=== PATIENT | male | born 1950 | race Caucasian/White ===

== ENCOUNTER 2016-12-08 12:07 | Observation (INO) | payer OTHER ==
[~2016-12-08] VITALS: Ht 180.3 cm; Wt 120.0 kg
[~2016-12-08 12:07] MED LIST: ACET-703 PO; ASPI-110 PO; BUSP5TAB PO; CARV3.12 PO; CARV6.252 PO; CITA20TA4 PO; CITA40TA4 PO; DIPH25CA PO; DOXY100C PO; FURO20TA PO; GABA600T PO; MECL-62 PO; OXYC1CAP PO; PANT40TA3 PO; SPIR50TA PO; XIFA550T4 PO
[2016-12-08 12:09] VITALS: BP 161/80; PULSE 61; RESP 16; TEMP 98.5; O2SAT 94
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
[2016-12-08] MEDS ORDERED: SODIUM CHLORIDE 0.9% FLUSH 5 ML FLUSH IV FLUSH PRN (13:15)
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
[2016-12-08] MEDS ORDERED: CITA40TA4 PO (13:32)
[2016-12-08] MEDS ORDERED: LACT10SO5 PO (13:32)
[2016-12-08] MEDS ORDERED: BUSP10TA PO (13:32)
[2016-12-08] MEDS ORDERED: BACL10TA PO (13:32)
[2016-12-08] MEDS ORDERED: GABA800T PO (13:32)
[2016-12-08] MEDS ORDERED: DIAZ5 PO (13:35)
[2016-12-08] MEDS ORDERED: HYDR-3288 PO (13:36)
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
[2016-12-08 13:57] LABS: AUTOMATED NEUTROPHIL # 8.3 TH/MM3 (1.8-7.7); BASOPHIL # 0.1 TH/MM3 (0-0.2); BASOPHIL % 0.5 % (0.0-2.0); EOSINOPHIL # 0.2 TH/MM3 (0-0.4); EOSINOPHIL % 1.6 % (0.0-4.0); HEMATOCRIT 41.2 % (39.0-51.0); HEMO FLAGS DIFF FINAL; LYMPH % 13.3 % (9.0-44.0); LYMPHOCYTE # 1.5 TH/MM3 (1.0-4.8); MEAN CELL VOLUME 94.1 FL (80.0-100.0); MEAN CORPUSCULAR HEMOGLOBIN 31.5 PG (27.0-34.0); MEAN CORPUSCULAR HGB CONC 33.5 % (32.0-36.0); MONO % 9.9 % (0.0-8.0); NEUT % 74.7 % (16.0-70.0); PLATELET COUNT 112 TH/MM3 (150-450); RED BLOOD COUNT 4.38 MIL/MM3 (4.50-5.90); RED CELL DISTRIBUTION WIDTH 14.3 % (11.6-17.2); WHITE BLOOD COUNT 11.2 TH/MM3 (4.0-11.0)
[2016-12-08 14:19] LABS: BLOOD, URINE NEG (NEG); COMMENT (UR) CATH-CULT NOT IND; CULTURE IF INDICATED CATH CULTURE NOT IND; GLUCOSE,URINE NEG (NEG); KETONE, URINE NEG (NEG); MUCUS URINE MOD /lpf (OCC); NITRITE,URINE NEG (NEG); PH, URINE 6.5 (5.0-8.5); URINE COLOR YELLOW (YELLW/STRAW)
[2016-12-08 14:21] LABS: ANION GAP 8 MEQ/L (5-15); AST (GOT) 30 U/L (15-37); BICARBONATE 26.3 MEQ/L (21.0-32.0); BLOOD UREA NITROGEN 20 MG/DL (7-18); CHLORIDE 107 MEQ/L (98-107); GLOMERULAR FILTRATION RATE 99 ML/MIN (>89); POTASSIUM 4.4 MEQ/L (3.5-5.1); SODIUM (NA) 141 MEQ/L (136-145)
[2016-12-08 14:25] LABS: ALKALINE PHOSPHATASE 89 U/L (45-117); ALT (GPT) 33 U/L (12-78); TOTAL BILIRUBIN ADULT 1.6 MG/DL (0.2-1.0)
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
[2016-12-08] MEDS ORDERED: ONDANSETRON HCL 4 MG/2 ML VIAL IVP PRN (18:15)
[2016-12-08] MEDS ORDERED: ACETAMINOPHEN 325 MG TAB PO PRN (18:15)
[2016-12-08] MEDS ORDERED: SODIUM CHLORIDE 0.9% FLUSH 10 ML FLUSH IV FLUSH PRN (18:15)
[2016-12-08] MEDS ORDERED: MAGNESIUM HYDROXIDE SUSP 30 ML CUP PO PRN (18:15)
[2016-12-08] MEDS ORDERED: NALOXONE HCL 0.4 MG/ML AMP IV PRN (18:15)
[2016-12-08 18:19] VITALS: BP 145/78; PULSE 70; RESP 16; TEMP 98.5; O2SAT 95
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
[2016-12-08] MEDS ORDERED: MECLIZINE HCL 25 MG TAB PO PRN (19:15)
[2016-12-08 19:34] VITALS: BP 163/70; PULSE 61; RESP 16; O2SAT 97
[2016-12-08] MEDS: LACTULOSE SYRUP 20 GM/30 ML CUP PO SCH (21:00)
[2016-12-08 21:14] VITALS: BP 174/77; PULSE 78; RESP 18; TEMP 97.2; O2SAT 98
[2016-12-08] MEDS ORDERED: busPIRone HCL 10 MG TAB PO ONE (23:15)
[2016-12-08] MEDS ORDERED: BACLOFEN 10 MG TAB PO ONE (23:15)
[2016-12-08] MEDS ORDERED: GABAPENTIN 400 MG CAP PO ONE (23:15)
[2016-12-08] MEDS ORDERED: ACETAMINOPHEN/HYDROcodone 325 MG/7.5 MG TAB PO ONE (23:15)
[2016-12-09 00:25] VITALS: BP 143/67; PULSE 66; RESP 17; TEMP 97.3; O2SAT 97
[2016-12-09] MEDS: LACTULOSE SYRUP 20 GM/30 ML CUP PO SCH ×2 (00:32→21:00)
[2016-12-09] MEDS: MUPIROCIN 2% OINT 22 GM TUBE TOPICAL SCH ×3 (00:39→23:25)
[2016-12-09] MEDS: SODIUM CHLORIDE 0.9% FLUSH 10 ML FLUSH IV FLUSH SCH ×3 (00:39→21:00)
[2016-12-09] MEDS ORDERED: LACTULOSE SYRUP 20 GM/30 ML CUP PO ONE (01:30)
[2016-12-09 03:47] VITALS: BP 147/67; PULSE 71; RESP 17; TEMP 97.3; O2SAT 97
[2016-12-09 06:53] LABS: AUTOMATED NEUTROPHIL # 4.6 TH/MM3 (1.8-7.7); BASOPHIL % 0.6 % (0.0-2.0); EOSINOPHIL # 0.1 TH/MM3 (0-0.4); EOSINOPHIL % 1.7 % (0.0-4.0); HEMATOCRIT 37.6 % (39.0-51.0); LYMPH % 18.1 % (9.0-44.0); LYMPHOCYTE # 1.2 TH/MM3 (1.0-4.8); MEAN CELL VOLUME 94.3 FL (80.0-100.0); MEAN CORPUSCULAR HEMOGLOBIN 31.3 PG (27.0-34.0); MEAN CORPUSCULAR HGB CONC 33.2 % (32.0-36.0); MONO % 10.8 % (0.0-8.0); NEUT % 68.8 % (16.0-70.0); PLATELET COUNT 72 TH/MM3 (150-450); RED BLOOD COUNT 3.99 MIL/MM3 (4.50-5.90); RED CELL DISTRIBUTION WIDTH 14.5 % (11.6-17.2); WHITE BLOOD COUNT 6.7 TH/MM3 (4.0-11.0)
[2016-12-09 07:00] LABS: HEMO FLAGS AUTO DIFF
[2016-12-09 07:13] LABS: ANION GAP 6 MEQ/L (5-15); AST (GOT) 37 U/L (15-37); BICARBONATE 24.6 MEQ/L (21.0-32.0); BLOOD UREA NITROGEN 20 MG/DL (7-18); CHLORIDE 109 MEQ/L (98-107); GLOMERULAR FILTRATION RATE 129 ML/MIN (>89); POTASSIUM 4.4 MEQ/L (3.5-5.1); SODIUM (NA) 140 MEQ/L (136-145)
[2016-12-09 07:14] LABS: ALT (GPT) 41 U/L (12-78)
[2016-12-09 07:16] LABS: ALKALINE PHOSPHATASE 105 U/L (45-117); TOTAL BILIRUBIN ADULT 0.9 MG/DL (0.2-1.0)
[2016-12-09 08:00] LABS: OVALOCYTES 1+ (NORMAL); PLATELET ESTIMATE SMEAR LOW (NORMAL); PLATELET MORPHOLOGY NORMAL (NORMAL); SCAN/DIFF AUTO DIFF CONFIRMED
[2016-12-09 08:03] VITALS: BP 172/77; PULSE 60; RESP 16; TEMP 97.4; O2SAT 96
[2016-12-09] MEDS: FUROSEMIDE 20 MG TAB PO SCH (08:29)
[2016-12-09] MEDS: BACLOFEN 10 MG TAB PO SCH ×3 (08:29→18:24)
[2016-12-09] MEDS: SPIRONOLACTONE 50 MG TAB PO SCH (08:29)
[2016-12-09] MEDS: PANTOPRAZOLE SOD 40 MG DELAYED RELEASE TAB PO SCH (08:29)
[2016-12-09] MEDS: GABAPENTIN 400 MG CAP PO SCH ×3 (08:29→18:24)
[2016-12-09] MEDS: CITALOPRAM HYDROBROMIDE 40 MG TAB PO SCH (08:29)
[2016-12-09] MEDS: CARVEDILOL 6.25 MG TAB PO SCH (08:30)
--- NOTE | 2016-12-09 09:06 | HHI.PR ---
Subjective Remarks Follow-up weakness/inability to care for self 12/09/16-patient seen and examined, no acute event overnight no report fall; stable Objective Vitals Vital Signs Date Time Temp Pulse Resp B/P Pulse Ox O2 Delivery O2 Flow Rate FiO2 12/09/16 08:03 97.4 60 16 172/77 96 12/09/16 03:47 97.3 71 17 147/67 97 12/09/16 00:25 97.3 66 17 143/67 97 12/08/16 21:14 97.2 78 18 174/77 98 12/08/16 19:34 61 16 163/70 97 Room Air 12/08/16 18:19 98.5 70 16 145/78 95 Room Air 12/08/16 12:44 56 18 12/08/16 12:09 98.5 61 16 161/80 94 Room Air I/O 12/08/16 12/08/16 12/08/16 12/09/16 12/09/16 12/09/16 07:00 15:00 23:00 07:00 15:00 23:00 Output Total 100 ml Balance -100 ml Output Urine Total 100 ml Result Diagram: 12/09/16 0607 12/09/16 0607 Imaging Last Impressions Head CT 12/08/16 0000 Signed Impressions: Service Date/Time: Thursday, December 08, 2016 14:20 - CONCLUSION: Unremarkable study. Jeffery Melvin MD Elbow X-Ray 12/08/16 0000 Signed Impressions: Service Date/Time: Thursday, December 08, 2016 13:10 - CONCLUSION: Unremarkable study. Jeffery Melvin MD Chest X-Ray 12/08/16 0000 Signed Impressions: Service Date/Time: Thursday, December 08, 2016 13:23 - CONCLUSION: No acute cardiopulmonary disease. Jeffery Melvin MD Objective Remarks GENERAL: NAD SKIN: Warm and dry. Dressing over left elbow injury HEAD: Normocephalic. EYES: No scleral icterus. No injection or drainage. NECK: Supple, trachea midline. No JVD or lymphadenopathy. CARDIOVASCULAR: Regular rate and rhythm without murmurs, gallops, or rubs. RESPIRATORY: Breath sounds equal bilaterally. No accessory muscle use. GASTROINTESTINAL: Abdomen soft, non-tender, nondistended. MUSCULOSKELETAL: No cyanosis, or edema. BACK: Nontender without obvious deformity. No CVA tenderness. A/P Problem List: (1) Frequent falls ICD Code: R29.6 Status: Acute (2) Weakness ICD Code: R53.1 Status: Acute Assessment and Plan 66-year-old man with Inability to care for self Frequent falls Weakness Head CT without any acute finding Place fall precaution PT to treat and eval hris manager consultation for disposition to snf Left elbow injury X-ray without any acute finding Bactroban ointment Daily dressing change Other chronic medical conditions including hypertension, hyperlipidemia, neuropathy, anxiety Continue outpatient medications DVT prophylaxis Bilateral SCDs Patient will be discharged to SNF pending evaluation from PT Justin Jacobson MD Dec 09, 2016 09:06
[2016-12-09 11:34] VITALS: BP 131/60; PULSE 60; RESP 14; TEMP 97.8; O2SAT 95
[2016-12-09] MEDS: busPIRone HCL 10 MG TAB PO SCH ×3 (11:53→18:24)
[2016-12-09 15:21] VITALS: BP 152/72; PULSE 60; RESP 14; TEMP 97.7; O2SAT 95
--- NOTE | 2016-12-09 17:09 | EKG ---
Date Performed: 12/08/2016 Time Performed: 12:28:25 PTAGE: 66 years EKG: SINUS BRADYCARDIA BORDERLINE ECG PREVIOUS TRACING : 04/07/2016 00.23 Compared to prior tracing no significant change DOCTOR: Rose Marie Joshua Interpretating Date/Time 12/09/2016 17:08:51
[2016-12-10 07:24] VITALS: BP 167/76; PULSE 65; RESP 16; TEMP 97.6; O2SAT 96
[2016-12-10] MEDS: BACLOFEN 10 MG TAB PO SCH ×3 (08:01→18:47)
[2016-12-10] MEDS: CITALOPRAM HYDROBROMIDE 40 MG TAB PO SCH (08:01)
[2016-12-10] MEDS: SPIRONOLACTONE 50 MG TAB PO SCH (08:01)
[2016-12-10] MEDS: PANTOPRAZOLE SOD 40 MG DELAYED RELEASE TAB PO SCH (08:01)
[2016-12-10] MEDS: CARVEDILOL 6.25 MG TAB PO SCH (08:01)
[2016-12-10] MEDS: LACTULOSE SYRUP 20 GM/30 ML CUP PO SCH ×2 (08:01→21:07)
[2016-12-10] MEDS: busPIRone HCL 10 MG TAB PO SCH ×3 (08:01→18:47)
[2016-12-10] MEDS: FUROSEMIDE 20 MG TAB PO SCH (08:01)
[2016-12-10] MEDS: SODIUM CHLORIDE 0.9% FLUSH 10 ML FLUSH IV FLUSH SCH ×2 (08:02→21:07)
[2016-12-10] MEDS: GABAPENTIN 400 MG CAP PO SCH ×3 (08:02→18:47)
[2016-12-10] MEDS: MUPIROCIN 2% OINT 22 GM TUBE TOPICAL SCH ×2 (08:02→21:07)
[2016-12-10 11:08] VITALS: BP 139/67; PULSE 67; RESP 16; TEMP 98.1; O2SAT 94
--- NOTE | 2016-12-10 13:10 | HHI.PR ---
Subjective Remarks Follow-up weakness/inability to care for self 12/09/16-patient seen and examined, no acute event overnight no report fall; stable 12/10/16-patient seen and examined; stable and no report of fall. Case discussed with immigration case worker regarding discharge disposition and Approval from [facility] is still pending Objective Vitals Vital Signs Date Time Temp Pulse Resp B/P Pulse Ox O2 Delivery O2 Flow Rate FiO2 12/10/16 11:08 98.1 67 16 139/67 94 12/10/16 07:24 97.6 65 16 167/76 96 12/09/16 15:21 97.7 60 14 152/72 95 Result Diagram: 12/09/1660612/09/16606 Objective Remarks GENERAL: NAD SKIN: Warm and dry. Dressing over left elbow injury HEAD: Normocephalic. EYES: No scleral icterus. No injection or drainage. NECK: Supple, trachea midline. No JVD or lymphadenopathy. CARDIOVASCULAR: Regular rate and rhythm without murmurs, gallops, or rubs. RESPIRATORY: Breath sounds equal bilaterally. No accessory muscle use. GASTROINTESTINAL: Abdomen soft, non-tender, nondistended. MUSCULOSKELETAL: No cyanosis, or edema. BACK: Nontender without obvious deformity. No CVA tenderness. A/P Problem List: (1) Frequent falls ICD Code: R29.6 Status: Acute (2) Weakness ICD Code: R53.1 Status: Acute Assessment and Plan 66-year-old man with Inability to care for self Frequent falls Weakness Head CT without any acute finding Place fall precaution PT to treat and eval management manager consultation for disposition to SNF; and awaiting decision from [facility] or possible approval to SNF Left elbow injury X-ray without any acute finding Bactroban ointment Daily dressing change Other chronic medical conditions including hypertension, hyperlipidemia, neuropathy, anxiety Continue outpatient medications DVT prophylaxis Bilateral SCDs Patient will be discharged to SNF pending approval from insurance company Justin Jacobson MD Dec 10, 2016 13:10
[2016-12-10] MEDS: ACETAMINOPHEN 325 MG TAB PO PRN (13:41)
[2016-12-10 15:48] VITALS: BP 137/71; PULSE 69; RESP 16; TEMP 97.7; O2SAT 96
[2016-12-10 19:58] VITALS: BP 142/72; PULSE 70; RESP 21; TEMP 98.8; O2SAT 95
[2016-12-11] VITALS: BP 138/74; PULSE 77; RESP 18; TEMP 97.8; O2SAT 96
[2016-12-11 08:09] VITALS: BP 172/72; PULSE 60; RESP 18; TEMP 97.8; O2SAT 98
--- NOTE | 2016-12-11 08:25 | HHI.PR ---
Subjective Remarks Follow-up for lower extremity weakness and failure to thrive. The patient complains of chronic bilateral feet numbness and tingling. Awaiting insurance authorization for SNF. Objective Vitals Vital Signs Date Time Temp Pulse Resp B/P Pulse Ox O2 Delivery O2 Flow Rate FiO2 12/11/16 08:09 97.8 60 18 172/72 98 12/11/16 00:00 97.8 77 18 138/74 96 12/10/16 19:58 98.8 70 21 142/72 95 12/10/16 15:48 97.7 69 16 137/71 96 12/10/16 11:08 98.1 67 16 139/67 94 I/O 12/10/16 12/10/16 12/10/16 12/11/16 12/11/16 12/11/16 07:00 15:00 23:00 07:00 15:00 23:00 Intake Total 450 ml Output Total 3 ml 300 ml Balance -3 ml 150 ml Intake Oral 450 ml Output Urine Total 3 ml 300 ml Result Diagram: 12/09/16 0607 12/09/16 0607 Imaging Last Impressions Head CT 12/08/16 0000 Signed Impressions: Service Date/Time: Thursday, December 08, 2016 14:20 - CONCLUSION: Unremarkable study. Jeffery Melvin MD Elbow X-Ray 12/08/16 0000 Signed Impressions: Service Date/Time: Thursday, December 08, 2016 13:10 - CONCLUSION: Unremarkable study. Jeffery Melvin MD Chest X-Ray 12/08/16 0000 Signed Impressions: Service Date/Time: Thursday, December 08, 2016 13:23 - CONCLUSION: No acute cardiopulmonary disease. Jeffery Melvin MD Objective Remarks GENERAL: Well-developed well-nourished. In no acute distress. SKIN: Warm and dry. Dressing over left elbow abrasion. HEENT: Normocephalic. Pupils equal and round. Mucous membranes pink and moist. CARDIOVASCULAR: Regular rate and rhythm. No murmur appreciated. RESPIRATORY: No accessory muscle use. Clear to auscultation. Breath sounds equal bilaterally. GASTROINTESTINAL: Abdomen soft, non-tender, nondistended. Bowel sounds x4. MUSCULOSKELETAL: No obvious deformities. No clubbing or cyanosis. No edema. NEUROLOGICAL: Awake and alert. No focal neurological deficits. Moves upper and lower extremities spontaneously. Normal speech. A/P Problem List: (1) Frequent falls ICD Code: R29.6 Status: Acute (2) Weakness ICD Code: R53.1 Status: Acute Assessment and Plan 66-year-old man with Inability to care for self Frequent falls Weakness Head CT without any acute finding Fall precautions PT consulted, recommends SNF income tax manager consultation for disposition to SNF; and awaiting decision from [facility] or possible approval to SNF Left elbow injury: S/P fall X-ray without any acute finding Bactroban ointment Daily dressing change Hypertension: Not well controlled. Continue carvedilol, furosemide, spironolactone. Add lisinopril, increase dose as needed. Other chronic medical conditions including hyperlipidemia, neuropathy, anxiety, cirrhosis: Stable at this time. Continue outpatient medications DVT prophylaxis Bilateral SCDs Discharge Planning The patient is discharged pending approval from insurance company for SNF. Ivan Waddell Dec 11, 2016 08:25
[2016-12-11] MEDS: SODIUM CHLORIDE 0.9% FLUSH 10 ML FLUSH IV FLUSH SCH ×2 (09:03→20:49)
[2016-12-11] MEDS: FUROSEMIDE 20 MG TAB PO SCH (09:04)
[2016-12-11] MEDS: CITALOPRAM HYDROBROMIDE 40 MG TAB PO SCH (09:04)
[2016-12-11] MEDS: BACLOFEN 10 MG TAB PO SCH ×3 (09:04→17:30)
[2016-12-11] MEDS: CARVEDILOL 6.25 MG TAB PO SCH (09:04)
[2016-12-11] MEDS: busPIRone HCL 10 MG TAB PO SCH ×3 (09:04→17:30)
[2016-12-11] MEDS: GABAPENTIN 400 MG CAP PO SCH ×3 (09:04→17:31)
[2016-12-11] MEDS: MUPIROCIN 2% OINT 22 GM TUBE TOPICAL SCH ×2 (09:05→20:49)
[2016-12-11] MEDS: PANTOPRAZOLE SOD 40 MG DELAYED RELEASE TAB PO SCH (09:05)
[2016-12-11] MEDS: LACTULOSE SYRUP 20 GM/30 ML CUP PO SCH ×3 (09:05→17:29)
[2016-12-11] MEDS: SPIRONOLACTONE 50 MG TAB PO SCH (09:05)
[2016-12-11 11:54] VITALS: BP 184/80; PULSE 62; RESP 14; TEMP 97.5; O2SAT 98
[2016-12-11] MEDS: LISINOPRIL 5 MG TAB PO SCH (17:30)
[2016-12-11] MEDS: ACETAMINOPHEN 325 MG TAB PO PRN (20:10)
[2016-12-11 20:13] VITALS: BP 180/81; PULSE 62; RESP 18; TEMP 98.3; O2SAT 96
[2016-12-11 23:32] VITALS: BP 164/78; PULSE 62; RESP 20; TEMP 97.9; O2SAT 96
[2016-12-12 04:22] VITALS: BP 160/75; PULSE 59; RESP 18; TEMP 98.1; O2SAT 96
[2016-12-12 07:34] VITALS: BP 160/69; PULSE 58; RESP 18; TEMP 97.9; O2SAT 97
[2016-12-12] MEDS: SPIRONOLACTONE 50 MG TAB PO SCH (08:28)
[2016-12-12] MEDS: LISINOPRIL 5 MG TAB PO SCH (08:28)
[2016-12-12] MEDS: GABAPENTIN 400 MG CAP PO SCH ×3 (08:28→18:31)
[2016-12-12] MEDS: PANTOPRAZOLE SOD 40 MG DELAYED RELEASE TAB PO SCH (08:28)
[2016-12-12] MEDS: CITALOPRAM HYDROBROMIDE 40 MG TAB PO SCH (08:28)
[2016-12-12] MEDS: CARVEDILOL 6.25 MG TAB PO SCH (08:28)
[2016-12-12] MEDS: busPIRone HCL 10 MG TAB PO SCH ×3 (08:28→18:31)
[2016-12-12] MEDS: BACLOFEN 10 MG TAB PO SCH ×3 (08:29→18:32)
[2016-12-12] MEDS: FUROSEMIDE 20 MG TAB PO SCH (08:29)
[2016-12-12] MEDS: SODIUM CHLORIDE 0.9% FLUSH 10 ML FLUSH IV FLUSH SCH ×2 (08:29→21:40)
[2016-12-12] MEDS: LACTULOSE SYRUP 20 GM/30 ML CUP PO SCH ×3 (08:29→18:00)
[2016-12-12] MEDS: MUPIROCIN 2% OINT 22 GM TUBE TOPICAL SCH ×2 (08:30→21:40)
--- NOTE | 2016-12-12 10:51 | HHI.PR ---
Subjective Remarks Follow-up for lower extremity weakness and failure to thrive. Discussed with case management, [place] denied authorization for SNF. Per report, denial was due to initial PT note stating the patient was moderate assist. It appears that PT reevaluation 12/11 stated the patient was maximum assist for transfers. The patient states that he lives alone and does not feel safe going home with frequent falls and inability to ambulate and would like to go to SNF. As patient lives alone and is requiring maximum assistance, he is unsafe for discharge home. The patient states that he did have an episode of loose stools after lactulose yesterday. He does understand that he needs to be on lactulose for elevated ammonia. He also states that he has been taking rifaximin for elevated ammonia at home. Objective Vitals Vital Signs Date Time Temp Pulse Resp B/P Pulse Ox O2 Delivery O2 Flow Rate FiO2 12/12/16 07:34 97.9 58 18 160/69 97 12/12/16 04:22 98.1 59 18 160/75 96 12/11/16 23:32 97.9 62 20 164/78 96 12/11/16 21:12 20 12/11/16 20:13 98.3 62 18 180/81 96 12/11/16 11:54 97.5 62 14 184/80 98 I/O 12/11/16 12/11/16 12/11/16 12/12/16 12/12/16 12/12/16 07:00 15:00 23:00 07:00 15:00 23:00 Intake Total 450 ml 802 ml Output Total 300 ml Balance 150 ml 802 ml Intake Oral 450 ml 800 ml IV Total 2 ml Output Urine Total 300 ml # Voids 6 6 # Bowel Movements 1 2 Result Diagram: 12/09/16 0607 12/09/16 0607 Imaging Last Impressions Head CT 12/08/16 0000 Signed Impressions: Service Date/Time: Thursday, December 08, 2016 14:20 - CONCLUSION: Unremarkable study. Jeffery Melvin MD Elbow X-Ray 12/08/16 0000 Signed Impressions: Service Date/Time: Thursday, December 08, 2016 13:10 - CONCLUSION: Unremarkable study. Jeffery Melvin MD Chest X-Ray 12/08/16 0000 Signed Impressions: Service Date/Time: Thursday, December 08, 2016 13:23 - CONCLUSION: No acute cardiopulmonary disease. Jeffery Melvin MD Objective Remarks GENERAL: Well-developed well-nourished. In no acute distress. SKIN: Warm and dry. Dressing over left elbow abrasion. HEENT: Normocephalic. Pupils equal and round. Mucous membranes pink and moist. CARDIOVASCULAR: Regular rate and rhythm. No murmur appreciated. RESPIRATORY: No accessory muscle use. Clear to auscultation. Breath sounds equal bilaterally. GASTROINTESTINAL: Abdomen soft, non-tender, nondistended. Bowel sounds x4. MUSCULOSKELETAL: No obvious deformities. No clubbing or cyanosis. Trace edema. NEUROLOGICAL: Awake and alert. No focal neurological deficits. Moves upper and lower extremities spontaneously. Normal speech. A/P Problem List: (1) Frequent falls ICD Code: R29.6 Status: Acute (2) Weakness ICD Code: R53.1 Status: Acute Assessment and Plan 66-year-old man with Inability to care for self Frequent falls Weakness Head CT without any acute finding Fall precautions PT consulted, patient required maximum assistance, recommends SNF, unsafe discharge home shopper insights manager consultation for disposition to SNF; initially denied by [employer] , will ask for reassessment Continue daily PT while admitted Left elbow injury: S/P fall X-ray without any acute finding Bactroban ointment Daily dressing change Hypertension: Not well controlled. Continue carvedilol, furosemide, spironolactone. Added lisinopril, increase dose Elevated ammonia with history of hepatic encephalopathy: Continue lactulose and titrate for 35 loose stools daily Resume rifaximin Other chronic medical conditions including hyperlipidemia, neuropathy, anxiety, cirrhosis: Stable at this time. Continue outpatient medications DVT prophylaxis Bilateral SCDs Discharge Planning The patient is medically stable for discharge to SNF. Based on current PT assessment, patient is unsafe for discharge home. Awaiting SNF approval. Ivan Waddell Dec 12, 2016 10:51
[2016-12-12 11:21] VITALS: BP 133/63; PULSE 59; RESP 18; TEMP 97.6; O2SAT 97
[2016-12-12] MEDS: RIFAXIMIN 550 MG TAB PO SCH ×2 (12:10→21:40)
[2016-12-12 15:46] VITALS: BP 138/65; PULSE 64; RESP 20; TEMP 97.9; O2SAT 96
[2016-12-12 20:18] VITALS: BP 141/64; PULSE 78; RESP 18; TEMP 97.9; O2SAT 94
[2016-12-12 23:25] VITALS: BP 160/75; PULSE 70; RESP 16; TEMP 96.1; O2SAT 97
[2016-12-13] VITALS (7 sets, daily range): BP systolic 140–172; BP diastolic 61–88; PULSE 54–83; RESP 16–18; TEMP 95.3–98.2; O2SAT 95–98
[2016-12-13] MEDS: LACTULOSE SYRUP 20 GM/30 ML CUP PO SCH ×3 (08:23→17:06)
[2016-12-13] MEDS: LISINOPRIL 10 MG TAB PO SCH (08:24)
[2016-12-13] MEDS: CARVEDILOL 6.25 MG TAB PO SCH (08:24)
[2016-12-13] MEDS: CITALOPRAM HYDROBROMIDE 40 MG TAB PO SCH (08:24)
[2016-12-13] MEDS: GABAPENTIN 400 MG CAP PO SCH ×3 (08:24→17:06)
[2016-12-13] MEDS: BACLOFEN 10 MG TAB PO SCH ×3 (08:24→17:06)
[2016-12-13] MEDS: FUROSEMIDE 20 MG TAB PO SCH (08:24)
[2016-12-13] MEDS: PANTOPRAZOLE SOD 40 MG DELAYED RELEASE TAB PO SCH (08:24)
[2016-12-13] MEDS: SODIUM CHLORIDE 0.9% FLUSH 10 ML FLUSH IV FLUSH SCH ×2 (08:25→20:08)
[2016-12-13] MEDS: MUPIROCIN 2% OINT 22 GM TUBE TOPICAL SCH ×2 (11:50→20:09)
[2016-12-13] MEDS: RIFAXIMIN 550 MG TAB PO SCH ×2 (11:50→20:08)
[2016-12-13] MEDS: busPIRone HCL 10 MG TAB PO SCH ×3 (11:50→17:06)
[2016-12-13] MEDS: SPIRONOLACTONE 50 MG TAB PO SCH (11:51)
--- NOTE | 2016-12-13 11:58 | HHI.PR ---
Subjective Remarks The patient was sitting in a chair. He had no acute complaints at this time. His family was at the bedside. Their questions were answered. The patient says that he has chronic neuropathy and the gabapentin works well. He worked with physical therapy earlier today. Discussed with nursing and case management. Objective Vitals Vital Signs Date Time Temp Pulse Resp B/P Pulse Ox O2 Delivery O2 Flow Rate FiO2 12/13/16 08:00 95.3 54 18 172/88 95 12/13/16 04:00 96.0 67 16 143/72 96 12/12/16 23:25 96.1 70 16 160/75 97 12/12/16 20:18 97.9 78 18 141/64 94 12/12/16 15:46 97.9 64 20 138/65 96 I/O 12/12/16 12/12/16 12/12/16 12/13/16 12/13/16 12/13/16 07:00 15:00 23:00 07:00 15:00 23:00 Intake Total 802 ml 240 ml Balance 802 ml 240 ml Intake Oral 800 ml 240 ml IV Total 2 ml # Voids 6 2 # Bowel Movements 2 Result Diagram: 12/09/16 0607 12/09/16 0607 Imaging Last Impressions Head CT 12/08/16 0000 Signed Impressions: Service Date/Time: Thursday, December 08, 2016 14:20 - CONCLUSION: Unremarkable study. Jeffery Melvin MD Elbow X-Ray 12/08/16 0000 Signed Impressions: Service Date/Time: Thursday, December 08, 2016 13:10 - CONCLUSION: Unremarkable study. Jeffery Melvin MD Chest X-Ray 12/08/16 0000 Signed Impressions: Service Date/Time: Thursday, December 08, 2016 13:23 - CONCLUSION: No acute cardiopulmonary disease. Jeffery Melvin MD Objective Remarks GENERAL: Well-developed well-nourished. In no acute distress. SKIN: Warm and dry. Dressing over left elbow abrasion. HEENT: Normocephalic. Pupils equal and round. Mucous membranes pink and moist. CARDIOVASCULAR: Regular rate and rhythm. No murmur appreciated. RESPIRATORY: No accessory muscle use. Clear to auscultation. Breath sounds equal bilaterally. GASTROINTESTINAL: Abdomen soft, non-tender, nondistended. Bowel sounds x4. MUSCULOSKELETAL: No obvious deformities. No clubbing or cyanosis. Trace edema. NEUROLOGICAL: Awake and alert. No focal neurological deficits. Moves upper and lower extremities spontaneously. Normal speech. PSYCH: Mood and affect appropriate. Medications and IVs Current Medications Medications (Trade) Dose Ordered Sig/Kane Route Start Time Stop Time Status Last Admin (NS Flush) 2 ml UNSCH PRN IV FLUSH 12/08/16 18:15 (NS Flush) 2 ml BID IV FLUSH 12/08/16 21:00 12/13/16 08:25 (Tylenol) 650 mg Q4H PRN PO 12/08/16 18:15 12/11/16 20:10 (Zofran Inj) 4 mg Q6H PRN IVP 12/08/16 18:15 (Tylenol) 650 mg Q6H PRN PO 12/08/16 18:15 (Narcan Inj) 0.4 mg UNSCH PRN IV 12/08/16 18:15 (Milk Of Magnesia Liq) 30 ml Q12H PRN PO 12/08/16 18:15 (Lioresal) 10 mg TID PO 12/09/16 09:00 12/13/16 11:50 (Buspar) 10 mg TID PO 12/09/16 09:00 12/13/16 11:50 (Coreg) 6.25 mg DAILY PO 12/09/16 09:00 12/13/16 08:24 (CeleXA) 40 mg DAILY PO 12/09/16 09:00 12/13/16 08:24 (Lasix) 20 mg DAILY PO 12/09/16 09:00 12/13/16 08:24 (Neurontin) 800 mg TID PO 12/09/16 09:00 12/13/16 11:50 (Antivert) 25 mg DAILY PRN PO 12/08/16 19:15 (Protonix) 40 mg DAILY PO 12/09/16 09:00 12/13/16 08:24 (Aldactone) 50 mg DAILY PO 12/09/16 09:00 12/13/16 11:51 (Bactroban 2% Oint) 1 applic Q12HR TOPICAL 12/08/16 21:00 12/13/16 11:50 (Lactulose Liq) 30 ml TID PO 12/11/16 09:00 12/13/16 11:50 (Prinivil) 10 mg DAILY PO 12/13/16 09:00 12/13/16 08:24 (Xifaxan) 550 mg BID PO 12/12/16 10:45 12/13/16 11:50 A/P Problem List: (1) Frequent falls ICD Code: R29.6 Status: Acute (2) Weakness ICD Code: R53.1 Status: Acute Assessment and Plan Inability to care for self/ Frequent falls/ Weakness Head CT without any acute finding. UA and CXR without evidence for infection. - Fall precautions - PT consulted, patient required maximum assistance, recommends SNF, unsafe discharge home - venue manager consultation for disposition to SNF; initially denied by [employer]. - check TSH and B12 levels. Left elbow injury S/P fall. X-ray without any acute finding. Healing well. - Bactroban ointment. - Daily dressing change. Hypertension Not well controlled. - Continue carvedilol, furosemide, spironolactone. - Added lisinopril, increase dose as needed. Elevated ammonia With history of hepatic encephalopathy. - Continue lactulose and titrate for 34 loose stools daily. - Resume rifaximin. Thrombocytopenia Likely s/t underlying liver disease. - follow CBC as needed. DVT prophylaxis Bilateral SCDs Discharge Planning Awaiting placement Devang Barnes DO Dec 13, 2016 11:58
[2016-12-13 22:08] LABS: HEMATOCRIT 43.5 % (39.0-51.0); MEAN CELL VOLUME 95.6 FL (80.0-100.0); MEAN CORPUSCULAR HEMOGLOBIN 31.8 PG (27.0-34.0); MEAN CORPUSCULAR HGB CONC 33.2 % (32.0-36.0); PLATELET COUNT 124 TH/MM3 (150-450); RED BLOOD COUNT 4.55 MIL/MM3 (4.50-5.90); REVIEW FLAG FINAL; WHITE BLOOD COUNT 14.7 TH/MM3 (4.0-11.0)
[2016-12-13 22:28] LABS: BICARBONATE 26.1 MEQ/L (21.0-32.0); POTASSIUM 4.4 MEQ/L (3.5-5.1)
[2016-12-14] VITALS (10 sets, daily range): BP systolic 135–168; BP diastolic 60–80; PULSE 61–109; RESP 16–18; TEMP 95.7–97.8; O2SAT 95–98
[2016-12-14 07:46] LABS: MEAN CELL VOLUME 94.6 FL (80.0-100.0); MEAN CORPUSCULAR HEMOGLOBIN 32.4 PG (27.0-34.0); MEAN CORPUSCULAR HGB CONC 34.3 % (32.0-36.0); PLATELET COUNT 89 TH/MM3 (150-450); RED BLOOD COUNT 4.44 MIL/MM3 (4.50-5.90); RED CELL DISTRIBUTION WIDTH 14.9 % (11.6-17.2)
[2016-12-14 07:51] LABS: REVIEW FLAG FINAL
[2016-12-14 08:08] LABS: BICARBONATE 25.2 MEQ/L (21.0-32.0); POTASSIUM 4.5 MEQ/L (3.5-5.1)
[2016-12-14] MEDS: CITALOPRAM HYDROBROMIDE 40 MG TAB PO SCH (09:59)
[2016-12-14] MEDS: busPIRone HCL 10 MG TAB PO SCH ×3 (09:59→17:30)
[2016-12-14] MEDS: PANTOPRAZOLE SOD 40 MG DELAYED RELEASE TAB PO SCH (09:59)
[2016-12-14] MEDS: BACLOFEN 10 MG TAB PO SCH ×3 (09:59→17:30)
[2016-12-14] MEDS: LISINOPRIL 10 MG TAB PO SCH (09:59)
[2016-12-14] MEDS: SPIRONOLACTONE 50 MG TAB PO SCH (09:59)
[2016-12-14] MEDS: CARVEDILOL 6.25 MG TAB PO SCH (09:59)
[2016-12-14] MEDS: SODIUM CHLORIDE 0.9% FLUSH 10 ML FLUSH IV FLUSH SCH ×2 (09:59→21:07)
[2016-12-14] MEDS: RIFAXIMIN 550 MG TAB PO SCH ×2 (09:59→21:08)
[2016-12-14] MEDS: FUROSEMIDE 20 MG TAB PO SCH (09:59)
[2016-12-14] MEDS: GABAPENTIN 400 MG CAP PO SCH ×3 (09:59→21:07)
[2016-12-14] MEDS: LACTULOSE SYRUP 20 GM/30 ML CUP PO SCH ×3 (10:00→17:30)
[2016-12-14] MEDS: MUPIROCIN 2% OINT 22 GM TUBE TOPICAL SCH ×2 (10:00→21:08)
--- NOTE | 2016-12-14 16:19 | HHI.PR ---
Subjective Remarks The pt feels like he didn't get his gabapentin last night. He said he tried getting to the bathroom last night on his own and fell. He said he hit his elbow and did not hit his head. He has had two bowel movements so far today. Tolerating a diet. Objective Vitals Vital Signs Date Time Temp Pulse Resp B/P Pulse Ox O2 Delivery O2 Flow Rate FiO2 12/14/16 12:00 95.7 74 18 144/68 95 12/14/16 09:30 96.5 67 18 168/71 98 12/14/16 08:00 97.0 109 18 148/63 96 12/14/16 05:30 96.7 61 16 149/72 97 12/14/16 04:00 96.7 61 16 149/72 97 12/14/16 01:30 96.6 66 16 157/80 98 12/13/16 23:30 96.1 61 18 151/81 97 12/13/16 22:30 98.2 70 18 148/72 98 12/13/16 21:30 98.0 68 18 152/72 98 I/O 12/13/16 12/13/16 12/13/16 12/14/16 12/14/16 12/14/16 07:00 15:00 23:00 07:00 15:00 23:00 Intake Total 240 ml 600 ml 480 ml Balance 240 ml 600 ml 480 ml Intake Oral 240 ml 600 ml 480 ml # Voids 2 6 6 # Bowel Movements 4 0 Result Diagram: 12/14/16 0712/14/16 0705 Imaging Last Impressions Head CT 12/08/16 0000 Signed Impressions: Service Date/Time: Thursday, December 08, 2016 14:20 - CONCLUSION: Unremarkable study. Jeffery Melvin MD Elbow X-Ray 12/08/16 0000 Signed Impressions: Service Date/Time: Thursday, December 08, 2016 13:10 - CONCLUSION: Unremarkable study. Jeffery Melvin MD Chest X-Ray 12/08/16 0000 Signed Impressions: Service Date/Time: Thursday, December 08, 2016 13:23 - CONCLUSION: No acute cardiopulmonary disease. Jeffery Melvin MD Objective Remarks GENERAL: Well-developed well-nourished. In no acute distress. SKIN: Warm and dry. Dressing over left elbow abrasion. HEENT: Normocephalic. Pupils equal and round. Mucous membranes pink and moist. CARDIOVASCULAR: Regular rate and rhythm. No murmur appreciated. RESPIRATORY: No accessory muscle use. Clear to auscultation. Breath sounds equal bilaterally. GASTROINTESTINAL: Abdomen soft, non-tender, nondistended. Bowel sounds x4. MUSCULOSKELETAL: No obvious deformities. No clubbing or cyanosis. Trace edema. NEUROLOGICAL: Awake and alert. No focal neurological deficits. Moves upper and lower extremities spontaneously. Normal speech. PSYCH: Mood and affect appropriate. Medications and IVs Current Medications Medications (Trade) Dose Ordered Sig/Kane Route Start Time Stop Time Status Last Admin (NS Flush) 2 ml UNSCH PRN IV FLUSH 12/08/16 18:15 (NS Flush) 2 ml BID IV FLUSH 12/08/16 21:00 12/14/16 09:59 (Tylenol) 650 mg Q4H PRN PO 12/08/16 18:15 12/11/16 20:10 (Zofran Inj) 4 mg Q6H PRN IVP 12/08/16 18:15 (Tylenol) 650 mg Q6H PRN PO 12/08/16 18:15 (Narcan Inj) 0.4 mg UNSCH PRN IV 12/08/16 18:15 (Milk Of Magnesia Liq) 30 ml Q12H PRN PO 12/08/16 18:15 (Lioresal) 10 mg TID PO 12/09/16 09:00 12/14/16 13:10 (Buspar) 10 mg TID PO 12/09/16 09:00 12/14/16 13:10 (Coreg) 6.25 mg DAILY PO 12/09/16 09:00 12/14/16 09:59 (CeleXA) 40 mg DAILY PO 12/09/16 09:00 12/14/16 09:59 (Lasix) 20 mg DAILY PO 12/09/16 09:00 12/14/16 09:59 (Neurontin) 800 mg TID PO 12/09/16 09:00 12/14/16 13:10 (Antivert) 25 mg DAILY PRN PO 12/08/16 19:15 (Protonix) 40 mg DAILY PO 12/09/16 09:00 12/14/16 09:59 (Aldactone) 50 mg DAILY PO 12/09/16 09:00 12/14/16 09:59 (Bactroban 2% Oint) 1 applic Q12HR TOPICAL 12/08/16 21:00 12/14/16 10:00 (Lactulose Liq) 30 ml TID PO 12/11/16 09:00 12/13/16 11:50 (Prinivil) 10 mg DAILY PO 12/13/16 09:00 12/14/16 09:59 (Xifaxan) 550 mg BID PO 12/12/16 10:45 12/14/16 09:59 A/P Problem List: (1) Frequent falls ICD Code: R29.6 Status: Acute (2) Weakness ICD Code: R53.1 Status: Acute Assessment and Plan Inability to care for self/ Frequent falls/ Weakness Head CT without any acute finding. UA and CXR without evidence for infection. TSH and B12 levels WNL. - Fall precautions - PT consulted, patient required maximum assistance, recommends SNF, unsafe discharge home - flight manager consultation for disposition to SNF; initially denied by [employer]. - bed alarm. Left elbow injury S/P fall. X-ray without any acute finding. Healing well. - Bactroban ointment. - Daily dressing change. Hypertension Not well controlled. - Continue carvedilol, furosemide, spironolactone. - Added lisinopril, increase dose as needed. Elevated ammonia With history of hepatic encephalopathy. - Continue lactulose and titrate for 34 loose stools daily. - Resume rifaximin. Thrombocytopenia Likely s/t underlying liver disease. - follow CBC as needed. Neuropathy The pt is on gabapentin. - continue current dose and increase if needed. DVT prophylaxis Bilateral SCDs Discharge Planning Awaiting placement Devang Barnes DO Dec 14, 2016 16:19
[2016-12-15] VITALS: BP 138/66; PULSE 72; RESP 17; TEMP 97.4; O2SAT 95
[2016-12-15 04:00] VITALS: BP 151/69; PULSE 67; RESP 16; TEMP 96.2; O2SAT 94
[2016-12-15] MEDS: GABAPENTIN 400 MG CAP PO SCH ×2 (05:58→13:44)
[2016-12-15 08:00] VITALS: BP 158/80; PULSE 63; RESP 18; TEMP 96.1; O2SAT 98
[2016-12-15] MEDS: LISINOPRIL 10 MG TAB PO SCH (09:48)
[2016-12-15] MEDS: CARVEDILOL 6.25 MG TAB PO SCH (09:48)
[2016-12-15] MEDS: SPIRONOLACTONE 50 MG TAB PO SCH (09:48)
[2016-12-15] MEDS: CITALOPRAM HYDROBROMIDE 40 MG TAB PO SCH (09:48)
[2016-12-15] MEDS: RIFAXIMIN 550 MG TAB PO SCH (09:48)
[2016-12-15] MEDS: PANTOPRAZOLE SOD 40 MG DELAYED RELEASE TAB PO SCH (09:48)
[2016-12-15] MEDS: BACLOFEN 10 MG TAB PO SCH ×2 (09:48→13:50)
[2016-12-15] MEDS: busPIRone HCL 10 MG TAB PO SCH ×2 (09:49→13:44)
[2016-12-15] MEDS: SODIUM CHLORIDE 0.9% FLUSH 10 ML FLUSH IV FLUSH SCH (09:49)
[2016-12-15] MEDS: FUROSEMIDE 20 MG TAB PO SCH (09:49)
[2016-12-15] MEDS: LACTULOSE SYRUP 20 GM/30 ML CUP PO SCH ×2 (09:49→13:45)
[2016-12-15] MEDS: MUPIROCIN 2% OINT 22 GM TUBE TOPICAL SCH (09:50)
[2016-12-15 12:00] VITALS: BP 151/67; PULSE 82; RESP 18; TEMP 96.2; O2SAT 98
--- NOTE | 2016-12-15 13:40 | HHI.PR ---
Subjective Remarks The patient states that he has calluses on his feet that he has been following with a hydro electric station operator. He says they are hurting at this time. He says he has Band- Aids in place. He has had 2 bowel movements so far today. He has been tolerating a diet. He has been ambulating. Discussed with nursing. He wanted to know what the status of his rehabilitation authorization was. Objective Vitals Vital Signs Date Time Temp Pulse Resp B/P Pulse Ox O2 Delivery O2 Flow Rate FiO2 12/15/16 12:00 96.2 82 18 151/67 98 12/15/16 08:00 96.1 63 18 158/80 98 12/15/16 04:00 96.2 67 16 151/69 94 12/15/16 00:00 97.4 72 17 138/66 95 12/14/16 21:30 97.8 72 17 142/79 95 12/14/16 17:30 97.1 77 18 135/60 96 12/14/16 16:00 95.9 68 18 143/61 95 I/O 12/14/16 12/14/16 12/14/16 12/15/16 12/15/16 12/15/16 07:00 15:00 23:00 07:00 15:00 23:00 Intake Total 480 ml 960 ml 480 ml 240 ml Balance 480 ml 960 ml 480 ml 240 ml Intake Oral 480 ml 960 ml 480 ml 240 ml # Voids 6 6 4 6 # Bowel Movements 0 1 0 0 Result Diagram: 12/14/16 0705 12/14/16 0705 Imaging Last Impressions Head CT 12/08/16 0000 Signed Impressions: Service Date/Time: Thursday, December 08, 2016 14:20 - CONCLUSION: Unremarkable study. Jeffery Melvin MD Elbow X-Ray 12/08/16 0000 Signed Impressions: Service Date/Time: Thursday, December 08, 2016 13:10 - CONCLUSION: Unremarkable study. Jeffery Melvin MD Chest X-Ray 12/08/16 0000 Signed Impressions: Service Date/Time: Thursday, December 08, 2016 13:23 - CONCLUSION: No acute cardiopulmonary disease. Jeffery Melvin MD Objective Remarks GENERAL: Well-developed well-nourished. In no acute distress. SKIN: Warm and dry. Dressing over left elbow abrasion. HEENT: Normocephalic. Pupils equal and round. Mucous membranes pink and moist. CARDIOVASCULAR: Regular rate and rhythm. No murmur appreciated. RESPIRATORY: No accessory muscle use. Clear to auscultation. Breath sounds equal bilaterally. GASTROINTESTINAL: Abdomen soft, non-tender, nondistended. Bowel sounds x4. MUSCULOSKELETAL: No clubbing or cyanosis. Trace edema. Plantar calluses noted, somewhat tender to palpation. NEUROLOGICAL: Awake and alert. No focal neurological deficits. Moves upper and lower extremities spontaneously. Normal speech. PSYCH: Mood and affect appropriate. Medications and IVs Current Medications Medications (Trade) Dose Ordered Sig/Kane Route Start Time Stop Time Status Last Admin (NS Flush) 2 ml UNSCH PRN IV FLUSH 12/08/16 18:15 (NS Flush) 2 ml BID IV FLUSH 12/08/16 21:00 12/15/16 09:49 (Tylenol) 650 mg Q4H PRN PO 12/08/16 18:15 12/11/16 20:10 (Zofran Inj) 4 mg Q6H PRN IVP 12/08/16 18:15 (Tylenol) 650 mg Q6H PRN PO 12/08/16 18:15 (Narcan Inj) 0.4 mg UNSCH PRN IV 12/08/16 18:15 (Milk Of Magnesia Liq) 30 ml Q12H PRN PO 12/08/16 18:15 (Lioresal) 10 mg TID PO 12/09/16 09:00 12/15/16 09:48 (Buspar) 10 mg TID PO 12/09/16 09:00 12/15/16 09:49 (Coreg) 6.25 mg DAILY PO 12/09/16 09:00 12/15/16 09:48 (CeleXA) 40 mg DAILY PO 12/09/16 09:00 12/15/16 09:48 (Lasix) 20 mg DAILY PO 12/09/16 09:00 12/15/16 09:49 (Antivert) 25 mg DAILY PRN PO 12/08/16 19:15 (Protonix) 40 mg DAILY PO 12/09/16 09:00 12/15/16 09:48 (Aldactone) 50 mg DAILY PO 12/09/16 09:00 12/15/16 09:48 (Bactroban 2% Oint) 1 applic Q12HR TOPICAL 12/08/16 21:00 12/15/16 09:50 (Lactulose Liq) 30 ml TID PO 12/11/16 09:00 12/15/16 09:49 (Prinivil) 10 mg DAILY PO 12/13/16 09:00 12/15/16 09:48 (Xifaxan) 550 mg BID PO 12/12/16 10:45 12/15/16 09:48 (Neurontin) 800 mg Q8H PO 12/14/16 21:00 12/15/16 05:58 A/P Problem List: (1) Frequent falls ICD Code: R29.6 Status: Acute (2) Weakness ICD Code: R53.1 Status: Acute Assessment and Plan Inability to care for self/ Frequent falls/ Weakness Head CT without any acute finding. UA and CXR without evidence for infection. TSH and B12 levels WNL. - Fall precautions - PT consulted, patient required maximum assistance, recommends SNF, unsafe discharge home - information technology security manager consultation for disposition to SNF; initially denied by [facility]. Currently reviewing. - bed alarm. Left elbow injury S/P fall. X-ray without any acute finding. Healing well. - Bactroban ointment. - Daily dressing change. Hypertension Not well controlled. - Continue carvedilol, furosemide, spironolactone. - Added lisinopril, increase to 20 mg daily and adjust dose as needed. Elevated ammonia With history of hepatic encephalopathy. Mentation is now stable. - Continue lactulose and titrate for 34 loose stools daily. - Resume rifaximin. Thrombocytopenia Likely s/t underlying liver disease. - follow CBC as needed. Neuropathy The pt is on gabapentin. He also has chronic calluses on his feet. - continue current dose of gabapentin and increase if needed. - outpt follow-up with podiatry. DVT prophylaxis Bilateral SCDs Discharge Planning Awaiting placement Devang Barnes DO Dec 15, 2016 13:40
[2016-12-15] MEDS ORDERED: LISINOPRIL 10 MG TAB PO ONE (13:45)
[2016-12-15] MEDS ORDERED: XIFA550T4 PO (15:15)
[2016-12-15] MEDS ORDERED: LISI-515 PO (15:15)
--- NOTE | 2016-12-15 15:17 | HHI.DCPOC ---
Discharge Care Plan Diagnosis: (1) Frequent falls (2) Weakness (3) Skin tear of left upper extremity (4) Ambulatory dysfunction (5) Cirrhosis (6) [place] or callus (7) Hepatic encephalopathy Goals to Promote Your Health * To prevent worsening of your condition and complications * To maintain your health at the optimal level Directions to Meet Your Goals Take your medications as prescribed Follow your dietary instruction Follow activity as directed Keep your appointments as scheduled Take your immunizations and boosters as scheduled If your symptoms worsen call your PCP, if no PCP go to Urgent Care Center or Emergency Room Smoking is Dangerous to Your Health. Avoid second hand smoke Call the 24-hour hour crisis hotline for domestic abuse at Devang Barnes DO Dec 15, 2016 15:17
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
[2016-12-15 16:00] VITALS: BP 142/73; PULSE 66; RESP 18; TEMP 95.5; O2SAT 98
[2016-12-16] MEDS ORDERED: LISINOPRIL 20 MG TAB PO SCH (09:00)
== END 2016-12-15 18:11 ==
LOC: NEPD 12:07 → NEDA 18:06 → NEPFCDU 20:58 → N06A 12-12 23:18
PROVIDERS: ADMIT Internal Medicine; ATTEND Internal Medicine
DX: R53.1 Weakness (principal); R29.6 Repeated falls; S41.112A Laceration without foreign body of left upper arm, initial encounter; K74.60 Unspecified cirrhosis of liver; K72.90 Hepatic failure, unspecified without coma; D69.6 Thrombocytopenia, unspecified; L84 Corns and callosities; I10 Essential (primary) hypertension; G62.9 Polyneuropathy, unspecified; Z79.899 Other long term (current) drug therapy; V00.831A Fall from motorized mobility scooter, initial encounter; Y92.014 Private driveway to single-family (private) house as the place of occurrence of the external cause
CPT/HCPCS: 70450; 71010; 73070; 80048; 80053; 81001; 82140; 82607; 83735; 84443; 85025; 85027; 93005; 97110; 97116; 97163; 97530; 99285; G0378; G8987; G8988

== ENCOUNTER 2016-12-29 04:25 | Emergency (ER) | payer OTHER, MEDICAID ==
[~2016-12-29] VITALS: Ht 180.3 cm; Wt 90.0 kg
[~2016-12-29 04:25] MED LIST changes: -ACET-703 PO; -ASPI-110 PO; +BACL10TA PO; +BUSP10TA PO; -BUSP5TAB PO; -CARV3.12 PO; -CITA20TA4 PO; -DIPH25CA PO; -DOXY100C PO; -GABA600T PO; +GABA800T PO; +LACT10SO5 PO; +LISI-515 PO; -OXYC1CAP PO
[2016-12-29 04:27] VITALS: BP 162/68; PULSE 94; RESP 18; O2SAT 98
[2016-12-29 04:47] VITALS: O2SAT 96
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
[2016-12-29 05:01] LABS: AUTOMATED NEUTROPHIL # 17.3 TH/MM3 (1.8-7.7); BASOPHIL % 0.2 % (0.0-2.0); EOSINOPHIL # 0.2 TH/MM3 (0-0.4); EOSINOPHIL % 1.2 % (0.0-4.0); HEMATOCRIT 40.5 % (39.0-51.0); HEMO FLAGS DIFF FINAL; LYMPH % 7.9 % (9.0-44.0); LYMPHOCYTE # 1.6 TH/MM3 (1.0-4.8); MEAN CELL VOLUME 96.5 FL (80.0-100.0); MEAN CORPUSCULAR HEMOGLOBIN 32.9 PG (27.0-34.0); MEAN CORPUSCULAR HGB CONC 34.1 % (32.0-36.0); MONO % 7.1 % (0.0-8.0); NEUT % 83.6 % (16.0-70.0); PLATELET COUNT 123 TH/MM3 (150-450); WHITE BLOOD COUNT 20.7 TH/MM3 (4.0-11.0)
[2016-12-29 05:13] LABS: APTT (PATIENT) 27.6 SEC (24.3-30.1); INTERNATIONAL NORMALIZED RATIO 1.1 RATIO; PROTHROMBIN TIME - PATIENT 11.9 SEC (9.8-11.6)
[2016-12-29 05:20] LABS: ALT (GPT) 62 U/L (12-78); ANION GAP 8 MEQ/L (5-15); AST (GOT) 40 U/L (15-37); BICARBONATE 23.4 MEQ/L (21.0-32.0); BLOOD UREA NITROGEN 54 MG/DL (7-18); CHLORIDE 111 MEQ/L (98-107); GLOMERULAR FILTRATION RATE 44 ML/MIN (>89); POTASSIUM 4.6 MEQ/L (3.5-5.1); SODIUM (NA) 142 MEQ/L (136-145)
[2016-12-29 05:22] LABS: ALKALINE PHOSPHATASE 133 U/L (45-117); TOTAL BILIRUBIN ADULT 1.1 MG/DL (0.2-1.0)
--- NOTE | 2016-12-29 05:30 | RADRPT ---
EXAM DATE/TIME: 12/29/2016 05:03 [facility] COMPARISON: CT BRAIN W/O CONTRAST, December 08, 2016, 14:20. INDICATIONS : Trauma, fall. Altered mental status. RADIATION DOSE: 56.35 CTDIvol (mGy) MEDICAL HISTORY : Myocardial infarction. Gastroesophageal reflux disease. Cirrhosis.Hypertension. Diabetes. Skin cancer . SURGICAL HISTORY : Coronary stent. ENCOUNTER: Initial ACUITY: 1 day PAIN SCALE: 0/10 LOCATION: cranial TECHNIQUE: Multiple contiguous axial images were obtained of the head. Using automated exposure control and adj ustment of the mA and/or kV according to patient size, radiation dose was kept as low as reasonably a chievable to obtain optimal diagnostic quality images. DICOM format image data is available electro nically for review and comparison. FINDINGS: CEREBRUM: The ventricles are normal for age. No evidence of midline shift, mass lesion, hemorrhage or acute in farction. No extra-axial fluid collections are seen. POSTERIOR FOSSA: The cerebellum and brainstem are intact. The 4th ventricle is midline. The cerebellopontine angle i s unremarkable. EXTRACRANIAL: The visualized portion of the orbits is intact. SKULL: The calvaria is intact. No evidence of skull fracture. CONCLUSION: Negative non-contrast with all CT. Devang Hinkle MD on December 29, 2016 at 5:28 Board Certified Radiologist. This report was verified electronically.
--- NOTE | 2016-12-29 05:36 | RADRPT ---
EXAM DATE/TIME: 12/29/2016 04:45 [facility] COMPARISON: CHEST SINGLE AP, December 08, 2016, 13:23. INDICATIONS : Fall. chest pain. MEDICAL HISTORY : Myocardial infarction. SURGICAL HISTORY : Coronary artery stent. ENCOUNTER: Initial ACUITY: 1 day PAIN SCORE: 0/10 LOCATION: Bilateral chest FINDINGS: A single view of the chest demonstrates the lungs to be symmetrically aerated without evidence of mas s, infiltrate or effusion. The cardiomediastinal contours are unremarkable. Osseous structures are intact. CONCLUSION: No acute disease. Devang Hinkle MD on December 29, 2016 at 5:34 Board Certified Radiologist. This report was verified electronically.
--- NOTE | 2016-12-29 05:36 | RADRPT ---
EXAM DATE/TIME: 12/29/2016 04:51 [facility] COMPARISON: No previous studies available for comparison. INDICATIONS : Fall, pelvic pain. MEDICAL HISTORY : None. SURGICAL HISTORY : None. ENCOUNTER: Initial ACUITY: 1 day PAIN SCORE: 0/10 LOCATION: Bilateral pelvis FINDINGS: 2 AP views of the pelvis demonstrates no evidence of fracture. The bony pelvic ring is intact. Bony mineralization is normal. The soft tissues are intact. CONCLUSION: Negative trauma study. Devang Hinkle MD on December 29, 2016 at 5:34 Board Certified Radiologist. This report was verified electronically.
[2016-12-29 08:12] VITALS: BP 136/98; PULSE 108; RESP 18; O2SAT 96
== END 2016-12-29 11:49 | disposition home or self-care (01) ==
LOC: NEPE 04:25
DX: S40.812A Abrasion of left upper arm, initial encounter (principal); S09.90XA Unspecified injury of head, initial encounter; I12.9 Hypertensive chronic kidney disease with stage 1 through stage 4 chronic kidney disease, or unspecified chronic kidney disease; E11.22 Type 2 diabetes mellitus with diabetic chronic kidney disease; N18.3 Chronic kidney disease, stage 3 (moderate); W06.XXXA Fall from bed, initial encounter
CPT/HCPCS: 70450; 71010; 72170; 80053; 82140; 85025; 85610; 85730; 99285

== ENCOUNTER 2017-01-01 18:20 | Inpatient (IN) | payer OTHER, MEDICAID, MEDICARE ==
[~2017-01-01] VITALS: Ht 180.3 cm; Wt 110.8 kg
[2017-01-01 18:34] VITALS: BP 94/47; PULSE 72; RESP 18; TEMP 97.8; O2SAT 96
[2017-01-01] MEDS ORDERED: SODIUM CHLOR 0.9% 1000 ML INJ 1,000 ML IV SCH ×2 (18:35→20:02)
[2017-01-01 18:41] VITALS: BP 94/47; PULSE 68; RESP 18; TEMP 97.8; O2SAT 99
--- NOTE | 2017-01-01 18:57 | PD ---
HPI Chief Complaint: GI complaint Time Seen by Provider: 18:46 Travel History International Travel<30 days: No Contact w/Intl Traveler<30days: No Traveled to known affect area: No History of Present Illness HPI 66- year old male brought to the ED by EVAC from [facility] ([facility]) complaining of weakness. Per EVAC the patient has been weak for a few days but it is getting worse. He was able to walk, but now is too weak to do so. He is complaining of diarrhea for the past four weeks, and reports he had occasional blood in his stools. He states he has cramping RLQ abdominal pain. He denies any nausea, vomiting, fevers, chills, lightheadedness, dizziness, chest pain, or shortness of breath. He states he also has pain in his right calf. He has a history of HTN, Cirrhosis, Neuropathy, and tremors. She does state having pain on his lower abdomen. Cramping in nature. 4 out of 10. 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) Hiatal Hernia: No Hypertension: Yes Immune Disorder: No Insomnia: Yes Kidney Stones: No Musculoskeletal: Yes (back/ rigth leg pain) Neurologic: Yes (NEUROPATHY FEET) Psychiatric: No Reproductive: No Respiratory: No Immunizations Current: Yes Myocardial Infarction: Yes Radiation Therapy: No Renal Failure: No Seizures: No Sickle Cell Disease: No Sleep Apnea: No Thyroid Disease: No Ulcer: No Past Surgical History Abdominal Surgery: Yes (COLONOSCOPY PROCEDURE WITH POLYPECTOMY) AICD: No Cardiac Surgery: Yes (HEART STENT, HEART CATH) Coronary Artery Bypass Graft: No Coronary Stent: Yes Ear Surgery: No Endocrine Surgery: No Eye Surgery: No Genitourinary Surgery: No Gynecologic Surgery: No Joint Replacement: No Oral Surgery: No Pacemaker: No Thoracic Surgery: No Tonsillectomy: Yes Other Surgery: Yes (MASS ON R SHOULDER AND NECK REMOVED.fistula in [id number]) Social History Alcohol Use: No (QUIT 4 YEARS AGO) Tobacco Use: No Substance Use: No Allergies-Medications (Allergen,Severity, Reaction): Coded Allergies: No Known Allergies (Verified , 02/22/16) Reported Meds & Prescriptions Reported Meds & Active Scripts Active Lisinopril 20 Mg Tab 20 Mg PO DAILY Reported Xifaxan (Rifaximin) 550 Mg Tab 550 Mg PO Q8HR 14 Days Thiamine HCl 500 Mg Tablet 500 Mg PO DAILY Hydrocortisone Topical 2.5% Lotn 1 Appl TOPICAL BID Vivian (Hydrocodone-Acetaminophen) 7.5-325 mg Tab 1 Tab PO BID PRN B-50 Complex (Vitamin B Complex) 1 Each Tablet.er 100 Mg PO BID Fish Oil 1,000 mg Softgel (Brazil-3/Dha/Epa/Fish Oil) 1,000 Mg Capsule 1,000 Mg PO TID Tylenol (Acetaminophen) 325 Mg Tab 650 Mg PO Q4H PRN Lactulose 10 Gm/15 Ml Solution 30 Ml PO QID Baclofen 10 Mg Tab 10 Mg PO TID Take with food or milk Citalopram (Citalopram Hydrobromide) 40 Mg Tab 40 Mg PO DAILY Buspirone (Buspirone HCl) 10 Mg Tab 10 Mg PO TID Gabapentin 800 Mg Tab 800 Mg PO QID Carvedilol 6.25 Mg Tab 6.25 Mg PO DAILY Pantoprazole (Pantoprazole Sodium) 40 Mg Tab 40 Mg PO DAILY Meclizine (Meclizine HCl) 25 Mg Tab 25 Mg PO DAILY Spironolactone 50 Mg Tab 50 Mg PO DAILY Furosemide 20 Mg Tab 20 Mg PO DAILY Review of Systems General / Constitutional: No: Fever, Chills, Weight Gain, Weight Loss, Other Eyes: No: Diploplia, Blurred Vision, Photophobia, Drainage, Redness, Foreign Body Sensation, Pain, Tearing, Blind Spots, Visual changes, Blindness, Other HENT: No: Headaches, Vertigo, Lightheadedness, Sore Throat, Rhinitis, Rhinorrhea, Congestion, Nosebleed, Neck Stiffness, Neck Pain, Masses, Gingival Bleeding, Dental Difficulties, Ear Discharge, Earache, Other Cardiovascular: No: Chest Pain or Discomfort, Palpitations, Irregular Rhythm, Tachycardia, Diaphoresis, Syncope, Dyspnea on exertion, Varicosities, Edema, Cyanosis, Varicosities, Phlebitis, Claudication, Other Respiratory: No: Cough, Shortness of Breath, Wheezing, Sneezing, Orthopnea, Hemoptysis, Stridor, Night Sweats, Pleuritic Pain, Other Gastrointestinal: Positive: Diarrhea, Abdominal Pain, Hematochezia, No: Nausea , Vomiting, Hematemesis, Constipation, Changes in Bowel Habits, Indigestion, Dysphagia, Loss of Appetite, Other Genitourinary: No: Urgency, Frequency, Dysuria, Nocturia, Hematuria, Decreased Urinary Output, Oliguria, Hesitancy, Dribbling, Incontinence, Pelvic Pain, Flank Pain, Dyspareunia, Discharge, Dysmenorrhea, Menorrhagia, Metorrhagia, Vaginal Bleeding, Other Musculoskeletal: Positive: Weakness, Edema, Pain, No: Myalgias, Arthralgias, Limited ROM, Cramping, Atrophy, Other Skin: No Rash, No Itching, No Dryness, No Lumps, No Hives, No Change in Pigmentation, No Change in nails, No Alopecia, No Lesions, No Breast Lumps, No Breast Tenderness, No Breast Swelling, No Other Neurologic: Positive: Weakness, No: Dizziness, Syncope, Focal Abnormalities, Coordination Problem, Tremor, Ataxia, Headache, Change in Mentation, Slurred Speech, Paresthesia, Incontinence, Seizures, Sensory Disturbance, Other Psychiatric: No: Anxiety, Depression, Suicidal Ideations, Disorder of Thought, Mood Disorder, Substance Abuse, Homicidal Ideation, Other Endocrine: No: Heat Intolerance, Cold Intolerance, Polyuria, Polydipsia, Other Hematologic/Lymphatic: No: Easy Bruising, Lymph Node Enlargement, Other Physical Exam Narrative GENERAL: SKIN: Warm and dry. HEAD: Atraumatic. Normocephalic. EYES: Pupils equal and round. No scleral icterus. No injection or drainage. ENT: No nasal bleeding or discharge. Mucous membranes pink and moist. NECK: Trachea midline. No JVD. CARDIOVASCULAR: Regular rate and rhythm. RESPIRATORY: No accessory muscle use. Clear to auscultation. Breath sounds equal bilaterally. GASTROINTESTINAL: Tender to palpation in RLQ. Abdomen soft, nondistended. Hepatic and splenic margins not palpable. Rectal exam done with female nurse present, blood in stool. MUSCULOSKELETAL: Pitting edema noted in right lower extremity. Extremities without clubbing, cyanosis No obvious deformities. NEUROLOGICAL: Awake and alert. No obvious cranial nerve deficits. Motor grossly within normal limits. Five out of 5 muscle strength in the arms and legs. Normal speech. PSYCHIATRIC: Appropriate mood and affect; insight and judgment normal. Data Data Last Documented VS Vital Signs Date Time Temp Pulse Resp B/P Pulse Ox O2 Delivery O2 Flow Rate FiO2 01/01/17 18:41 97.8 68 18 94/47 99 Room Air Orders Complete Blood Count With Diff (01/01/17 18:35) Comprehensive Metabolic Panel (01/01/17 18:35) Lipase (01/01/17 18:35) Lactic Acid (01/01/17 18:35) Prothrombin Time / Inr (Pt) (01/01/17 18:35) Act Partial Throm Time (Ptt) (01/01/17 18:35) Urinalysis - C+S If Indicated (01/01/17 18:35) Iv Access Insert/Monitor (01/01/17 18:35) Ecg Monitoring (01/01/17 18:35) Oximetry (01/01/17 18:35) Sodium Chlor 0.9% 1000 Ml Inj (Ns 1000 M (01/01/17 18:35) Ammonia (01/01/17 18:35) C Diff Toxin Pcr (01/01/17 18:35) Us Leg Venous Doppler (01/01/17 ) Type And Screen (01/01/17 18:43) Pantoprazole Inj (Protonix Inj) (01/01/17 19:00) Blood Culture (01/01/17 18:54) Piperacil-Tazo 3.375 Gm Premix (Zosyn 3. (01/01/17 19:00) Pantoprazole Inj (Protonix Inj) (01/01/17 20:15) Ct Abd/Pel W/O Iv Contrast (01/01/17 ) Sodium Chlor 0.9% 1000 Ml Inj (Ns 1000 M (01/01/17 20:02) Sodium Chlorid 0.9% 500 Ml Inj (Ns 500 M (01/01/17 20:15) Isolation 08,20 (01/01/17 20:54) Equip, Isolation Cart (01/01/17 20:54) Metronidazole 500 Mg Inj (Flagyl 500 Mg (8/4/17 21:00) Labs Laboratory Tests Test 01/01/17 01/01/17 01/01/17 18:45 18:50 18:55 White Blood Count 15.3 TH/MM3 Red Blood Count 3.16 MIL/MM3 Hemoglobin 10.1 GM/DL Hematocrit 30.6 % Mean Corpuscular Volume 96.7 FL Mean Corpuscular Hemoglobin 31.9 PG Mean Corpuscular Hemoglobin 33.0 % Concent Red Cell Distribution Width 15.8 % Platelet Count 80 TH/MM3 Mean Platelet Volume 10.0 FL Neutrophils (%) (Auto) 80.7 % Lymphocytes (%) (Auto) 8.1 % Monocytes (%) (Auto) 9.4 % Eosinophils (%) (Auto) 1.6 % Basophils (%) (Auto) 0.2 % Neutrophils # (Auto) 12.3 TH/MM3 Lymphocytes # (Auto) 1.2 TH/MM3 Monocytes # (Auto) 1.4 TH/MM3 Eosinophils # (Auto) 0.2 TH/MM3 Basophils # (Auto) 0.0 TH/MM3 CBC Comment AUTO DIFF Differential Comment AUTO DIFF CONFIRMED Prothrombin Time 13.1 SEC Prothromb Time International 1.2 RATIO Ratio Activated Partial 32.0 SEC Thromboplast Time Sodium Level 139 MEQ/L Potassium Level 4.2 MEQ/L Chloride Level 110 MEQ/L Carbon Dioxide Level 19.9 MEQ/L Anion Gap 9 MEQ/L Blood Urea Nitrogen 56 MG/DL Creatinine 2.04 MG/DL Estimat Glomerular Filtration 33 ML/MIN Rate Random Glucose 100 MG/DL Calcium Level 7.6 MG/DL Total Bilirubin 0.7 MG/DL Aspartate Amino Transf 80 U/L (AST/SGOT) Alanine Aminotransferase 67 U/L (ALT/SGPT) Alkaline Phosphatase 109 U/L Total Protein 4.6 GM/DL Albumin 2.0 GM/DL Lipase 69 U/L Blood Type O POSITIVE Antibody Screen NEGATIVE Blood Bank Comment Urine Color YELLOW Urine Turbidity HAZY Urine pH 5.5 Urine Specific [place] 1.019 Urine Protein TRACE mg/dL Urine Glucose (UA) NEG mg/dL Urine Ketones NEG mg/dL Urine Occult Blood TRACE Urine Nitrite NEG Urine Bilirubin NEG Urine Urobilinogen LESS THAN 2.0 MG/DL Urine Leukocyte Esterase NEG Urine RBC 1 /hpf Urine Amorphous Sediment RARE Urine Hyaline Casts 22 /lpf Microscopic Urinalysis Comment CULT NOT INDICATED Stool C. difficile Toxin (PCR) POSITIVE Stl C. difficile Toxin PRESUMPTIVE Epiderm 027 POSITIVE Lactic Acid Level 1.0 mmol/L Ammonia 72 MCMOL/L MDM Medical Decision Making Medical Screen Exam Complete: Yes Emergency Medical Condition: Yes Medical Record Reviewed: Yes Interpretation(s) CBC & BMP Diagram 01/01/17 18:45 lactic acid WNL LFTS WNL Lipase WNL Differential Diagnosis C. Diff Diverticulitis Appendicitis GI Bleed Narrative Course 66-year-old male that presents to the ED for evaluation of hypotension, given was weakness and diarrhea. Patient was properly examined and was found to have signs and symptoms consistent with appears to be hypotension likely secondary to diarrhea. Patient has had multiple bowel movements including here in the ER. Patient had Hemoccult positive. Patient does appear to be slightly hypotensive and dry. This time recommend labs and imaging. Patient was given IV fluids. Patient was started on Zosyn after my attending evaluated the patient with me. Protonix was started as well. Labs and imaging here show what appears to be acute on chronic kidney disease as well as diarrhea with hypotension. Recommendations for admission for further workup and management. Patient agrees with this plan. Dr. Olvera agrees to admission. Procedures EKG Prior to Arrival: No HemaPrompt Point of Care Internal Pos. & Neg. Controls: Passed Fecal Specimen Occult Blood: Positive Sepsis Criteria SIRS Criteria (2 or more): WBC > 57139, < 4000 or > 10% bands Diagnosis Primary Impression: Hypotension Qualified Code: I95.9 - Hypotension, unspecified hypotension type Additional Impressions: [id number] kidney injury Qualified Code: N17.9 - Acute renal failure superimposed on chronic kidney disease, unspecified CKD stage, unspecified acute renal failure type Diarrhea Qualified Code: A09 - Diarrhea of infectious origin C. difficile diarrhea Admitting Information Admitting Physician Requests: Admit Darryn Sorensen Jan 01, 2017 18:57
[2017-01-01] MEDS ORDERED: PIPERACIL-TAZO 3.375 GM PREMIX 50 ML IV ONE (19:00)
[2017-01-01] MEDS ORDERED: PANTOPRAZOLE SODIUM 40 MG VIAL IV PUSH ONE (19:00)
[2017-01-01 19:09] LABS: AUTOMATED NEUTROPHIL # 12.3 TH/MM3 (1.8-7.7); BASOPHIL % 0.2 % (0.0-2.0); EOSINOPHIL # 0.2 TH/MM3 (0-0.4); EOSINOPHIL % 1.6 % (0.0-4.0); HEMATOCRIT 30.6 % (39.0-51.0); LYMPH % 8.1 % (9.0-44.0); LYMPHOCYTE # 1.2 TH/MM3 (1.0-4.8); MEAN CELL VOLUME 96.7 FL (80.0-100.0); MEAN CORPUSCULAR HEMOGLOBIN 31.9 PG (27.0-34.0); MONO % 9.4 % (0.0-8.0); NEUT % 80.7 % (16.0-70.0); PLATELET COUNT 80 TH/MM3 (150-450); RED BLOOD COUNT 3.16 MIL/MM3 (4.50-5.90); RED CELL DISTRIBUTION WIDTH 15.8 % (11.6-17.2); WHITE BLOOD COUNT 15.3 TH/MM3 (4.0-11.0)
[2017-01-01 19:13] LABS: HEMO FLAGS AUTO DIFF
[2017-01-01] MEDS ORDERED: TYLE325T PO (19:18)
[2017-01-01] MEDS ORDERED: HYDR-3288 PO (19:18)
[2017-01-01] MEDS ORDERED: XIFA550T4 PO (19:18)
[2017-01-01] MEDS ORDERED: B-50TAB4 PO (19:18)
[2017-01-01] MEDS ORDERED: HYDR2.5L TOPICAL (19:18)
[2017-01-01] MEDS ORDERED: THIA500T PO (19:18)
[2017-01-01] MEDS ORDERED: OMEG100046 PO (19:18)
[2017-01-01 19:20] LABS: INTERNATIONAL NORMALIZED RATIO 1.2 RATIO; PROTHROMBIN TIME - PATIENT 13.1 SEC (9.8-11.6)
[2017-01-01 19:33] LABS: BLOOD, URINE TRACE (NEG); COMMENT (UR) CULT NOT INDICATED; CULTURE IF INDICATED CULT NOT INDICATED; GLUCOSE,URINE NEG (NEG); HYALINE CAST, URINE 22 /lpf (RARE); KETONE, URINE NEG (NEG); NITRITE,URINE NEG (NEG); PH, URINE 5.5 (5.0-8.5); URINE COLOR YELLOW (YELLW/STRAW)
[2017-01-01 19:44] LABS: ALKALINE PHOSPHATASE 109 U/L (45-117); ALT (GPT) 67 U/L (12-78); ANION GAP 9 MEQ/L (5-15); AST (GOT) 80 U/L (15-37); BICARBONATE 19.9 MEQ/L (21.0-32.0); BLOOD UREA NITROGEN 56 MG/DL (7-18); CHLORIDE 110 MEQ/L (98-107); GLOMERULAR FILTRATION RATE 33 ML/MIN (>89); POTASSIUM 4.2 MEQ/L (3.5-5.1); SODIUM (NA) 139 MEQ/L (136-145); TOTAL BILIRUBIN ADULT 0.7 MG/DL (0.2-1.0)
[2017-01-01 19:49] LABS: SCAN/DIFF AUTO DIFF CONFIRMED
--- NOTE | 2017-01-01 19:58 | RADRPT ---
EXAM DATE/TIME: 01/01/2017 19:03 [facility] COMPARISON: No previous studies available for comparison. INDICATIONS : Right leg swelling. MEDICAL HISTORY : Hypertension. Gastroesophageal reflux disease. Cirrhosis. Neuropathy. Myocardial infarction. Cor onary artery disease. Arthritis. Diabetes. Carcinoma, face. Anxiety. Hepatitis. SURGICAL HISTORY : Tonsillectomy. Cardiac catheterization. Coronary stent. Mass on right shoulder and neck removed. Fistula in anus. ENCOUNTER: Initial ACUITY: 1 day PAIN SCORE: Non-responsive LOCATION: Right leg. TECHNIQUE: Venous ultrasound of the leg was performed from the inguinal ligament to the proximal calf. Real-joon e, color Doppler and spectral tracing, compression and augmentation techniques were used. FINDINGS: There is normal compressibility of the deep venous system from the inguinal region to the proximal ca lf. No echogenic clot is seen in the lumen of the common femoral, femoral, popliteal, and posterior tibial veins. There is a normal response of the venous system to proximal and distal augmentation an d respiration. CONCLUSION: The study is negative for deep venous thrombosis right lower extremity. Zeke Slaughter MD on January 01, 2017 at 19:56 Board Certified Radiologist. This report was verified electronically.
[2017-01-01 20:05] VITALS: BP 98/52; PULSE 70; RESP 14; O2SAT 98
[2017-01-01] MEDS ORDERED: SODIUM CHLORID 0.9% 500 ML INJ 500 ML IV ONE (20:15)
[2017-01-01] MEDS ORDERED: PANTOPRAZOLE INJ 80 MG in SODIUM CHLORIDE 0.9% INJ 100 ML IV SCH ×2 (20:15→21:45)
--- NOTE | 2017-01-01 20:36 | RADRPT ---
EXAM DATE/TIME: 01/01/2017 20:07 [facility] COMPARISON: No previous studies available for comparison. INDICATIONS : Diffuse abdomen pain for one day. ORAL CONTRAST: No oral contrast ingested. RADIATION DOSE: 16.27 CTDIvol (mGy) MEDICAL HISTORY : Hypertension. Myocardial infarction. Cirrhosis.GERD SURGICAL HISTORY : Coronary artery stent. ENCOUNTER: Initial ACUITY: 1 day PAIN SCALE: 3/10 LOCATION: Bilateral lower quadrant TECHNIQUE: Volumetric scanning of the abdomen and pelvis was performed. Using automated exposure control and ad justment of the mA and/or kV according to patient size, radiation dose was kept as low as reasonably achievable to obtain optimal diagnostic quality images. DICOM format image data is available electro nically for review and comparison. FINDINGS: LOWER LUNGS: Mild bibasilar atelectasis. No evidence of pleural effusion. LIVER: Cirrhotic appearing liver with nodular contour to the small right lobe. Multiple calcified gallstone s. No fluid in Morison's pouch. No dilation of the intra-or extrahepatic biliary system. SPLEEN: Splenomegaly with superior inferior dimension 14.1 cm. No focal lesion seen for noncontrast techniqu e. PANCREAS: Within normal limits. KIDNEYS: Normal in size and shape. There is no mass, stone, or hydronephrosis. ADRENAL GLANDS: Within normal limits. VASCULAR: There is no aortic aneurysm. BOWEL/MESENTERY: No dilated loops of small or large bowel. No evidence of free fluid. ABDOMINAL WALL: Within normal limits. RETROPERITONEUM: There is no lymphadenopathy. BLADDER: No wall thickening or mass. REPRODUCTIVE: Within normal limits. INGUINAL: There is no lymphadenopathy or hernia. MUSCULOSKELETAL: Within normal limits for patient age. CONCLUSION: 1. Cirrhotic appearing liver. 2. Multiple gallstones. 3. Splenomegaly. 4. No evidence of ascites. Zeke Slaughter MD on January 01, 2017 at 20:32 Board Certified Radiologist. This report was verified electronically.
[2017-01-01 20:51] LABS: C. DIFF EPI 027 PRESUMPTIVE POSITIVE (NEGATIVE)
[2017-01-01 20:53] LABS: C. DIFF TOXIN PCR POSITIVE (NEGATIVE)
[2017-01-01 21:00] VITALS: BP 110/54; PULSE 72; RESP 16; O2SAT 99
[2017-01-01] MEDS ORDERED: metroNIDAZOLE 500 MG INJ 100 ML IV ONE (21:00)
[2017-01-01] MEDS ORDERED: SODIUM CHLORIDE 0.9% FLUSH 10 ML FLUSH IV FLUSH PRN (21:15)
[2017-01-01] MEDS ORDERED: LACTULOSE SYRUP 20 GM/30 ML CUP PO PRN (21:15)
[2017-01-01] MEDS ORDERED: BISACODYL 10 MG SUPP RECTAL PRN (21:15)
[2017-01-01] MEDS ORDERED: SENNOSIDES 8.6 MG TAB PO PRN (21:15)
[2017-01-01] MEDS ORDERED: MORPHINE SULFATE 4 MG/ML INJ IV PRN (21:15)
[2017-01-01] MEDS ORDERED: ONDANSETRON HCL 4 MG/2 ML VIAL IVP PRN (21:15)
[2017-01-01] MEDS ORDERED: MAGNESIUM HYDROXIDE SUSP 30 ML CUP PO PRN (21:15)
[2017-01-01] MEDS ORDERED: ACETAMINOPHEN 325 MG TAB PO PRN (21:15)
--- NOTE | 2017-01-01 21:19 | HHI.HP ---
HPI Service [facility] Primary Care Physician No Primary Care Physician Admission Diagnosis C. diff, hypotension, acute on chronic kidney disease Diagnoses: (1) C. difficile diarrhea Diagnosis: Principal (2) Hypotension Diagnosis: Principal (3) Cirrhosis Diagnosis: Principal (4) NO (acute kidney injury) Diagnosis: Principal Travel History International Travel<30 Days: No Contact w/Intl Traveler <30 Da: No Traveled to Known Affected Are: No History of Present Illness This is a 66-year-old male with a PMH of HTN, h/o Alcohol Abuse, Cirrhosis, Esophageal Varices, Anxiety, Depression, CAD and Peripheral Neuropathy who was sent to the ER from [facility] secondary to diarrhea and generalized weakness. Recent admit 12/08-12/15/16 secondary to recurrent falls, weakness and hepatic encephalopathy, started on Rifaximin and Lactulose and d/c'd to Rehab. Now w/ progressive weakness and multiple episodes of watery diarrhea. Reports mild abdominal pain and nausea, but no vomiting or fever. Upon EMS arrival, patient noted to have BP 60s systolic, s/p IVF w/ BP 94/47, HR 72. S/p 2L IVF in ER w/ repeat BP 110/54, HR 72. WBC 15.3. Creatinine 2.04, previously 1.57 on 12/29/16. Lactic Acid 1.0. Ammonia 72. Lipase 69. INR 1.2. UA negative. C. difficile +. CT Abd/Pelvis w/ cirrhotic appearing liver, multiple gallstones , no ascites. S/p Flagyl IV in ER. Review of Systems Except as stated in HPI: all other systems reviewed are Neg ROS: 14 point review of systems otherwise negative. Past Family Social History Past Medical History PMH: HTN, h/o Alcohol Abuse, Cirrhosis, Esophageal Varices, Anxiety, Depression , CAD and Peripheral Neuropathy Past Surgical History PAST SURGICAL HISTORY: Cardiac Stent, Anal Fistula Allergies: Coded Allergies: No Known Allergies (Verified , 02/22/16) Family History PAST FAMILY HISTORY: Reviewed. No h/o DM or CAD Social History PAST SOCIAL HISTORY: History of alcohol abuse, quit 4 years ago. Negative for tobacco or drugs. Physical Exam Vital Signs Vital Signs Date Time Temp Pulse Resp B/P Pulse Ox O2 Delivery O2 Flow Rate FiO2 01/01/17 18:41 97.8 68 18 94/47 99 Room Air 01/01/17 18:41 99 Room Air 01/01/17 18:41 70 18 98 Room Air 01/01/17 18:34 97.8 72 18 94/47 96 Physical Exam PE: GENERAL: Middle-aged white male in no acute distress. HEENT: PERRLA, EOMI. No scleral icterus or conjunctival pallor. No lid lag or facial droop. CARDIOVASCULAR: Regular rate and rhythm. No obvious murmurs to auscultation. No chest tenderness to palpation. RESPIRATORY: No obvious rhonchi or wheezing. Clear to auscultation. Breath sounds equal bilaterally. GASTROINTESTINAL: Abdomen soft, generalized tenderness to palpation, mostly in RLQ, nondistended. BS normal. MUSCULOSKELETAL: Extremities without clubbing, cyanosis. Mild edema RLE. No obvious deformities. NEUROLOGICAL: Awake, alert and oriented x4. No focal neurologic deficits. Moving both upper and lower extremities spontaneously. Laboratory Laboratory Tests Test 01/01/17 01/01/17 01/01/17 18:45 18:50 18:55 White Blood Count 15.3 Red Blood Count 3.16 Hemoglobin 10.1 Hematocrit 30.6 Mean Corpuscular Volume 96.7 Mean Corpuscular Hemoglobin 31.9 Mean Corpuscular Hemoglobin 33.0 Concent Red Cell Distribution Width 15.8 Platelet Count 80 Mean Platelet Volume 10.0 Neutrophils (%) (Auto) 80.7 Lymphocytes (%) (Auto) 8.1 Monocytes (%) (Auto) 9.4 Eosinophils (%) (Auto) 1.6 Basophils (%) (Auto) 0.2 Neutrophils # (Auto) 12.3 Lymphocytes # (Auto) 1.2 Monocytes # (Auto) 1.4 Eosinophils # (Auto) 0.2 Basophils # (Auto) 0.0 CBC Comment AUTO DIFF Differential Comment AUTO DIFF CONFIRMED Prothrombin Time 13.1 Prothromb Time International 1.2 Ratio Activated Partial 32.0 Thromboplast Time Sodium Level 139 Potassium Level 4.2 Chloride Level 110 Carbon Dioxide Level 19.9 Anion Gap 9 Blood Urea Nitrogen 56 Creatinine 2.04 Estimat Glomerular Filtration 33 Rate Random Glucose 100 Calcium Level 7.6 Total Bilirubin 0.7 Aspartate Amino Transf 80 (AST/SGOT) Alanine Aminotransferase 67 (ALT/SGPT) Alkaline Phosphatase 109 Total Protein 4.6 Albumin 2.0 Lipase 69 Blood Type O POSITIVE Antibody Screen NEGATIVE Blood Bank Comment Urine Color YELLOW Urine Turbidity HAZY Urine pH 5.5 Urine Specific [place] 1.019 Urine Protein TRACE Urine Glucose (UA) NEG Urine Ketones NEG Urine Occult Blood TRACE Urine Nitrite NEG Urine Bilirubin NEG Urine Urobilinogen LESS THAN 2.0 Urine Leukocyte Esterase NEG Urine RBC 1 Urine Amorphous Sediment RARE Urine Hyaline Casts 22 Microscopic Urinalysis Comment CULT NOT INDICATED Stool C. difficile Toxin (PCR) POSITIVE Stl C. difficile Toxin PRESUMPTIVE Epiderm 027 POSITIVE Lactic Acid Level 1.0 Ammonia 72 Date/Time Procedure Status Source Growth 01/01/17 19:20 Aerobic Blood Culture Received Blood Peripheral Pending 01/01/17 19:20 Anaerobic Blood Culture Received Blood Peripheral Pending Result Diagram: 01/01/17184401/01/171844 Assessment and Plan Problem List: (1) C. difficile diarrhea ICD Code: A04.7 Status: Acute (2) Hypotension ICD Code: I95.9 Status: Acute (3) Cirrhosis ICD Code: K74.60 Status: Acute (4) NO (acute kidney injury) ICD Code: N17.9 Status: Acute Assessment and Plan A/P: 1. C. Diff Colitis: sent to ER from [facility] secondary to ongoing watery diarrhea, C. Diff +. S/p Flagyl IV in ER. Will continue w/ Flagyl PO. IVF for hydration. Analgesics/antiemetics as needed. CT Abd/Pelvis w/ no acute findings, images reviewed by me. 2. Hypotension: BP 60's per EMS, s/p IVF w/ good response, BP currently 110/54 , HR 72 after 2L IVF in ER. Monitor BP. Hold antihypertensives. 3. Cirrhosis: Chronic. Secondary to previous h/o Alcohol Abuse, quit 4yrs ago. Continue home medications, caution w/ diuretics in light of hypotension/ dehydration. 4. NO: Acute on Chronic. Creatinine 2.04, previously 1.57 on 12/29/16. UA negative. IVF for hydration, caution with cirrhosis and fluid overload. Repeat labs in a.m. 5. DVT Prophylaxis: SCD/teds. 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 7. Case discussed at length with ER physician. Physician Certification 2 Midnight Certification Type: Admission for Inpatient Services Order for Inpatient Services The services are ordered in accordance with Medicare regulations or non- Medicare payer requirements, as applicable. In the case of services not specified as inpatient-only, they are appropriately provided as inpatient services in accordance with the 2-midnight benchmark. Estimated LOS (days): 2 days is the estimated time the patient will need to remain in the hospital, assuming treatment plan goals are met and no additional complications. Post-Hospital Plan: Not yet determined Problem Qualifiers (1) Hypotension: Qualified Code: I95.9 - Hypotension, unspecified hypotension type Aatri Olvera MD Jan 01, 2017 21:19
[2017-01-01] MEDS: RIFAXIMIN 550 MG TAB PO SCH (22:12)
[2017-01-01 22:19] VITALS: BP 115/52; PULSE 70; RESP 16; O2SAT 99
[2017-01-02] VITALS: BP 114/56; PULSE 70; RESP 17; TEMP 96.7; O2SAT 98
[2017-01-02] MEDS: RIFAXIMIN 550 MG TAB PO SCH ×3 (05:42→21:37)
[2017-01-02] MEDS ORDERED: metroNIDAZOLE 500 MG TAB PO SCH (06:00)
[2017-01-02 08:00] VITALS: BP 111/58; PULSE 65; RESP 19; TEMP 97.2; O2SAT 98
[2017-01-02] MEDS: THIAMINE HCL 100 MG TAB PO SCH (09:00)
[2017-01-02] MEDS ORDERED: VITAMIN B COMPLEX 100 MG PO SCH (09:00)
--- NOTE | 2017-01-02 09:50 | HHI.PR ---
Subjective Remarks This is a 66-year-old male with a PMH of HTN, h/o Alcohol Abuse, Cirrhosis, Esophageal Varices, Anxiety, Depression, CAD and Peripheral Neuropathy who was sent to the ER from [facility] secondary to diarrhea and generalized weakness. Recent admit 12/08-12/15/16 secondary to recurrent falls, weakness and hepatic encephalopathy, started on Rifaximin and Lactulose and d/c'd to Rehab. Now w/ progressive weakness and multiple episodes of watery diarrhea. Reports mild abdominal pain and nausea, but no vomiting or fever. Upon EMS arrival, patient noted to have BP 60s systolic, s/p IVF w/ BP 94/47, HR 72. S/p 2L IVF in ER w/ repeat BP 110/54, HR 72. WBC 15.3. Creatinine 2.04, previously 1.57 on 12/29/16. Lactic Acid 1.0. Ammonia 72. Lipase 69. INR 1.2. UA negative. C. difficile +. CT Abd/Pelvis w/ cirrhotic appearing liver, multiple gallstones , no ascites. S/p Flagyl IV in ER. - we'll switch to vancomycin for the C. difficile toxin positive A.m. labs Physical therapy and occupational therapy to eval and treat Case management Check ammonia level Community lactulose and rifaximin Objective Vitals Vital Signs Date Time Temp Pulse Resp B/P Pulse Ox O2 Delivery O2 Flow Rate FiO2 01/02/17 08:00 97.2 65 19 111/58 98 01/02/17 00:00 96.7 70 17 114/56 98 01/01/17 22:19 70 16 115/52 99 Room Air 01/01/17 21:00 72 16 110/54 99 Room Air 01/01/17 20:05 70 14 98/52 98 Room Air 01/01/17 18:41 97.8 68 18 94/47 99 Room Air 01/01/17 18:41 99 Room Air 01/01/17 18:41 70 18 98 Room Air 01/01/17 18:34 97.8 72 18 94/47 96 I/O 01/01/17 01/01/17 01/01/17 01/02/17 01/02/17 01/02/17 07:00 15:00 23:00 07:00 15:00 23:00 Intake Total 240 ml Balance 240 ml Intake Oral 240 ml # Voids 4 # Bowel Movements 4 Result Diagram: 01/01/17 1845 01/01/17 184 Other Results Laboratory Tests Test 01/01/17 01/01/17 01/01/17 18:45 18:50 18:55 White Blood Count 15.3 TH/MM3 Red Blood Count 3.16 MIL/MM3 Hemoglobin 10.1 GM/DL Hematocrit 30.6 % Mean Corpuscular Volume 96.7 FL Mean Corpuscular Hemoglobin 31.9 PG Mean Corpuscular Hemoglobin 33.0 % Concent Red Cell Distribution Width 15.8 % Platelet Count 80 TH/MM3 Mean Platelet Volume 10.0 FL Neutrophils (%) (Auto) 80.7 % Lymphocytes (%) (Auto) 8.1 % Monocytes (%) (Auto) 9.4 % Eosinophils (%) (Auto) 1.6 % Basophils (%) (Auto) 0.2 % Neutrophils # (Auto) 12.3 TH/MM3 Lymphocytes # (Auto) 1.2 TH/MM3 Monocytes # (Auto) 1.4 TH/MM3 Eosinophils # (Auto) 0.2 TH/MM3 Basophils # (Auto) 0.0 TH/MM3 CBC Comment AUTO DIFF Differential Comment AUTO DIFF CONFIRMED Prothrombin Time 13.1 SEC Prothromb Time International 1.2 RATIO Ratio Activated Partial 32.0 SEC Thromboplast Time Sodium Level 139 MEQ/L Potassium Level 4.2 MEQ/L Chloride Level 110 MEQ/L Carbon Dioxide Level 19.9 MEQ/L Anion Gap 9 MEQ/L Blood Urea Nitrogen 56 MG/DL Creatinine 2.04 MG/DL Estimat Glomerular Filtration 33 ML/MIN Rate Random Glucose 100 MG/DL Calcium Level 7.6 MG/DL Total Bilirubin 0.7 MG/DL Aspartate Amino Transf 80 U/L (AST/SGOT) Alanine Aminotransferase 67 U/L (ALT/SGPT) Alkaline Phosphatase 109 U/L Total Protein 4.6 GM/DL Albumin 2.0 GM/DL Lipase 69 U/L Blood Type O POSITIVE Antibody Screen NEGATIVE Blood Bank Comment Urine Color YELLOW Urine Turbidity HAZY Urine pH 5.5 Urine Specific [place] 1.019 Urine Protein TRACE mg/dL Urine Glucose (UA) NEG mg/dL Urine Ketones NEG mg/dL Urine Occult Blood TRACE Urine Nitrite NEG Urine Bilirubin NEG Urine Urobilinogen LESS THAN 2.0 MG/DL Urine Leukocyte Esterase NEG Urine RBC 1 /hpf Urine Amorphous Sediment RARE Urine Hyaline Casts 22 /lpf Microscopic Urinalysis Comment CULT NOT INDICATED Stool C. difficile Toxin (PCR) POSITIVE Stl C. difficile Toxin PRESUMPTIVE Epiderm 027 POSITIVE Lactic Acid Level 1.0 mmol/L Ammonia 72 MCMOL/L Last Impressions Lower Extremity Ultrasound 01/01/17 0000 Signed Impressions: Service Date/Time: Sunday, January 01, 2017 19:03 - CONCLUSION: The study is negative for deep venous thrombosis right lower extremity. Zeke Slaughter MD Abdomen/Pelvis CT 01/01/17 0000 Signed Impressions: Service Date/Time: Sunday, January 01, 2017 20:07 - CONCLUSION: 1. Cirrhotic appearing liver. 2. Multiple gallstones. 3. Splenomegaly. 4. No evidence of ascites. Zeke Slaughter MD Imaging Last 72 hours Impressions Lower Extremity Ultrasound 01/01/17 0000 Signed Impressions: Service Date/Time: Sunday, January 01, 2017 19:03 - CONCLUSION: The study is negative for deep venous thrombosis right lower extremity. Zeke Slaughter MD Abdomen/Pelvis CT 01/01/17 0000 Signed Impressions: Service Date/Time: Sunday, January 01, 2017 20:07 - CONCLUSION: 1. Cirrhotic appearing liver. 2. Multiple gallstones. 3. Splenomegaly. 4. No evidence of ascites. Zeke Slaughter MD Objective Remarks GENERAL: Awake alert oriented talkative and cooperative SKIN: Warm and dry. HEAD: Atraumatic. Normocephalic. EYES: Pupils equal and round. No scleral icterus. No injection or drainage. Extraocular muscles grossly intact ENT: No nasal bleeding or discharge. Mucous membranes pink and moist. Tongue is midline NECK: Trachea midline. No JVD. CARDIOVASCULAR: Regular rate and rhythm. S1-S2 no S3 or S4 no heave or thrill or rub or gallop. RESPIRATORY: No accessory muscle use. Clear to auscultation. Breath sounds equal bilaterally. GASTROINTESTINAL: Abdomen soft, non-tender, nondistended. Hepatic and splenic margins not palpable. MUSCULOSKELETAL: Extremities without clubbing, cyanosis, or edema. No obvious deformities. NEUROLOGICAL: Awake and alert. No obvious cranial nerve deficits. Motor grossly within normal limits. 3.5 out of 5 muscle strength in the arms and legs. Normal speech. Generalized weakness PSYCHIATRIC: Appropriate mood and affect; insight and judgment normal. Medications and IVs Active Medications Acetaminophen (Tylenol) 650 mg Q6H PRN PO; Start 01/01/17 at 21:15 Baclofen (Lioresal) 10 mg TID PO; Start 01/02/17 at 09:00 Bisacodyl (Dulcolax Supp) 10 mg DAILY PRN RECTAL; Start 01/01/17 at 21:15 Buspirone HCl (Buspar) 10 mg TID PO; Start 01/02/17 at 09:00 Carvedilol (Coreg) 6.25 mg DAILY PO; Start 01/02/17 at 09:00 Citalopram Hydrobromide (CeleXA) 40 mg DAILY PO; Start 01/02/17 at 09:00 Gabapentin (Neurontin) 800 mg QID PO; Start 01/02/17 at 09:00 Lactulose (Lactulose Liq) 30 ml DAILY PRN PO; Start 01/01/17 at 21:15 Lactulose (Lactulose Liq) 30 ml QID PO; Start 01/02/17 at 09:00 Magnesium Hydroxide (Milk Of Magnesia Liq) 30 ml Q12H PRN PO; Start 01/01/17 at 21:15 Meclizine HCl (Antivert) 25 mg DAILY PO; Start 01/02/17 at 09:00 Metronidazole (Flagyl 500 Mg Inj) 100 ml @ 100 mls/hr ONCE ONCE IV Last administered on 01/01/17 21:25; Admin Dose 100 MLS/HR; Start 01/01/17 at 21:00; Stop 01/01/17 at 21:59; Status DC Metronidazole (Flagyl) 500 mg Q8HR PO Last administered on 01/02/17 05:42; Admin Dose 500 MG; Start 01/02/17 at 06:00 Morphine Sulfate (Morphine Inj) 2 mg Q3H PRN IV; Start 01/01/17 at 21:15 Non-Formulary Medication 100 mg 100 mg BID PO; Start 01/02/17 at 09:00; Status UNV Ondansetron HCl (Zofran Inj) 4 mg Q6H PRN IVP; Start 01/01/17 at 21:15 Oxycodone HCl (Roxicodone) 5 mg Q4H PRN PO; Start 01/01/17 at 21:15 Pantoprazole Sodium (Protonix) 40 mg DAILY PO; Start 01/02/17 at 09:00 Pantoprazole Sodium 40 mg 40 mg ONCE ONCE IV PUSH Last administered on 20:18; Admin Dose 40 MG; Start 01/01/17 at 19:00; Stop 01/01/17 at 19:01; Status DC Pantoprazole Sodium 80 mg/ Sodium Chloride 100 ml @ 10 mls/hr Q10H IV Last administered on 01/01/17 20:42; Admin Dose 10 MLS/HR; Start 01/01/17 at 20:15; Stop 01/01/17 at 21:31; Status DC Pantoprazole Sodium/Sodium Chloride (Protonix Inj/NS Inj) 100 ml @ 10 mls/hr Q10H IV; Start 01/01/17 at 21:45; Stop 01/02/17 at 06:30; Status DC Piperacillin Sod/ Tazobactam Sod 50 ml @ 100 mls/hr ONCE ONCE IV Last administered on 01/01/17 20:18; Admin Dose 100 MLS/HR; Start 01/01/17 at 19:00; Stop 01/01/17 at 19:29; Status DC Rifaximin (Xifaxan) 550 mg Q8HR PO Last administered on 01/02/17 05:42; Admin Dose 550 MG; Start 01/01/17 at 22:00 Senna/Docusate Sodium (Ghazal-Colace) 1 tab BID PO; Start 01/02/17 at 09:00 Sennosides (Senokot) 17.2 mg Q12H PRN PO; Start 01/01/17 at 21:15 Sodium Chloride 500 ml @ 500 mls/hr BOLUS ONCE IV Last administered on 21:55; Admin Dose 500 MLS/HR; Start 01/01/17 at 20:15; Stop 01/01/17 at 21:14 ; Status DC Sodium Chloride 1,000 ml @ 1,000 mls/hr Q1H IV Last administered on 01/01/17 20 :28; Admin Dose 1,000 MLS/HR; Start 01/01/17 at 20:02; Stop 01/01/17 at 21:01; Status DC Sodium Chloride (NS 1000 ml Inj) 1,000 ml @ 1,000 mls/hr Q1H IV Last administered on 01/01/17t 20:17; Admin Dose 1,000 MLS/HR; Start 01/01/17 at 18:35 ; Stop 01/01/17 at 19:34; Status DC Sodium Chloride (NS Flush) 2 ml BID IV FLUSH; Start 01/02/17 at 09:00 Sodium Chloride (NS Flush) 2 ml UNSCH PRN IV FLUSH; Start 01/01/17 at 21:15 Thiamine HCl (Vitamin B1) 500 mg DAILY PO; Start 01/02/17 at 09:00 Vitamin B Complex/ Vitamin C (Allbee C) 1 tab BID PO; Start 01/02/17 at 09:00 Urinary Catheter: No Vascular Central Line Catheter: No A/P Problem List: (1) C. difficile diarrhea ICD Code: A04.7 Status: Acute Plan: Change from Flagyl to vancomycin (2) Hypotension ICD Code: I95.9 Status: Acute Plan: Continue fluids active rehydration (3) Cirrhosis ICD Code: K74.60 Status: Acute Plan: Continue on his home medications lactulose and rifaximin (4) NO (acute kidney injury) ICD Code: N17.9 Status: Acute Plan: A.m. labs continue with fluid replacement (5) Diarrhea ICD Code: R19.7 Status: Acute Plan: Continue on oral vancomycin (6) Hepatic encephalopathy ICD Code: K72.90 Status: Acute Plan: Continue on lactulose and rifaximin Assessment and Plan 1. C. Diff Colitis: sent to ER from [facility] secondary to ongoing watery diarrhea, C. Diff +. S/p Flagyl IV in ER. Will switch to vancomycin orally. IVF for hydration. Analgesics/antiemetics as needed. CT Abd/Pelvis w / no acute findings, 2. Hypotension: BP 60's per EMS, s/p IVF w/ good response, BP currently 110/54 , HR 72 after 2L IVF in ER. Monitor BP. Hold antihypertensives. 3. Cirrhosis: Chronic. Secondary to previous h/o Alcohol Abuse, quit 4yrs ago. Continue home medications, caution w/ diuretics in light of hypotension/ dehydration. Continue on lactulose and rifaximin 4. NO: Acute on Chronic. Creatinine 2.04, previously 1.57 on 12/29/16. UA negative. IVF for hydration, caution with cirrhosis and fluid overload. Repeat labs in a.m. 5. DVT Prophylaxis: SCD/teds. Check an ammonia level Discharge Planning Case management PT and OT Problem Qualifiers (1) Hypotension: Qualified Code: I95.9 - Hypotension, unspecified hypotension type (2) Diarrhea: Qualified Code: A09 - Diarrhea of infectious origin Paxton Najera DO Jan 02, 2017 09:50
[2017-01-02] MEDS: CARVEDILOL 6.25 MG TAB PO SCH (10:31)
[2017-01-02] MEDS: LACTULOSE SYRUP 20 GM/30 ML CUP PO SCH ×4 (10:32→21:37)
[2017-01-02] MEDS: VITAMIN B COMPLEX/VIT C TAB PO SCH ×2 (10:32→21:00)
[2017-01-02] MEDS: GABAPENTIN 400 MG CAP PO SCH ×4 (10:32→21:38)
[2017-01-02] MEDS: DOCUSATE SODIUM 50 MG/SENNA 8.6 MG TAB PO SCH ×2 (10:32→21:37)
[2017-01-02] MEDS: CITALOPRAM HYDROBROMIDE 40 MG TAB PO SCH (10:33)
[2017-01-02] MEDS: PANTOPRAZOLE SOD 40 MG DELAYED RELEASE TAB PO SCH (10:33)
[2017-01-02] MEDS: BACLOFEN 10 MG TAB PO SCH ×3 (10:33→18:47)
[2017-01-02] MEDS: MECLIZINE HCL 25 MG TAB PO SCH (10:33)
[2017-01-02] MEDS: busPIRone HCL 10 MG TAB PO SCH ×3 (10:33→18:47)
[2017-01-02 12:00] VITALS: BP 97/55; PULSE 64; RESP 17; TEMP 96.5; O2SAT 97
[2017-01-02] MEDS ORDERED: FISH OIL PO SCH (13:00)
[2017-01-02] MEDS ORDERED: EPA PO SCH (13:00)
[2017-01-02] MEDS ORDERED: OMEGA PO SCH (13:00)
[2017-01-02] MEDS ORDERED: DHA PO SCH (13:00)
[2017-01-02] MEDS: VANCOMYCIN 500 MG VIAL (FOR ORAL USE ONLY) PO SCH ×3 (14:20→21:38)
[2017-01-02] MEDS: SODIUM CHLORIDE 0.9% FLUSH 10 ML FLUSH IV FLUSH SCH ×2 (14:23→21:00)
[2017-01-02 14:34] LABS: AUTOMATED NEUTROPHIL # 7.2 TH/MM3 (1.8-7.7); BASOPHIL % 0.3 % (0.0-2.0); EOSINOPHIL # 0.3 TH/MM3 (0-0.4); EOSINOPHIL % 2.7 % (0.0-4.0); HEMATOCRIT 31.4 % (39.0-51.0); LYMPH % 11.1 % (9.0-44.0); MEAN CELL VOLUME 96.1 FL (80.0-100.0); MEAN CORPUSCULAR HEMOGLOBIN 32.9 PG (27.0-34.0); MEAN CORPUSCULAR HGB CONC 34.3 % (32.0-36.0); MONO % 7.6 % (0.0-8.0); NEUT % 78.3 % (16.0-70.0); PLATELET COUNT 71 TH/MM3 (150-450); RED BLOOD COUNT 3.27 MIL/MM3 (4.50-5.90); RED CELL DISTRIBUTION WIDTH 15.8 % (11.6-17.2); WHITE BLOOD COUNT 9.2 TH/MM3 (4.0-11.0)
[2017-01-02 14:35] LABS: HEMO FLAGS AUTO DIFF
[2017-01-02 14:55] LABS: ALKALINE PHOSPHATASE 112 U/L (45-117); ALT (GPT) 66 U/L (12-78); ANION GAP 7 MEQ/L (5-15); AST (GOT) 62 U/L (15-37); BICARBONATE 19.8 MEQ/L (21.0-32.0); BLOOD UREA NITROGEN 41 MG/DL (7-18); CHLORIDE 113 MEQ/L (98-107); GLOMERULAR FILTRATION RATE 72 ML/MIN (>89); POTASSIUM 3.9 MEQ/L (3.5-5.1); SODIUM (NA) 140 MEQ/L (136-145); TOTAL BILIRUBIN ADULT 0.8 MG/DL (0.2-1.0)
[2017-01-02 15:36] LABS: PLATELET ESTIMATE SMEAR LOW (NORMAL); PLATELET MORPHOLOGY NORMAL (NORMAL); SCAN/DIFF AUTO DIFF CONFIRMED; TOXIC GRANULATION 1+ (NORMAL)
[2017-01-02 16:00] VITALS: BP 97/48; PULSE 67; RESP 17; TEMP 96.4; O2SAT 97
[2017-01-02 20:00] VITALS: BP 122/58; PULSE 65; RESP 22; TEMP 96.3; O2SAT 99
[2017-01-02] MEDS: HYDROCORTISONE 2.5% CREAM 30 GM TOPICAL SCH (21:00)
[2017-01-03] VITALS: BP 127/60; PULSE 64; RESP 22; TEMP 96.5; O2SAT 98
[2017-01-03] MEDS: RIFAXIMIN 550 MG TAB PO SCH ×3 (05:18→20:44)
[2017-01-03 08:00] VITALS: BP 135/63; PULSE 63; RESP 17; TEMP 97.3; O2SAT 99
[2017-01-03] MEDS: LACTULOSE SYRUP 20 GM/30 ML CUP PO SCH ×4 (08:06→20:44)
[2017-01-03] MEDS: CITALOPRAM HYDROBROMIDE 40 MG TAB PO SCH (08:07)
[2017-01-03] MEDS: GABAPENTIN 400 MG CAP PO SCH ×4 (08:07→20:44)
[2017-01-03] MEDS: busPIRone HCL 10 MG TAB PO SCH ×3 (08:07→18:11)
[2017-01-03] MEDS: VANCOMYCIN 500 MG VIAL (FOR ORAL USE ONLY) PO SCH ×4 (08:07→20:44)
[2017-01-03] MEDS: CARVEDILOL 6.25 MG TAB PO SCH (08:07)
[2017-01-03] MEDS: PANTOPRAZOLE SOD 40 MG DELAYED RELEASE TAB PO SCH (08:08)
[2017-01-03] MEDS: BACLOFEN 10 MG TAB PO SCH ×3 (08:08→18:12)
[2017-01-03] MEDS: THIAMINE HCL 100 MG TAB PO SCH (08:08)
[2017-01-03] MEDS: MECLIZINE HCL 25 MG TAB PO SCH (08:08)
[2017-01-03] MEDS: VITAMIN B COMPLEX/VIT C TAB PO SCH ×2 (08:08→20:44)
[2017-01-03] MEDS: DOCUSATE SODIUM 50 MG/SENNA 8.6 MG TAB PO SCH ×2 (08:09→20:44)
[2017-01-03] MEDS: SODIUM CHLORIDE 0.9% FLUSH 10 ML FLUSH IV FLUSH SCH ×2 (08:09→21:00)
--- NOTE | 2017-01-03 08:25 | HHI.PR ---
Subjective Remarks This is a 66-year-old male with a PMH of HTN, h/o Alcohol Abuse, Cirrhosis, Esophageal Varices, Anxiety, Depression, CAD and Peripheral Neuropathy who was sent to the ER from [facility] secondary to diarrhea and generalized weakness. Recent admit 12/08-12/15/16 secondary to recurrent falls, weakness and hepatic encephalopathy, started on Rifaximin and Lactulose and d/c'd to Rehab. Now w/ progressive weakness and multiple episodes of watery diarrhea. Reports mild abdominal pain and nausea, but no vomiting or fever. Upon EMS arrival, patient noted to have BP 60s systolic, s/p IVF w/ BP 94/47, HR 72. S/p 2L IVF in ER w/ repeat BP 110/54, HR 72. WBC 15.3. Creatinine 2.04, previously 1.57 on 12/29/16. Lactic Acid 1.0. Ammonia 72. Lipase 69. INR 1.2. UA negative. C. difficile +. CT Abd/Pelvis w/ cirrhotic appearing liver, multiple gallstones , no ascites. S/p Flagyl IV in ER. 01-02 we'll switch to vancomycin for the C. difficile toxin positive A.m. labs Physical therapy and occupational therapy to eval and treat Case management Check ammonia level Continue lactulose and rifaximin 01-03 labs are still pending still having lots of diarrhea Ammonia level is not available yet Continue lactulose and rifaximin as well as vancomycin orally Discussed with patient and RN Objective Vitals Vital Signs Date Time Temp Pulse Resp B/P Pulse Ox O2 Delivery O2 Flow Rate FiO2 01/03/17 00:00 96.5 64 22 127/60 98 01/02/17 20:00 96.3 65 22 122/58 99 01/02/17 16:00 96.4 67 17 97/48 97 01/02/17 12:00 96.5 64 17 97/55 97 I/O 01/02/17 01/02/17 01/02/17 01/03/17 01/03/17 01/03/17 07:00 15:00 23:00 07:00 15:00 23:00 Intake Total 240 ml 325 ml 320 ml 240 ml Output Total 400 ml Balance 240 ml 325 ml 320 ml -160 ml Intake Oral 240 ml 325 ml 320 ml 240 ml IV Total 0 ml Output Urine Total 400 ml # Voids 4 2 3 2 # Bowel Movements 4 1 6 5 Result Diagram: 01/02/17 1316 01/02/17 1316 Other Results Laboratory Tests Test 01/02/17 13:16 White Blood Count 9.2 TH/MM3 Red Blood Count 3.27 MIL/MM3 Hemoglobin 10.8 GM/DL Hematocrit 31.4 % Mean Corpuscular Volume 96.1 FL Mean Corpuscular Hemoglobin 32.9 PG Mean Corpuscular Hemoglobin 34.3 % Concent Red Cell Distribution Width 15.8 % Platelet Count 71 TH/MM3 Mean Platelet Volume 10.8 FL Neutrophils (%) (Auto) 78.3 % Lymphocytes (%) (Auto) 11.1 % Monocytes (%) (Auto) 7.6 % Eosinophils (%) (Auto) 2.7 % Basophils (%) (Auto) 0.3 % Neutrophils # (Auto) 7.2 TH/MM3 Lymphocytes # (Auto) 1.0 TH/MM3 Monocytes # (Auto) 0.7 TH/MM3 Eosinophils # (Auto) 0.3 TH/MM3 Basophils # (Auto) 0.0 TH/MM3 CBC Comment AUTO DIFF Differential Comment AUTO DIFF CONFIRMED Toxic Granulation 1+ Platelet Estimate LOW Platelet Morphology Comment NORMAL Sodium Level 140 MEQ/L Potassium Level 3.9 MEQ/L Chloride Level 113 MEQ/L Carbon Dioxide Level 19.8 MEQ/L Anion Gap 7 MEQ/L Blood Urea Nitrogen 41 MG/DL Creatinine 1.03 MG/DL Estimat Glomerular Filtration 72 ML/MIN Rate Random Glucose 121 MG/DL Calcium Level 7.8 MG/DL Total Bilirubin 0.8 MG/DL Aspartate Amino Transf 62 U/L (AST/SGOT) Alanine Aminotransferase 66 U/L (ALT/SGPT) Alkaline Phosphatase 112 U/L Total Protein 4.9 GM/DL Albumin 2.1 GM/DL Imaging Last Impressions Lower Extremity Ultrasound 01/01/17 0000 Signed Impressions: Service Date/Time: Sunday, January 01, 2017 19:03 - CONCLUSION: The study is negative for deep venous thrombosis right lower extremity. Zeke Slaughter MD Abdomen/Pelvis CT 01/01/17 0000 Signed Impressions: Service Date/Time: Sunday, January 01, 2017 20:07 - CONCLUSION: 1. Cirrhotic appearing liver. 2. Multiple gallstones. 3. Splenomegaly. 4. No evidence of ascites. Zeke Slaughter MD Objective Remarks GENERAL: Awake alert oriented talkative and cooperative SKIN: Warm and dry. HEAD: Atraumatic. Normocephalic. EYES: Pupils equal and round. No scleral icterus. No injection or drainage. Extraocular muscles grossly intact ENT: No nasal bleeding or discharge. Mucous membranes pink and moist. Tongue is midline NECK: Trachea midline. No JVD. CARDIOVASCULAR: Regular rate and rhythm. S1-S2 no S3 or S4 no heave or thrill or rub or gallop. RESPIRATORY: No accessory muscle use. Clear to auscultation. Breath sounds equal bilaterally. GASTROINTESTINAL: Abdomen soft, non-tender, nondistended. Hepatic and splenic margins not palpable. MUSCULOSKELETAL: Extremities without clubbing, cyanosis, or edema. No obvious deformities. NEUROLOGICAL: Awake and alert. No obvious cranial nerve deficits. Motor grossly within normal limits. 3.5 out of 5 muscle strength in the arms and legs. Normal speech. Generalized weakness PSYCHIATRIC: Appropriate mood and affect; insight and judgment normal. Medications and IVs Inpatient Medications Acetaminophen (Tylenol) 650 mg Q6H PRN PO FEVER/PAIN SCALE 1 TO 2; Start at 21:15 Baclofen (Lioresal) 10 mg TID PO Last administered on 01/02/17 18:47; Start 01/02/17 at 09:00 Bisacodyl (Dulcolax Supp) 10 mg DAILY PRN RECTAL SEVERE CONSITIPATION; Start at 21:15 Buspirone HCl (Buspar) 10 mg TID PO Last administered on 01/02/17 18:47; Start 01/02/17 at 09:00 Carvedilol (Coreg) 6.25 mg DAILY PO Last administered on 01/02/17 10:31; Start 01/02/17 at 09:00 Citalopram Hydrobromide (CeleXA) 40 mg DAILY PO Last administered on 01/02/17 10:33; Start 01/02/17 at 09:00 Gabapentin (Neurontin) 800 mg QID PO Last administered on 01/02/17 21:38; Start 01/02/17 at 09:00 Hydrocortisone (Eldecort 2.5% Cream) 1 applic BID TOPICAL Last administered on 01/02/17 21:00; Start 01/02/17 at 21:00 Lactulose (Lactulose Liq) 30 ml QID PO Last administered on 01/02/17 21:37; Start 01/02/17 at 09:00 Magnesium Hydroxide (Milk Of Magnesia Liq) 30 ml Q12H PRN PO MILD - MODERATE CONSTIPATION; Start 01/01/17 at 21:15 Meclizine HCl (Antivert) 25 mg DAILY PO Last administered on 01/02/17 10:33; Start 01/02/17 at 09:00 Metronidazole (Flagyl 500 Mg Inj) 100 ml @ 100 mls/hr ONCE ONCE IV Last administered on 01/01/17 21:25; Start 01/01/17 at 21:00; Stop 01/01/17 at 21:59; Status DC Metronidazole (Flagyl) 500 mg Q8HR PO Last administered on 01/02/17 05:42; Start 01/02/17 at 06:00; Stop 01/02/17 at 09:50; Status DC Morphine Sulfate (Morphine Inj) 2 mg Q3H PRN IV Pain 6-10; Start 01/01/17 at 21: 15 Non-Formulary Medication 1,000 mg TID PO ; Start 01/02/17 at 13:00; Stop 01/02/17 at 13:00; Status DC Ondansetron HCl (Zofran Inj) 4 mg Q6H PRN IVP NAUSEA OR VOMITING; Start at 21:15 Oxycodone HCl (Roxicodone) 5 mg Q4H PRN PO PAIN SCALE 3 TO 5; Start 01/01/17 at 21:15 Pantoprazole Sodium (Protonix) 40 mg DAILY PO Last administered on 01/02/17 10: 33; Start 01/02/17 at 09:00 Pantoprazole Sodium 40 mg 40 mg ONCE ONCE IV PUSH Last administered on 20:18; Start 01/01/17 at 19:00; Stop 01/01/17 at 19:01; Status DC Pantoprazole Sodium 80 mg/ Sodium Chloride 100 ml @ 10 mls/hr Q10H IV Last administered on 01/01/17 20:42; Start 01/01/17 at 20:15; Stop 01/01/17 at 21:31; Status DC Pantoprazole Sodium/Sodium Chloride (Protonix Inj/NS Inj) 100 ml @ 10 mls/hr Q10H IV ; Start 01/01/17 at 21:45; Stop 01/02/17 at 06:30; Status DC Piperacillin Sod/ Tazobactam Sod 50 ml @ 100 mls/hr ONCE ONCE IV Last administered on 01/01/17 20:18; Start 01/01/17 at 19:00; Stop 01/01/17 at 19:29; Status DC Rifaximin (Xifaxan) 550 mg Q8HR PO Last administered on 01/03/17 05:18; Start 01/01/17 at 22:00 Senna/Docusate Sodium (Ghazal-Colace) 1 tab BID PO Last administered on 01/02/17 21:37; Start 01/02/17 at 09:00 Sennosides (Senokot) 17.2 mg Q12H PRN PO MODERATE - SEVERE CONSTIPATION; Start 01/01/17 at 21:15 Sodium Chloride (NS 1000 ml Inj) 1,000 ml @ 1,000 mls/hr Q1H IV Last administered on 01/01/17 20:17; Start 01/01/17 at 18:35; Stop 01/01/17 at 19:34; Status DC Sodium Chloride (NS Flush) 2 ml BID IV FLUSH Last administered on 01/02/17 21: 00; Start 01/02/17 at 09:00 Thiamine HCl 500 mg 500 mg DAILY PO ; Start 01/02/17 at 09:00 Vancomycin HCl (VANCOMYCIN for oral use only) 500 mg QID PO Last administered on 01/02/17 21:38; Start 01/02/17 at 13:00 Vitamin B Complex/ Vitamin C (Allbee C) 1 tab BID PO Last administered on 21:00; Start 01/02/17 at 09:00 A/P Problem List: (1) C. difficile diarrhea ICD Code: A04.7 Status: Acute Plan: Change from Flagyl to vancomycin (2) Hypotension ICD Code: I95.9 Status: Acute Plan: Continue fluids active rehydration (3) Cirrhosis ICD Code: K74.60 Status: Acute Plan: Continue on his home medications lactulose and rifaximin (4) NO (acute kidney injury) ICD Code: N17.9 Status: Acute Plan: A.m. labs continue with fluid replacement (5) Diarrhea ICD Code: R19.7 Status: Acute Plan: Continue on oral vancomycin (6) Hepatic encephalopathy ICD Code: K72.90 Status: Acute Plan: Continue on lactulose and rifaximin Assessment and Plan 1. C. Diff Colitis: sent to ER from [facility] secondary to ongoing watery diarrhea, C. Diff +. S/p Flagyl IV in ER. Will switch to vancomycin orally. IVF for hydration. Analgesics/antiemetics as needed. CT Abd/Pelvis w / no acute findings,--we await his repeat ammonia level continue on oral vancomycin 2. Hypotension: BP 60's per EMS, s/p IVF w/ good response, BP currently 110/54 , HR 72 after 2L IVF in ER. Monitor BP. Hold antihypertensives. Improved 3. Cirrhosis: Chronic. Secondary to previous h/o Alcohol Abuse, quit 4yrs ago. Continue home medications, caution w/ diuretics in light of hypotension/ dehydration. Continue on lactulose and rifaximin 4. NO: Acute on Chronic. Creatinine 2.04, previously 1.57 on 12/29/16. UA negative. IVF for hydration, caution with cirrhosis and fluid overload. Repeat labs in a.m. 5. DVT Prophylaxis: SCD/teds. Check an ammonia level A.m. labs Discharge Planning Case management PT and OT Problem Qualifiers (1) Hypotension: Qualified Code: I95.9 - Hypotension, unspecified hypotension type (2) Diarrhea: Qualified Code: A09 - Diarrhea of infectious origin Paxton Najera DO Jan 03, 2017 08:25
[2017-01-03 12:00] VITALS: BP 123/56; PULSE 73; RESP 18; TEMP 96.6; O2SAT 95
[2017-01-03] MEDS: HYDROCORTISONE 2.5% CREAM 30 GM TOPICAL SCH ×2 (12:25→20:47)
[2017-01-03 12:26] LABS: AUTOMATED NEUTROPHIL # 6.7 TH/MM3 (1.8-7.7); BASOPHIL % 0.4 % (0.0-2.0); EOSINOPHIL # 0.3 TH/MM3 (0-0.4); EOSINOPHIL % 3.4 % (0.0-4.0); HEMATOCRIT 36.7 % (39.0-51.0); LYMPH % 12.1 % (9.0-44.0); LYMPHOCYTE # 1.1 TH/MM3 (1.0-4.8); MEAN CELL VOLUME 98.5 FL (80.0-100.0); MEAN CORPUSCULAR HEMOGLOBIN 32.1 PG (27.0-34.0); MEAN CORPUSCULAR HGB CONC 32.6 % (32.0-36.0); MONO % 8.5 % (0.0-8.0); NEUT % 75.6 % (16.0-70.0); PLATELET COUNT 82 TH/MM3 (150-450); RED BLOOD COUNT 3.73 MIL/MM3 (4.50-5.90); RED CELL DISTRIBUTION WIDTH 16.1 % (11.6-17.2); WHITE BLOOD COUNT 8.9 TH/MM3 (4.0-11.0)
[2017-01-03 12:30] LABS: ALKALINE PHOSPHATASE 140 U/L (45-117); ALT (GPT) 78 U/L (12-78); ANION GAP 7 MEQ/L (5-15); AST (GOT) 57 U/L (15-37); BICARBONATE 19.8 MEQ/L (21.0-32.0); BLOOD UREA NITROGEN 22 MG/DL (7-18); CHLORIDE 115 MEQ/L (98-107); FREE T4 1.12 NG/DL (0.76-1.46); GLOMERULAR FILTRATION RATE 100 ML/MIN (>89); MAGNESIUM 1.6 MG/DL (1.5-2.5); POTASSIUM 4.1 MEQ/L (3.5-5.1); SODIUM (NA) 142 MEQ/L (136-145); TOTAL BILIRUBIN ADULT 0.8 MG/DL (0.2-1.0)
[2017-01-03 12:34] LABS: HEMO FLAGS AUTO DIFF
[2017-01-03 13:38] LABS: HEMOGLOBIN A1a 1.1 %; HEMOGLOBIN A1b 1.5 %; HEMOGLOBIN P3 3.8 %
[2017-01-03 13:39] LABS: HEMOGLOBIN Ao 85.9 %
[2017-01-03 13:48] LABS: OVALOCYTES 1+ (NORMAL); PLATELET ESTIMATE SMEAR LOW (NORMAL); PLATELET MORPHOLOGY NORMAL (NORMAL); SCAN/DIFF AUTO DIFF CONFIRMED
[2017-01-03 16:00] VITALS: BP 122/64; PULSE 74; RESP 19; TEMP 96; O2SAT 95
[2017-01-03] MEDS: LACTOBACILLUS ACIDOPHILUS TAB PO SCH (18:11)
[2017-01-03 19:20] LABS: INTERNATIONAL NORMALIZED RATIO 1.1 RATIO; PROTHROMBIN TIME - PATIENT 12.7 SEC (9.8-11.6)
[2017-01-03 20:00] VITALS: BP 128/60; PULSE 73; RESP 20; TEMP 97.4; O2SAT 95
[2017-01-04] VITALS: BP 128/60; PULSE 79; RESP 20; TEMP 97.9; O2SAT 95
[2017-01-04] MEDS: RIFAXIMIN 550 MG TAB PO SCH ×3 (05:50→20:30)
[2017-01-04 07:24] LABS: INTERNATIONAL NORMALIZED RATIO 1.1 RATIO; PROTHROMBIN TIME - PATIENT 12.5 SEC (9.8-11.6)
[2017-01-04 07:26] LABS: AUTOMATED NEUTROPHIL # 4.4 TH/MM3 (1.8-7.7); BASOPHIL % 0.4 % (0.0-2.0); EOSINOPHIL # 0.2 TH/MM3 (0-0.4); EOSINOPHIL % 2.8 % (0.0-4.0); HEMATOCRIT 33.5 % (39.0-51.0); LYMPH % 16.3 % (9.0-44.0); MEAN CELL VOLUME 96.9 FL (80.0-100.0); MEAN CORPUSCULAR HEMOGLOBIN 32.3 PG (27.0-34.0); MEAN CORPUSCULAR HGB CONC 33.3 % (32.0-36.0); NEUT % 73.5 % (16.0-70.0); PLATELET COUNT 68 TH/MM3 (150-450); RED BLOOD COUNT 3.46 MIL/MM3 (4.50-5.90); RED CELL DISTRIBUTION WIDTH 15.8 % (11.6-17.2); WHITE BLOOD COUNT 5.9 TH/MM3 (4.0-11.0)
[2017-01-04 07:29] LABS: HEMO FLAGS AUTO DIFF
[2017-01-04 07:44] LABS: ANION GAP 7 MEQ/L (5-15); AST (GOT) 46 U/L (15-37); BICARBONATE 21.9 MEQ/L (21.0-32.0); BLOOD UREA NITROGEN 17 MG/DL (7-18); CHLORIDE 112 MEQ/L (98-107); GLOMERULAR FILTRATION RATE 131 ML/MIN (>89); MAGNESIUM 1.3 MG/DL (1.5-2.5); POTASSIUM 4.5 MEQ/L (3.5-5.1); SODIUM (NA) 141 MEQ/L (136-145)
[2017-01-04 07:48] LABS: ALKALINE PHOSPHATASE 136 U/L (45-117); ALT (GPT) 66 U/L (12-78); TOTAL BILIRUBIN ADULT 0.7 MG/DL (0.2-1.0)
[2017-01-04 07:54] VITALS: BP 127/60; PULSE 67; RESP 19; TEMP 96.9; O2SAT 98
[2017-01-04] MEDS: PANTOPRAZOLE SOD 40 MG DELAYED RELEASE TAB PO SCH (08:30)
[2017-01-04] MEDS: GABAPENTIN 400 MG CAP PO SCH ×4 (08:30→20:30)
[2017-01-04] MEDS: BACLOFEN 10 MG TAB PO SCH ×3 (08:30→17:53)
[2017-01-04] MEDS: DOCUSATE SODIUM 50 MG/SENNA 8.6 MG TAB PO SCH ×2 (08:30→20:33)
[2017-01-04] MEDS: THIAMINE HCL 100 MG TAB PO SCH (08:30)
[2017-01-04] MEDS: CITALOPRAM HYDROBROMIDE 40 MG TAB PO SCH (08:31)
[2017-01-04] MEDS: CARVEDILOL 6.25 MG TAB PO SCH (08:31)
[2017-01-04] MEDS: LACTOBACILLUS ACIDOPHILUS TAB PO SCH ×3 (08:31→17:52)
[2017-01-04] MEDS: MECLIZINE HCL 25 MG TAB PO SCH (08:31)
[2017-01-04] MEDS: busPIRone HCL 10 MG TAB PO SCH ×3 (08:33→17:52)
[2017-01-04] MEDS: LACTULOSE SYRUP 20 GM/30 ML CUP PO SCH ×4 (08:33→20:29)
[2017-01-04] MEDS: VANCOMYCIN 500 MG VIAL (FOR ORAL USE ONLY) PO SCH ×4 (08:36→20:29)
[2017-01-04 08:40] LABS: ACANTHOCYTES 1+ (NORMAL); OVALOCYTES 1+ (NORMAL); PLATELET ESTIMATE SMEAR LOW (NORMAL); PLATELET MORPHOLOGY NORMAL (NORMAL); SCAN/DIFF AUTO DIFF CONFIRMED
[2017-01-04] MEDS: SODIUM CHLORIDE 0.9% FLUSH 10 ML FLUSH IV FLUSH SCH ×2 (09:02→20:33)
[2017-01-04] MEDS: HYDROCORTISONE 2.5% CREAM 30 GM TOPICAL SCH ×2 (09:02→22:58)
[2017-01-04] MEDS: VITAMIN B COMPLEX/VIT C TAB PO SCH ×2 (09:02→20:30)
--- NOTE | 2017-01-04 09:44 | HHI.PR ---
Subjective Remarks This is a 66-year-old male with a PMH of HTN, h/o Alcohol Abuse, Cirrhosis, Esophageal Varices, Anxiety, Depression, CAD and Peripheral Neuropathy who was sent to the ER from [facility] secondary to diarrhea and generalized weakness. Recent admit 12/08-12/15/16 secondary to recurrent falls, weakness and hepatic encephalopathy, started on Rifaximin and Lactulose and d/c'd to Rehab. Now w/ progressive weakness and multiple episodes of watery diarrhea. Reports mild abdominal pain and nausea, but no vomiting or fever. Upon EMS arrival, patient noted to have BP 60s systolic, s/p IVF w/ BP 94/47, HR 72. S/p 2L IVF in ER w/ repeat BP 110/54, HR 72. WBC 15.3. Creatinine 2.04, previously 1.57 on 12/29/16. Lactic Acid 1.0. Ammonia 72. Lipase 69. INR 1.2. UA negative. C. difficile +. CT Abd/Pelvis w/ cirrhotic appearing liver, multiple gallstones , no ascites. S/p Flagyl IV in ER. 8-5 we'll switch to vancomycin for the C. difficile toxin positive A.m. labs Physical therapy and occupational therapy to eval and treat Case management Check ammonia level Continue lactulose and rifaximin 8-6 labs are still pending still having lots of diarrhea Ammonia level is not available yet Continue lactulose and rifaximin as well as vancomycin orally Discussed with patient and RN 8-7 His ammonia level is not perfect Still having diarrhea Continue lactulose and rifaximin as well as oral vancomycin Objective Vitals Vital Signs Date Time Temp Pulse Resp B/P Pulse Ox O2 Delivery O2 Flow Rate FiO2 01/04/17 07:54 96.9 67 19 127/60 98 01/04/17 05:51 20 01/04/17 00:00 97.9 79 20 128/60 95 01/03/17 20:00 97.4 73 20 128/60 95 01/03/17 16:00 96.0 74 19 122/64 95 01/03/17 12:00 96.6 73 18 123/56 95 I/O 01/03/17 01/03/17 01/03/17 01/04/17 01/04/17 01/04/17 07:00 15:00 23:00 07:00 15:00 23:00 Intake Total 240 ml 325 ml 480 ml 480 ml 120 ml Output Total 400 ml 225 ml 375 ml 475 ml Balance -160 ml 100 ml 105 ml 5 ml 120 ml Intake Oral 240 ml 325 ml 480 ml 480 ml 120 ml IV Total 0 ml Output Urine Total 400 ml 225 ml 375 ml 475 ml # Voids 2 # Bowel Movements 5 9 3 4 Result Diagram: 01/04/17 0645 01/04/17 0645 Other Results Laboratory Tests Test 01/03/17 01/03/17 01/04/17 11:35 17:48 06:45 White Blood Count 8.9 TH/MM3 5.9 TH/MM3 Red Blood Count 3.73 MIL/MM3 3.46 MIL/MM3 Hemoglobin 12.0 GM/DL 11.2 GM/DL Hematocrit 36.7 % 33.5 % Mean Corpuscular Volume 98.5 FL 96.9 FL Mean Corpuscular Hemoglobin 32.1 PG 32.3 PG Mean Corpuscular Hemoglobin 32.6 % 33.3 % Concent Red Cell Distribution Width 16.1 % 15.8 % Platelet Count 82 TH/MM3 68 TH/MM3 Mean Platelet Volume 10.0 FL 9.5 FL Neutrophils (%) (Auto) 75.6 % 73.5 % Lymphocytes (%) (Auto) 12.1 % 16.3 % Monocytes (%) (Auto) 8.5 % 7.0 % Eosinophils (%) (Auto) 3.4 % 2.8 % Basophils (%) (Auto) 0.4 % 0.4 % Neutrophils # (Auto) 6.7 TH/MM3 4.4 TH/MM3 Lymphocytes # (Auto) 1.1 TH/MM3 1.0 TH/MM3 Monocytes # (Auto) 0.8 TH/MM3 0.4 TH/MM3 Eosinophils # (Auto) 0.3 TH/MM3 0.2 TH/MM3 Basophils # (Auto) 0.0 TH/MM3 0.0 TH/MM3 CBC Comment AUTO DIFF AUTO DIFF Differential Comment AUTO DIFF AUTO DIFF CONFIRMED CONFIRMED Platelet Estimate LOW LOW Platelet Morphology Comment NORMAL NORMAL Ovalocytes 1+ 1+ Sodium Level 142 MEQ/L 141 MEQ/L Potassium Level 4.1 MEQ/L 4.5 MEQ/L Chloride Level 115 MEQ/L 112 MEQ/L Carbon Dioxide Level 19.8 MEQ/L 21.9 MEQ/L Anion Gap 7 MEQ/L 7 MEQ/L Blood Urea Nitrogen 22 MG/DL 17 MG/DL Creatinine 0.77 MG/DL 0.61 MG/DL Estimat Glomerular Filtration 100 ML/MIN 131 ML/MIN Rate Random Glucose 103 MG/DL 84 MG/DL Hemoglobin A1c 5.2 % Calcium Level 8.5 MG/DL 8.2 MG/DL Phosphorus Level 2.1 MG/DL 3.2 MG/DL Magnesium Level 1.6 MG/DL 1.3 MG/DL Total Bilirubin 0.8 MG/DL 0.7 MG/DL Aspartate Amino Transf 57 U/L 46 U/L (AST/SGOT) Alanine Aminotransferase 78 U/L 66 U/L (ALT/SGPT) Alkaline Phosphatase 140 U/L 136 U/L Ammonia 68 MCMOL/L 62 MCMOL/L Total Protein 6.0 GM/DL 5.3 GM/DL Albumin 2.3 GM/DL 2.2 GM/DL Free Thyroxine 1.12 NG/DL Thyroid Stimulating Hormone 0.751 uIU/ML 3rd Gen Prothrombin Time 12.7 SEC 12.5 SEC Prothromb Time International 1.1 RATIO 1.1 RATIO Ratio Acanthocytes 1+ Imaging Last Impressions Lower Extremity Ultrasound 01/01/17 0000 Signed Impressions: Service Date/Time: Sunday, January 01, 2017 19:03 - CONCLUSION: The study is negative for deep venous thrombosis right lower extremity. Zeke Slaughter MD Abdomen/Pelvis CT 01/01/17 0000 Signed Impressions: Service Date/Time: Sunday, January 01, 2017 20:07 - CONCLUSION: 1. Cirrhotic appearing liver. 2. Multiple gallstones. 3. Splenomegaly. 4. No evidence of ascites. Zeke Slaughter MD Objective Remarks GENERAL: Awake alert oriented talkative and cooperative SKIN: Warm and dry. HEAD: Atraumatic. Normocephalic. EYES: Pupils equal and round. No scleral icterus. No injection or drainage. Extraocular muscles grossly intact ENT: No nasal bleeding or discharge. Mucous membranes pink and moist. Tongue is midline NECK: Trachea midline. No JVD. CARDIOVASCULAR: Regular rate and rhythm. S1-S2 no S3 or S4 no heave or thrill or rub or gallop. RESPIRATORY: No accessory muscle use. Clear to auscultation. Breath sounds equal bilaterally. GASTROINTESTINAL: Abdomen soft, non-tender, nondistended. Hepatic and splenic margins not palpable. MUSCULOSKELETAL: Extremities without clubbing, cyanosis, or edema. No obvious deformities. NEUROLOGICAL: Awake and alert. No obvious cranial nerve deficits. Motor grossly within normal limits. 3.5 out of 5 muscle strength in the arms and legs. Normal speech. Generalized weakness PSYCHIATRIC: Appropriate mood and affect; insight and judgment normal. Medications and IVs Current Medications Sodium Chloride (NS 1000 ml Inj) 1,000 ml @ 1,000 mls/hr Q1H IV Last administered on 01/01/17 20:17; Start 01/01/17 at 18:35; Stop 01/01/17 at 19:34; Status DC Pantoprazole Sodium 40 mg 40 mg ONCE ONCE IV PUSH Last administered on 20:18; Start 01/01/17 at 19:00; Stop 01/01/17 at 19:01; Status DC Piperacillin Sod/ Tazobactam Sod 50 ml @ 100 mls/hr ONCE ONCE IV Last administered on 01/01/17 20:18; Start 01/01/17 at 19:00; Stop 01/01/17 at 19:29; Status DC Pantoprazole Sodium 80 mg/ Sodium Chloride 100 ml @ 10 mls/hr Q10H IV Last administered on 01/01/17 20:42; Start 01/01/17 at 20:15; Stop 01/01/17 at 21:31; Status DC Sodium Chloride 1,000 ml @ 1,000 mls/hr Q1H IV Last administered on 01/01/17 20:28; Start 01/01/17 at 20:02; Stop 01/01/17 at 21:01; Status DC Sodium Chloride 500 ml @ 500 mls/hr BOLUS ONCE IV Last administered on 21:55; Start 01/01/17 at 20:15; Stop 01/01/17 at 21:14; Status DC Metronidazole (Flagyl 500 Mg Inj) 100 ml @ 100 mls/hr ONCE ONCE IV Last administered on 01/01/17 21:25; Start 01/01/17 at 21:00; Stop 01/01/17 at 21:59; Status DC Metronidazole (Flagyl) 500 mg Q8HR PO Last administered on 01/02/17 05:42; Start 01/02/17 at 06:00; Stop 01/02/17 at 09:50; Status DC Sodium Chloride (NS Flush) 2 ml UNSCH PRN IV FLUSH FLUSH AFTER USING IV ACCESS ; Start 01/01/17 at 21:15 Sodium Chloride (NS Flush) 2 ml BID IV FLUSH Last administered on 01/04/17 09: 02; Start 01/02/17 at 09:00 Ondansetron HCl (Zofran Inj) 4 mg Q6H PRN IVP NAUSEA OR VOMITING; Start at 21:15 Acetaminophen (Tylenol) 650 mg Q6H PRN PO FEVER/PAIN SCALE 1 TO 2; Start at 21:15 Morphine Sulfate (Morphine Inj) 2 mg Q3H PRN IV Pain 6-10; Start 01/01/17 at 21: 15 Oxycodone HCl (Roxicodone) 5 mg Q4H PRN PO PAIN SCALE 3 TO 5 Last administered on 01/04/17 08:33; Start 01/01/17 at 21:15 Senna/Docusate Sodium (Ghazal-Colace) 1 tab BID PO Last administered on 01/04/17 08:30; Start 01/02/17 at 09:00 Magnesium Hydroxide (Milk Of Magnesia Liq) 30 ml Q12H PRN PO MILD - MODERATE CONSTIPATION; Start 01/01/17 at 21:15 Sennosides (Senokot) 17.2 mg Q12H PRN PO MODERATE - SEVERE CONSTIPATION; Start 01/01/17 at 21:15 Bisacodyl (Dulcolax Supp) 10 mg DAILY PRN RECTAL SEVERE CONSITIPATION; Start at 21:15 Lactulose (Lactulose Liq) 30 ml DAILY PRN PO SEVERE CONSITIPATION; Start at 21:15 Baclofen (Lioresal) 10 mg TID PO Last administered on 01/04/17 08:30; Start 01/02/17 at 09:00 Buspirone HCl (Buspar) 10 mg TID PO Last administered on 01/04/17 08:33; Start 01/02/17 at 09:00 Carvedilol (Coreg) 6.25 mg DAILY PO Last administered on 01/04/17 08:31; Start 01/02/17 at 09:00 Citalopram Hydrobromide (CeleXA) 40 mg DAILY PO Last administered on 01/04/17 08:31; Start 01/02/17 at 09:00 Gabapentin (Neurontin) 800 mg QID PO Last administered on 01/04/17 08:30; Start 01/02/17 at 09:00 Meclizine HCl (Antivert) 25 mg DAILY PO Last administered on 01/04/17 08:31; Start 01/02/17 at 09:00 Pantoprazole Sodium (Protonix) 40 mg DAILY PO Last administered on 01/04/17 08: 30; Start 01/02/17 at 09:00 Rifaximin (Xifaxan) 550 mg Q8HR PO Last administered on 01/04/17 05:50; Start 01/01/17 at 22:00 Lactulose (Lactulose Liq) 30 ml QID PO Last administered on 01/04/17 08:33; Start 01/02/17 at 09:00 Thiamine HCl (Vitamin B1) 500 mg DAILY PO Last administered on 01/04/17 08:30; Start 01/02/17 at 09:00 Non-Formulary Medication 100 mg 100 mg BID PO ; Start 01/02/17 at 09:00; Status UNV Pantoprazole Sodium/Sodium Chloride (Protonix Inj/NS Inj) 100 ml @ 10 mls/hr Q10H IV ; Start 01/01/17 at 21:45; Stop 01/02/17 at 06:30; Status DC Vitamin B Complex/ Vitamin C (Allbee C) 1 tab BID PO Last administered on 09:02; Start 01/02/17 at 09:00 Hydrocortisone (Eldecort 2.5% Cream) 1 applic BID TOPICAL Last administered on 01/04/17 09:02; Start 01/02/17 at 21:00 Non-Formulary Medication 1,000 mg TID PO ; Start 01/02/17 at 13:00; Stop 01/02/17 at 13:00; Status DC Vancomycin HCl (VANCOMYCIN for oral use only) 500 mg QID PO Last administered on 01/04/17 08:36; Start 01/02/17 at 13:00 Lactobacillus Acidophilus (Lactinex) 1 tab TID PO Last administered on 8/7/ 17at 08:31; Start 01/03/17 at 18:00 Urinary Catheter: No Vascular Central Line Catheter: No A/P Problem List: (1) C. difficile diarrhea ICD Code: A04.7 Status: Acute Plan: Change from Flagyl to vancomycin (2) Hypotension ICD Code: I95.9 Status: Acute Plan: Continue fluids active rehydration (3) Cirrhosis ICD Code: K74.60 Status: Acute Plan: Continue on his home medications lactulose and rifaximin (4) NO (acute kidney injury) ICD Code: N17.9 Status: Acute Plan: A.m. labs continue with fluid replacement (5) Diarrhea ICD Code: R19.7 Status: Acute Plan: Continue on oral vancomycin (6) Hepatic encephalopathy ICD Code: K72.90 Status: Acute Plan: Continue on lactulose and rifaximin Assessment and Plan 1. C. Diff Colitis: sent to ER from [facility] secondary to ongoing watery diarrhea, C. Diff +. S/p Flagyl IV in ER. Will switch to vancomycin orally. IVF for hydration. Analgesics/antiemetics as needed. CT Abd/Pelvis w / no acute findings,--we await his repeat ammonia level continue on oral vancomycin 2. Hypotension: BP 60's per EMS, s/p IVF w/ good response, BP currently 110/54 , HR 72 after 2L IVF in ER. Monitor BP. Hold antihypertensives. Improved 3. Cirrhosis: Chronic. Secondary to previous h/o Alcohol Abuse, quit 4yrs ago. Continue home medications, caution w/ diuretics in light of hypotension/ dehydration. Continue on lactulose and rifaximin ammonia level still in the 60s 4. NO: Acute on Chronic. Creatinine 2.04, previously 1.57 on 12/29/16. UA negative. IVF for hydration, caution with cirrhosis and fluid overload. Repeat labs in a.m. 5. DVT Prophylaxis: SCD/teds. Check an ammonia level continue on lactulose and rifaximin since still elevated A.m. labs Discharge Planning Case management PT and OT Problem Qualifiers (1) Hypotension: Qualified Code: I95.9 - Hypotension, unspecified hypotension type (2) Diarrhea: Qualified Code: A09 - Diarrhea of infectious origin Paxton Najera DO Jan 04, 2017 09:44
[2017-01-04 12:00] VITALS: BP 109/55; PULSE 70; RESP 18; TEMP 96.7; O2SAT 94
[2017-01-04 16:00] VITALS: BP 140/64; PULSE 78; RESP 16; TEMP 96.5; O2SAT 97
[2017-01-04 20:00] VITALS: BP 140/64; PULSE 107; RESP 18; TEMP 96.7; O2SAT 97
[2017-01-05] VITALS: BP 142/66; PULSE 81; RESP 18; TEMP 97.6; O2SAT 98
[2017-01-05] MEDS: RIFAXIMIN 550 MG TAB PO SCH ×3 (04:19→20:56)
[2017-01-05 06:47] LABS: AUTOMATED NEUTROPHIL # 6.1 TH/MM3 (1.8-7.7); BASOPHIL % 0.5 % (0.0-2.0); EOSINOPHIL # 0.3 TH/MM3 (0-0.4); EOSINOPHIL % 3.2 % (0.0-4.0); HEMATOCRIT 33.9 % (39.0-51.0); LYMPH % 13.8 % (9.0-44.0); LYMPHOCYTE # 1.1 TH/MM3 (1.0-4.8); MEAN CORPUSCULAR HGB CONC 34.1 % (32.0-36.0); MONO % 7.1 % (0.0-8.0); NEUT % 75.4 % (16.0-70.0); PLATELET COUNT 83 TH/MM3 (150-450); RED CELL DISTRIBUTION WIDTH 15.9 % (11.6-17.2); WHITE BLOOD COUNT 8.1 TH/MM3 (4.0-11.0)
[2017-01-05 06:48] LABS: HEMO FLAGS AUTO DIFF
[2017-01-05 06:51] LABS: INTERNATIONAL NORMALIZED RATIO 1.1 RATIO; PROTHROMBIN TIME - PATIENT 12.7 SEC (9.8-11.6)
[2017-01-05 07:22] LABS: ANION GAP 7 MEQ/L (5-15); AST (GOT) 37 U/L (15-37); BICARBONATE 24.1 MEQ/L (21.0-32.0); BLOOD UREA NITROGEN 15 MG/DL (7-18); CHLORIDE 112 MEQ/L (98-107); GLOMERULAR FILTRATION RATE 110 ML/MIN (>89); MAGNESIUM 1.4 MG/DL (1.5-2.5); POTASSIUM 4.3 MEQ/L (3.5-5.1); SODIUM (NA) 143 MEQ/L (136-145)
[2017-01-05 07:25] LABS: ALKALINE PHOSPHATASE 130 U/L (45-117); ALT (GPT) 64 U/L (12-78); TOTAL BILIRUBIN ADULT 0.6 MG/DL (0.2-1.0)
[2017-01-05 08:00] VITALS: BP 135/65; PULSE 74; RESP 18; TEMP 96.9; O2SAT 97
[2017-01-05 08:05] LABS: OVALOCYTES 1+ (NORMAL); SCAN/DIFF AUTO DIFF CONFIRMED
[2017-01-05 08:06] LABS: ACANTHOCYTES OCC (NORMAL); PLATELET ESTIMATE SMEAR LOW (NORMAL); PLATELET MORPHOLOGY NORMAL (NORMAL)
[2017-01-05] MEDS: DOCUSATE SODIUM 50 MG/SENNA 8.6 MG TAB PO SCH ×2 (09:00→20:56)
[2017-01-05] MEDS: LACTULOSE SYRUP 20 GM/30 ML CUP PO SCH ×4 (10:12→20:55)
[2017-01-05] MEDS: GABAPENTIN 400 MG CAP PO SCH ×4 (10:12→20:56)
[2017-01-05] MEDS: MECLIZINE HCL 25 MG TAB PO SCH (10:12)
[2017-01-05] MEDS: BACLOFEN 10 MG TAB PO SCH ×3 (10:13→17:19)
[2017-01-05] MEDS: CITALOPRAM HYDROBROMIDE 40 MG TAB PO SCH (10:13)
[2017-01-05] MEDS: LACTOBACILLUS ACIDOPHILUS TAB PO SCH ×3 (10:13→17:19)
[2017-01-05] MEDS: CARVEDILOL 6.25 MG TAB PO SCH (10:14)
[2017-01-05] MEDS: VANCOMYCIN 500 MG VIAL (FOR ORAL USE ONLY) PO SCH ×4 (10:15→20:56)
[2017-01-05] MEDS: VITAMIN B COMPLEX/VIT C TAB PO SCH ×2 (10:17→21:14)
[2017-01-05] MEDS: SODIUM CHLORIDE 0.9% FLUSH 10 ML FLUSH IV FLUSH SCH ×2 (10:18→14:04)
[2017-01-05] MEDS: PANTOPRAZOLE SOD 40 MG DELAYED RELEASE TAB PO SCH (10:18)
[2017-01-05] MEDS: busPIRone HCL 10 MG TAB PO SCH ×3 (10:18→17:19)
[2017-01-05] MEDS: THIAMINE HCL 100 MG TAB PO SCH (10:22)
[2017-01-05] MEDS: HYDROCORTISONE 2.5% CREAM 30 GM TOPICAL SCH ×2 (10:29→21:00)
[2017-01-05 12:00] VITALS: BP 145/67; PULSE 82; RESP 17; TEMP 96.9; O2SAT 97
[2017-01-05 16:00] VITALS: BP 120/57; PULSE 71; RESP 19; TEMP 96.9; O2SAT 96
[2017-01-05 20:00] VITALS: BP 119/5; PULSE 76; RESP 18; TEMP 97.5; O2SAT 96
--- NOTE | 2017-01-05 23:58 | HHI.PR ---
Subjective Remarks Patient seen this morning around 11:30 AM. Says he is feeling all right. Denies any chest pain or shortness breath. Denies any abdominal pain. Objective Vital Signs Date Time Temp Pulse Resp B/P Pulse Ox O2 Delivery O2 Flow Rate FiO2 01/05/17 20:00 97.5 76 18 119/5 96 01/05/17 16:00 96.9 71 19 120/57 96 01/05/17 12:00 96.9 82 17 145/67 97 01/05/17 08:00 96.9 74 18 135/65 97 01/05/17 00:00 97.6 81 18 142/66 98 I/O 01/04/17 01/04/17 01/04/17 01/05/17 01/05/17 01/05/17 06:59 14:59 22:59 06:59 14:59 22:59 Intake Total 480 ml 1360 ml 240 ml 240 ml 1120 ml Output Total 475 ml 600 ml 300 ml 600 ml 156 ml Balance 5 ml 760 ml -60 ml 240 ml 520 ml -156 ml Intake Oral 480 ml 1360 ml 240 ml 240 ml 1120 ml IV Total 0 ml 0 ml Output Urine Total 475 ml 600 ml 300 ml 600 ml 150 ml Stool Total 6 ml # Voids 3 # Bowel Movements 4 5 6 3 1 Result Diagram: 01/05/17 0555 01/05/17554 Objective Remarks GENERAL: Patient lying in bed. Appears comfortable. SKIN: Warm and dry. HEAD: Normocephalic. EYES: No scleral icterus. No injection or drainage. NECK: Supple, trachea midline. No JVD. CARDIOVASCULAR: Regular rate and rhythm without murmurs, gallops, or rubs. RESPIRATORY: Breath sounds equal bilaterally. No accessory muscle use. GASTROINTESTINAL: Abdomen soft, non-tender, nondistended. MUSCULOSKELETAL: No cyanosis, or edema. BACK: Nontender without obvious deformity. No CVA tenderness. A/P Assessment and Plan 01/05/17 Continue on by mouth vancomycin for C. difficile colitis. Discussed with manager of case management. Working on discharge to SNF within next 1-2 days. //C. Diff Colitis: sent to ER from [facility] secondary to ongoing watery diarrhea, C. Diff +. S/p Flagyl IV in ER. -Cont PO vancomycin.. IVF for hydration. Analgesics/antiemetics as needed. CT Abd/Pelvis w/ no acute findings - continue on oral vancomycin //Hypotension: BP 60's per EMS, s/p IVF w/ good response, BP currently 110/54, HR 72 after 2L IVF in ER. Monitor BP. Hold antihypertensives. Improved //Cirrhosis: Chronic. Secondary to previous h/o Alcohol Abuse, quit 4yrs ago. Continue home medications, caution w/ diuretics in light of hypotension/ dehydration. -Continue on lactulose and rifaximin -Ammonia 57 // NO: Acute on Chronic. Creatinine 2.04, previously 1.57 on 12/29/16. UA negative. IVF for hydration, caution with cirrhosis and fluid overload. - Resolved. // DVT Prophylaxis: SCD/teds. Rene Barker MD Jan 05, 2017 23:58
[2017-01-06] VITALS: BP 111/55; PULSE 62; RESP 18; TEMP 97.9; O2SAT 97
[2017-01-06] MEDS: RIFAXIMIN 550 MG TAB PO SCH ×3 (06:53→22:34)
[2017-01-06 08:00] VITALS: BP 110/66; PULSE 61; RESP 18; TEMP 97; O2SAT 97
[2017-01-06] MEDS: DOCUSATE SODIUM 50 MG/SENNA 8.6 MG TAB PO SCH ×2 (09:00→21:00)
[2017-01-06] MEDS: LACTULOSE SYRUP 20 GM/30 ML CUP PO SCH ×4 (09:09→22:34)
[2017-01-06] MEDS: MECLIZINE HCL 25 MG TAB PO SCH (09:09)
[2017-01-06] MEDS: GABAPENTIN 400 MG CAP PO SCH ×4 (09:09→22:34)
[2017-01-06] MEDS: busPIRone HCL 10 MG TAB PO SCH ×3 (09:10→18:39)
[2017-01-06] MEDS: CITALOPRAM HYDROBROMIDE 40 MG TAB PO SCH (09:10)
[2017-01-06] MEDS: THIAMINE HCL 100 MG TAB PO SCH (09:10)
[2017-01-06] MEDS: VITAMIN B COMPLEX/VIT C TAB PO SCH ×2 (09:10→22:35)
[2017-01-06] MEDS: CARVEDILOL 6.25 MG TAB PO SCH (09:11)
[2017-01-06] MEDS: VANCOMYCIN 500 MG VIAL (FOR ORAL USE ONLY) PO SCH ×4 (09:11→22:34)
[2017-01-06] MEDS: BACLOFEN 10 MG TAB PO SCH ×3 (09:11→18:39)
[2017-01-06] MEDS: LACTOBACILLUS ACIDOPHILUS TAB PO SCH ×3 (09:11→18:39)
[2017-01-06] MEDS: PANTOPRAZOLE SOD 40 MG DELAYED RELEASE TAB PO SCH (09:11)
[2017-01-06] MEDS ORDERED: GABA800T PO (10:03)
[2017-01-06] MEDS ORDERED: VANC250C2 PO (10:03)
[2017-01-06] MEDS ORDERED: SPIR50TA PO (10:03)
[2017-01-06 12:00] VITALS: BP 106/55; PULSE 70; RESP 18; TEMP 96.4; O2SAT 97
[2017-01-06] MEDS: HYDROCORTISONE 2.5% CREAM 30 GM TOPICAL SCH ×2 (15:25→22:35)
[2017-01-06] MEDS: SODIUM CHLORIDE 0.9% FLUSH 10 ML FLUSH IV FLUSH SCH ×2 (15:25→22:35)
[2017-01-06 16:00] VITALS: BP 105/60; PULSE 71; RESP 17; TEMP 97.2; O2SAT 96
[2017-01-06] MEDS ORDERED: OXYC-392 PO (17:00)
--- NOTE | 2017-01-06 19:48 | HHI.PR ---
Subjective Remarks Patient seen this morning around 10 AM. Says he feels well. Denies any chest pain or shortness of breath. Denies any abdominal pain. Denies nausea or vomiting. Objective Vital Signs Date Time Temp Pulse Resp B/P Pulse Ox O2 Delivery O2 Flow Rate FiO2 01/06/17 16:00 97.2 71 17 105/60 96 01/06/17 12:00 96.4 70 18 106/55 97 01/06/17 08:00 97.0 61 18 110/66 97 01/06/17 00:00 97.9 62 18 111/55 97 01/05/17 20:00 97.5 76 18 119/5 96 I/O 01/05/17 01/05/17 01/05/17 01/06/17 01/06/17 01/06/17 06:59 14:59 22:59 06:59 14:59 22:59 Intake Total 240 ml 1120 ml 0 ml 0 ml 445 ml Output Total 600 ml 156 ml 200 ml 275 ml Balance 240 ml 520 ml -156 ml -200 ml 170 ml Intake Oral 240 ml 1120 ml 445 ml IV Total 0 ml 0 ml 0 ml Output Urine Total 600 ml 150 ml 200 ml 275 ml Stool Total 6 ml # Voids 3 1 # Bowel Movements 3 1 6 2 Result Diagram: 01/05/1755 01/05/17554 Objective Remarks GENERAL: Patient lying in bed. Appears comfortable. SKIN: Warm and dry. HEAD: Normocephalic. EYES: No scleral icterus. No injection or drainage. NECK: Supple, trachea midline. No JVD. CARDIOVASCULAR: Regular rate and rhythm without murmurs, gallops, or rubs. RESPIRATORY: Breath sounds equal bilaterally. No accessory muscle use. GASTROINTESTINAL: Abdomen soft, non-tender, nondistended. positive bowel sounds. MUSCULOSKELETAL: No cyanosis, or edema. BACK: Nontender without obvious deformity. No CVA tenderness. A/P Assessment and Plan 01/06/17 discharged to SNF. -We'll decrease dose of gabapentin, which can buildup and cause encephalopathy in patients with CKD. //C. Diff Colitis: sent to ER from [facility] secondary to ongoing watery diarrhea, C. Diff +. S/p Flagyl IV in ER. -Cont PO vancomycin.. IVF for hydration. Analgesics/antiemetics as needed. CT Abd/Pelvis w/ no acute findings - continue on oral vancomycin //Hypotension: BP 60's per EMS, s/p IVF w/ good response, BP currently 110/54, HR 72 after 2L IVF in ER. Monitor BP. Hold antihypertensives. Improved //Cirrhosis: Chronic. Secondary to previous h/o Alcohol Abuse, quit 4yrs ago. Continue home medications, caution w/ diuretics in light of hypotension/ dehydration. -Continue on lactulose and rifaximin -Ammonia 57 // NO: Acute on Chronic. Creatinine 2.04, previously 1.57 on 12/29/16. UA negative. IVF for hydration, caution with cirrhosis and fluid overload. - Resolved. // DVT Prophylaxis: SCD/teds. Discharge Planning discharged to SNF. Rene Barker MD Jan 06, 2017 19:48
--- NOTE | 2017-01-06 19:49 | HHI.DS ---
Discharge Summary Admission Date Jan 01, 2017 at 21:13 Discharge Date: Jan 06, 2017 Admitting Diagnosis C. diff, hypotension, acute on chronic kidney disease (1) C. difficile diarrhea ICD Code: A04.7 (2) Hypotension ICD Code: I95.9 (3) Cirrhosis ICD Code: K74.60 (4) NO (acute kidney injury) ICD Code: N17.9 (5) Diarrhea ICD Code: R19.7 (6) Hepatic encephalopathy ICD Code: K72.90 Procedures no invasive procedures performed. Brief History - From Admission This is a 66-year-old male with a PMH of HTN, h/o Alcohol Abuse, Cirrhosis, Esophageal Varices, Anxiety, Depression, CAD and Peripheral Neuropathy who was sent to the ER from [facility] secondary to diarrhea and generalized weakness. Recent admit 12/08-12/15/16 secondary to recurrent falls, weakness and hepatic encephalopathy, started on Rifaximin and Lactulose and d/c'd to Rehab. Now w/ progressive weakness and multiple episodes of watery diarrhea. Reports mild abdominal pain and nausea, but no vomiting or fever. Upon EMS arrival, patient noted to have BP 60s systolic, s/p IVF w/ BP 94/47, HR 72. S/p 2L IVF in ER w/ repeat BP 110/54, HR 72. WBC 15.3. Creatinine 2.04, previously 1.57 on 12/29/16. Lactic Acid 1.0. Ammonia 72. Lipase 69. INR 1.2. UA negative. C. difficile +. CT Abd/Pelvis w/ cirrhotic appearing liver, multiple gallstones , no ascites. S/p Flagyl IV in ER. CBC/BMP: 01/05/17 0555 01/05/17 0555 Significant Findings Laboratory Tests Test 01/04/17 01/05/17 06:45 05:55 Red Blood Count 3.46 MIL/MM3 3.50 MIL/MM3 (4.50-5.90) (4.50-5.90) Hemoglobin 11.2 GM/DL 11.5 GM/DL (13.0-17.0) (13.0-17.0) Hematocrit 33.5 % 33.9 % (39.0-51.0) (39.0-51.0) Platelet Count 68 TH/MM3 83 TH/MM3 (150-450) (150-450) Neutrophils (%) (Auto) 73.5 % 75.4 % (16.0-70.0) (16.0-70.0) Platelet Estimate LOW (NORMAL) LOW (NORMAL) Ovalocytes 1+ (NORMAL) 1+ (NORMAL) Acanthocytes 1+ (NORMAL) Prothrombin Time 12.5 SEC 12.7 SEC (9.8-11.6) (9.8-11.6) Chloride Level 112 MEQ/L 112 MEQ/L (98-107) (98-107) Calcium Level 8.2 MG/DL (8.5-10.1) Magnesium Level 1.3 MG/DL 1.4 MG/DL (1.5-2.5) (1.5-2.5) Aspartate Amino Transf 46 U/L (15-37) (AST/SGOT) Alkaline Phosphatase 136 U/L 130 U/L (45-117) (45-117) Ammonia 62 MCMOL/L 57 MCMOL/L (11-32) (11-32) Total Protein 5.3 GM/DL 5.5 GM/DL (6.4-8.2) (6.4-8.2) Albumin 2.2 GM/DL 2.3 GM/DL (3.4-5.0) (3.4-5.0) Random Glucose 112 MG/DL (74-106) Imaging Last Impressions Lower Extremity Ultrasound 01/01/17 Signed Impressions: Service Date/Time: Sunday, January 01, 2017 19:03 - CONCLUSION: The study is negative for deep venous thrombosis right lower extremity. Zeke Slaughter MD Abdomen/Pelvis CT 01/01/17 Signed Impressions: Service Date/Time: Sunday, January 01, 2017 20:07 - CONCLUSION: 1. Cirrhotic appearing liver. 2. Multiple gallstones. 3. Splenomegaly. 4. No evidence of ascites. Zeke Slaughter MD PE at Discharge GENERAL: Awake alert oriented talkative and cooperative SKIN: Warm and dry. HEAD: Atraumatic. Normocephalic. EYES: Pupils equal and round. No scleral icterus. No injection or drainage. Extraocular muscles grossly intact ENT: No nasal bleeding or discharge. Mucous membranes pink and moist. Tongue is midline NECK: Trachea midline. No JVD. CARDIOVASCULAR: Regular rate and rhythm. S1-S2 no S3 or S4 no heave or thrill or rub or gallop. RESPIRATORY: No accessory muscle use. Clear to auscultation. Breath sounds equal bilaterally. GASTROINTESTINAL: Abdomen soft, non-tender, nondistended. Hepatic and splenic margins not palpable. MUSCULOSKELETAL: Extremities without clubbing, cyanosis, or edema. No obvious deformities. NEUROLOGICAL: Awake and alert. No obvious cranial nerve deficits. Motor grossly within normal limits. 3.5 out of 5 muscle strength in the arms and legs. Normal speech. Generalized weakness PSYCHIATRIC: Appropriate mood and affect; insight and judgment normal. Hospital Course 01/06/17 discharged to SNF. -We'll decrease dose of gabapentin, which can buildup and cause encephalopathy in patients with CKD. //C. Diff Colitis: sent to ER from [facility] secondary to ongoing watery diarrhea, C. Diff +. S/p Flagyl IV in ER. -Cont PO vancomycin.. IVF for hydration. Analgesics/antiemetics as needed. CT Abd/Pelvis w/ no acute findings - continue on oral vancomycin //Hypotension: BP 60's per EMS, s/p IVF w/ good response, BP currently 110/54, HR 72 after 2L IVF in ER. Monitor BP. Hold antihypertensives. Improved //Cirrhosis: Chronic. Secondary to previous h/o Alcohol Abuse, quit 4yrs ago. Continue home medications, caution w/ diuretics in light of hypotension/ dehydration. -Continue on lactulose and rifaximin -Ammonia 57 // NO: Acute on Chronic. Creatinine 2.04, previously 1.57 on 12/29/16. UA negative. IVF for hydration, caution with cirrhosis and fluid overload. - Resolved. // DVT Prophylaxis: SCD/teds. Discharge Planning discharged to SNF. Pt Condition on Discharge: Good Discharge Disposition: Discharge to SNF Discharge Time: > 30 minutes Discharge Instructions DIET: Follow Instructions for: Heart Healthy Diet Activities you can perform: Regular-No Restrictions Follow up Referrals: PCP Follow-up - Next Day SNF/LONG-TERM/HH with [facility] New Medications: Vancomycin (Vancomycin) 250 Mg Cap 250 MG PO QID Infection Days 14 Ref 0 CAP Oxycodone (Oxycodone) 5 Mg Tab 5 MG PO Q4H PRN PAIN GREATER THAN/EQUAL TO 5 #18 TAB Changed Medications: Gabapentin (Gabapentin) 800 Mg Tab 300 MG PO TID Pain Management #90 Ref 0 TAB (Changed from: 800 MG; QID) Spironolactone (Spironolactone) 50 Mg Tab 25 MG PO DAILY anasarca #30 Ref 0 TAB (Changed from: 50 MG) Continued Medications: Acetaminophen (Tylenol) 325 Mg Tab 650 MG PO Q4H PRN PAIN 1-10 AND/OR FEVER >101F Ref 0 TAB Baclofen (Baclofen) 10 Mg Tab 10 MG PO TID Take with food or milk Muscle Spasm Ref 0 TAB Buspirone (Buspirone) 10 Mg Tab 10 MG PO TID Anxiety Ref 0 TAB Carvedilol (Carvedilol) 6.25 Mg Tab 6.25 MG PO DAILY #60 Ref 0 TAB Citalopram (Citalopram) 40 Mg Tab 40 MG PO DAILY Control Depression #30 Ref 0 TAB Furosemide (Furosemide) 20 Mg Tab 20 MG PO DAILY #30 Ref 0 TAB Hydrocortisone Topical (Hydrocortisone Topical) 2.5% Lotn 1 APPL TOPICAL BID Psoriasis Lactulose (Lactulose) 10 Gm/15 Ml Solution 30 ML PO QID Meclizine (Meclizine) 25 Mg Tab 25 MG PO DAILY Ref 0 TAB [place]-3/Dha/Epa/Fish Oil (Fish Oil 1,000 mg Softgel) 1,000 Mg Capsule 1000 MG PO TID Pantoprazole (Pantoprazole) 40 Mg Tab 40 MG PO DAILY Reflux #30 Ref 0 TAB Rifaximin (Xifaxan) 550 Mg Tab 550 MG PO Q8HR IBS w/Diarrhea Days 14 Ref 0 TAB Thiamine HCl (Thiamine HCl) 500 Mg Tablet 500 MG PO DAILY Vitamin B Complex (B-50 Complex) 1 Each Tablet.er 100 MG PO BID Discontinued Medications: Lisinopril (Lisinopril) 20 Mg Tab 20 MG PO DAILY Blood Pressure Management #30 TAB Rene Barker MD Jan 06, 2017 19:49
[2017-01-06 20:00] VITALS: BP 100/53; PULSE 63; RESP 20; TEMP 97.3; O2SAT 94
[2017-01-07] VITALS: BP 122/58; PULSE 77; RESP 20; TEMP 96.6; O2SAT 98
[2017-01-07] MEDS: RIFAXIMIN 550 MG TAB PO SCH ×3 (06:14→21:13)
[2017-01-07 08:00] VITALS: BP 118/56; PULSE 73; RESP 19; TEMP 97.2; O2SAT 97
[2017-01-07] MEDS: HYDROCORTISONE 2.5% CREAM 30 GM TOPICAL SCH ×2 (09:00→20:16)
[2017-01-07] MEDS: DOCUSATE SODIUM 50 MG/SENNA 8.6 MG TAB PO SCH ×2 (09:00→20:14)
[2017-01-07] MEDS: GABAPENTIN 400 MG CAP PO SCH ×2 (10:49→18:36)
[2017-01-07] MEDS: THIAMINE HCL 100 MG TAB PO SCH (10:49)
[2017-01-07] MEDS: VITAMIN B COMPLEX/VIT C TAB PO SCH ×2 (10:49→21:13)
[2017-01-07] MEDS: VANCOMYCIN 500 MG VIAL (FOR ORAL USE ONLY) PO SCH ×4 (10:50→20:15)
[2017-01-07] MEDS: MECLIZINE HCL 25 MG TAB PO SCH (10:50)
[2017-01-07] MEDS: LACTULOSE SYRUP 20 GM/30 ML CUP PO SCH ×4 (10:50→20:15)
[2017-01-07] MEDS: BACLOFEN 10 MG TAB PO SCH ×3 (10:51→18:36)
[2017-01-07] MEDS: CARVEDILOL 6.25 MG TAB PO SCH (10:51)
[2017-01-07] MEDS: PANTOPRAZOLE SOD 40 MG DELAYED RELEASE TAB PO SCH (10:51)
[2017-01-07] MEDS: busPIRone HCL 10 MG TAB PO SCH ×3 (10:51→18:35)
[2017-01-07] MEDS: CITALOPRAM HYDROBROMIDE 40 MG TAB PO SCH (10:51)
[2017-01-07] MEDS: LACTOBACILLUS ACIDOPHILUS TAB PO SCH ×3 (10:52→18:35)
--- NOTE | 2017-01-07 11:59 | PD.ID.CON ---
History of Present Illness Service ID Consult Requested By Dr eHndrix Reason for Consult C.diff vir strep bacteremia Primary Care Physician No Primary Care Physician Diagnoses: History of Present Illness 66 yo male admitted with diarrhea x 2 weeks He has no fever during entire hospitalisation, but has significanrt leuocytosis on admission Pt recalls taking abx within last month He denies prior C.diff episodes He was stqarted on vanco po, rifaximine His stool consistencey somewhat improved, and number of BMs went down, but he still has up to 5 liquid BMs He denies fever, chills,nighsweats He has no idwelling vascular devices e.i. pacers His blood clx growing vridans strep 06/03 bottles Review of Systems ROS Limitations: Poor Historian Except as stated in HPI: all other systems reviewed are Neg Past Family Social History Allergies: Coded Allergies: No Known Allergies (Verified , 02/22/16) Past Medical History h/o Alcohol Abuse, Cirrhosis, Esophageal Varices, Anxiety, Depression, CAD and Peripheral Neuropathy Past Surgical History Cardiac Stent, Anal Fistula Active Ordered Medications Medications where reviewed in EMR Antibiotics Include: po vancomycin Family History Reviewed. Non-Contributory. Social History History of alcohol abuse, quit 4 years ago. Negative for tobacco or drugs. Physical Exam Vital Signs Vital Signs Date Time Temp Pulse Resp B/P Pulse Ox O2 Delivery O2 Flow Rate FiO2 01/07/17 08:00 97.2 73 19 118/56 97 01/07/17 00:00 96.6 77 20 122/58 98 01/06/17 20:00 97.3 63 20 100/53 94 01/06/17 16:00 97.2 71 17 105/60 96 01/06/17 12:00 96.4 70 18 106/55 97 Physical Exam CONSTITUTIONAL/GENERAL: This is an obese elderly patient, in no apparent distress. TUBES/LINES/DRAINS: SKIN: No jaundice, rashes, or lesions. Skin temperature appropriate. Not diaphoretic. Chronic hyperpigmentation b/l shins HEAD: Atraumatic. Normocephalic. EYES: Pupils equal and round and reactive. Extraocular motions intact. No scleral icterus. No injection or drainage. Fundi not examined. ENT: Hearing grossly normal. Nose without bleeding or purulent drainage. Oral mucosae without visible erythema, exudates, masses, or lesions. NECK: Trachea midline. Supple, nontender. No palpable thyroid enlargement or nodularity. CARDIOVASCULAR: Regular rate and rhythm without murmurs, gallops, or rubs. No JVD. Peripheral pulses symmetric. RESPIRATORY/CHEST: Symmetric, unlabored respirations. Clear to auscultation. Breath sounds equal bilaterally. No wheezes, rales, or rhonchi. GASTROINTESTINAL: Abdomen soft, tender to palpation diffusely mo so LLQ, + moderately ndistended. No hepato-splenomegaly, or palpable masses. No guarding. Bowel sounds present, hyperactive GENITOURINARY: Without palpable bladder distension. MUSCULOSKELETAL: Extremities without clubbing, cyanosis, + mild BLE edema. No joint tenderness or effusion noted. No calf tenderness. No mottling or clubbing. LYMPHATICS: No palpable cervical or supraclavicular adenopathy. NEUROLOGICAL: Awake and alert. Motor and sensory grossly within normal limits. Follows commands. Clear speech. Moves all extremities. PSYCHIATRIC: No obvious anxiety/depression. no apparent hallucinations or other psychotic thought process. Result Diagram: 01/05/17 0555 01/05/17 0555 Imaging Last Impressions Lower Extremity Ultrasound 01/01/17 0000 Signed Impressions: Service Date/Time: Sunday, January 01, 2017 19:03 - CONCLUSION: The study is negative for deep venous thrombosis right lower extremity. Zeke Slaughter MD Abdomen/Pelvis CT 01/01/17 0000 Signed Impressions: Service Date/Time: Sunday, January 01, 2017 20:07 - CONCLUSION: 1. Cirrhotic appearing liver. 2. Multiple gallstones. 3. Splenomegaly. 4. No evidence of ascites. Zeke Slaughter MD Assessment and Plan Assessment and Plan C.diff 027, hypervirulent strain , 1st episode (self reported) Low grade viridans strep bacteremia, doub clinica significance - cont oral vancomycin - avoid systemic abx - monitor clinical progress - monitor repeat blood clx Brenda Gonzalez MD Jan 07, 2017 11:59
[2017-01-07 12:00] VITALS: BP 110/59; PULSE 74; RESP 16; TEMP 97.2; O2SAT 95
--- NOTE | 2017-01-07 14:17 | HHI.PR ---
Subjective Remarks pt seen this morning around 11 AM. Says he is feeling all right. Denies any chest pain or shortness of breath. Denies any nausea or vomiting. Objective Vital Signs Date Time Temp Pulse Resp B/P Pulse Ox O2 Delivery O2 Flow Rate FiO2 01/07/17 12:00 97.2 74 16 110/59 95 01/07/17 08:00 97.2 73 19 118/56 97 01/07/17 00:00 96.6 77 20 122/58 98 01/06/17 20:00 97.3 63 20 100/53 94 01/06/17 16:00 97.2 71 17 105/60 96 I/O 01/06/17 01/06/17 01/06/17 01/07/17 01/07/17 01/07/17 07:00 15:00 23:00 07:00 15:00 23:00 Intake Total 0 ml 445 ml 240 ml 240 ml Output Total 200 ml 275 ml Balance -200 ml 170 ml 240 ml 240 ml Intake Oral 445 ml 240 ml 240 ml IV Total 0 ml 0 ml 0 ml Output Urine Total 200 ml 275 ml # Voids 1 3 2 # Bowel Movements 6 2 2 Result Diagram: 01/05/17 0555 01/05/17 0555 Objective Remarks GENERAL: He shouldn't sitting up in bed. Appears comfortable. SKIN: Warm and dry. HEAD: Normocephalic. EYES: No scleral icterus. No injection or drainage. NECK: Supple, trachea midline. No JVD. CARDIOVASCULAR: Regular rate and rhythm without murmurs, gallops, or rubs. RESPIRATORY: Breath sounds equal bilaterally. No accessory muscle use. GASTROINTESTINAL: Abdomen soft, non-tender, nondistended. positive bowel sounds. MUSCULOSKELETAL: No cyanosis, or edema. BACK: Nontender without obvious deformity. No CVA tenderness. A/P Assessment and Plan 01/07/17 //Streptococcus viridans bacteremia. Blood cultures 1 out of 4 returned with viridans bacteremia. Patient did have leukocytosis on admission, and did receive 1 dose of Zosyn. No fevers. Repeat cultures, ESR. If ESR within normal limits, and echocardiogram negative, should be okay to discharge. Infectious disease consulted. Appreciate assistance. //C. Diff Colitis: sent to ER from [facility] secondary to ongoing watery diarrhea, C. Diff +. S/p Flagyl IV in ER. -Cont PO vancomycin.. IVF for hydration. Analgesics/antiemetics as needed. CT Abd/Pelvis w/ no acute findings - continue on oral vancomycin //Hypotension: BP 60's per EMS, s/p IVF w/ good response, BP currently 110/54, HR 72 after 2L IVF in ER. Monitor BP. Hold antihypertensives. Improved //Cirrhosis: Chronic. Secondary to previous h/o Alcohol Abuse, quit 4yrs ago. Continue home medications, caution w/ diuretics in light of hypotension/ dehydration. -Continue on lactulose and rifaximin -Ammonia 57 // NO: Acute on Chronic. Creatinine 2.04, previously 1.57 on 12/29/16. UA negative. IVF for hydration, caution with cirrhosis and fluid overload. - Resolved. // DVT Prophylaxis: SCD/teds. Discharge Planning Awaiting workup of strep viridans bacteremia. -After this, will be discharged to SNF. Rene Barker MD Jan 07, 2017 14:17
[2017-01-07] MEDS: SODIUM CHLORIDE 0.9% FLUSH 10 ML FLUSH IV FLUSH SCH ×2 (14:20→20:15)
[2017-01-07 15:11] VITALS: BP 137/63; PULSE 81; RESP 23; TEMP 97.2; O2SAT 96
[2017-01-07 16:00] VITALS: BP 153/78; PULSE 81; RESP 18; TEMP 97.3; O2SAT 97
[2017-01-07 16:07] LABS: AUTOMATED NEUTROPHIL # 5.9 TH/MM3 (1.8-7.7); BASOPHIL % 0.6 % (0.0-2.0); EOSINOPHIL # 0.2 TH/MM3 (0-0.4); EOSINOPHIL % 2.6 % (0.0-4.0); HEMATOCRIT 30.3 % (39.0-51.0); LYMPH % 12.5 % (9.0-44.0); MEAN CELL VOLUME 96.1 FL (80.0-100.0); MEAN CORPUSCULAR HEMOGLOBIN 32.8 PG (27.0-34.0); MEAN CORPUSCULAR HGB CONC 34.1 % (32.0-36.0); MONO % 6.9 % (0.0-8.0); NEUT % 77.4 % (16.0-70.0); PLATELET COUNT 73 TH/MM3 (150-450); RED BLOOD COUNT 3.16 MIL/MM3 (4.50-5.90); RED CELL DISTRIBUTION WIDTH 15.7 % (11.6-17.2); WHITE BLOOD COUNT 7.7 TH/MM3 (4.0-11.0)
[2017-01-07 16:15] LABS: HEMO FLAGS AUTO DIFF
[2017-01-07 18:00] LABS: OVALOCYTES 1+ (NORMAL); PLATELET ESTIMATE SMEAR LOW (NORMAL); PLATELET MORPHOLOGY NORMAL (NORMAL); SCAN/DIFF AUTO DIFF CONFIRMED
[2017-01-07 20:00] VITALS: BP 121/61; PULSE 70; RESP 20; TEMP 97.8; O2SAT 94
--- NOTE | 2017-01-07 20:01 | HHI.PR ---
Addendum to Inpatient Note Additional Information Pt seen and examined chart reviewd Full note to follow Brenda Gonzalez MD Jan 07, 2017 20:01
[2017-01-07 22:57] LABS: ALKALINE PHOSPHATASE 135 U/L (45-117); ALT (GPT) 54 U/L (12-78); ANION GAP 5 MEQ/L (5-15); AST (GOT) 32 U/L (15-37); BICARBONATE 26.1 MEQ/L (21.0-32.0); BLOOD UREA NITROGEN 11 MG/DL (7-18); CHLORIDE 109 MEQ/L (98-107); GLOMERULAR FILTRATION RATE 88 ML/MIN (>89); POTASSIUM 4.1 MEQ/L (3.5-5.1); SODIUM (NA) 140 MEQ/L (136-145); TOTAL BILIRUBIN ADULT 0.5 MG/DL (0.2-1.0)
[2017-01-08] VITALS: BP 120/59; PULSE 65; RESP 16; TEMP 96.6; O2SAT 97
[2017-01-08] MEDS: RIFAXIMIN 550 MG TAB PO SCH ×2 (05:29→17:13)
[2017-01-08 08:00] VITALS: BP 120/62; PULSE 72; RESP 16; TEMP 96.5; O2SAT 98
[2017-01-08] MEDS: DOCUSATE SODIUM 50 MG/SENNA 8.6 MG TAB PO SCH (09:00)
[2017-01-08] MEDS: VITAMIN B COMPLEX/VIT C TAB PO SCH (09:00)
[2017-01-08] MEDS: busPIRone HCL 10 MG TAB PO SCH ×2 (09:19→15:12)
[2017-01-08] MEDS: LACTULOSE SYRUP 20 GM/30 ML CUP PO SCH ×2 (09:19→12:30)
[2017-01-08] MEDS: THIAMINE HCL 100 MG TAB PO SCH (09:19)
[2017-01-08] MEDS: MECLIZINE HCL 25 MG TAB PO SCH (09:20)
[2017-01-08] MEDS: BACLOFEN 10 MG TAB PO SCH ×2 (09:20→12:29)
[2017-01-08] MEDS: GABAPENTIN 400 MG CAP PO SCH ×2 (09:20→12:30)
[2017-01-08] MEDS: PANTOPRAZOLE SOD 40 MG DELAYED RELEASE TAB PO SCH (09:20)
[2017-01-08] MEDS: CITALOPRAM HYDROBROMIDE 40 MG TAB PO SCH (09:20)
[2017-01-08] MEDS: LACTOBACILLUS ACIDOPHILUS TAB PO SCH ×2 (09:20→12:29)
[2017-01-08] MEDS: CARVEDILOL 6.25 MG TAB PO SCH (09:20)
[2017-01-08] MEDS: VANCOMYCIN 500 MG VIAL (FOR ORAL USE ONLY) PO SCH ×2 (09:20→12:30)
[2017-01-08] MEDS: HYDROCORTISONE 2.5% CREAM 30 GM TOPICAL SCH (09:22)
[2017-01-08 12:00] VITALS: BP 111/59; PULSE 85; RESP 16; TEMP 97.2; O2SAT 95
--- NOTE | 2017-01-08 15:26 | HHI.IDPN ---
Subjective Subjective Remarks doing good less diarrhea no fever denies abd pain repeat blood clx are negative Antibiotics po vanco Allergies: Coded Allergies: No Known Allergies (Verified , 02/22/16) Objective . Vital Signs Date Time Temp Pulse Resp B/P Pulse Ox O2 Delivery O2 Flow Rate FiO2 01/08/17 12:00 97.2 85 16 111/59 95 01/08/17 08:00 96.5 72 16 120/62 98 01/08/17 04:00 20 01/08/17 00:00 96.6 65 16 120/59 97 01/07/17 20:00 97.8 70 20 121/61 94 01/07/17 16:00 97.3 81 18 153/78 97 01/07/17 01/07/17 01/08/17 14:59 22:59 06:59 Intake Total 545 ml 600 ml Output Total 75 ml 600 ml Balance 470 ml 0 ml Intake Oral 545 ml 600 ml Output Urine Total 75 ml 600 ml # Voids 6 # Bowel Movements 2 7 . Laboratory Tests Test 01/07/17 13:30 White Blood Count 7.7 TH/MM3 Red Blood Count 3.16 MIL/MM3 Hemoglobin 10.3 GM/DL Hematocrit 30.3 % Mean Corpuscular Volume 96.1 FL Mean Corpuscular Hemoglobin 32.8 PG Mean Corpuscular Hemoglobin 34.1 % Concent Red Cell Distribution Width 15.7 % Platelet Count 73 TH/MM3 Mean Platelet Volume 10.9 FL Neutrophils (%) (Auto) 77.4 % Lymphocytes (%) (Auto) 12.5 % Monocytes (%) (Auto) 6.9 % Eosinophils (%) (Auto) 2.6 % Basophils (%) (Auto) 0.6 % Neutrophils # (Auto) 5.9 TH/MM3 Lymphocytes # (Auto) 1.0 TH/MM3 Monocytes # (Auto) 0.5 TH/MM3 Eosinophils # (Auto) 0.2 TH/MM3 Basophils # (Auto) 0.0 TH/MM3 CBC Comment AUTO DIFF Differential Comment AUTO DIFF CONFIRMED Platelet Estimate LOW Platelet Morphology Comment NORMAL Ovalocytes 1+ Erythrocyte Sedimentation Rate 21 mm/hr Laboratory Tests Test 01/07/17 20:57 Sodium Level 140 MEQ/L Potassium Level 4.1 MEQ/L Chloride Level 109 MEQ/L Carbon Dioxide Level 26.1 MEQ/L Anion Gap 5 MEQ/L Blood Urea Nitrogen 11 MG/DL Creatinine 0.86 MG/DL Estimat Glomerular Filtration 88 ML/MIN Rate Random Glucose 118 MG/DL Calcium Level 7.6 MG/DL Total Bilirubin 0.5 MG/DL Aspartate Amino Transf 32 U/L (AST/SGOT) Alanine Aminotransferase 54 U/L (ALT/SGPT) Alkaline Phosphatase 135 U/L Total Protein 5.0 GM/DL Albumin 2.1 GM/DL Microbiology Date/Time Procedure Status Source Growth 01/07/17 13:30 Aerobic Blood Culture - Preliminary Resulted Blood Peripheral NO GROWTH IN 1 DAY 01/07/17 13:30 Anaerobic Blood Culture - Preliminary Resulted Blood Peripheral NO GROWTH IN 1 DAY 01/07/17 13:40 Aerobic Blood Culture - Preliminary Resulted Blood Peripheral NO GROWTH IN 1 DAY 01/07/17 13:40 Anaerobic Blood Culture - Preliminary Resulted Blood Peripheral NO GROWTH IN 1 DAY Imaging Last Impressions Lower Extremity Ultrasound 01/01/17 0000 Signed Impressions: Service Date/Time: Sunday, January 01, 2017 19:03 - CONCLUSION: The study is negative for deep venous thrombosis right lower extremity. Zeke Slaughter MD Abdomen/Pelvis CT 01/01/17 0000 Signed Impressions: Service Date/Time: Sunday, January 01, 2017 20:07 - CONCLUSION: 1. Cirrhotic appearing liver. 2. Multiple gallstones. 3. Splenomegaly. 4. No evidence of ascites. Zeke Slaughter MD Physical Exam CONSTITUTIONAL/GENERAL: This is an obese elderly patient, in no apparent distress. TUBES/LINES/DRAINS: SKIN: No jaundice, rashes, or lesions. Skin temperature appropriate. Not diaphoretic. Chronic hyperpigmentation b/l shins, no erythema, not tender , EYES: Pupils equal and round and reactive. Extraocular motions intact. No scleral icterus. No injection or drainage. Fundi not examined. ENT: Hearing grossly normal. Nose without bleeding or purulent drainage. Oral mucosae without visible erythema, exudates, masses, or lesions. CARDIOVASCULAR: Regular rate and rhythm without murmurs, gallops, or rubs. No JVD. Peripheral pulses symmetric. RESPIRATORY/CHEST: Symmetric, unlabored respirations. Clear to auscultation. Breath sounds equal bilaterally. No wheezes, rales, or rhonchi. GASTROINTESTINAL: Abdomen soft, not tender to palpation, not much distended. No hepato-splenomegaly, or palpable masses. No guarding. Bowel sounds present, hyperactive GENITOURINARY: Without palpable bladder distension. MUSCULOSKELETAL: Extremities without clubbing, cyanosis, + mild BLE edema. No joint tenderness or effusion noted. No calf tenderness. No mottling or clubbing. NEUROLOGICAL: Awake and alert. Non focal PSYCHIATRIC:calm and cooperative Assessment & Plan Remarks C.diff 027, hypervirulent strain , 1st episode (self reported) - improving Low grade viridans strep bacteremia, doubt clinica significance - repeat blood clx are negative - cont oral vancomycin x 14 days total - retreat with oral vanco x 14 days if diarrhea recurs - avoid systemic abx - OK to d/c pt to SNF - fu repeat blood clx untill final; if mmore + blood clx, pt will need to be brought back for further w/u dw Dr Mj Gonzalez,Brenda Cunha MD Jan 08, 2017 15:26
[2017-01-08 16:00] VITALS: BP 112/60; PULSE 68; RESP 16; TEMP 97.3; O2SAT 96
[2017-01-08] MEDS: SODIUM CHLORIDE 0.9% FLUSH 10 ML FLUSH IV FLUSH SCH (17:13)
--- NOTE | 2017-01-11 01:08 | HHI.DS ---
Discharge Summary Admission Date Jan 01, 2017 at 21:13 Discharge Date: Jan 08, 2017 Admitting Diagnosis C. diff, hypotension, acute on chronic kidney disease (1) C. difficile diarrhea ICD Code: A04.7 (2) Hypotension ICD Code: I95.9 (3) Cirrhosis ICD Code: K74.60 (4) NO (acute kidney injury) ICD Code: N17.9 (5) Diarrhea ICD Code: R19.7 (6) Hepatic encephalopathy ICD Code: K72.90 Procedures no invasive procedures performed. Brief History - From Admission This is a 66-year-old male with a PMH of HTN, h/o Alcohol Abuse, Cirrhosis, Esophageal Varices, Anxiety, Depression, CAD and Peripheral Neuropathy who was sent to the ER from [facility] secondary to diarrhea and generalized weakness. Recent admit 12/08-12/15/16 secondary to recurrent falls, weakness and hepatic encephalopathy, started on Rifaximin and Lactulose and d/c'd to Rehab. Now w/ progressive weakness and multiple episodes of watery diarrhea. Reports mild abdominal pain and nausea, but no vomiting or fever. Upon EMS arrival, patient noted to have BP 60s systolic, s/p IVF w/ BP 94/47, HR 72. S/p 2L IVF in ER w/ repeat BP 110/54, HR 72. WBC 15.3. Creatinine 2.04, previously 1.57 on 12/29/16. Lactic Acid 1.0. Ammonia 72. Lipase 69. INR 1.2. UA negative. C. difficile +. CT Abd/Pelvis w/ cirrhotic appearing liver, multiple gallstones , no ascites. S/p Flagyl IV in ER. CBC/BMP: 01/07/17 1330 01/07/172056 Imaging Last Impressions Lower Extremity Ultrasound 01/01/17 0000 Signed Impressions: Service Date/Time: Sunday, January 01, 2017 19:03 - CONCLUSION: The study is negative for deep venous thrombosis right lower extremity. Zeke Slaughter MD Abdomen/Pelvis CT 01/01/17 0000 Signed Impressions: Service Date/Time: Sunday, January 01, 2017 20:07 - CONCLUSION: 1. Cirrhotic appearing liver. 2. Multiple gallstones. 3. Splenomegaly. 4. No evidence of ascites. Zeke Slaughter MD PE at Discharge GENERAL: Awake alert oriented talkative and cooperative SKIN: Warm and dry. HEAD: Atraumatic. Normocephalic. EYES: Pupils equal and round. No scleral icterus. No injection or drainage. Extraocular muscles grossly intact ENT: No nasal bleeding or discharge. Mucous membranes pink and moist. Tongue is midline NECK: Trachea midline. No JVD. CARDIOVASCULAR: Regular rate and rhythm. S1-S2 no S3 or S4 no heave or thrill or rub or gallop. RESPIRATORY: No accessory muscle use. Clear to auscultation. Breath sounds equal bilaterally. GASTROINTESTINAL: Abdomen soft, non-tender, nondistended. Hepatic and splenic margins not palpable. MUSCULOSKELETAL: Extremities without clubbing, cyanosis, or edema. No obvious deformities. NEUROLOGICAL: Awake and alert. No obvious cranial nerve deficits. Motor grossly within normal limits. 3.5 out of 5 muscle strength in the arms and legs. Normal speech. Generalized weakness PSYCHIATRIC: Appropriate mood and affect; insight and judgment normal. Hospital Course 01/07/17 //Streptococcus viridans bacteremia. Blood cultures 1 out of 4 returned with viridans bacteremia. Patient did have leukocytosis on admission, and did receive 1 dose of Zosyn. No fevers. Repeat cultures, ESR. If ESR within normal limits, and echocardiogram negative, should be okay to discharge. Infectious disease consulted. Appreciate assistance. //C. Diff Colitis: sent to ER from [facility] secondary to ongoing watery diarrhea, C. Diff +. S/p Flagyl IV in ER. -Cont PO vancomycin.. IVF for hydration. Analgesics/antiemetics as needed. CT Abd/Pelvis w/ no acute findings - continue on oral vancomycin //Hypotension: BP 60's per EMS, s/p IVF w/ good response, BP currently 110/54, HR 72 after 2L IVF in ER. Monitor BP. Hold antihypertensives. Improved //Cirrhosis: Chronic. Secondary to previous h/o Alcohol Abuse, quit 4yrs ago. Continue home medications, caution w/ diuretics in light of hypotension/ dehydration. -Continue on lactulose and rifaximin -Ammonia 57 // NO: Acute on Chronic. Creatinine 2.04, previously 1.57 on 12/29/16. UA negative. IVF for hydration, caution with cirrhosis and fluid overload. - Resolved. // DVT Prophylaxis: SCD/teds. Discharge Planning Awaiting workup of strep viridans bacteremia. -After this, will be discharged to SNF. Pt Condition on Discharge: Good Discharge Disposition: Discharge to SNF Discharge Time: > 30 minutes Discharge Instructions DIET: Follow Instructions for: Heart Healthy Diet Activities you can perform: Regular-No Restrictions Follow up Referrals: PCP Follow-up - Next Day SNF/[facility]/ with [facility] New Medications: Vancomycin (Vancomycin) 250 Mg Cap 250 MG PO QID Infection Days 14 Ref 0 CAP Oxycodone (Oxycodone) 5 Mg Tab 5 MG PO Q4H PRN PAIN GREATER THAN/EQUAL TO 5 #18 TAB Changed Medications: Gabapentin (Gabapentin) 800 Mg Tab 300 MG PO TID Pain Management #90 Ref 0 TAB (Changed from: 800 MG; QID) Spironolactone (Spironolactone) 50 Mg Tab 25 MG PO DAILY anasarca #30 Ref 0 TAB (Changed from: 50 MG) Continued Medications: Acetaminophen (Tylenol) 325 Mg Tab 650 MG PO Q4H PRN PAIN 1-10 AND/OR FEVER >101F Ref 0 TAB Baclofen (Baclofen) 10 Mg Tab 10 MG PO TID Take with food or milk Muscle Spasm Ref 0 TAB Buspirone (Buspirone) 10 Mg Tab 10 MG PO TID Anxiety Ref 0 TAB Carvedilol (Carvedilol) 6.25 Mg Tab 6.25 MG PO DAILY #60 Ref 0 TAB Citalopram (Citalopram) 40 Mg Tab 40 MG PO DAILY Control Depression #30 Ref 0 TAB Furosemide (Furosemide) 20 Mg Tab 20 MG PO DAILY #30 Ref 0 TAB Hydrocortisone Topical (Hydrocortisone Topical) 2.5% Lotn 1 APPL TOPICAL BID Psoriasis Lactulose (Lactulose) 10 Gm/15 Ml Solution 30 ML PO QID Meclizine (Meclizine) 25 Mg Tab 25 MG PO DAILY Ref 0 TAB Adell-3/Dha/Epa/Fish Oil (Fish Oil 1,000 mg Softgel) 1,000 Mg Capsule 1000 MG PO TID Pantoprazole (Pantoprazole) 40 Mg Tab 40 MG PO DAILY Reflux #30 Ref 0 TAB Rifaximin (Xifaxan) 550 Mg Tab 550 MG PO Q8HR IBS w/Diarrhea Days 14 Ref 0 TAB Thiamine HCl (Thiamine HCl) 500 Mg Tablet 500 MG PO DAILY Vitamin B Complex (B-50 Complex) 1 Each Tablet.er 100 MG PO BID Discontinued Medications: Lisinopril (Lisinopril) 20 Mg Tab 20 MG PO DAILY Blood Pressure Management #30 TAB Rene Barker MD Jan 11, 2017 01:08
== END 2017-01-08 17:42 | DRG 372 ==
LOC: NEPC 18:20 → NEDA 21:13 → N07B 23:20
PROVIDERS: ADMIT Internal Medicine; ATTEND Internal Medicine
DX: A04.7 Enterocolitis due to Clostridium difficile (principal); N17.9 Acute kidney failure, unspecified; I95.9 Hypotension, unspecified; K70.30 Alcoholic cirrhosis of liver without ascites; R78.81 Bacteremia; E11.42 Type 2 diabetes mellitus with diabetic polyneuropathy; E11.22 Type 2 diabetes mellitus with diabetic chronic kidney disease; K70.40 Alcoholic hepatic failure without coma; M19.90 Unspecified osteoarthritis, unspecified site; F41.9 Anxiety disorder, unspecified; F32.9 Major depressive disorder, single episode, unspecified; R25.1 Tremor, unspecified; K21.9 Gastro-esophageal reflux disease without esophagitis; G47.00 Insomnia, unspecified; N18.9 Chronic kidney disease, unspecified; I25.10 Atherosclerotic heart disease of native coronary artery without angina pectoris; F10.21 Alcohol dependence, in remission; B95.4 Other streptococcus as the cause of diseases classified elsewhere; E86.0 Dehydration; I12.9 Hypertensive chronic kidney disease with stage 1 through stage 4 chronic kidney disease, or unspecified chronic kidney disease; I25.2 Old myocardial infarction; Z95.5 Presence of coronary angioplasty implant and graft
CPT/HCPCS: 74176; 76937; 80053; 81001; 82140; 83036; 83605; 83690; 83735; 84100; 84439; 84443; 85025; 85610; 85652; 85730; 86850; 86900; 86901; 87040; 87186; 87205; 87493; 93971; 96361; 96365; 96375; C9113; J2543; J7030; J7040

== ENCOUNTER 2017-02-03 07:31 | Inpatient (IN) | payer OTHER, MEDICAID, MEDICARE ==
[2017-02-03] VITALS (8 sets, daily range): BP systolic 127–158; BP diastolic 61–74; PULSE 74–80; RESP 16–20; TEMP 98.2–98.5; O2SAT 93–98
[~2017-02-03] VITALS: Ht 180.3 cm; Wt 106.6 kg
[~2017-02-03 07:31] MED LIST changes: +B-50TAB4 PO; +HYDR2.5L TOPICAL; -LISI-515 PO; +OMEG100046 PO; +OXYC-392 PO; +THIA500T PO; +TYLE325T PO; +VANC250C2 PO
[2017-02-03] MEDS ORDERED: SODIUM CHLORID 0.9% 500 ML INJ 500 ML IV ONE (08:00)
--- NOTE | 2017-02-03 08:09 | PD ---
HPI Chief Complaint: General Weakness Time Seen by Provider: 07:33 Travel History International Travel<30 days: No Contact w/Intl Traveler<30days: No Traveled to known affect area: No History of Present Illness HPI This 66-year-old man who presents to the emergency department complaining of generalized weakness and falls. He has a history of alcoholic cirrhosis. He was recently admitted to the hospital January 01 through January 16 with weakness and C. difficile colitis. He was discharged to a nursing facility. They apparently wanted to keep him in a long-term nursing that he had declined. He' s been home for just a couple days now and is fallen 3 or 4 times. His a large amount of bruising on his back. EMS states they found him on his knees was unable to get up. Patient states he feels very thirsty. Denies any chest pain trouble breathing recent fevers recent cough. No recent diarrhea. States he's been compliant with all his medications. Denies any recent alcohol use. History Past Medical History Narrative Medical Hypertension History of alcoholic cirrhosis, varices Anxiety and depression CAD Peripheral neuropathy History of C. difficile Social History Alcohol Use: No (QUIT 4 YEARS AGO) Tobacco Use: No Allergies-Medications (Allergen,Severity, Reaction): Coded Allergies: No Known Allergies (Verified , 02/03/17) Reported Meds & Prescriptions Reported Meds & Active Scripts Active Oxycodone (Oxycodone HCl) 5 Mg Tab 5 Mg PO Q4H PRN Vancomycin (Vancomycin HCl) 250 Mg Cap 250 Mg PO QID 14 Days Gabapentin 800 Mg Tab 300 Mg PO TID Spironolactone 50 Mg Tab 25 Mg PO DAILY Reported Xifaxan (Rifaximin) 550 Mg Tab 550 Mg PO Q8HR 14 Days Thiamine HCl 500 Mg Tablet 500 Mg PO DAILY Hydrocortisone Topical 2.5% Lotn 1 Appl TOPICAL BID B-50 Complex (Vitamin B Complex) 1 Each Tablet.er 100 Mg PO BID Fish Oil 1,000 mg Softgel ([place]-3/Dha/Epa/Fish Oil) 1,000 Mg Capsule 1,000 Mg PO TID Tylenol (Acetaminophen) 325 Mg Tab 650 Mg PO Q4H PRN Lactulose 10 Gm/15 Ml Solution 30 Ml PO QID Baclofen 10 Mg Tab 10 Mg PO TID Take with food or milk Citalopram (Citalopram Hydrobromide) 40 Mg Tab 40 Mg PO DAILY Buspirone (Buspirone HCl) 10 Mg Tab 10 Mg PO TID Carvedilol 6.25 Mg Tab 6.25 Mg PO DAILY Pantoprazole (Pantoprazole Sodium) 40 Mg Tab 40 Mg PO DAILY Meclizine (Meclizine HCl) 25 Mg Tab 25 Mg PO DAILY Furosemide 20 Mg Tab 20 Mg PO DAILY Review of Systems Except as stated in HPI: all other systems reviewed are Neg Physical Exam Narrative GENERAL: Chronically ill appearing 66-year-old man, no acute distress. SKIN: Focused skin assessment warm/dry. Decreased skin turgor. HEAD: Atraumatic. Normocephalic. EYES: Pupils equal and round. No scleral icterus. No injection or drainage. ENT: No nasal bleeding or discharge. Dry mucous membranes. NECK: Trachea midline. No JVD. CARDIOVASCULAR: Regular rate and rhythm. No murmur appreciated. RESPIRATORY: No accessory muscle use. Clear to auscultation. Breath sounds equal bilaterally. GASTROINTESTINAL: Abdomen soft, non-tender, nondistended. Hepatic and splenic margins not palpable. MUSCULOSKELETAL: No obvious deformities. No clubbing. No cyanosis. No edema. NEUROLOGICAL: Awake and alert. No obvious cranial nerve deficits. Motor grossly within normal limits. Normal speech. Data Data Last Documented VS Vital Signs Date Time Temp Pulse Resp B/P (MAP) Pulse Ox O2 Delivery O2 Flow Rate FiO2 02/03/17 10:28 80 18 127/61 (83) 98 Room Air 02/03/17 07:41 98.5 Orders Orders Complete Blood Count With Diff (02/03/17 07:46) Comprehensive Metabolic Panel (02/03/17 07:46) Ua Includes Microscopic (02/03/17 07:46) Ammonia (02/03/17 07:46) Iv Access Insert/Monitor (02/03/17 07:46) Cath For Specimen (02/03/17 07:46) Sodium Chlorid 0.9% 500 Ml Inj (Ns 500 M (02/03/17 08:00) Act Partial Throm Time (Ptt) (02/03/17 08:25) Prothrombin Time / Inr (Pt) (02/03/17 08:25) Admit Order (Ed Use Only) (02/03/17 ) Labs Laboratory Tests Test 02/03/17 07:40 02/03/17 07:45 02/03/17 09:05 Prothrombin Time 11.9 SEC Prothromb Time International Ratio 1.1 RATIO Activated Partial Thromboplast Time 26.3 SEC White Blood Count 13.7 TH/MM3 Red Blood Count 3.85 MIL/MM3 Hemoglobin 12.4 GM/DL Hematocrit 37.5 % Mean Corpuscular Volume 97.4 FL Mean Corpuscular Hemoglobin 32.1 PG Mean Corpuscular Hemoglobin Concent 33.0 % Red Cell Distribution Width 16.1 % Platelet Count 99 TH/MM3 Mean Platelet Volume 9.9 FL Neutrophils (%) (Auto) 85.0 % Lymphocytes (%) (Auto) 5.9 % Monocytes (%) (Auto) 7.1 % Eosinophils (%) (Auto) 1.6 % Basophils (%) (Auto) 0.4 % Neutrophils # (Auto) 11.6 TH/MM3 Lymphocytes # (Auto) 0.8 TH/MM3 Monocytes # (Auto) 1.0 TH/MM3 Eosinophils # (Auto) 0.2 TH/MM3 Basophils # (Auto) 0.1 TH/MM3 CBC Comment AUTO DIFF Differential Comment AUTO DIFF CONFIRMED Platelet Estimate LOW Platelet Morphology Comment NORMAL Blood Urea Nitrogen 16 MG/DL Creatinine 0.97 MG/DL Random Glucose 95 MG/DL Total Protein 6.7 GM/DL Albumin 2.9 GM/DL Calcium Level 8.3 MG/DL Alkaline Phosphatase 96 U/L Aspartate Amino Transf (AST/SGOT) 25 U/L Alanine Aminotransferase (ALT/SGPT) 21 U/L Total Bilirubin 1.7 MG/DL Sodium Level 143 MEQ/L Potassium Level 3.5 MEQ/L Chloride Level 109 MEQ/L Carbon Dioxide Level 27.4 MEQ/L Anion Gap 7 MEQ/L Estimat Glomerular Filtration Rate 77 ML/MIN Ammonia 72 MCMOL/L Urine Color LIGHT-ORANGE Urine Turbidity HAZY Urine pH 6.0 Urine Specific [place] 1.028 Urine Protein 30 mg/dL Urine Glucose (UA) NEG mg/dL Urine Ketones NEG mg/dL Urine Occult Blood SMALL Urine Nitrite NEG Urine Bilirubin SMALL Urine Urobilinogen 2.0 MG/DL Urine Leukocyte Esterase NEG Urine RBC 10 /hpf Urine WBC 4 /hpf Urine Hyaline Casts 6 /lpf Urine Mucus MANY /lpf MDM Medical Decision Making Medical Screen Exam Complete: Yes Emergency Medical Condition: Yes Differential Diagnosis Dehydration, acute kidney injury, infection, sepsis, electrolyte abnormality, other Narrative Course Medical decision making INITIAL: 58-year-old male with a history of occult cirrhosis, recent C. difficile, on diuretics, presents emergency room with generalized weakness. He' s had trouble weakness and falls recently. He also appears a little bit dehydrated. We'll check labs, urine, reassess. Diagnosis Primary Impression: Generalized weakness Admitting Information Admitting Physician Requests: Admit Bao Holbrook MD Feb 03, 2017 08:09
[2017-02-03 08:23] LABS: AUTOMATED NEUTROPHIL # 11.6 TH/MM3 (1.8-7.7); BASOPHIL # 0.1 TH/MM3 (0-0.2); BASOPHIL % 0.4 % (0.0-2.0); EOSINOPHIL # 0.2 TH/MM3 (0-0.4); EOSINOPHIL % 1.6 % (0.0-4.0); HEMATOCRIT 37.5 % (39.0-51.0); LYMPH % 5.9 % (9.0-44.0); LYMPHOCYTE # 0.8 TH/MM3 (1.0-4.8); MEAN CELL VOLUME 97.4 FL (80.0-100.0); MEAN CORPUSCULAR HEMOGLOBIN 32.1 PG (27.0-34.0); MONO % 7.1 % (0.0-8.0); PLATELET COUNT 99 TH/MM3 (150-450); RED BLOOD COUNT 3.85 MIL/MM3 (4.50-5.90); RED CELL DISTRIBUTION WIDTH 16.1 % (11.6-17.2); WHITE BLOOD COUNT 13.7 TH/MM3 (4.0-11.0)
[2017-02-03 08:40] LABS: ALT (GPT) 21 U/L (12-78); ANION GAP 7 MEQ/L (5-15); AST (GOT) 25 U/L (15-37); BICARBONATE 27.4 MEQ/L (21.0-32.0); BLOOD UREA NITROGEN 16 MG/DL (7-18); CHLORIDE 109 MEQ/L (98-107); GLOMERULAR FILTRATION RATE 77 ML/MIN (>89); POTASSIUM 3.5 MEQ/L (3.5-5.1); SODIUM (NA) 143 MEQ/L (136-145)
[2017-02-03 08:42] LABS: ALKALINE PHOSPHATASE 96 U/L (45-117); TOTAL BILIRUBIN ADULT 1.7 MG/DL (0.2-1.0)
[2017-02-03 08:43] LABS: HEMO FLAGS AUTO DIFF
[2017-02-03 09:25] LABS: APTT (PATIENT) 26.3 SEC (24.3-30.1); INTERNATIONAL NORMALIZED RATIO 1.1 RATIO; PROTHROMBIN TIME - PATIENT 11.9 SEC (9.8-11.6)
[2017-02-03 09:34] LABS: PLATELET ESTIMATE SMEAR LOW (NORMAL); PLATELET MORPHOLOGY NORMAL (NORMAL); SCAN/DIFF AUTO DIFF CONFIRMED
[2017-02-03 09:49] LABS: BLOOD, URINE SMALL (NEG); GLUCOSE,URINE NEG (NEG); HYALINE CAST, URINE 6 /lpf (RARE); KETONE, URINE NEG (NEG); MUCUS URINE MANY /lpf (OCC); NITRITE,URINE NEG (NEG)
[2017-02-03 09:53] LABS: URINE COLOR LIGHT-ORANGE (YELLW/STRAW)
--- NOTE | 2017-02-03 10:51 | HHI.HP ---
HPI Service [facility] Primary Care Physician Non-Staff Admission Diagnosis Diagnoses: Chief Complaint: Generalized Weakness. Travel History International Travel<30 Days: No Contact w/Intl Traveler <30 Da: No Traveled to Known Affected Are: No History of Present Illness This is a pleasant 66 y/o Male who was just recently discharged from this facility two days ago, came to ER again with Generalized weakness and status post fall, he has alcoholic Cirrhosis, his last admission was January 01 through January 16, had C Diff colitis, He was discharged to a nursing facility. They apparently wanted to keep him in a long-term nursing that he had declined. He's been home for just a couple days now and is fallen 3 or 4 times. His a large amount of bruising on his back. EMS states they found him on his knees was unable to get up. Patient states he feels very thirsty. Denies any chest pain trouble breathing recent fevers recent cough. No recent diarrhea. States he's been compliant with all his medications. Denies any recent alcohol use. as we know he has Hypertension, Esophageal varices, Anxiety disorder, depression CAD, Peripheral Neuropathy. he was also recently admitted from 12/08-12/15/16 secondary to recurrent falls, weakness and hepatic encephalopathy, started on Rifaximin and Lactulose and d/c'd to Rehab. Now w/ progressive weakness and multiple episodes of watery diarrhea. Reports mild abdominal pain and nausea, but no vomiting or fever. Seen in emergency room stable complaint of some lumbar pain and positive on palpation will get Lumbar spine x ray, no other complaint. Review of Systems Constitutional: DENIES: Fever, Chills, Change in appetite Endocrine: DENIES: Heat/cold intolerance Eyes: DENIES: Blurred vision, Eye pain Musculoskeletal: COMPLAINS OF: Back pain Except as stated in HPI: all other systems reviewed are Neg Past Family Social History Past Medical History Hypertension Alcoholic cirrhosis Esophageal varices Anxiety disorder and depression CAD Peripheral Neuropathy C Diff colitis last admission Past Surgical History Cardiac Stent Anal Fistula Reported Medications Reported Meds & Active Scripts Active Oxycodone (Oxycodone HCl) 5 Mg Tab 5 Mg PO Q4H PRN Vancomycin (Vancomycin HCl) 250 Mg Cap 250 Mg PO QID 14 Days Gabapentin 800 Mg Tab 300 Mg PO TID Spironolactone 50 Mg Tab 25 Mg PO DAILY Reported Xifaxan (Rifaximin) 550 Mg Tab 550 Mg PO Q8HR 14 Days Thiamine HCl 500 Mg Tablet 500 Mg PO DAILY Hydrocortisone Topical 2.5% Lotn 1 Appl TOPICAL BID B-50 Complex (Vitamin B Complex) 1 Each Tablet.er 100 Mg PO BID Fish Oil 1,000 mg Softgel ([place]-3/Dha/Epa/Fish Oil) 1,000 Mg Capsule 1,000 Mg PO TID Tylenol (Acetaminophen) 325 Mg Tab 650 Mg PO Q4H PRN Lactulose 10 Gm/15 Ml Solution 30 Ml PO QID Baclofen 10 Mg Tab 10 Mg PO TID Take with food or milk Citalopram (Citalopram Hydrobromide) 40 Mg Tab 40 Mg PO DAILY Buspirone (Buspirone HCl) 10 Mg Tab 10 Mg PO TID Carvedilol 6.25 Mg Tab 6.25 Mg PO DAILY Pantoprazole (Pantoprazole Sodium) 40 Mg Tab 40 Mg PO DAILY Meclizine (Meclizine HCl) 25 Mg Tab 25 Mg PO DAILY Furosemide 20 Mg Tab 20 Mg PO DAILY Allergies: Coded Allergies: No Known Allergies (Verified , 02/03/17) Active Ordered Medications Current Medications Medications (Trade) Dose Ordered Sig/Kane Route Start Time Stop Time Status Last Admin (Tylenol) 650 mg Q4H PRN PO 02/03/17 11:15 (Lioresal) 10 mg TID PO 02/03/17 13:45 (Buspar) 10 mg TID PO 02/03/17 13:45 (Coreg) 6.25 mg DAILY PO 02/04/17 09:00 (CeleXA) 40 mg DAILY PO 02/04/17 09:00 (Lasix) 20 mg DAILY PO 02/04/17 09:00 (Neurontin) 300 mg TID PO 02/03/17 13:45 (Antivert) 25 mg DAILY PO 02/04/17 09:00 (Roxicodone) 5 mg Q4H PRN PO 02/03/17 11:15 (Protonix) 40 mg DAILY PO 02/04/17 09:00 (Xifaxan) 550 mg Q8HR PO 02/03/17 14:00 (Aldactone) 25 mg DAILY PO 02/04/17 09:00 (VANCOMYCIN for oral use only) 250 mg QID PO 02/03/17 13:45 (Lactulose Liq) 30 ml QID PO 02/03/17 14:00 (Vitamin B1) 500 mg DAILY PO 02/04/17 09:00 (NS Flush) 2 ml UNSCH PRN IV FLUSH 02/03/17 11:15 (NS Flush) 2 ml BID IV FLUSH 02/03/17 21:00 (Zofran Inj) 4 mg Q6H PRN IVP 02/03/17 11:15 (Narcan Inj) 0.4 mg UNSCH PRN IV 02/03/17 11:15 (Ghazal-Colace) 1 tab BID PO 02/03/17 21:00 (Milk Of Magnesia Liq) 30 ml Q12H PRN PO 02/03/17 11:15 (Senokot) 17.2 mg Q12H PRN PO 02/03/17 11:15 (Dulcolax Supp) 10 mg DAILY PRN RECTAL 02/03/17 11:15 (Lactulose Liq) 30 ml DAILY PRN PO 02/03/17 11:15 Family History Asked and denied. Social History Quit alcohol abuse 4 years ago Physical Exam Vital Signs Vital Signs Date Time Temp Pulse Resp B/P (MAP) Pulse Ox O2 Delivery O2 Flow Rate FiO2 02/03/17 10:28 80 18 127/61 (83) 98 Room Air 02/03/17 07:45 84 20 97 Room Air 02/03/17 07:41 98.5 78 20 131/65 (87) 97 Physical Exam GENERAL: Obesity, no acute distress. SKIN: Focused skin assessment warm/dry. Decreased skin turgor. HEAD: Atraumatic. Normocephalic. EYES: Pupils equal and round. No scleral icterus. No injection or drainage. ENT: No nasal bleeding or discharge. Dry mucous membranes. NECK: Trachea midline. No JVD. CARDIOVASCULAR: Regular rate and rhythm. No murmur appreciated. RESPIRATORY: No accessory muscle use. Clear to auscultation. Breath sounds equal bilaterally. GASTROINTESTINAL: Abdomen soft, non-tender, nondistended. Hepatic and splenic margins not palpable. MUSCULOSKELETAL: No obvious deformities. No clubbing. No cyanosis. No edema. NEUROLOGICAL: Awake and alert. No obvious cranial nerve deficits. Motor grossly within normal limits. Normal speech. Laboratory Laboratory Tests Test 02/03/17 07:40 02/03/17 07:45 02/03/17 09:05 Prothrombin Time 11.9 Prothromb Time International Ratio 1.1 Activated Partial Thromboplast Time 26.3 White Blood Count 13.7 Red Blood Count 3.85 Hemoglobin 12.4 Hematocrit 37.5 Mean Corpuscular Volume 97.4 Mean Corpuscular Hemoglobin 32.1 Mean Corpuscular Hemoglobin Concent 33.0 Red Cell Distribution Width 16.1 Platelet Count 99 Mean Platelet Volume 9.9 Neutrophils (%) (Auto) 85.0 Lymphocytes (%) (Auto) 5.9 Monocytes (%) (Auto) 7.1 Eosinophils (%) (Auto) 1.6 Basophils (%) (Auto) 0.4 Neutrophils # (Auto) 11.6 Lymphocytes # (Auto) 0.8 Monocytes # (Auto) 1.0 Eosinophils # (Auto) 0.2 Basophils # (Auto) 0.1 CBC Comment AUTO DIFF Differential Comment AUTO DIFF CONFIRMED Platelet Estimate LOW Platelet Morphology Comment NORMAL Blood Urea Nitrogen 16 Creatinine 0.97 Random Glucose 95 Total Protein 6.7 Albumin 2.9 Calcium Level 8.3 Alkaline Phosphatase 96 Aspartate Amino Transf (AST/SGOT) 25 Alanine Aminotransferase (ALT/SGPT) 21 Total Bilirubin 1.7 Sodium Level 143 Potassium Level 3.5 Chloride Level 109 Carbon Dioxide Level 27.4 Anion Gap 7 Estimat Glomerular Filtration Rate 77 Ammonia 72 Urine Color LIGHT-ORANGE Urine Turbidity HAZY Urine pH 6.0 Urine Specific [place] 1.028 Urine Protein 30 Urine Glucose (UA) NEG Urine Ketones NEG Urine Occult Blood SMALL Urine Nitrite NEG Urine Bilirubin SMALL Urine Urobilinogen 2.0 Urine Leukocyte Esterase NEG Urine RBC 10 Urine WBC 4 Urine Hyaline Casts 6 Urine Mucus MANY Result Diagram: 02/03/17 0745 02/03/17 0745 Imaging No new imaging studies. Caprini VTE Risk Assessment Caprini VTE Risk Assessment: Mod/High Risk (score >= 2) Caprini Risk Assessment Model Point Value = 1 Point Value = 2 Point Value = 3 Point Value = 5 Age 41-60 Minor surgery BMI > 25 kg/m2 Swollen legs Varicose veins or History of unexplained or recurrent spontaneous Oral contraceptives or hormone replacement Sepsis (< 1 month) Serious lung disease, including pneumonia (< 1 month) Abnormal pulmonary function Acute myocardial infarction Congestive heart failure (< 1 month) History of inflammatory bowel disease Medical patient at bed rest Age 61-74 Arthroscopic surgery Major open surgery (> 45 min) Laparoscopic surgery (> 45 min) Malignancy Confined to bed (> 72 hours) Immobilizing plaster cast Central venous access Age >= 75 History of VTE Family history of VTE Factor V Leiden Prothrombin [id number] Lupus anticoagulant Anticardiolipin antibodies Elevated serum homocysteine Heparin-induced thrombocytopenia Other congenital or acquired thrombophilia Stroke (< 1 month) Elective arthroplasty Hip, pelvis, or leg fracture Acute spinal cord injury (< 1 month) Prophylaxis Regimen Total Risk Factor Score Risk Level Prophylaxis Regimen 0-1 Low Early ambulation 2 Moderate Order ONE of the following: *Sequential Compression Device (SCD) *Heparin 5000 units SQ BID 3-4 Higher Order ONE of the following medications: *Heparin 5000 units SQ TID *Enoxaparin/Lovenox 40 mg SQ daily (WT < 150 kg, CrCl > 30 mL/min) *Enoxaparin/Lovenox 30 mg SQ daily (WT < 150 kg, CrCl > 10-29 mL/min) *Enoxaparin/Lovenox 30 mg SQ BID (WT < 150 kg, CrCl > 30 mL/min) AND/OR *Sequential Compression Device (SCD) 5 or more Highest Order ONE of the following medications: *Heparin 5000 units SQ TID (Preferred with Epidurals) *Enoxaparin/Lovenox 40 mg SQ daily (WT < 150 kg, CrCl > 30 mL/min) *Enoxaparin/Lovenox 30 mg SQ daily (WT < 150 kg, CrCl > 10-29 mL/min) *Enoxaparin/Lovenox 30 mg SQ BID (WT < 150 kg, CrCl > 30 mL/min) AND *Sequential Compression Device (SCD) Assessment and Plan Assessment and Plan 1. 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 Hypertension to continue home medicines 3. Obesity strongly recommended diet and exercise 4. Cirrhosis continue Lactulose need to have at least three bowel movements per day 5. Esophageal Varices 6. Anxiety disorder and Depression by history 7. CAD stable at this time 8. Peripheral Neuropathy by history 9. C Diff on active treatment continue home medicine and follow C Diff Toxin DVT Prophylaxis: SCD/teds. 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 Case discussed at length with ER physician. Doctor Bao Holbrook Code Status Full code. Physician Certification 2 Midnight Certification Type: Admission for Inpatient Services Order for Inpatient Services The services are ordered in accordance with Medicare regulations or non- Medicare payer requirements, as applicable. In the case of services not specified as inpatient-only, they are appropriately provided as inpatient services in accordance with the 2-midnight benchmark. Estimated LOS (days): 3 days is the estimated time the patient will need to remain in the hospital, assuming treatment plan goals are met and no additional complications. Post-Hospital Plan: SNF Brayan Rodriguez MD Feb 03, 2017 10:51
[2017-02-03] MEDS ORDERED: LACTULOSE SYRUP 20 GM/30 ML CUP PO PRN (11:15)
[2017-02-03] MEDS ORDERED: BISACODYL 10 MG SUPP RECTAL PRN (11:15)
[2017-02-03] MEDS ORDERED: SODIUM CHLORIDE 0.9% FLUSH 10 ML FLUSH IV FLUSH PRN (11:15)
[2017-02-03] MEDS ORDERED: ONDANSETRON HCL 4 MG/2 ML VIAL IVP PRN (11:15)
[2017-02-03] MEDS ORDERED: MAGNESIUM HYDROXIDE SUSP 30 ML CUP PO PRN (11:15)
[2017-02-03] MEDS ORDERED: ACETAMINOPHEN 325 MG TAB PO PRN (11:15)
[2017-02-03] MEDS ORDERED: SENNOSIDES 8.6 MG TAB PO PRN (11:15)
[2017-02-03] MEDS ORDERED: NALOXONE HCL 0.4 MG/ML AMP IV PRN (11:15)
[2017-02-03] MEDS ORDERED: EPA PO SCH (13:00)
[2017-02-03] MEDS ORDERED: OMEGA PO SCH (13:00)
[2017-02-03] MEDS ORDERED: DHA PO SCH (13:00)
[2017-02-03] MEDS ORDERED: FISH OIL PO SCH (13:00)
[2017-02-03 16:08] LABS: CREATINE KINASE 60 U/L (39-308)
--- NOTE | 2017-02-03 16:14 | RADRPT ---
EXAM DATE/TIME: 02/03/2017 15:58 [facility] COMPARISON: No previous studies available for comparison. INDICATIONS : Lower back pain after fall. MEDICAL HISTORY : None. SURGICAL HISTORY : None. ENCOUNTER: Initial ACUITY: 1 day PAIN SCORE: 10/10 LOCATION: Bilateral lower back. FINDINGS: Two view examination was performed. There are five non-rib bearing vertebral bodies. The vertebral bodies are in normal alignment without evidence of subluxation or scoliosis. Multilevel degenerative disc disease with some loss of height and marginal spurring predominately in the mid lumbar levels. The pedicles are intact. Bony sclerosis and hypertrophy of the articulating facets at L4-5 and L5-S1. No fracture is identified. CONCLUSION: 1. Degenerative disc disease with no acute fracture. 2. Facet hypertrophy at L4-5 and L5-S1 Jessee Jamison MD on February 03, 2017 at 16:11 Board Certified Radiologist. This report was verified electronically.
[2017-02-03] MEDS: busPIRone HCL 10 MG TAB PO SCH ×2 (16:21→18:00)
[2017-02-03] MEDS: GABAPENTIN 300 MG CAP PO SCH ×2 (16:22→19:05)
[2017-02-03] MEDS: VANCOMYCIN 500 MG VIAL (FOR ORAL USE ONLY) PO SCH ×3 (16:22→21:27)
[2017-02-03] MEDS: BACLOFEN 10 MG TAB PO SCH ×2 (16:22→19:05)
[2017-02-03] MEDS: LACTULOSE SYRUP 20 GM/30 ML CUP PO SCH ×4 (16:23→21:42)
[2017-02-03] MEDS: RIFAXIMIN 550 MG TAB PO SCH ×2 (16:23→21:27)
[2017-02-03] MEDS: DOCUSATE SODIUM 50 MG/SENNA 8.6 MG TAB PO SCH (21:00)
[2017-02-03] MEDS ORDERED: VITAMIN B COMPLEX 100 MG PO SCH (21:00)
[2017-02-03] MEDS: SODIUM CHLORIDE 0.9% FLUSH 10 ML FLUSH IV FLUSH SCH (21:27)
[2017-02-03 21:56] LABS: CREATINE KINASE 77 U/L (39-308)
[2017-02-04 05:08] VITALS: BP 145/63; PULSE 61; RESP 16; TEMP 97.6; O2SAT 96
[2017-02-04] MEDS: RIFAXIMIN 550 MG TAB PO SCH ×3 (05:57→20:21)
[2017-02-04 08:07] VITALS: BP 145/63; PULSE 66; RESP 17; TEMP 97.8; O2SAT 95
[2017-02-04 08:31] LABS: AUTOMATED NEUTROPHIL # 5.4 TH/MM3 (1.8-7.7); BASOPHIL % 0.3 % (0.0-2.0); EOSINOPHIL # 0.1 TH/MM3 (0-0.4); EOSINOPHIL % 1.4 % (0.0-4.0); HEMATOCRIT 32.3 % (39.0-51.0); LYMPH % 12.3 % (9.0-44.0); LYMPHOCYTE # 0.8 TH/MM3 (1.0-4.8); MEAN CELL VOLUME 96.6 FL (80.0-100.0); MEAN CORPUSCULAR HEMOGLOBIN 32.7 PG (27.0-34.0); MEAN CORPUSCULAR HGB CONC 33.9 % (32.0-36.0); MONO % 6.9 % (0.0-8.0); NEUT % 79.1 % (16.0-70.0); PLATELET COUNT 61 TH/MM3 (150-450); RED BLOOD COUNT 3.34 MIL/MM3 (4.50-5.90); RED CELL DISTRIBUTION WIDTH 15.8 % (11.6-17.2); WHITE BLOOD COUNT 6.8 TH/MM3 (4.0-11.0)
[2017-02-04 08:38] LABS: HEMO FLAGS AUTO DIFF
[2017-02-04 08:59] LABS: BICARBONATE 25.6 MEQ/L (21.0-32.0); POTASSIUM 3.2 MEQ/L (3.5-5.1)
[2017-02-04] MEDS: DOCUSATE SODIUM 50 MG/SENNA 8.6 MG TAB PO SCH ×2 (09:00→20:22)
[2017-02-04] MEDS: LACTULOSE SYRUP 20 GM/30 ML CUP PO SCH (09:00)
--- NOTE | 2017-02-04 09:23 | HHI.PR ---
Subjective Remarks This is a pleasant 66 y/o Male who was just recently discharged from this facility two days ago, came to ER again with Generalized weakness and status post fall, he has alcoholic Cirrhosis, his last admission was January 01 through January 16, had C Diff colitis, He was discharged to a nursing facility. They apparently wanted to keep him in a long-term nursing that he had declined. He's been home for just a couple days now and is fallen 3 or 4 times. His a large amount of bruising on his back. EMS states they found him on his knees was unable to get up. Patient states he feels very thirsty. Denies any chest pain trouble breathing recent fevers recent cough. No recent diarrhea. States he's been compliant with all his medications. Denies any recent alcohol use. as we know he has Hypertension, Esophageal varices, Anxiety disorder, depression CAD, Peripheral Neuropathy. he was also recently admitted from 12/08-12/15/16 secondary to recurrent falls, weakness and hepatic encephalopathy, started on Rifaximin and Lactulose and d/c'd to Rehab. Now w/ progressive weakness and multiple episodes of watery diarrhea. Reports mild abdominal pain and nausea, but no vomiting or fever. 02/04: Stable no nausea, vomit, has Diarrhea, will remove Lactulose and take a new C Diff test the patient at this time talking with Proposal Manager Writer he will have today Physical therapy evaluation and probable will try to send him to SNF probable today. Objective Vital Signs Date Time Temp Pulse Resp B/P (MAP) Pulse Ox O2 Delivery O2 Flow Rate FiO2 02/04/17 05:08 97.6 61 16 145/63 (90) 96 02/03/17 23:33 98.2 79 16 145/64 (91) 93 02/03/17 22:05 98.2 77 16 158/71 (100) 94 02/03/17 18:30 98.5 74 17 147/67 (93) 95 02/03/17 17:20 78 18 141/72 (95) 98 02/03/17 14:00 80 18 136/74 (94) 98 Room Air 02/03/17 11:41 95 21 02/03/17 10:28 80 18 127/61 (83) 98 Room Air I/O 02/03/17 02/03/17 02/03/17 02/04/1717 9/7/17 07:00 15:00 23:00 07:00 15:00 23:00 Intake Total 500 ml 480 ml Output Total 10 ml Balance 500 ml 470 ml Intake Oral 480 ml IV Total 500 ml Output Urine Total 10 ml # Bowel Movements 10 Result Diagram: 02/04/17 0701 02/04/17 0701 Imaging Last Impressions Lumbar Spine X-Ray 02/03/17 0000 Signed Impressions: Service Date/Time: Friday, February 03, 2017 15:58 - CONCLUSION: 1. Degenerative disc disease with no acute fracture. 2. Facet hypertrophy at L4-5 and L5-S1 Jessee Jamison MD Procedures None Other Results Laboratory Tests Test 02/03/17 07:40 02/03/17 07:45 02/03/17 09:05 02/03/17 21:15 Prothrombin Time 11.9 SEC Prothromb Time International Ratio 1.1 RATIO Activated Partial Thromboplast Time 26.3 SEC Platelet Estimate LOW Platelet Morphology Comment NORMAL Blood Urea Nitrogen 16 MG/DL Creatinine 0.97 MG/DL Random Glucose 95 MG/DL Total Protein 6.7 GM/DL Albumin 2.9 GM/DL Calcium Level 8.3 MG/DL Alkaline Phosphatase 96 U/L Aspartate Amino Transf (AST/SGOT) 25 U/L Alanine Aminotransferase (ALT/SGPT) 21 U/L Total Bilirubin 1.7 MG/DL Sodium Level 143 MEQ/L Potassium Level 3.5 MEQ/L Chloride Level 109 MEQ/L Carbon Dioxide Level 27.4 MEQ/L Ammonia 72 MCMOL/L Urine Color LIGHT-ORANGE Urine Turbidity HAZY Urine pH 6.0 Urine Specific [place] 1.028 Urine Protein 30 mg/dL Urine Glucose (UA) NEG mg/dL Urine Ketones NEG mg/dL Urine Occult Blood SMALL Urine Nitrite NEG Urine Bilirubin SMALL Urine Urobilinogen 2.0 MG/DL Urine Leukocyte Esterase NEG Urine RBC 10 /hpf Urine WBC 4 /hpf Urine Hyaline Casts 6 /lpf Urine Mucus MANY /lpf Total Creatine Kinase 77 U/L Troponin I LESS THAN 0.02 NG/ML Test 02/04/17 07:01 White Blood Count 6.8 TH/MM3 Red Blood Count 3.34 MIL/MM3 Hemoglobin 10.9 GM/DL Hematocrit 32.3 % Mean Corpuscular Volume 96.6 FL Mean Corpuscular Hemoglobin 32.7 PG Mean Corpuscular Hemoglobin Concent 33.9 % Red Cell Distribution Width 15.8 % Platelet Count 61 TH/MM3 Mean Platelet Volume 9.9 FL Neutrophils (%) (Auto) 79.1 % Lymphocytes (%) (Auto) 12.3 % Monocytes (%) (Auto) 6.9 % Eosinophils (%) (Auto) 1.4 % Basophils (%) (Auto) 0.3 % Neutrophils # (Auto) 5.4 TH/MM3 Lymphocytes # (Auto) 0.8 TH/MM3 Monocytes # (Auto) 0.5 TH/MM3 Eosinophils # (Auto) 0.1 TH/MM3 Basophils # (Auto) 0.0 TH/MM3 CBC Comment AUTO DIFF Blood Urea Nitrogen 13 MG/DL Creatinine 0.70 MG/DL Random Glucose 103 MG/DL Calcium Level 8.1 MG/DL Sodium Level 142 MEQ/L Potassium Level 3.2 MEQ/L Chloride Level 109 MEQ/L Carbon Dioxide Level 25.6 MEQ/L Anion Gap 7 MEQ/L Estimat Glomerular Filtration Rate 112 ML/MIN Objective Remarks GENERAL: Obesity, no acute distress. SKIN: Focused skin assessment warm/dry. Decreased skin turgor. HEAD: Atraumatic. Normocephalic. EYES: Pupils equal and round. No scleral icterus. No injection or drainage. ENT: No nasal bleeding or discharge. Dry mucous membranes. NECK: Trachea midline. No JVD. CARDIOVASCULAR: Regular rate and rhythm. No murmur appreciated. RESPIRATORY: No accessory muscle use. Clear to auscultation. Breath sounds equal bilaterally. GASTROINTESTINAL: Abdomen soft, non-tender, nondistended. Hepatic and splenic margins not palpable. MUSCULOSKELETAL: No obvious deformities. No clubbing. No cyanosis. No edema. NEUROLOGICAL: Awake and alert. No obvious cranial nerve deficits. Motor grossly within normal limits. Normal speech. Medications and IVs Current Medications Medications (Trade) Dose Ordered Sig/Kane Route Start Time Stop Time Status Last Admin (Tylenol) 650 mg Q4H PRN PO 02/03/17 11:15 (Lioresal) 10 mg TID PO 02/03/17 13:45 02/03/17 19:05 (Buspar) 10 mg TID PO 02/03/17 13:45 02/03/17 16:21 (Coreg) 6.25 mg DAILY PO 02/04/17 09:00 (CeleXA) 40 mg DAILY PO 02/04/17 09:00 (Lasix) 20 mg DAILY PO 02/04/17 09:00 (Neurontin) 300 mg TID PO 02/03/17 13:45 02/03/17 19:05 (Antivert) 25 mg DAILY PO 02/04/17 09:00 (Roxicodone) 5 mg Q4H PRN PO 02/03/17 11:15 02/04/17 05:57 (Protonix) 40 mg DAILY PO 02/04/17 09:00 (Xifaxan) 550 mg Q8HR PO 02/03/17 14:00 02/04/17 05:57 (Aldactone) 25 mg DAILY PO 02/04/17 09:00 (VANCOMYCIN for oral use only) 250 mg QID PO 02/03/17 13:45 02/03/17 21:27 (Lactulose Liq) 30 ml QID PO 02/03/17 14:00 02/03/17 21:42 (Vitamin B1) 500 mg DAILY PO 02/04/17 09:00 (NS Flush) 2 ml UNSCH PRN IV FLUSH 02/03/17 11:15 (NS Flush) 2 ml BID IV FLUSH 02/03/17 21:00 02/03/17 21:27 (Zofran Inj) 4 mg Q6H PRN IVP 02/03/17 11:15 (Narcan Inj) 0.4 mg UNSCH PRN IV 02/03/17 11:15 (Ghazal-Colace) 1 tab BID PO 02/03/17 21:00 (Milk Of Magnesia Liq) 30 ml Q12H PRN PO 02/03/17 11:15 (Senokot) 17.2 mg Q12H PRN PO 02/03/17 11:15 (Dulcolax Supp) 10 mg DAILY PRN RECTAL 02/03/17 11:15 (Lactulose Liq) 30 ml DAILY PRN PO 02/03/17 11:15 A/P Assessment and Plan 1. Status post Fall with lumbar pain, asked for Lumbar spine X ray has Deconditioning status post multiple falls will need PT and senior asset manager awaiting final fro transfer to SNF. 2. Hypertension to continue home medicines 3. Obesity strongly recommended diet and exercise 4. Cirrhosis continue at this time the patient complaint of his Loose stools will decrease the amount of Lactulose to try to control his bowel movements he will need to go to SNF. 5. Esophageal Varices 6. Anxiety disorder and Depression by history 7. CAD stable at this time 8. Peripheral Neuropathy by history 9. C Diff on active treatment continue home medicine and follow C Diff Toxin DVT Prophylaxis: SCD/teds. pipe out worker DC planning as needed. Discussed with patient and Proposal Manager Writer and nurse Miss Muro in the room, all questions answered to the best of my abilities. Code Status Full code. Discharge Planning awaiting final by Proposal Manager Writer for discharge. Brayan Rodriguez MD Feb 04, 2017 09:23
[2017-02-04 09:48] LABS: OVALOCYTES 1+ (NORMAL); PLATELET ESTIMATE SMEAR LOW (NORMAL); PLATELET MORPHOLOGY NORMAL (NORMAL); SCAN/DIFF AUTO DIFF CONFIRMED
[2017-02-04 09:52] VITALS: O2SAT 96
[2017-02-04] MEDS: FUROSEMIDE 20 MG TAB PO SCH (09:56)
[2017-02-04] MEDS: BACLOFEN 10 MG TAB PO SCH ×3 (09:57→18:00)
[2017-02-04] MEDS: busPIRone HCL 10 MG TAB PO SCH ×3 (09:57→18:06)
[2017-02-04] MEDS: CITALOPRAM HYDROBROMIDE 40 MG TAB PO SCH (09:57)
[2017-02-04] MEDS: GABAPENTIN 300 MG CAP PO SCH ×3 (09:57→18:06)
[2017-02-04] MEDS: CARVEDILOL 6.25 MG TAB PO SCH (09:57)
[2017-02-04] MEDS: THIAMINE HCL 100 MG TAB PO SCH (11:20)
[2017-02-04] MEDS: SODIUM CHLORIDE 0.9% FLUSH 10 ML FLUSH IV FLUSH SCH ×2 (11:21→20:22)
[2017-02-04] MEDS: MECLIZINE HCL 25 MG TAB PO SCH (11:21)
[2017-02-04] MEDS: SPIRONOLACTONE 25 MG TAB PO SCH (11:21)
[2017-02-04] MEDS: PANTOPRAZOLE SOD 40 MG DELAYED RELEASE TAB PO SCH (11:21)
[2017-02-04] MEDS: VANCOMYCIN 500 MG VIAL (FOR ORAL USE ONLY) PO SCH ×4 (11:21→20:22)
[2017-02-04] MEDS ORDERED: POTASSIUM CHLORIDE 20 MEQ CONTROLLED RELEASE TAB PO ONE ×2 (11:45→15:00)
[2017-02-04 13:14] LABS: C. DIFF EPI 027 PRESUMPTIVE POSITIVE (NEGATIVE)
[2017-02-04 16:07] VITALS: BP 135/64; PULSE 67; RESP 18; TEMP 98.1; O2SAT 96
[2017-02-04 18:00] VITALS: O2SAT 96
[2017-02-04 20:00] VITALS: BP 149/69; PULSE 67; RESP 19; TEMP 98.2; O2SAT 93
[2017-02-05] VITALS (7 sets, daily range): BP systolic 126–134; BP diastolic 59–65; PULSE 64–72; RESP 18–21; TEMP 97.5–97.9; O2SAT 93–97
[2017-02-05] MEDS: RIFAXIMIN 550 MG TAB PO SCH ×3 (05:30→22:08)
[2017-02-05] MEDS: DOCUSATE SODIUM 50 MG/SENNA 8.6 MG TAB PO SCH ×2 (09:00→21:00)
[2017-02-05] MEDS: busPIRone HCL 10 MG TAB PO SCH ×3 (09:10→17:37)
[2017-02-05] MEDS: CARVEDILOL 6.25 MG TAB PO SCH (09:11)
[2017-02-05] MEDS: SPIRONOLACTONE 25 MG TAB PO SCH (09:11)
[2017-02-05] MEDS: PANTOPRAZOLE SOD 40 MG DELAYED RELEASE TAB PO SCH (09:11)
[2017-02-05] MEDS: THIAMINE HCL 100 MG TAB PO SCH (09:11)
[2017-02-05] MEDS: BACLOFEN 10 MG TAB PO SCH ×3 (09:11→17:38)
[2017-02-05] MEDS: CITALOPRAM HYDROBROMIDE 40 MG TAB PO SCH (09:11)
[2017-02-05] MEDS: GABAPENTIN 300 MG CAP PO SCH ×3 (09:11→17:37)
[2017-02-05] MEDS: MECLIZINE HCL 25 MG TAB PO SCH (09:11)
[2017-02-05] MEDS: FUROSEMIDE 20 MG TAB PO SCH (09:12)
[2017-02-05] MEDS: SODIUM CHLORIDE 0.9% FLUSH 10 ML FLUSH IV FLUSH SCH ×2 (09:17→22:08)
[2017-02-05 09:47] LABS: BICARBONATE 25.6 MEQ/L (21.0-32.0)
[2017-02-05] MEDS: VANCOMYCIN 500 MG VIAL (FOR ORAL USE ONLY) PO SCH ×4 (10:17→22:06)
--- NOTE | 2017-02-05 14:33 | HHI.PR ---
Subjective Remarks This is a pleasant 66 y/o Male who was just recently discharged from this facility two days ago, came to ER again with Generalized weakness and status post fall, he has alcoholic Cirrhosis, his last admission was January 01 through January 16, had C Diff colitis, He was discharged to a nursing facility. They apparently wanted to keep him in a long-term nursing that he had declined. He's been home for just a couple days now and is fallen 3 or 4 times. His a large amount of bruising on his back. EMS states they found him on his knees was unable to get up. Patient states he feels very thirsty. Denies any chest pain trouble breathing recent fevers recent cough. No recent diarrhea. States he's been compliant with all his medications. Denies any recent alcohol use. as we know he has Hypertension, Esophageal varices, Anxiety disorder, depression CAD, Peripheral Neuropathy. he was also recently admitted from 12/08-12/15/16 secondary to recurrent falls, weakness and hepatic encephalopathy, started on Rifaximin and Lactulose and d/c'd to Rehab. Now w/ progressive weakness and multiple episodes of watery diarrhea. Reports mild abdominal pain and nausea, but no vomiting or fever. 02/05: patient has Positive C Diff test, had four bowel movements, won't try to decrease his BMs. but because the patient is been on Vancomycin will get new evaluation by Infectious disease, stable in his bedroom, awaiting final by ID after evaluation to discharge to SNF. Objective Vital Signs Date Time Temp Pulse Resp B/P (MAP) Pulse Ox O2 Delivery O2 Flow Rate FiO2 02/05/17 12:02 97.8 66 18 132/65 (87) 96 02/05/17 08:02 97.6 64 18 134/63 (86) 95 02/05/17 04:00 97.9 66 18 126/59 (81) 93 02/05/17 00:00 97.5 72 21 132/60 (84) 94 02/04/17 20:00 98.2 67 19 149/69 (95) 93 02/04/17 18:00 96 21 02/04/17 16:07 98.1 67 18 135/64 (87) 96 I/O 02/04/17 02/04/17 02/04/17 02/05/17 02/05/17 02/05/17 07:00 15:00 23:00 07:00 15:00 23:00 Intake Total 480 ml 320 ml 620 ml Output Total 10 ml 700 ml 600 ml Balance 470 ml -380 ml 20 ml Intake Oral 480 ml 320 ml 620 ml Output Urine Total 10 ml 700 ml 600 ml # Bowel Movements 10 2 2 Result Diagram: 02/04/17 0701 02/05/17 0824 Imaging Last Impressions Lumbar Spine X-Ray 02/03/17 0000 Signed Impressions: Service Date/Time: Friday, February 03, 2017 15:58 - CONCLUSION: 1. Degenerative disc disease with no acute fracture. 2. Facet hypertrophy at L4-5 and L5-S1 Jessee Jamison MD Procedures None Other Results Laboratory Tests Test 02/03/17 07:40 02/03/17 07:45 02/03/17 09:05 02/03/17 21:15 Prothrombin Time 11.9 SEC Prothromb Time International Ratio 1.1 RATIO Activated Partial Thromboplast Time 26.3 SEC Blood Urea Nitrogen 16 MG/DL Creatinine 0.97 MG/DL Random Glucose 95 MG/DL Total Protein 6.7 GM/DL Albumin 2.9 GM/DL Calcium Level 8.3 MG/DL Alkaline Phosphatase 96 U/L Aspartate Amino Transf (AST/SGOT) 25 U/L Alanine Aminotransferase (ALT/SGPT) 21 U/L Total Bilirubin 1.7 MG/DL Sodium Level 143 MEQ/L Potassium Level 3.5 MEQ/L Chloride Level 109 MEQ/L Carbon Dioxide Level 27.4 MEQ/L Ammonia 72 MCMOL/L Urine Color LIGHT-ORANGE Urine Turbidity HAZY Urine pH 6.0 Urine Specific [place] 1.028 Urine Protein 30 mg/dL Urine Glucose (UA) NEG mg/dL Urine Ketones NEG mg/dL Urine Occult Blood SMALL Urine Nitrite NEG Urine Bilirubin SMALL Urine Urobilinogen 2.0 MG/DL Urine Leukocyte Esterase NEG Urine RBC 10 /hpf Urine WBC 4 /hpf Urine Hyaline Casts 6 /lpf Urine Mucus MANY /lpf Total Creatine Kinase 77 U/L Troponin I LESS THAN 0.02 NG/ML Test 02/04/17 07:01 02/04/17 11:00 02/05/17 08:24 White Blood Count 6.8 TH/MM3 Red Blood Count 3.34 MIL/MM3 Hemoglobin 10.9 GM/DL Hematocrit 32.3 % Mean Corpuscular Volume 96.6 FL Mean Corpuscular Hemoglobin 32.7 PG Mean Corpuscular Hemoglobin Concent 33.9 % Red Cell Distribution Width 15.8 % Platelet Count 61 TH/MM3 Mean Platelet Volume 9.9 FL Neutrophils (%) (Auto) 79.1 % Lymphocytes (%) (Auto) 12.3 % Monocytes (%) (Auto) 6.9 % Eosinophils (%) (Auto) 1.4 % Basophils (%) (Auto) 0.3 % Neutrophils # (Auto) 5.4 TH/MM3 Lymphocytes # (Auto) 0.8 TH/MM3 Monocytes # (Auto) 0.5 TH/MM3 Eosinophils # (Auto) 0.1 TH/MM3 Basophils # (Auto) 0.0 TH/MM3 CBC Comment AUTO DIFF Differential Comment AUTO DIFF CONFIRMED Platelet Estimate LOW Platelet Morphology Comment NORMAL Ovalocytes 1+ Stool C. difficile Toxin (PCR) POSITIVE Stl C. difficile Toxin Epiderm 027 PRESUMPTIVE POSITIVE Blood Urea Nitrogen 10 MG/DL Creatinine 0.58 MG/DL Random Glucose 85 MG/DL Calcium Level 8.1 MG/DL Phosphorus Level 2.4 MG/DL Magnesium Level 2.0 MG/DL Sodium Level 137 MEQ/L Potassium Level 4.0 MEQ/L Chloride Level 105 MEQ/L Carbon Dioxide Level 25.6 MEQ/L Anion Gap 6 MEQ/L Estimat Glomerular Filtration Rate 139 ML/MIN Objective Remarks GENERAL: Obesity, no acute distress. SKIN: Focused skin assessment warm/dry. Decreased skin turgor. HEAD: Atraumatic. Normocephalic. EYES: Pupils equal and round. No scleral icterus. No injection or drainage. ENT: No nasal bleeding or discharge. Dry mucous membranes. NECK: Trachea midline. No JVD. CARDIOVASCULAR: Regular rate and rhythm. No murmur appreciated. RESPIRATORY: No accessory muscle use. Clear to auscultation. Breath sounds equal bilaterally. GASTROINTESTINAL: Abdomen soft, non-tender, nondistended. Hepatic and splenic margins not palpable. MUSCULOSKELETAL: No obvious deformities. No clubbing. No cyanosis. No edema. NEUROLOGICAL: Awake and alert. No obvious cranial nerve deficits. Motor grossly within normal limits. Normal speech. Medications and IVs Current Medications Medications (Trade) Dose Ordered Sig/Kane Route Start Time Stop Time Status Last Admin (Tylenol) 650 mg Q4H PRN PO 02/03/17 11:15 (Lioresal) 10 mg TID PO 02/03/17 13:45 02/05/17 13:30 (Buspar) 10 mg TID PO 02/03/17 13:45 02/05/17 13:30 (Coreg) 6.25 mg DAILY PO 02/04/17 09:00 02/05/17 09:11 (CeleXA) 40 mg DAILY PO 02/04/17 09:00 02/05/17 09:11 (Lasix) 20 mg DAILY PO 02/04/17 09:00 02/05/17 09:12 (Neurontin) 300 mg TID PO 02/03/17 13:45 02/05/17 13:30 (Antivert) 25 mg DAILY PO 02/04/17 09:00 02/05/17 09:11 (Roxicodone) 5 mg Q4H PRN PO 02/03/17 11:15 02/05/17 13:30 (Protonix) 40 mg DAILY PO 02/04/17 09:00 02/05/17 09:11 (Xifaxan) 550 mg Q8HR PO 02/03/17 14:00 02/05/17 13:30 (Aldactone) 25 mg DAILY PO 02/04/17 09:00 02/05/17 09:11 (VANCOMYCIN for oral use only) 250 mg QID PO 02/03/17 13:45 02/05/17 13:30 (Vitamin B1) 500 mg DAILY PO 02/04/17 09:00 02/05/17 09:11 (NS Flush) 2 ml UNSCH PRN IV FLUSH 02/03/17 11:15 (NS Flush) 2 ml BID IV FLUSH 02/03/17 21:00 02/05/17 09:17 (Zofran Inj) 4 mg Q6H PRN IVP 02/03/17 11:15 (Narcan Inj) 0.4 mg UNSCH PRN IV 02/03/17 11:15 (Ghazal-Colace) 1 tab BID PO 02/03/17 21:00 (Milk Of Magnesia Liq) 30 ml Q12H PRN PO 02/03/17 11:15 (Senokot) 17.2 mg Q12H PRN PO 02/03/17 11:15 (Dulcolax Supp) 10 mg DAILY PRN RECTAL 02/03/17 11:15 (Lactulose Liq) 30 ml DAILY PRN PO 02/03/17 11:15 A/P Assessment and Plan 1. Status post Fall with lumbar pain, asked for Lumbar spine X ray has Deconditioning status post multiple falls Discussed with Nurse Midwife patient ready for transfer to Inpatient care home care facility 2. Hypertension controlled. 3. Obesity strongly recommended diet and exercise 4. Cirrhosis continue at this time the patient complaint of his Loose stools will decrease the amount of Lactulose to try to control his bowel movements he will need to go to SNF. 5. Esophageal Varices 6. Anxiety disorder and Depression by history 7. CAD stable at this time 8. Peripheral Neuropathy by history 9. C Diff continue Vancomycin, and due to C Diff continue positive will get ID specialist for recommendations on treatment and discharge after evaluation. DVT Prophylaxis: SCD/teds. sheetmetal trades worker DC planning as needed. Discussed with patient and Nurse Midwife and nurse Miss Reynolds, all questions answered to the best of my abilities. Code Status Full code. Discharge Planning Will discharge after consult by ID specialist. Brayan Rodriguez MD Feb 05, 2017 14:33
[2017-02-06] VITALS: BP 139/75; PULSE 72; RESP 16; TEMP 97.7; O2SAT 95
[2017-02-06 04:00] VITALS: BP 147/70; PULSE 73; RESP 18; TEMP 98.1; O2SAT 93
[2017-02-06] MEDS: RIFAXIMIN 550 MG TAB PO SCH ×3 (04:55→22:15)
[2017-02-06 08:00] VITALS: BP 130/60; PULSE 67; RESP 16; TEMP 98; O2SAT 93
[2017-02-06] MEDS: SPIRONOLACTONE 25 MG TAB PO SCH (08:59)
[2017-02-06] MEDS: CARVEDILOL 6.25 MG TAB PO SCH (08:59)
[2017-02-06] MEDS: SODIUM CHLORIDE 0.9% FLUSH 10 ML FLUSH IV FLUSH SCH ×2 (08:59→22:16)
[2017-02-06] MEDS: BACLOFEN 10 MG TAB PO SCH ×3 (08:59→17:23)
[2017-02-06] MEDS: VANCOMYCIN 500 MG VIAL (FOR ORAL USE ONLY) PO SCH ×4 (08:59→22:15)
[2017-02-06] MEDS: busPIRone HCL 10 MG TAB PO SCH ×3 (08:59→17:23)
[2017-02-06] MEDS: PANTOPRAZOLE SOD 40 MG DELAYED RELEASE TAB PO SCH (08:59)
[2017-02-06] MEDS: FUROSEMIDE 20 MG TAB PO SCH (09:00)
[2017-02-06] MEDS: MECLIZINE HCL 25 MG TAB PO SCH (09:00)
[2017-02-06] MEDS: CITALOPRAM HYDROBROMIDE 40 MG TAB PO SCH (09:00)
[2017-02-06] MEDS: GABAPENTIN 300 MG CAP PO SCH ×3 (09:00→17:23)
[2017-02-06] MEDS: DOCUSATE SODIUM 50 MG/SENNA 8.6 MG TAB PO SCH ×2 (09:00→22:15)
[2017-02-06] MEDS: THIAMINE HCL 100 MG TAB PO SCH (09:00)
[2017-02-06 12:00] VITALS: BP 114/56; PULSE 68; RESP 18; TEMP 97.4; O2SAT 93
--- NOTE | 2017-02-06 14:04 | HHI.PR ---
Subjective Remarks This is a pleasant 66 y/o Male who was just recently discharged from this facility two days ago, came to ER again with Generalized weakness and status post fall, he has alcoholic Cirrhosis, his last admission was January 01 through January 16, had C Diff colitis, He was discharged to a nursing facility. They apparently wanted to keep him in a long-term nursing that he had declined. He's been home for just a couple days now and is fallen 3 or 4 times. His a large amount of bruising on his back. EMS states they found him on his knees was unable to get up. Patient states he feels very thirsty. Denies any chest pain trouble breathing recent fevers recent cough. No recent diarrhea. States he's been compliant with all his medications. Denies any recent alcohol use. as we know he has Hypertension, Esophageal varices, Anxiety disorder, depression CAD, Peripheral Neuropathy. he was also recently admitted from 12/08-12/15/16 secondary to recurrent falls, weakness and hepatic encephalopathy, started on Rifaximin and Lactulose and d/c'd to Rehab. Now w/ progressive weakness and multiple episodes of watery diarrhea. Reports mild abdominal pain and nausea, but no vomiting or fever. 02/05: patient has Positive C Diff test, had four bowel movements, won't try to decrease his BMs. but because the patient is been on Vancomycin will get new evaluation by Infectious disease, stable in his bedroom, awaiting final by ID after evaluation to discharge to SNF. 02/06: Patient seen in his bedroom no new issues, no nausea, vomit improving bowel movements, but the patient needs to continue having Bowel movements at least three a day due to his Hyperammonemia. Objective Vital Signs Date Time Temp Pulse Resp B/P (MAP) Pulse Ox O2 Delivery O2 Flow Rate FiO2 02/06/17 12:00 97.4 68 18 114/56 (75) 93 02/06/17 12:00 Room Air 02/06/17 08:30 Room Air 02/06/17 08:00 98.0 67 16 130/60 (83) 93 02/06/17 04:00 98.1 73 18 147/70 (95) 93 02/06/17 00:00 97.7 72 16 139/75 (96) 95 02/06/17 00:00 Room Air 02/05/17 20:00 Room Air 02/05/17 20:00 97.7 67 18 126/65 (85) 93 02/05/17 16:01 97.9 66 18 132/64 (86) 96 I/O 02/05/17 02/05/17 02/05/17 02/06/17 02/06/17 02/06/17 07:00 15:00 23:00 07:00 15:00 23:00 Intake Total 620 ml 380 ml 240 ml Output Total 600 ml 900 ml 1250 ml Balance 20 ml -520 ml -1010 ml Intake Oral 620 ml 380 ml 240 ml Output Urine Total 600 ml 900 ml 1250 ml # Bowel Movements 2 1 2 Result Diagram: 02/04/17 0701 02/05/17 0824 Imaging Last Impressions Lumbar Spine X-Ray 02/03/17 0000 Signed Impressions: Service Date/Time: Friday, February 03, 2017 15:58 - CONCLUSION: 1. Degenerative disc disease with no acute fracture. 2. Facet hypertrophy at L4-5 and L5-S1 Jessee Jamison MD Procedures None Other Results Laboratory Tests Test 02/03/17 07:40 02/03/17 07:45 02/03/17 09:05 02/03/17 21:15 Prothrombin Time 11.9 SEC Prothromb Time International Ratio 1.1 RATIO Activated Partial Thromboplast Time 26.3 SEC Blood Urea Nitrogen 16 MG/DL Creatinine 0.97 MG/DL Random Glucose 95 MG/DL Total Protein 6.7 GM/DL Albumin 2.9 GM/DL Calcium Level 8.3 MG/DL Alkaline Phosphatase 96 U/L Aspartate Amino Transf (AST/SGOT) 25 U/L Alanine Aminotransferase (ALT/SGPT) 21 U/L Total Bilirubin 1.7 MG/DL Sodium Level 143 MEQ/L Potassium Level 3.5 MEQ/L Chloride Level 109 MEQ/L Carbon Dioxide Level 27.4 MEQ/L Ammonia 72 MCMOL/L Urine Color LIGHT-ORANGE Urine Turbidity HAZY Urine pH 6.0 Urine Specific [place] 1.028 Urine Protein 30 mg/dL Urine Glucose (UA) NEG mg/dL Urine Ketones NEG mg/dL Urine Occult Blood SMALL Urine Nitrite NEG Urine Bilirubin SMALL Urine Urobilinogen 2.0 MG/DL Urine Leukocyte Esterase NEG Urine RBC 10 /hpf Urine WBC 4 /hpf Urine Hyaline Casts 6 /lpf Urine Mucus MANY /lpf Total Creatine Kinase 77 U/L Troponin I LESS THAN 0.02 NG/ML Test 02/04/17 07:01 02/04/17 11:00 02/05/17 08:24 White Blood Count 6.8 TH/MM3 Red Blood Count 3.34 MIL/MM3 Hemoglobin 10.9 GM/DL Hematocrit 32.3 % Mean Corpuscular Volume 96.6 FL Mean Corpuscular Hemoglobin 32.7 PG Mean Corpuscular Hemoglobin Concent 33.9 % Red Cell Distribution Width 15.8 % Platelet Count 61 TH/MM3 Mean Platelet Volume 9.9 FL Neutrophils (%) (Auto) 79.1 % Lymphocytes (%) (Auto) 12.3 % Monocytes (%) (Auto) 6.9 % Eosinophils (%) (Auto) 1.4 % Basophils (%) (Auto) 0.3 % Neutrophils # (Auto) 5.4 TH/MM3 Lymphocytes # (Auto) 0.8 TH/MM3 Monocytes # (Auto) 0.5 TH/MM3 Eosinophils # (Auto) 0.1 TH/MM3 Basophils # (Auto) 0.0 TH/MM3 CBC Comment AUTO DIFF Differential Comment AUTO DIFF CONFIRMED Platelet Estimate LOW Platelet Morphology Comment NORMAL Ovalocytes 1+ Stool C. difficile Toxin (PCR) POSITIVE Stl C. difficile Toxin Epiderm 027 PRESUMPTIVE POSITIVE Blood Urea Nitrogen 10 MG/DL Creatinine 0.58 MG/DL Random Glucose 85 MG/DL Calcium Level 8.1 MG/DL Phosphorus Level 2.4 MG/DL Magnesium Level 2.0 MG/DL Sodium Level 137 MEQ/L Potassium Level 4.0 MEQ/L Chloride Level 105 MEQ/L Carbon Dioxide Level 25.6 MEQ/L Anion Gap 6 MEQ/L Estimat Glomerular Filtration Rate 139 ML/MIN Objective Remarks GENERAL: Obesity, no acute distress. SKIN: Focused skin assessment warm/dry. Decreased skin turgor. HEAD: Atraumatic. Normocephalic. EYES: Pupils equal and round. No scleral icterus. No injection or drainage. ENT: No nasal bleeding or discharge. Dry mucous membranes. NECK: Trachea midline. No JVD. CARDIOVASCULAR: Regular rate and rhythm. No murmur appreciated. RESPIRATORY: No accessory muscle use. Clear to auscultation. Breath sounds equal bilaterally. GASTROINTESTINAL: Abdomen soft, non-tender, nondistended. Hepatic and splenic margins not palpable. MUSCULOSKELETAL: No obvious deformities. No clubbing. No cyanosis. No edema. NEUROLOGICAL: Awake and alert. No obvious cranial nerve deficits. Motor grossly within normal limits. Normal speech. Medications and IVs Current Medications Medications (Trade) Dose Ordered Sig/Kane Route Start Time Stop Time Status Last Admin (Tylenol) 650 mg Q4H PRN PO 02/03/17 11:15 (Lioresal) 10 mg TID PO 02/03/17 13:45 02/06/17 13:25 (Buspar) 10 mg TID PO 02/03/17 13:45 02/06/17 13:25 (Coreg) 6.25 mg DAILY PO 02/04/17 09:00 02/06/17 08:59 (CeleXA) 40 mg DAILY PO 02/04/17 09:00 02/06/17 09:00 (Lasix) 20 mg DAILY PO 02/04/17 09:00 02/06/17 09:00 (Neurontin) 300 mg TID PO 02/03/17 13:45 02/06/17 13:25 (Antivert) 25 mg DAILY PO 02/04/17 09:00 02/06/17 09:00 (Roxicodone) 5 mg Q4H PRN PO 02/03/17 11:15 02/06/17 13:25 (Protonix) 40 mg DAILY PO 02/04/17 09:00 02/06/17 08:59 (Xifaxan) 550 mg Q8HR PO 02/03/17 14:00 02/06/17 13:25 (Aldactone) 25 mg DAILY PO 02/04/17 09:00 02/06/17 08:59 (VANCOMYCIN for oral use only) 250 mg QID PO 02/03/17 13:45 02/06/17 13:25 (Vitamin B1) 500 mg DAILY PO 02/04/17 09:00 02/06/17 09:00 (NS Flush) 2 ml UNSCH PRN IV FLUSH 02/03/17 11:15 (NS Flush) 2 ml BID IV FLUSH 02/03/17 21:00 02/06/17 08:59 (Zofran Inj) 4 mg Q6H PRN IVP 02/03/17 11:15 (Narcan Inj) 0.4 mg UNSCH PRN IV 02/03/17 11:15 (Ghazal-Colace) 1 tab BID PO 02/03/17 21:00 (Milk Of Magnesia Liq) 30 ml Q12H PRN PO 02/03/17 11:15 (Senokot) 17.2 mg Q12H PRN PO 02/03/17 11:15 (Dulcolax Supp) 10 mg DAILY PRN RECTAL 02/03/17 11:15 (Lactulose Liq) 30 ml DAILY PRN PO 02/03/17 11:15 A/P Assessment and Plan 1. Status post Fall with lumbar pain, asked for Lumbar spine X ray has Deconditioning status post multiple falls Discussed with Preboarder patient ready for transfer to Inpatient joint terminal attack controller care facility 2. Hypertension controlled. 3. Obesity strongly recommended diet and exercise 4. Cirrhosis continue at this time the patient complaint of his Loose stools will decrease the amount of Lactulose to try to control his bowel movements he will need to go to SNF. 5. Esophageal Varices 6. Anxiety disorder and Depression by history 7. CAD stable at this time 8. Peripheral Neuropathy by history 9. C Diff continue Vancomycin, and due to C Diff continue positive will get ID specialist for recommendations on treatment and discharge after evaluation. DVT Prophylaxis: SCD/teds. grain farmworker DC planning as needed. Discussed with patient and Preboarder and nurse Miss Reynolds, all questions answered to the best of my abilities. Code Status Full code. Discharge Planning Will discharge after consult by ID specialist. Brayan Rodriguez MD Feb 06, 2017 14:04
--- NOTE | 2017-02-06 14:31 | PD.ID.CON ---
History of Present Illness Service ID Consult Requested By Dr Gaming Reason for Consult recurrent C.diff Primary Care Physician Non-Staff Diagnoses: History of Present Illness 66 y/o Male known to me from his recent admission 1 month ago He presented with diarrhea a and was diagnosed with hypervirulent 027 strain of C.diff He improved on vancomycin and was discharged to complete 14 days of vanco His diarrhea resolved on tx, but came back in 10 days after treatment was completed He presented 3 days ago with generalused weakness and frequent falls and develloped diarrhea right after admission with 10 liquid BMs. He again tested + for C.diff 027 strain He was re started on vancomycin His number of BMs went down to 3-4 and today he reports no BM. His stool consistancy also improved He presented with mild leukocytosis, which improved No fever Review of Systems Except as stated in HPI: all other systems reviewed are Neg Past Family Social History Allergies: Coded Allergies: No Known Allergies (Verified , 02/03/17) Past Medical History C.diff 1 mon ago h/o Alcohol Abuse, Cirrhosis, Esophageal Varices, Anxiety, Depression, CAD and Peripheral Neuropathy Past Surgical History Cardiac Stent, Anal Fistula Active Ordered Medications Medications where reviewed in EMR Antibiotics Include: po vancomycin rifaximin Family History Reviewed. Non-Contributory. Social History History of alcohol abuse, quit 4 years ago. Negative for tobacco or drugs. Physical Exam Vital Signs Vital Signs Date Time Temp Pulse Resp B/P (MAP) Pulse Ox O2 Delivery O2 Flow Rate FiO2 02/06/17 12:00 97.4 68 18 114/56 (75) 93 02/06/17 12:00 Room Air 02/06/17 08:30 Room Air 02/06/17 08:00 98.0 67 16 130/60 (83) 93 02/06/17 04:00 98.1 73 18 147/70 (95) 93 02/06/17 00:00 97.7 72 16 139/75 (96) 95 02/06/17 00:00 Room Air 02/05/17 20:00 Room Air 02/05/17 20:00 97.7 67 18 126/65 (85) 93 02/05/17 16:01 97.9 66 18 132/64 (86) 96 Physical Exam CONSTITUTIONAL/GENERAL: This is an obese elderly male patient, in no apparent distress. TUBES/LINES/DRAINS: SKIN: No jaundice, rashes, or lesions. Skin temperature appropriate. Not diaphoretic. HEAD: Atraumatic. Normocephalic. EYES: Pupils equal and round and reactive. Extraocular motions intact. No scleral icterus. No injection or drainage. Fundi not examined. ENT: Hearing grossly normal. Nose without bleeding or purulent drainage. Throat without visible erythema, exudates, masses, or lesions. NECK: Trachea midline. No JVD. CARDIOVASCULAR: Regular rate and rhythm without murmurs, gallops, or rubs. No JVD. Peripheral pulses symmetric. RESPIRATORY/CHEST: Symmetric, unlabored respirations. Clear to auscultation. Breath sounds equal bilaterally. No wheezes, rales, or rhonchi. GASTROINTESTINAL: Abdomen soft, non-tender, mildly distended. No hepato- splenomegaly, or palpable masses. No guarding. Bowel sounds present. GENITOURINARY: Without palpable bladder distension. MUSCULOSKELETAL: Extremities without clubbing, cyanosis, or edema. No joint tenderness or effusion noted. No calf tenderness. No mottling or clubbing. LYMPHATICS: No palpable cervical or supraclavicular adenopathy. NEUROLOGICAL: Awake and alert. Motor and sensory grossly within normal limits. Follows commands. Cognitively sharp. Moves all extremities. PSYCHIATRIC: No obvious anxiety/depression. no apparent hallucinations or other psychotic thought process. Result Diagram: 02/04/17 0701 02/05/17 0824 Imaging Last Impressions Lumbar Spine X-Ray 02/03/17 0000 Signed Impressions: Service Date/Time: Friday, February 03, 2017 15:58 - CONCLUSION: 1. Degenerative disc disease with no acute fracture. 2. 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
[2017-02-06 16:00] VITALS: BP 119/72; PULSE 65; RESP 18; TEMP 97.4; O2SAT 93
[2017-02-06 20:00] VITALS: BP 164/78; RESP 18; TEMP 97.7; O2SAT 95
[2017-02-07] VITALS: BP 129/60; PULSE 70; RESP 16; TEMP 97.8; O2SAT 92
[2017-02-07 04:00] VITALS: BP 131/61; PULSE 68; RESP 18; TEMP 97.8; O2SAT 94
[2017-02-07] MEDS: RIFAXIMIN 550 MG TAB PO SCH ×3 (04:59→21:21)
[2017-02-07 08:28] VITALS: BP 133/61; PULSE 67; RESP 18; TEMP 97.3; O2SAT 96
[2017-02-07] MEDS: CITALOPRAM HYDROBROMIDE 40 MG TAB PO SCH (08:55)
[2017-02-07] MEDS: GABAPENTIN 300 MG CAP PO SCH ×3 (08:55→17:13)
[2017-02-07] MEDS: busPIRone HCL 10 MG TAB PO SCH ×3 (08:55→17:13)
[2017-02-07] MEDS: FUROSEMIDE 20 MG TAB PO SCH (08:55)
[2017-02-07] MEDS: MECLIZINE HCL 25 MG TAB PO SCH (08:55)
[2017-02-07] MEDS: BACLOFEN 10 MG TAB PO SCH ×3 (08:55→17:13)
[2017-02-07] MEDS: SPIRONOLACTONE 25 MG TAB PO SCH (08:55)
[2017-02-07] MEDS: THIAMINE HCL 100 MG TAB PO SCH (08:55)
[2017-02-07] MEDS: VANCOMYCIN 500 MG VIAL (FOR ORAL USE ONLY) PO SCH ×4 (08:55→21:00)
[2017-02-07] MEDS: PANTOPRAZOLE SOD 40 MG DELAYED RELEASE TAB PO SCH (08:55)
[2017-02-07] MEDS: CARVEDILOL 6.25 MG TAB PO SCH (08:55)
[2017-02-07] MEDS: DOCUSATE SODIUM 50 MG/SENNA 8.6 MG TAB PO SCH ×2 (08:56→21:00)
[2017-02-07] MEDS: SODIUM CHLORIDE 0.9% FLUSH 10 ML FLUSH IV FLUSH SCH ×2 (08:56→21:22)
[2017-02-07 12:08] VITALS: BP 130/68; PULSE 70; RESP 18; TEMP 97.4; O2SAT 94
--- NOTE | 2017-02-07 12:14 | HHI.PR ---
Subjective Remarks The pt was trying to order lunch on the phone. Resting comfortably. Diarrhea improved. Wants to resume lactulose again. Would like to work with PT. Objective Vitals Vital Signs Date Time Temp Pulse Resp B/P (MAP) Pulse Ox O2 Delivery O2 Flow Rate FiO2 02/07/17 08:30 Room Air 02/07/17 08:28 97.3 67 18 133/61 (85) 96 02/07/17 04:00 97.8 68 18 131/61 (84) 94 02/07/17 04:00 Room Air 02/07/17 00:00 97.8 70 16 129/60 (83) 92 02/07/17 00:00 Room Air 02/06/17 22:00 Room Air 02/06/17 20:00 97.7 18 164/78 (106) 95 02/06/17 16:00 Room Air 02/06/17 16:00 97.4 65 18 119/72 (88) 93 I/O 02/06/17 02/06/17 02/06/17 02/07/17 02/07/17 02/07/17 06:59 14:59 22:59 06:59 14:59 22:59 Intake Total 240 ml 1700 ml Output Total 1250 ml 1700 ml 850 ml Balance -1010 ml 0 ml -850 ml Intake Oral 240 ml 1700 ml Output Urine Total 1250 ml 1700 ml 850 ml # Bowel Movements 2 5 Result Diagram: 02/04/17 0701 02/05/17 0824 Imaging Last Impressions Lumbar Spine X-Ray 02/03/17 0000 Signed Impressions: Service Date/Time: Friday, February 03, 2017 15:58 - CONCLUSION: 1. Degenerative disc disease with no acute fracture. 2. Facet hypertrophy at L4-5 and L5-S1 Jessee Jamison MD Objective Remarks GENERAL: No acute distress. SKIN: Focused skin assessment warm/dry. Decreased skin turgor. HEAD: Atraumatic. Normocephalic. EYES: Pupils equal and round. No scleral icterus. No injection or drainage. ENT: No nasal bleeding or discharge. Dry mucous membranes. NECK: Trachea midline. No JVD. CARDIOVASCULAR: Regular rate and rhythm. No murmur appreciated. RESPIRATORY: No accessory muscle use. Clear to auscultation. Breath sounds equal bilaterally. GASTROINTESTINAL: Abdomen soft, non-tender, nondistended. Hepatic and splenic margins not palpable. MUSCULOSKELETAL: No obvious deformities. No clubbing. No cyanosis. No edema. NEUROLOGICAL: Awake and alert. No obvious cranial nerve deficits. Motor grossly within normal limits. Normal speech. PSYCH: Mood and affect appropriate. Medications and IVs Current Medications Medications (Trade) Dose Ordered Sig/Kane Route Start Time Stop Time Status Last Admin (Tylenol) 650 mg Q4H PRN PO 02/03/17 11:15 (Lioresal) 10 mg TID PO 02/03/17 13:45 02/07/17 08:55 (Buspar) 10 mg TID PO 02/03/17 13:45 02/07/17 08:55 (Coreg) 6.25 mg DAILY PO 02/04/17 09:00 02/07/17 08:55 (CeleXA) 40 mg DAILY PO 02/04/17 09:00 02/07/17 08:55 (Lasix) 20 mg DAILY PO 02/04/17 09:00 02/07/17 08:55 (Neurontin) 300 mg TID PO 02/03/17 13:45 02/07/17 08:55 (Antivert) 25 mg DAILY PO 02/04/17 09:00 02/07/17 08:55 (Roxicodone) 5 mg Q4H PRN PO 02/03/17 11:15 02/07/17 08:56 (Protonix) 40 mg DAILY PO 02/04/17 09:00 02/07/17 08:55 (Xifaxan) 550 mg Q8HR PO 02/03/17 14:00 02/07/17 04:59 (Aldactone) 25 mg DAILY PO 02/04/17 09:00 02/07/17 08:55 (VANCOMYCIN for oral use only) 250 mg QID PO 02/03/17 13:45 02/07/17 08:55 (Vitamin B1) 500 mg DAILY PO 02/04/17 09:00 02/07/17 08:55 (NS Flush) 2 ml UNSCH PRN IV FLUSH 02/03/17 11:15 (NS Flush) 2 ml BID IV FLUSH 02/03/17 21:00 02/07/17 08:56 (Zofran Inj) 4 mg Q6H PRN IVP 02/03/17 11:15 (Narcan Inj) 0.4 mg UNSCH PRN IV 02/03/17 11:15 (Ghazal-Colace) 1 tab BID PO 02/03/17 21:00 02/06/17 22:15 (Milk Of Magnesia Liq) 30 ml Q12H PRN PO 02/03/17 11:15 (Senokot) 17.2 mg Q12H PRN PO 02/03/17 11:15 (Dulcolax Supp) 10 mg DAILY PRN RECTAL 02/03/17 11:15 (Lactulose Liq) 30 ml DAILY PRN PO 02/03/17 11:15 A/P Assessment and Plan Status post Fall with lumbar pain/ Deconditioning status post multiple falls Bruising on lower back noted. - PT/ OT. - pain control. - follow CBC. Cirrhosis/ Esophageal varices On lactulose. - monitor stool output as pt has C diff. Lactulose daily started as diarrhea seems to be resolved and pt does struggle with hepatic encephalopathy. - continue rifaximin. C Diff ID consult appreciated. - continue Vancomycin for 14 day course. Thrombocytopenia Chronic. - monitor CBC with bruising from falls. DVT Prophylaxis: SCD/teds. Discharge Planning Transfer to SNF in 1-2 days Devang Barnes DO Feb 07, 2017 12:14
[2017-02-07] MEDS: LACTULOSE SYRUP 20 GM/30 ML CUP PO SCH (13:29)
[2017-02-07 16:08] VITALS: BP 124/59; PULSE 70; RESP 18; TEMP 98.2; O2SAT 94
[2017-02-07 20:00] VITALS: BP 136/64; PULSE 76; RESP 18; TEMP 97.9; O2SAT 92
[2017-02-08] VITALS: BP 129/63; PULSE 70; RESP 16; TEMP 98.3; O2SAT 91
[2017-02-08 04:00] VITALS: BP 116/59; PULSE 59; RESP 17; TEMP 98; O2SAT 91
[2017-02-08] MEDS: RIFAXIMIN 550 MG TAB PO SCH ×3 (06:05→22:27)
[2017-02-08 06:53] LABS: HEMATOCRIT 35.1 % (39.0-51.0); MEAN CORPUSCULAR HEMOGLOBIN 32.8 PG (27.0-34.0); MEAN CORPUSCULAR HGB CONC 33.8 % (32.0-36.0); PLATELET COUNT 89 TH/MM3 (150-450); RED BLOOD COUNT 3.61 MIL/MM3 (4.50-5.90); RED CELL DISTRIBUTION WIDTH 15.4 % (11.6-17.2); WHITE BLOOD COUNT 7.7 TH/MM3 (4.0-11.0)
[2017-02-08 07:12] LABS: BICARBONATE 29.1 MEQ/L (21.0-32.0); POTASSIUM 4.2 MEQ/L (3.5-5.1)
[2017-02-08 07:27] LABS: REVIEW FLAG FINAL
[2017-02-08] MEDS: LACTULOSE SYRUP 20 GM/30 ML CUP PO SCH (08:25)
[2017-02-08] MEDS: MECLIZINE HCL 25 MG TAB PO SCH (08:25)
[2017-02-08] MEDS: BACLOFEN 10 MG TAB PO SCH ×3 (08:25→18:09)
[2017-02-08] MEDS: PANTOPRAZOLE SOD 40 MG DELAYED RELEASE TAB PO SCH (08:26)
[2017-02-08] MEDS: CARVEDILOL 6.25 MG TAB PO SCH (08:26)
[2017-02-08] MEDS: DOCUSATE SODIUM 50 MG/SENNA 8.6 MG TAB PO SCH ×2 (08:26→20:57)
[2017-02-08] MEDS: SPIRONOLACTONE 25 MG TAB PO SCH (08:26)
[2017-02-08] MEDS: FUROSEMIDE 20 MG TAB PO SCH (08:26)
[2017-02-08] MEDS: THIAMINE HCL 100 MG TAB PO SCH (08:26)
[2017-02-08] MEDS: busPIRone HCL 10 MG TAB PO SCH ×3 (08:26→18:11)
[2017-02-08] MEDS: GABAPENTIN 300 MG CAP PO SCH ×3 (08:26→18:09)
[2017-02-08] MEDS: CITALOPRAM HYDROBROMIDE 40 MG TAB PO SCH (08:26)
[2017-02-08] MEDS: SODIUM CHLORIDE 0.9% FLUSH 10 ML FLUSH IV FLUSH SCH ×2 (08:28→20:58)
[2017-02-08] MEDS: VANCOMYCIN 500 MG VIAL (FOR ORAL USE ONLY) PO SCH ×4 (08:28→20:58)
[2017-02-08 08:38] VITALS: BP 153/67; PULSE 68; RESP 20; TEMP 97.8; O2SAT 94
[2017-02-08 12:08] VITALS: BP 143/64; PULSE 62; RESP 18; TEMP 97.8; O2SAT 94
[2017-02-08] MEDS ORDERED: ALBUTEROL SULFATE 90 MCG/ACT HFA 8 GM INHALER INH ONE (15:30)
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
[2017-02-08] MEDS ORDERED: ALBUTEROL SULFATE 90 MCG/ACT HFA 18 GM INHALER INH PRN (15:45)
[2017-02-08 16:22] VITALS: BP 140/63; PULSE 70; RESP 20; TEMP 98; O2SAT 95
--- NOTE | 2017-02-08 16:29 | RADRPT ---
EXAM DATE/TIME: 02/08/2017 15:42 [place] COMPARISON: CHEST SINGLE AP, December 29, 2016, 4:45. INDICATIONS : Dyspnea due to lower flank pain. MEDICAL HISTORY : Hypertension. Myocardial infarction. Cirrhosis. GERD. SURGICAL HISTORY : Coronary artery stent. ENCOUNTER: Initial ACUITY: 2 days PAIN SCORE: 5/10 LOCATION: Bilateral lower chest FINDINGS: A single view of the chest demonstrates the lungs to be symmetrically aerated without evidence of mas s, infiltrate or effusion. Minimal linear atelectasis within the left base. The cardiomediastinal con tours are unremarkable. Osseous structures are intact. CONCLUSION: 1. Minimal left basilar atelectasis. Zeke Duran Jr., MD on February 08, 2017 at 16:27 Board Certified Radiologist. This report was verified electronically.
[2017-02-08 20:00] VITALS: BP 145/69; PULSE 75; RESP 20; TEMP 98.2; O2SAT 96
[2017-02-09] VITALS: BP 136/65; PULSE 74; RESP 20; TEMP 98.1; O2SAT 94
[2017-02-09 04:00] VITALS: BP 140/65; PULSE 72; RESP 16; TEMP 97.6; O2SAT 92
[2017-02-09] MEDS: RIFAXIMIN 550 MG TAB PO SCH ×3 (06:21→21:08)
[2017-02-09] MEDS: CITALOPRAM HYDROBROMIDE 40 MG TAB PO SCH (08:02)
[2017-02-09] MEDS: GABAPENTIN 300 MG CAP PO SCH ×3 (08:02→16:38)
[2017-02-09] MEDS: THIAMINE HCL 100 MG TAB PO SCH (08:02)
[2017-02-09] MEDS: VANCOMYCIN 500 MG VIAL (FOR ORAL USE ONLY) PO SCH ×4 (08:02→20:27)
[2017-02-09] MEDS: busPIRone HCL 10 MG TAB PO SCH ×3 (08:02→16:38)
[2017-02-09] MEDS: PANTOPRAZOLE SOD 40 MG DELAYED RELEASE TAB PO SCH (08:02)
[2017-02-09] MEDS: FUROSEMIDE 20 MG TAB PO SCH (08:03)
[2017-02-09] MEDS: SODIUM CHLORIDE 0.9% FLUSH 10 ML FLUSH IV FLUSH SCH ×2 (08:03→20:26)
[2017-02-09] MEDS: BACLOFEN 10 MG TAB PO SCH ×3 (08:03→16:38)
[2017-02-09] MEDS: MECLIZINE HCL 25 MG TAB PO SCH (08:03)
[2017-02-09] MEDS: CARVEDILOL 6.25 MG TAB PO SCH (08:03)
[2017-02-09] MEDS: SPIRONOLACTONE 25 MG TAB PO SCH (08:03)
[2017-02-09] MEDS: DOCUSATE SODIUM 50 MG/SENNA 8.6 MG TAB PO SCH ×2 (08:05→21:00)
[2017-02-09 08:20] VITALS: BP 146/67; PULSE 61; RESP 18; TEMP 97.4; O2SAT 96
[2017-02-09 12:20] VITALS: BP 131/68; PULSE 64; RESP 18; TEMP 97.5; O2SAT 96
--- NOTE | 2017-02-09 16:21 | HHI.PR ---
Subjective Remarks The patient was resting comfortably. He had no acute complaints. He wanted to make sure the C. difficile would go away. He said his diarrhea was improving. He said breathing treatments were helping. Objective Vitals Vital Signs Date Time Temp Pulse Resp B/P (MAP) Pulse Ox O2 Delivery O2 Flow Rate FiO2 02/09/17 12:20 97.5 64 18 131/68 (89) 96 02/09/17 08:20 97.4 61 18 146/67 (93) 96 02/09/17 08:00 Room Air 02/09/17 04:00 Room Air 02/09/17 04:00 97.6 72 16 140/65 (90) 92 02/09/17 00:00 Room Air 02/09/17 00:00 98.1 74 20 136/65 (88) 94 02/08/17 20:00 Room Air 02/08/17 20:00 98.2 75 20 145/69 (94) 96 02/08/17 16:22 98.0 70 20 140/63 (88) 95 I/O 02/08/17 02/08/17 02/08/17 02/09/17 02/09/17 02/09/17 07:00 15:00 23:00 07:00 15:00 23:00 Intake Total 720 ml 220 ml Output Total 900 ml 600 ml 400 ml Balance -900 ml 120 ml -180 ml Intake Oral 720 ml 220 ml Output Urine Total 900 ml 600 ml 400 ml # Bowel Movements 2 Result Diagram: 02/08/17 0550 02/08/17 0550 Imaging Last Impressions Chest X-Ray 02/08/17 0000 Signed Impressions: Service Date/Time: Wednesday, February 08, 2017 15:42 - CONCLUSION: 1. Minimal left basilar atelectasis. Zeke Duran Jr., MD Lumbar Spine X-Ray 02/03/17 0000 Signed Impressions: Service Date/Time: Friday, February 03, 2017 15:58 - CONCLUSION: 1. Degenerative disc disease with no acute fracture. 2. Facet hypertrophy at L4-5 and L5-S1 Jessee Jamison MD Objective Remarks GENERAL: No acute distress. SKIN: Focused skin assessment warm/dry. Decreased skin turgor. HEAD: Atraumatic. Normocephalic. EYES: Pupils equal and round. No scleral icterus. No injection or drainage. ENT: No nasal bleeding or discharge. Dry mucous membranes. NECK: Trachea midline. No JVD. CARDIOVASCULAR: Regular rate and rhythm. No murmur appreciated. RESPIRATORY: No accessory muscle use. Clear to auscultation. Breath sounds equal bilaterally. GASTROINTESTINAL: Abdomen soft, non-tender, nondistended. Hepatic and splenic margins not palpable. MUSCULOSKELETAL: No obvious deformities. No clubbing. No cyanosis. 1+ edema. NEUROLOGICAL: Awake and alert. No obvious cranial nerve deficits. Motor grossly within normal limits. Normal speech. PSYCH: Mood and affect appropriate. Medications and IVs Current Medications Medications (Trade) Dose Ordered Sig/Kane Route Start Time Stop Time Status Last Admin (Tylenol) 650 mg Q4H PRN PO 02/03/17 11:15 (Lioresal) 10 mg TID PO 02/03/17 13:45 02/09/17 12:16 (Buspar) 10 mg TID PO 02/03/17 13:45 02/09/17 12:15 (Coreg) 6.25 mg DAILY PO 02/04/17 09:00 02/09/17 08:03 (CeleXA) 40 mg DAILY PO 02/04/17 09:00 02/09/17 08:02 (Lasix) 20 mg DAILY PO 02/04/17 09:00 02/09/17 08:03 (Neurontin) 300 mg TID PO 02/03/17 13:45 02/09/17 12:16 (Antivert) 25 mg DAILY PO 02/04/17 09:00 02/09/17 08:03 (Roxicodone) 5 mg Q4H PRN PO 02/03/17 11:15 02/09/17 12:15 (Protonix) 40 mg DAILY PO 02/04/17 09:00 02/09/17 08:02 (Xifaxan) 550 mg Q8HR PO 02/03/17 14:00 02/09/17 12:16 (Aldactone) 25 mg DAILY PO 02/04/17 09:00 02/09/17 08:03 (VANCOMYCIN for oral use only) 250 mg QID PO 02/03/17 13:45 02/09/17 12:15 (Vitamin B1) 500 mg DAILY PO 02/04/17 09:00 02/09/17 08:02 (NS Flush) 2 ml UNSCH PRN IV FLUSH 02/03/17 11:15 (NS Flush) 2 ml BID IV FLUSH 02/03/17 21:00 02/09/17 08:03 (Zofran Inj) 4 mg Q6H PRN IVP 02/03/17 11:15 (Narcan Inj) 0.4 mg UNSCH PRN IV 02/03/17 11:15 (Ghazal-Colace) 1 tab BID PO 02/03/17 21:00 02/08/17 08:26 (Milk Of [place] Liq) 30 ml Q12H PRN PO 02/03/17 11:15 (Senokot) 17.2 mg Q12H PRN PO 02/03/17 11:15 (Dulcolax Supp) 10 mg DAILY PRN RECTAL 02/03/17 11:15 (Ventolin Hfa Inh) 2 puff Q6H PRN INH 02/08/17 15:45 02/08/17 18:12 A/P Assessment and Plan Status post fall with lumbar pain/ Deconditioning status post multiple falls Bruising on lower back noted. - PT/ OT. - pain control. - follow CBC. Cirrhosis/ Esophageal varices On lactulose. - holding lactulose s/t C diff. - continue rifaximin. C Diff ID consult appreciated. - continue Vancomycin for 14 day course. Thrombocytopenia Chronic. - monitor CBC with bruising from falls. Dyspnea The pt says he normally uses an inhaler. CXR unremarkable. Improved. - albuterol as needed. - encourage ambulation. DVT Prophylaxis: SCD/teds. Discharge Planning Transfer to SNF when bed available Devang Barnes DO Feb 09, 2017 16:21
[2017-02-09 16:30] VITALS: BP 153/76; PULSE 58; RESP 18; TEMP 97.5; O2SAT 95
[2017-02-09 20:00] VITALS: BP 121/67; PULSE 69; RESP 19; TEMP 97.8; O2SAT 93
[2017-02-10] VITALS: BP 134/61; PULSE 68; RESP 20; TEMP 97.6; O2SAT 95
[2017-02-10 04:00] VITALS: BP 135/68; PULSE 67; RESP 18; TEMP 97.5; O2SAT 93
[2017-02-10] MEDS: RIFAXIMIN 550 MG TAB PO SCH ×3 (06:46→21:27)
[2017-02-10 08:41] VITALS: BP 129/61; PULSE 62; RESP 18; TEMP 97.1; O2SAT 95
[2017-02-10] MEDS: THIAMINE HCL 100 MG TAB PO SCH (08:50)
[2017-02-10] MEDS: BACLOFEN 10 MG TAB PO SCH ×3 (08:51→17:25)
[2017-02-10] MEDS: FUROSEMIDE 20 MG TAB PO SCH (08:51)
[2017-02-10] MEDS: MECLIZINE HCL 25 MG TAB PO SCH (08:51)
[2017-02-10] MEDS: PANTOPRAZOLE SOD 40 MG DELAYED RELEASE TAB PO SCH (08:51)
[2017-02-10] MEDS: CITALOPRAM HYDROBROMIDE 40 MG TAB PO SCH (08:51)
[2017-02-10] MEDS: busPIRone HCL 10 MG TAB PO SCH ×3 (08:51→17:25)
[2017-02-10] MEDS: GABAPENTIN 300 MG CAP PO SCH ×3 (08:51→17:25)
[2017-02-10] MEDS: DOCUSATE SODIUM 50 MG/SENNA 8.6 MG TAB PO SCH ×3 (08:52→21:00)
[2017-02-10] MEDS: VANCOMYCIN 500 MG VIAL (FOR ORAL USE ONLY) PO SCH ×4 (08:52→21:27)
[2017-02-10] MEDS: CARVEDILOL 6.25 MG TAB PO SCH (08:52)
[2017-02-10] MEDS: SPIRONOLACTONE 25 MG TAB PO SCH (08:52)
[2017-02-10] MEDS: SODIUM CHLORIDE 0.9% FLUSH 10 ML FLUSH IV FLUSH SCH ×2 (08:53→21:28)
[2017-02-10 13:13] VITALS: BP 138/61; PULSE 59; RESP 18; TEMP 97.3; O2SAT 98
--- NOTE | 2017-02-10 14:16 | HHI.PR ---
Subjective Remarks The patient says he has been slightly constipated. Otherwise he is doing well. He has been working with physical therapy. He has no acute complaints. Objective Vitals Vital Signs Date Time Temp Pulse Resp B/P (MAP) Pulse Ox O2 Delivery O2 Flow Rate FiO2 02/10/17 13:13 97.3 59 18 138/61 (86) 98 02/10/17 08:41 97.1 62 18 129/61 (83) 95 02/10/17 08:00 Room Air 02/10/17 04:00 97.5 67 18 135/68 (90) 93 02/10/17 04:00 Room Air 02/10/17 00:00 Room Air 02/10/17 00:00 97.6 68 20 134/61 (85) 95 02/09/17 20:00 Room Air 02/09/17 20:00 97.8 69 19 121/67 (85) 93 02/09/17 16:30 97.5 58 18 153/76 (101) 95 I/O 02/09/17 02/09/17 02/09/17 02/10/17 02/10/17 02/10/17 07:00 15:00 23:00 07:00 15:00 23:00 Intake Total 220 ml 600 ml 740 ml 360 ml Output Total 400 ml 400 ml 500 ml 500 ml Balance -180 ml 200 ml 240 ml -140 ml Intake Oral 220 ml 600 ml 740 ml 360 ml Output Urine Total 400 ml 400 ml 500 ml 500 ml # Voids 3 # Bowel Movements 1 1 2 Result Diagram: 02/08/17 0550 02/08/17 0550 Imaging Last Impressions Chest X-Ray 02/08/17 0000 Signed Impressions: Service Date/Time: Wednesday, February 08, 2017 15:42 - CONCLUSION: 1. Minimal left basilar atelectasis. Zeke Duran Jr., MD Lumbar Spine X-Ray 02/03/17 0000 Signed Impressions: Service Date/Time: Friday, February 03, 2017 15:58 - CONCLUSION: 1. Degenerative disc disease with no acute fracture. 2. Facet hypertrophy at L4-5 and L5-S1 Jessee Jamison MD Objective Remarks GENERAL: No acute distress. SKIN: Focused skin assessment warm/dry. Decreased skin turgor. HEAD: Atraumatic. Normocephalic. EYES: Pupils equal and round. No scleral icterus. No injection or drainage. ENT: No nasal bleeding or discharge. Dry mucous membranes. NECK: Trachea midline. No JVD. CARDIOVASCULAR: Regular rate and rhythm. No murmur appreciated. RESPIRATORY: No accessory muscle use. Clear to auscultation. Breath sounds equal bilaterally. GASTROINTESTINAL: Abdomen soft, non-tender, nondistended. Hepatic and splenic margins not palpable. MUSCULOSKELETAL: No obvious deformities. No clubbing. No cyanosis. 1+ edema. NEUROLOGICAL: Awake and alert. No obvious cranial nerve deficits. Motor grossly within normal limits. Normal speech. PSYCH: Mood and affect appropriate. Medications and IVs Current Medications Medications (Trade) Dose Ordered Sig/Kane Route Start Time Stop Time Status Last Admin (Tylenol) 650 mg Q4H PRN PO 02/03/17 11:15 (Lioresal) 10 mg TID PO 02/03/17 13:45 02/10/17 12:52 (Buspar) 10 mg TID PO 02/03/17 13:45 02/10/17 12:52 (Coreg) 6.25 mg DAILY PO 02/04/17 09:00 02/10/17 08:52 (CeleXA) 40 mg DAILY PO 02/04/17 09:00 02/10/17 08:51 (Lasix) 20 mg DAILY PO 02/04/17 09:00 02/10/17 08:51 (Neurontin) 300 mg TID PO 02/03/17 13:45 02/10/17 12:52 (Antivert) 25 mg DAILY PO 02/04/17 09:00 02/10/17 08:51 (Roxicodone) 5 mg Q4H PRN PO 02/03/17 11:15 02/10/17 12:52 (Protonix) 40 mg DAILY PO 02/04/17 09:00 02/10/17 08:51 (Xifaxan) 550 mg Q8HR PO 02/03/17 14:00 02/10/17 12:52 (Aldactone) 25 mg DAILY PO 02/04/17 09:00 02/10/17 08:52 (VANCOMYCIN for oral use only) 250 mg QID PO 02/03/17 13:45 02/10/17 12:52 (Vitamin B1) 500 mg DAILY PO 02/04/17 09:00 02/10/17 08:50 (NS Flush) 2 ml UNSCH PRN IV FLUSH 02/03/17 11:15 (NS Flush) 2 ml BID IV FLUSH 02/03/17 21:00 02/10/17 08:53 (Zofran Inj) 4 mg Q6H PRN IVP 02/03/17 11:15 (Narcan Inj) 0.4 mg UNSCH PRN IV 02/03/17 11:15 (Ghazal-Colace) 1 tab BID PO 02/03/17 21:00 02/08/17 08:26 (Milk Of Anthony Liq) 30 ml Q12H PRN PO 02/03/17 11:15 (Senokot) 17.2 mg Q12H PRN PO 02/03/17 11:15 (Dulcolax Supp) 10 mg DAILY PRN RECTAL 02/03/17 11:15 (Ventolin Hfa Inh) 2 puff Q6H PRN INH 02/08/17 15:45 02/08/17 18:12 A/P Assessment and Plan Status post fall with lumbar pain/ Deconditioning status post multiple falls Bruising on lower back noted. - PT/ OT. - pain control. - follow CBC. Cirrhosis/ Esophageal varices On lactulose as an outpt. - holding lactulose s/t C diff. - continue rifaximin. C Diff ID consult appreciated. - continue Vancomycin for 14 day course. Plan to d/c 02/17. Thrombocytopenia Chronic. - monitor CBC with bruising from falls. Dyspnea The pt says he normally uses an inhaler. CXR unremarkable. Improved. - albuterol as needed. - encourage ambulation. DVT Prophylaxis: SCD/teds. Discharge Planning Transfer to SNF when bed available Devang Barnes DO Feb 10, 2017 14:16
[2017-02-10 16:07] VITALS: BP 146/66; PULSE 70; RESP 20; TEMP 97.4; O2SAT 95
[2017-02-10 20:00] VITALS: BP 150/76; PULSE 68; RESP 20; TEMP 97.9; O2SAT 96
[2017-02-11] VITALS: BP 148/68; PULSE 66; RESP 19; TEMP 97.8; O2SAT 96
[2017-02-11 04:00] VITALS: BP 146/64; PULSE 62; RESP 18; TEMP 98.5; O2SAT 93
[2017-02-11] MEDS: RIFAXIMIN 550 MG TAB PO SCH ×3 (05:31→21:32)
[2017-02-11 08:00] VITALS: BP 127/58; PULSE 59; RESP 18; TEMP 98.1; O2SAT 95
[2017-02-11] MEDS: PANTOPRAZOLE SOD 40 MG DELAYED RELEASE TAB PO SCH (09:27)
[2017-02-11] MEDS: SPIRONOLACTONE 25 MG TAB PO SCH (09:27)
[2017-02-11] MEDS: CARVEDILOL 6.25 MG TAB PO SCH (09:27)
[2017-02-11] MEDS: THIAMINE HCL 100 MG TAB PO SCH (09:28)
[2017-02-11] MEDS: DOCUSATE SODIUM 50 MG/SENNA 8.6 MG TAB PO SCH ×2 (09:28→21:00)
[2017-02-11] MEDS: BACLOFEN 10 MG TAB PO SCH ×3 (09:28→17:45)
[2017-02-11] MEDS: busPIRone HCL 10 MG TAB PO SCH ×3 (09:28→17:45)
[2017-02-11] MEDS: VANCOMYCIN 500 MG VIAL (FOR ORAL USE ONLY) PO SCH ×4 (09:28→21:33)
[2017-02-11] MEDS: GABAPENTIN 300 MG CAP PO SCH ×3 (09:29→17:44)
[2017-02-11] MEDS: FUROSEMIDE 20 MG TAB PO SCH (09:29)
[2017-02-11] MEDS: SODIUM CHLORIDE 0.9% FLUSH 10 ML FLUSH IV FLUSH SCH ×2 (09:29→21:33)
[2017-02-11] MEDS: CITALOPRAM HYDROBROMIDE 40 MG TAB PO SCH (09:29)
[2017-02-11] MEDS: MECLIZINE HCL 25 MG TAB PO SCH (09:29)
[2017-02-11 12:00] VITALS: BP 142/65; PULSE 78; RESP 18; TEMP 98; O2SAT 93
[2017-02-11] MEDS ORDERED: LACT10SO5 PO (13:33)
[2017-02-11] MEDS ORDERED: VENTAER INH (13:33)
[2017-02-11] MEDS ORDERED: VANC250C2 PO (13:33)
[2017-02-11] MEDS ORDERED: MECL-62 PO (13:33)
[2017-02-11] MEDS ORDERED: BACL10TA PO (13:33)
[2017-02-11] MEDS ORDERED: OXYC-392 PO (13:33)
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
--- NOTE | 2017-02-11 14:07 | HHI.DS ---
Discharge Summary Admission Date Feb 03, 2017 at 10:51 Discharge Date: Feb 11, 2017 Admitting Diagnosis (1) Frequent falls ICD Code: R29.6 - Repeated falls Status: Acute (2) C. difficile diarrhea ICD Code: A04.7 - Enterocolitis due to Clostridium difficile Diagnosis: Principal Status: Acute (3) Diarrhea ICD Code: R19.7 - Diarrhea, unspecified Status: Acute (4) Hepatic encephalopathy ICD Code: K72.90 - Hepatic failure, unspecified without coma Status: Acute (5) Generalized weakness ICD Code: R53.1 - Weakness Status: Acute (6) Thrombocytopenia ICD Code: D69.6 - Thrombocytopenia Status: Acute Procedures None Brief History - From Admission This is a pleasant 66 y/o Male who was just recently discharged from this facility two days ago, came to ER again with Generalized weakness and status post fall, he has alcoholic Cirrhosis, his last admission was January 01 through January 16, had C Diff colitis, He was discharged to a nursing facility. They apparently wanted to keep him in a long-term nursing that he had declined. He's been home for just a couple days now and is fallen 3 or 4 times. His a large amount of bruising on his back. EMS states they found him on his knees was unable to get up. Patient states he feels very thirsty. Denies any chest pain trouble breathing recent fevers recent cough. No recent diarrhea. States he's been compliant with all his medications. Denies any recent alcohol use. as we know he has Hypertension, Esophageal varices, Anxiety disorder, depression CAD, Peripheral Neuropathy. he was also recently admitted from 12/08-12/15/16 secondary to recurrent falls, weakness and hepatic encephalopathy, started on Rifaximin and Lactulose and d/c'd to Rehab. Now w/ progressive weakness and multiple episodes of watery diarrhea. Reports mild abdominal pain and nausea, but no vomiting or fever. Seen in emergency room stable complaint of some lumbar pain and positive on palpation will get Lumbar spine x ray, no other complaint. CBC/BMP: 02/08/17 0550 02/08/17 0550 Imaging Last Impressions Chest X-Ray 02/08/17 0000 Signed Impressions: Service Date/Time: Wednesday, February 08, 2017 15:42 - CONCLUSION: 1. Minimal left basilar atelectasis. Zeke Duran Jr., MD Lumbar Spine X-Ray 02/03/17 0000 Signed Impressions: Service Date/Time: Friday, February 03, 2017 15:58 - CONCLUSION: 1. Degenerative disc disease with no acute fracture. 2. Facet hypertrophy at L4-5 and L5-S1 Jessee Jamison MD PE at Discharge GENERAL: No acute distress. SKIN: Focused skin assessment warm/dry. Decreased skin turgor. HEAD: Atraumatic. Normocephalic. EYES: Pupils equal and round. No scleral icterus. No injection or drainage. ENT: No nasal bleeding or discharge. Dry mucous membranes. NECK: Trachea midline. No JVD. CARDIOVASCULAR: Regular rate and rhythm. No murmur appreciated. RESPIRATORY: No accessory muscle use. Clear to auscultation. Breath sounds equal bilaterally. GASTROINTESTINAL: Abdomen soft, non-tender, nondistended. Hepatic and splenic margins not palpable. MUSCULOSKELETAL: No obvious deformities. No clubbing. No cyanosis. 1+ edema. NEUROLOGICAL: Awake and alert. No obvious cranial nerve deficits. Motor grossly within normal limits. Normal speech. PSYCH: Mood and affect appropriate. Pt update on day of discharge The patient was unable to be discharged to a half-way facility secondary to financial issues. His discharge will be canceled until arrangements can be made for safe discharge. Hospital Course Status post fall With lumbar pain and body aches. Has physical deconditioning. Bruising noted on lower back noted. He worked with PT/ OT. He received pain control. He will be discharged with some oxycodone tablets. He will follow up with his PCP. Cirrhosis/ Esophageal varices On lactulose as an outpt. We held lactulose s/t C diff. We continued rifaximin. He will continue lactulose daily upon discharge. He will follow up with GI. He will eventually need the lactulose uptitrated back to normal once stable. C Diff ID was consulted. He will continue vancomycin 250 mg QID to complete a 14 day course. He will follow up with GI. Dyspnea The pt says he normally uses an inhaler. CXR unremarkable. He received albuterol as needed. We encouraged ambulation. He will be discharged with an albuterol inhaler. Pt Condition on Discharge: Stable Discharge Disposition: Discharge to SNF Discharge Time: <= 30 minutes Discharge Instructions DIET: Follow Instructions for: Heart Healthy Diet Activities you can perform: Weight Bearing as Eveline Follow up Referrals: Gastroenterology - 1 Week PCP Follow-up - 1 Week New Medications: Albuterol 18 GM Inh (Ventolin Hfa 18 GM Inh) 90 Mcg/Act Aer 2 PUFF INH Q6H PRN for DYSPNEA, #1 INHALER Changed Medications: Baclofen (Baclofen) 10 Mg Tab 10 MG PO TID PRN for spasm for 30 Days, TAB 0 Refills (Medication details modified) Take with food or milk Lactulose (Lactulose) 10 Gm/15 Ml Solution 30 ML PO DAILY for Ammonia for 30 Days, ML (Changed from: QID) Meclizine (Meclizine) 25 Mg Tab 25 MG PO DAILY PRN for dizziness, #20 TAB 0 Refills (Medication details modified ) Continued Medications: Acetaminophen (Tylenol) 325 Mg Tab 650 MG PO Q4H PRN for PAIN 1-10 AND/OR FEVER >101F, TAB 0 Refills Buspirone (Buspirone) 10 Mg Tab 10 MG PO TID for Anxiety, TAB 0 Refills Carvedilol (Carvedilol) 6.25 Mg Tab 6.25 MG PO DAILY, #60 TAB 0 Refills Citalopram (Citalopram) 40 Mg Tab 40 MG PO DAILY for Control Depression, #30 TAB 0 Refills Furosemide (Furosemide) 20 Mg Tab 20 MG PO DAILY, #30 TAB 0 Refills Gabapentin (Gabapentin) 800 Mg Tab 300 MG PO TID for Pain Management, #90 TAB 0 Refills Hydrocortisone Topical (Hydrocortisone Topical) 2.5% Lotn 1 APPL TOPICAL BID for Psoriasis [place]-3/Dha/Epa/Fish Oil (Fish Oil 1,000 mg Softgel) 1,000 Mg Capsule 1000 MG PO TID Oxycodone (Oxycodone) 5 Mg Tab 5 MG PO Q4H PRN for PAIN GREATER THAN/EQUAL TO 5, #15 TAB (This prescription has been renewed) Pantoprazole (Pantoprazole) 40 Mg Tab 40 MG PO DAILY for Reflux, #30 TAB 0 Refills Rifaximin (Xifaxan) 550 Mg Tab 550 MG PO Q8HR for IBS w/Diarrhea for 14 Days, TAB 0 Refills Spironolactone (Spironolactone) 50 Mg Tab 25 MG PO DAILY for anasarca, #30 TAB 0 Refills Thiamine HCl (Thiamine HCl) 500 Mg Tablet 500 MG PO DAILY Vancomycin (Vancomycin) 250 Mg Cap 250 MG PO QID for Infection for 5 Days, CAP 0 Refills (This prescription has been renewed) Vitamin B Complex (B-50 Complex) 1 Each Tablet.er 100 MG PO BID Devang Barnes DO Feb 11, 2017 14:07
--- NOTE | 2017-02-11 15:09 | HHI.PR ---
Subjective Remarks The patient was resting comfortably. He had no acute complaints. He said his diarrhea resolved. He said he requested stool softeners earlier and had a good bowel movement this morning. Discussed with case management. Objective Vitals Vital Signs Date Time Temp Pulse Resp B/P (MAP) Pulse Ox O2 Delivery O2 Flow Rate FiO2 02/11/17 12:00 98.0 78 18 142/65 (90) 93 02/11/17 08:00 Room Air 02/11/17 08:00 98.1 59 18 127/58 (81) 95 02/11/17 04:00 Room Air 02/11/17 04:00 98.5 62 18 146/64 (91) 93 02/11/17 00:00 Room Air 02/11/17 00:00 97.8 66 19 148/68 (94) 96 02/10/17 20:00 Room Air 02/10/17 20:00 97.9 68 20 150/76 (100) 96 02/10/17 16:07 97.4 70 20 146/66 (92) 95 I/O 02/10/17 02/10/17 02/10/17 02/11/17 02/11/17 02/11/17 07:00 15:00 23:00 07:00 15:00 23:00 Intake Total 740 ml 360 ml 520 ml 880 ml Output Total 500 ml 500 ml 1500 ml Balance 240 ml -140 ml 520 ml -620 ml Intake Oral 740 ml 360 ml 520 ml 880 ml Output Urine Total 500 ml 500 ml 1500 ml # Voids 5 # Bowel Movements 1 2 2 0 Result Diagram: 02/08/17 0550 02/08/17 0550 Imaging Last Impressions Chest X-Ray 02/08/17 0000 Signed Impressions: Service Date/Time: Wednesday, February 08, 2017 15:42 - CONCLUSION: 1. Minimal left basilar atelectasis. Zeke Duran Jr., MD Lumbar Spine X-Ray 02/03/17 0000 Signed Impressions: Service Date/Time: Friday, February 03, 2017 15:58 - CONCLUSION: 1. Degenerative disc disease with no acute fracture. 2. Facet hypertrophy at L4-5 and L5-S1 Jessee Jamison MD Objective Remarks GENERAL: No acute distress. SKIN: Focused skin assessment warm/dry. Decreased skin turgor. HEAD: Atraumatic. Normocephalic. EYES: Pupils equal and round. No scleral icterus. No injection or drainage. ENT: No nasal bleeding or discharge. Dry mucous membranes. NECK: Trachea midline. No JVD. CARDIOVASCULAR: Regular rate and rhythm. No murmur appreciated. RESPIRATORY: No accessory muscle use. Clear to auscultation. Breath sounds equal bilaterally. GASTROINTESTINAL: Abdomen soft, non-tender, nondistended. Hepatic and splenic margins not palpable. MUSCULOSKELETAL: No obvious deformities. No clubbing. No cyanosis. 1+ edema. NEUROLOGICAL: Awake and alert. No obvious cranial nerve deficits. Motor grossly within normal limits. Normal speech. PSYCH: Mood and affect appropriate. Procedures None Medications and IVs Current Medications Medications (Trade) Dose Ordered Sig/Kane Route Start Time Stop Time Status Last Admin (Tylenol) 650 mg Q4H PRN PO 02/03/17 11:15 (Lioresal) 10 mg TID PO 02/03/17 13:45 02/11/17 13:40 (Buspar) 10 mg TID PO 02/03/17 13:45 02/11/17 13:40 (Coreg) 6.25 mg DAILY PO 02/04/17 09:00 02/11/17 09:27 (CeleXA) 40 mg DAILY PO 02/04/17 09:00 02/11/17 09:29 (Lasix) 20 mg DAILY PO 02/04/17 09:00 02/11/17 09:29 (Neurontin) 300 mg TID PO 02/03/17 13:45 02/11/17 13:40 (Antivert) 25 mg DAILY PO 02/04/17 09:00 02/11/17 09:29 (Roxicodone) 5 mg Q4H PRN PO 02/03/17 11:15 02/11/17 13:40 (Protonix) 40 mg DAILY PO 02/04/17 09:00 02/11/17 09:27 (Xifaxan) 550 mg Q8HR PO 02/03/17 14:00 02/11/17 13:40 (Aldactone) 25 mg DAILY PO 02/04/17 09:00 02/11/17 09:27 (VANCOMYCIN for oral use only) 250 mg QID PO 02/03/17 13:45 02/11/17 13:41 (Vitamin B1) 500 mg DAILY PO 02/04/17 09:00 02/11/17 09:28 (NS Flush) 2 ml UNSCH PRN IV FLUSH 02/03/17 11:15 (NS Flush) 2 ml BID IV FLUSH 02/03/17 21:00 02/11/17 09:29 (Zofran Inj) 4 mg Q6H PRN IVP 02/03/17 11:15 (Narcan Inj) 0.4 mg UNSCH PRN IV 02/03/17 11:15 (Ghazal-Colace) 1 tab BID PO 02/03/17 21:00 02/11/17 09:28 (Milk Of Magngail Liq) 30 ml Q12H PRN PO 02/03/17 11:15 (Senokot) 17.2 mg Q12H PRN PO 02/03/17 11:15 (Dulcolax Supp) 10 mg DAILY PRN RECTAL 02/03/17 11:15 (Ventolin Hfa Inh) 2 puff Q6H PRN INH 02/08/17 15:45 02/08/17 18:12 A/P Problem List: (1) Frequent falls ICD Code: R29.6 - Repeated falls Status: Acute (2) C. difficile diarrhea ICD Code: A04.7 - Enterocolitis due to Clostridium difficile Status: Acute (3) Diarrhea ICD Code: R19.7 - Diarrhea, unspecified Status: Acute (4) Hepatic encephalopathy ICD Code: K72.90 - Hepatic failure, unspecified without coma Status: Acute (5) Generalized weakness ICD Code: R53.1 - Weakness Status: Acute (6) Thrombocytopenia ICD Code: D69.6 - Thrombocytopenia Status: Acute Assessment and Plan Status post fall with lumbar pain/ Deconditioning status post multiple falls Bruising on lower back noted. - PT/ OT. - pain control. - follow CBC. Cirrhosis/ Esophageal varices On lactulose as an outpt. - holding lactulose s/t C diff. Resume upon discharge. - continue rifaximin. C Diff ID consult appreciated. - continue Vancomycin for 14 day course. Plan to d/c 02/17. Thrombocytopenia Chronic. - monitor CBC with bruising from falls. Dyspnea The pt says he normally uses an inhaler. CXR unremarkable. Improved. - albuterol as needed. - encourage ambulation. DVT Prophylaxis: SCD/teds. Discharge Planning Transfer to SNF when bed available eDvang Barnes DO Feb 11, 2017 15:09
[2017-02-11 16:00] VITALS: BP 126/57; PULSE 62; RESP 18; TEMP 98.2; O2SAT 93
[2017-02-11 20:00] VITALS: BP 124/60; PULSE 67; RESP 18; TEMP 97.9; O2SAT 96
[2017-02-12] VITALS: BP 134/69; PULSE 74; RESP 16; TEMP 98.1; O2SAT 95
[2017-02-12 04:00] VITALS: BP 137/63; PULSE 64; RESP 18; TEMP 97.7; O2SAT 95
[2017-02-12] MEDS: RIFAXIMIN 550 MG TAB PO SCH ×3 (05:32→22:32)
[2017-02-12 08:00] VITALS: BP 132/73; PULSE 69; RESP 20; TEMP 97.5; O2SAT 92
[2017-02-12] MEDS: VANCOMYCIN 500 MG VIAL (FOR ORAL USE ONLY) PO SCH ×4 (09:38→22:32)
[2017-02-12] MEDS: BACLOFEN 10 MG TAB PO SCH ×3 (09:38→18:10)
[2017-02-12] MEDS: GABAPENTIN 300 MG CAP PO SCH ×3 (09:38→18:10)
[2017-02-12] MEDS: CARVEDILOL 6.25 MG TAB PO SCH (09:38)
[2017-02-12] MEDS: FUROSEMIDE 20 MG TAB PO SCH (09:38)
[2017-02-12] MEDS: busPIRone HCL 10 MG TAB PO SCH ×3 (09:38→18:10)
[2017-02-12] MEDS: MECLIZINE HCL 25 MG TAB PO SCH (09:38)
[2017-02-12] MEDS: DOCUSATE SODIUM 50 MG/SENNA 8.6 MG TAB PO SCH ×2 (09:38→21:00)
[2017-02-12] MEDS: PANTOPRAZOLE SOD 40 MG DELAYED RELEASE TAB PO SCH (09:38)
[2017-02-12] MEDS: CITALOPRAM HYDROBROMIDE 40 MG TAB PO SCH (09:38)
[2017-02-12] MEDS: SPIRONOLACTONE 25 MG TAB PO SCH (09:38)
[2017-02-12] MEDS: SODIUM CHLORIDE 0.9% FLUSH 10 ML FLUSH IV FLUSH SCH ×2 (09:39→22:35)
[2017-02-12 12:00] VITALS: BP 119/67; PULSE 61; RESP 20; TEMP 97.3; O2SAT 96
[2017-02-12] MEDS: THIAMINE HCL 100 MG TAB PO SCH (13:25)
--- NOTE | 2017-02-12 14:16 | HHI.PR ---
Subjective Remarks The patient was not able to be transferred to a [facility] facility secondary to financial issues. He was interested in starting his lactulose again. He said he has not been having any more diarrhea. He did complain of some pain on the bottom of his right foot. Discussed with case management. Objective Vitals Vital Signs Date Time Temp Pulse Resp B/P (MAP) Pulse Ox O2 Delivery O2 Flow Rate FiO2 02/12/17 12:00 97.3 61 20 119/67 (84) 96 02/12/17 09:48 Room Air 02/12/17 08:00 97.5 69 20 132/73 (92) 92 02/12/17 04:00 Room Air 02/12/17 04:00 97.7 64 18 137/63 (87) 95 02/12/17 00:00 98.1 74 16 134/69 (90) 95 02/12/17 00:00 Room Air 02/11/17 20:00 Room Air 02/11/17 20:00 97.9 67 18 124/60 (81) 96 02/11/17 16:00 98.2 62 18 126/57 (80) 93 I/O 02/11/17 02/11/17 02/11/17 02/12/17 02/12/17 02/12/17 07:00 15:00 23:00 07:00 15:00 23:00 Intake Total 880 ml 960 ml 480 ml Output Total 1500 ml 400 ml 400 ml Balance -620 ml 560 ml 80 ml Intake Oral 880 ml 960 ml 480 ml Output Urine Total 1500 ml 400 ml 400 ml # Voids 2 # Bowel Movements 0 1 1 Result Diagram: 02/08/17 0550 02/08/17 0550 Imaging Last Impressions Chest X-Ray 02/08/17 0000 Signed Impressions: Service Date/Time: Wednesday, February 08, 2017 15:42 - CONCLUSION: 1. Minimal left basilar atelectasis. Zeke Duran Jr., MD Lumbar Spine X-Ray 02/03/17 0000 Signed Impressions: Service Date/Time: Friday, February 03, 2017 15:58 - CONCLUSION: 1. Degenerative disc disease with no acute fracture. 2. Facet hypertrophy at L4-5 and L5-S1 Jessee Jamison MD Objective Remarks GENERAL: No acute distress. SKIN: Focused skin assessment warm/dry. Decreased skin turgor. HEAD: Atraumatic. Normocephalic. EYES: Pupils equal and round. No scleral icterus. No injection or drainage. ENT: No nasal bleeding or discharge. Dry mucous membranes. NECK: Trachea midline. No JVD. CARDIOVASCULAR: Regular rate and rhythm. No murmur appreciated. RESPIRATORY: No accessory muscle use. Clear to auscultation. Breath sounds equal bilaterally. GASTROINTESTINAL: Abdomen soft, non-tender, nondistended. Hepatic and splenic margins not palpable. MUSCULOSKELETAL: No obvious deformities. Bottom of right foot with a small chronic ulcer. No clubbing. No cyanosis. 1+ edema. NEUROLOGICAL: Awake and alert. No obvious cranial nerve deficits. Motor grossly within normal limits. Normal speech. PSYCH: Slightly flattened affect. Procedures None Medications and IVs Current Medications Medications (Trade) Dose Ordered Sig/Kane Route Start Time Stop Time Status Last Admin (Tylenol) 650 mg Q4H PRN PO 02/03/17 11:15 (Lioresal) 10 mg TID PO 02/03/17 13:45 02/12/17 13:25 (Buspar) 10 mg TID PO 02/03/17 13:45 02/12/17 13:25 (Coreg) 6.25 mg DAILY PO 02/04/17 09:00 02/12/17 09:38 (CeleXA) 40 mg DAILY PO 02/04/17 09:00 02/12/17 09:38 (Lasix) 20 mg DAILY PO 02/04/17 09:00 02/12/17 09:38 (Neurontin) 300 mg TID PO 02/03/17 13:45 02/12/17 13:25 (Antivert) 25 mg DAILY PO 02/04/17 09:00 02/12/17 09:38 (Roxicodone) 5 mg Q4H PRN PO 02/03/17 11:15 02/12/17 13:46 (Protonix) 40 mg DAILY PO 02/04/17 09:00 02/12/17 09:38 (Xifaxan) 550 mg Q8HR PO 02/03/17 14:00 02/12/17 13:25 (Aldactone) 25 mg DAILY PO 02/04/17 09:00 02/12/17 09:38 (VANCOMYCIN for oral use only) 250 mg QID PO 02/03/17 13:45 02/12/17 13:25 (Vitamin B1) 500 mg DAILY PO 02/04/17 09:00 02/12/17 13:25 (NS Flush) 2 ml UNSCH PRN IV FLUSH 02/03/17 11:15 (NS Flush) 2 ml BID IV FLUSH 02/03/17 21:00 02/12/17 09:39 (Zofran Inj) 4 mg Q6H PRN IVP 02/03/17 11:15 (Narcan Inj) 0.4 mg UNSCH PRN IV 02/03/17 11:15 (Ghazal-Colace) 1 tab BID PO 02/03/17 21:00 02/12/17 09:38 (Milk Of Anthony Liq) 30 ml Q12H PRN PO 02/03/17 11:15 (Senokot) 17.2 mg Q12H PRN PO 02/03/17 11:15 (Dulcolax Supp) 10 mg DAILY PRN RECTAL 02/03/17 11:15 (Ventolin Hfa Inh) 2 puff Q6H PRN INH 02/08/17 15:45 02/08/17 18:12 A/P Problem List: (1) Frequent falls ICD Code: R29.6 - Repeated falls Status: Acute (2) C. difficile diarrhea ICD Code: A04.7 - Enterocolitis due to Clostridium difficile Status: Acute (3) Diarrhea ICD Code: R19.7 - Diarrhea, unspecified Status: Acute (4) Hepatic encephalopathy ICD Code: K72.90 - Hepatic failure, unspecified without coma Status: Acute (5) Generalized weakness ICD Code: R53.1 - Weakness Status: Acute (6) Thrombocytopenia ICD Code: D69.6 - Thrombocytopenia Status: Acute Assessment and Plan Status post fall with lumbar pain/ Deconditioning status post multiple falls Bruising on lower back noted. - PT/ OT. Will ask physical therapy to work with the patient 7 days a week as he has no rehabilitation benefits at this time. - pain control. - follow CBC. Cirrhosis/ Esophageal varices On lactulose as an outpt. - held lactulose s/t C diff. Resume lactulose daily and increase as tolerated. - continue rifaximin. C Diff ID consult appreciated. - continue Vancomycin for 14 day course. Plan to d/c 02/17. Thrombocytopenia Chronic. - monitor CBC with bruising from falls. Dyspnea The pt says he normally uses an inhaler. CXR unremarkable. Improved. - albuterol as needed. - encourage ambulation. Right foot pain No obvious deformities or acute process on the patient's foot. He does have a small chronic ulcer there. - Pain control as needed. DVT Prophylaxis: SCD/teds. Discharge Planning Per case management the patient does not have any financial resources to go to a [facility] facility. Currently investigating a aj bed. He will need to get stronger before going to live with his sister. Devang Barnes DO Feb 12, 2017 14:16
[2017-02-12 16:00] VITALS: BP 129/66; PULSE 63; RESP 20; TEMP 97.5; O2SAT 96
[2017-02-12] MEDS: LACTULOSE SYRUP 20 GM/30 ML CUP PO SCH (18:10)
[2017-02-12 20:00] VITALS: BP 139/64; PULSE 62; RESP 22; TEMP 97.7; O2SAT 96
[2017-02-13] VITALS: BP 126/59; PULSE 60; RESP 18; TEMP 97.8; O2SAT 95
[2017-02-13 04:00] VITALS: BP 152/74; PULSE 64; RESP 18; TEMP 97.8; O2SAT 95
[2017-02-13] MEDS: RIFAXIMIN 550 MG TAB PO SCH ×3 (05:55→20:44)
[2017-02-13 08:00] VITALS: BP 148/69; PULSE 64; RESP 20; TEMP 97.6; O2SAT 94
[2017-02-13] MEDS: CITALOPRAM HYDROBROMIDE 40 MG TAB PO SCH (09:12)
[2017-02-13] MEDS: PANTOPRAZOLE SOD 40 MG DELAYED RELEASE TAB PO SCH (09:12)
[2017-02-13] MEDS: SPIRONOLACTONE 25 MG TAB PO SCH (09:12)
[2017-02-13] MEDS: VANCOMYCIN 500 MG VIAL (FOR ORAL USE ONLY) PO SCH ×4 (09:12→20:47)
[2017-02-13] MEDS: THIAMINE HCL 100 MG TAB PO SCH (09:12)
[2017-02-13] MEDS: DOCUSATE SODIUM 50 MG/SENNA 8.6 MG TAB PO SCH ×2 (09:12→20:44)
[2017-02-13] MEDS: BACLOFEN 10 MG TAB PO SCH ×3 (09:12→16:59)
[2017-02-13] MEDS: GABAPENTIN 300 MG CAP PO SCH ×3 (09:12→16:59)
[2017-02-13] MEDS: CARVEDILOL 6.25 MG TAB PO SCH (09:12)
[2017-02-13] MEDS: MECLIZINE HCL 25 MG TAB PO SCH (09:13)
[2017-02-13] MEDS: FUROSEMIDE 20 MG TAB PO SCH (09:13)
[2017-02-13] MEDS: busPIRone HCL 10 MG TAB PO SCH ×3 (09:13→16:59)
[2017-02-13] MEDS: SODIUM CHLORIDE 0.9% FLUSH 10 ML FLUSH IV FLUSH SCH ×2 (09:13→20:47)
[2017-02-13] MEDS: LACTULOSE SYRUP 20 GM/30 ML CUP PO SCH (09:13)
[2017-02-13 12:00] VITALS: BP 126/71; PULSE 67; RESP 20; TEMP 97.3; O2SAT 94
--- NOTE | 2017-02-13 13:06 | HHI.PR ---
Subjective Remarks No acute events overnight. Afebrile, vital signs stable. Patient medically cleared to be discharged to rehabilitation however placement has been an issue. He continues to work daily with physical therapy and feels he is improving. Objective Vitals Vital Signs Date Time Temp Pulse Resp B/P (MAP) Pulse Ox O2 Delivery O2 Flow Rate FiO2 02/13/17 08:00 97.6 64 20 148/69 (95) 94 02/13/17 08:00 94 Room Air 02/13/17 04:00 97.8 64 18 152/74 (100) 95 02/13/17 00:00 Room Air 02/13/17 00:00 97.8 60 18 126/59 (81) 95 02/12/17 22:30 Room Air 02/12/17 20:00 97.7 62 22 139/64 (89) 96 02/12/17 16:00 97.5 63 20 129/66 (87) 96 I/O 02/12/17 02/12/17 02/12/17 02/13/17 02/13/17 02/13/17 07:00 15:00 23:00 07:00 15:00 23:00 Intake Total 480 ml 480 ml Output Total 400 ml Balance 80 ml 480 ml Intake Oral 480 ml 480 ml Output Urine Total 400 ml # Voids 2 # Bowel Movements 1 Objective Remarks GENERAL: No acute distress. SKIN: Focused skin assessment warm/dry. HEAD: Atraumatic. Normocephalic. EYES: Pupils equal and round. No scleral icterus. No injection or drainage. ENT: No nasal bleeding or discharge. NECK: Trachea midline. No JVD. CARDIOVASCULAR: Regular rate and rhythm. No murmur appreciated. RESPIRATORY: No accessory muscle use. Clear to auscultation. Breath sounds equal bilaterally. GASTROINTESTINAL: Abdomen soft, non-tender, nondistended. Hepatic and splenic margins not palpable. MUSCULOSKELETAL: No obvious deformities. Bottom of right foot with a small chronic ulcer. No clubbing. No cyanosis. 1+ edema. NEUROLOGICAL: Awake and alert. No obvious cranial nerve deficits. Motor grossly within normal limits. Normal speech. PSYCH: Slightly flattened affect. Procedures None A/P Problem List: (1) Frequent falls ICD Code: R29.6 - Repeated falls Status: Acute (2) C. difficile diarrhea ICD Code: A04.7 - Enterocolitis due to Clostridium difficile Status: Acute (3) Diarrhea ICD Code: R19.7 - Diarrhea, unspecified Status: Acute (4) Hepatic encephalopathy ICD Code: K72.90 - Hepatic failure, unspecified without coma Status: Acute (5) Generalized weakness ICD Code: R53.1 - Weakness Status: Acute (6) Thrombocytopenia ICD Code: D69.6 - Thrombocytopenia Status: Acute Assessment and Plan Status post fall with lumbar pain/ Deconditioning status post multiple falls Bruising on lower back noted. - PT/ OT. Will ask physical therapy to work with the patient 7 days a week as he has no rehabilitation benefits at this time. - pain control. Cirrhosis/ Esophageal varices On lactulose as an outpt. - held lactulose s/t C diff. Resume lactulose daily and increase as tolerated. - continue rifaximin. C Diff ID consult appreciated. - continue Vancomycin for 14 day course. Plan to d/c 02/17. Thrombocytopenia Chronic. Dyspnea The pt says he normally uses an inhaler. CXR unremarkable. Improved. - albuterol as needed. - encourage ambulation. Right foot pain No obvious deformities or acute process on the patient's foot. He does have a small chronic ulcer there. - Pain control as needed. Discharge Planning Per case management the patient does not have any financial resources to go to a [facility] facility. Currently investigating a aj bed. He will need to get stronger before going to live with his sister. Ginny Ponce MD R3 Feb 13, 2017 13:06
[2017-02-13 15:01] VITALS: BP 134/61; PULSE 62; RESP 20; TEMP 97.7; O2SAT 94
[2017-02-13 20:00] VITALS: BP 138/58; PULSE 68; RESP 19; TEMP 97.8; O2SAT 94
[2017-02-14] VITALS (7 sets, daily range): BP systolic 106–152; BP diastolic 59–81; PULSE 60–72; RESP 16–21; TEMP 97.3–98.3; O2SAT 95–98
[2017-02-14] MEDS: RIFAXIMIN 550 MG TAB PO SCH ×3 (05:35→20:55)
[2017-02-14] MEDS: DOCUSATE SODIUM 50 MG/SENNA 8.6 MG TAB PO SCH ×2 (09:00→20:57)
[2017-02-14] MEDS: PANTOPRAZOLE SOD 40 MG DELAYED RELEASE TAB PO SCH (10:01)
[2017-02-14] MEDS: SPIRONOLACTONE 25 MG TAB PO SCH (10:01)
[2017-02-14] MEDS: THIAMINE HCL 100 MG TAB PO SCH (10:01)
[2017-02-14] MEDS: MECLIZINE HCL 25 MG TAB PO SCH (10:01)
[2017-02-14] MEDS: GABAPENTIN 300 MG CAP PO SCH ×3 (10:02→18:50)
[2017-02-14] MEDS: LACTULOSE SYRUP 20 GM/30 ML CUP PO SCH (10:02)
[2017-02-14] MEDS: FUROSEMIDE 20 MG TAB PO SCH (10:02)
[2017-02-14] MEDS: CARVEDILOL 6.25 MG TAB PO SCH (10:02)
[2017-02-14] MEDS: CITALOPRAM HYDROBROMIDE 40 MG TAB PO SCH (10:03)
[2017-02-14] MEDS: BACLOFEN 10 MG TAB PO SCH ×3 (10:03→18:50)
[2017-02-14] MEDS: busPIRone HCL 10 MG TAB PO SCH ×3 (10:03→18:50)
--- NOTE | 2017-02-14 11:50 | HHI.PR ---
Subjective Remarks No acute events overnight. Afebrile, vital signs stable. Patient with no complaints at this time. States he would like to leave and go to rehabilitation however he needs a aj bed and case management is working on this. Objective Vitals Vital Signs Date Time Temp Pulse Resp B/P (MAP) Pulse Ox O2 Delivery O2 Flow Rate FiO2 02/14/17 10:00 71 16 140/80 (100) 02/14/17 06:42 20 02/14/17 04:00 Room Air 02/14/17 04:00 97.5 71 19 137/65 (89) 95 02/14/17 00:00 Room Air 02/14/17 00:00 97.4 65 21 144/64 (90) 95 02/13/17 20:45 Room Air 02/13/17 20:00 97.8 68 19 138/58 (84) 94 02/13/17 16:00 94 Room Air 02/13/17 15:01 97.7 62 20 134/61 (85) 94 02/13/17 12:00 94 Room Air 02/13/17 12:00 97.3 67 20 126/71 (89) 94 I/O 02/13/17 02/13/17 02/13/17 02/14/17 02/14/17 02/14/17 07:00 15:00 23:00 07:00 15:00 23:00 Intake Total 480 ml 720 ml 840 ml Output Total 1100 ml Balance 480 ml 720 ml -260 ml Intake Oral 480 ml 720 ml 840 ml Output Urine Total 1100 ml # Voids 2 3 # Bowel Movements 2 0 Objective Remarks GENERAL: No acute distress. SKIN: Focused skin assessment warm/dry. HEAD: Atraumatic. Normocephalic. EYES: Pupils equal and round. No scleral icterus. No injection or drainage. ENT: No nasal bleeding or discharge. NECK: Trachea midline. No JVD. CARDIOVASCULAR: Regular rate and rhythm. No murmur appreciated. RESPIRATORY: No accessory muscle use. Clear to auscultation. Breath sounds equal bilaterally. GASTROINTESTINAL: Abdomen soft, non-tender, nondistended. Hepatic and splenic margins not palpable. MUSCULOSKELETAL: No obvious deformities. Bottom of right foot with a small chronic ulcer. No clubbing. No cyanosis. 1+ edema. NEUROLOGICAL: Awake and alert. No obvious cranial nerve deficits. Motor grossly within normal limits. Normal speech. PSYCH: Slightly flattened affect. Procedures None A/P Problem List: (1) Frequent falls ICD Code: R29.6 - Repeated falls Status: Acute (2) C. difficile diarrhea ICD Code: A04.7 - Enterocolitis due to Clostridium difficile Status: Acute (3) Diarrhea ICD Code: R19.7 - Diarrhea, unspecified Status: Acute (4) Hepatic encephalopathy ICD Code: K72.90 - Hepatic failure, unspecified without coma Status: Acute (5) Generalized weakness ICD Code: R53.1 - Weakness Status: Acute (6) Thrombocytopenia ICD Code: D69.6 - Thrombocytopenia Status: Acute Assessment and Plan Status post fall with lumbar pain/ Deconditioning status post multiple falls Bruising on lower back noted. - PT/ OT. Will ask physical therapy to work with the patient 7 days a week as he has no rehabilitation benefits at this time. - pain control. Cirrhosis/ Esophageal varices On lactulose as an outpt. - held lactulose s/t C diff. Resume lactulose daily and increase as tolerated. - continue rifaximin. C Diff ID consult appreciated. - continue Vancomycin for 14 day course. Plan to d/c 02/17. Thrombocytopenia Chronic. Dyspnea The pt says he normally uses an inhaler. CXR unremarkable. Improved. - albuterol as needed. - encourage ambulation. Right foot pain No obvious deformities or acute process on the patient's foot. He does have a small chronic ulcer there. - Pain control as needed. Discharge Planning Per case management the patient does not have any financial resources to go to a half-way facility. Currently investigating a aj bed. He will need to get stronger before going to live with his sister. Ginny Ponce MD R3 Feb 14, 2017 11:49
[2017-02-14] MEDS: VANCOMYCIN 500 MG VIAL (FOR ORAL USE ONLY) PO SCH ×4 (12:30→20:55)
[2017-02-14] MEDS: SODIUM CHLORIDE 0.9% FLUSH 10 ML FLUSH IV FLUSH SCH ×2 (12:31→20:55)
[2017-02-15] VITALS: BP 119/56; PULSE 67; RESP 20; TEMP 97.6; O2SAT 95
[2017-02-15 05:03] VITALS: BP 109/57; PULSE 64; RESP 20; TEMP 97.5; O2SAT 96
[2017-02-15] MEDS: RIFAXIMIN 550 MG TAB PO SCH ×3 (05:06→20:33)
[2017-02-15 08:00] VITALS: BP 129/61; PULSE 60; RESP 20; TEMP 97.6; O2SAT 94
[2017-02-15] MEDS: THIAMINE HCL 100 MG TAB PO SCH (09:00)
[2017-02-15] MEDS: LACTULOSE SYRUP 20 GM/30 ML CUP PO SCH (09:42)
[2017-02-15] MEDS: FUROSEMIDE 20 MG TAB PO SCH (09:42)
[2017-02-15] MEDS: BACLOFEN 10 MG TAB PO SCH ×3 (09:42→17:42)
[2017-02-15] MEDS: CITALOPRAM HYDROBROMIDE 40 MG TAB PO SCH (09:42)
[2017-02-15] MEDS: GABAPENTIN 300 MG CAP PO SCH ×3 (09:42→17:42)
[2017-02-15] MEDS: MECLIZINE HCL 25 MG TAB PO SCH (09:42)
[2017-02-15] MEDS: DOCUSATE SODIUM 50 MG/SENNA 8.6 MG TAB PO SCH ×2 (09:42→20:34)
[2017-02-15] MEDS: busPIRone HCL 10 MG TAB PO SCH ×3 (09:42→17:43)
[2017-02-15] MEDS: SPIRONOLACTONE 25 MG TAB PO SCH (09:42)
[2017-02-15] MEDS: CARVEDILOL 6.25 MG TAB PO SCH (09:42)
[2017-02-15] MEDS: PANTOPRAZOLE SOD 40 MG DELAYED RELEASE TAB PO SCH (09:42)
[2017-02-15] MEDS: SODIUM CHLORIDE 0.9% FLUSH 10 ML FLUSH IV FLUSH SCH ×2 (09:43→20:35)
[2017-02-15] MEDS: VANCOMYCIN 500 MG VIAL (FOR ORAL USE ONLY) PO SCH ×4 (09:43→20:34)
[2017-02-15 12:00] VITALS: BP 125/59; PULSE 60; RESP 20; TEMP 97.4; O2SAT 94
[2017-02-15 16:00] VITALS: BP 127/59; PULSE 69; RESP 20; TEMP 97.8; O2SAT 97
--- NOTE | 2017-02-15 17:09 | HHI.PR ---
Subjective Remarks Mr. Garcia laying in bed comfortably, he stated he doesn't have diarrhea his stool is firm, no fever or chills no abdominal Objective Vitals Vital Signs Date Time Temp Pulse Resp B/P (MAP) Pulse Ox O2 Delivery O2 Flow Rate FiO2 02/15/17 16:00 97.8 69 20 127/59 (81) 97 02/15/17 12:00 97.4 60 20 125/59 (81) 94 02/15/17 09:51 Room Air 02/15/17 08:00 97.6 60 20 129/61 (83) 94 02/15/17 05:03 97.5 64 20 109/57 (74) 96 02/15/17 00:00 97.6 67 20 119/56 (77) 95 02/14/17 20:12 97.5 60 18 137/81 (99) 96 02/14/17 20:00 Room Air I/O 02/14/17 02/14/17 02/14/17 02/15/17 02/15/17 02/15/17 07:00 15:00 23:00 07:00 15:00 23:00 Intake Total 840 ml 720 ml 480 ml Output Total 1100 ml Balance -260 ml 720 ml 480 ml Intake Oral 840 ml 720 ml 480 ml Output Urine Total 1100 ml # Voids 3 # Bowel Movements 0 1 Objective Remarks GENERAL: This is a well-nourished, well-developed patient, in no apparent distress. SKIN: No rashes, warm and dry HEAD: Atraumatic. Normocephalic. EYES: Pupils equal round and reactive. Extraocular motions intact. No scleral icterus. ENT: Nose without bleeding, or drainage, Airway patent. NECK: Trachea midline. Supple CARDIOVASCULAR: Regular rate and rhythm without murmurs, gallops, or rubs. RESPIRATORY: Fair air entry bilaterally. No wheezes, rales, or rhonchi. GASTROINTESTINAL: Abdomen soft, non-tender, nondistended. Positive bowel sounds MUSCULOSKELETAL: Extremities without clubbing, cyanosis, or edema. Pedal pulses appreciated NEUROLOGICAL: Awake and alert. Moves all extremity. Normal speech.no focal neurological deficit Procedures None A/P Problem List: (1) Frequent falls ICD Code: R29.6 - Repeated falls Status: Acute (2) C. difficile diarrhea ICD Code: A04.7 - Enterocolitis due to Clostridium difficile Status: Acute (3) Diarrhea ICD Code: R19.7 - Diarrhea, unspecified Status: Acute (4) Hepatic encephalopathy ICD Code: K72.90 - Hepatic failure, unspecified without coma Status: Acute (5) Generalized weakness ICD Code: R53.1 - Weakness Status: Acute (6) Thrombocytopenia ICD Code: D69.6 - Thrombocytopenia Status: Acute Assessment and Plan 02/15: Patient denied abdominal pain or loose stool, continue current care A/P: Status post fall with lumbar pain/ Deconditioning status post multiple falls Bruising on lower back noted. - PT/ OT. Will ask physical therapy to work with the patient 7 days a week as he has no rehabilitation benefits at this time. - pain control. Cirrhosis/ Esophageal varices On lactulose as an outpt. - held lactulose s/t C diff. Resume lactulose daily and increase as tolerated. - continue rifaximin. C Diff ID consult appreciated. - continue Vancomycin for 14 day course. Plan to d/c 02/17. Thrombocytopenia Chronic. Dyspnea The pt says he normally uses an inhaler. CXR unremarkable. Improved. - albuterol as needed. - encourage ambulation. Right foot pain No obvious deformities or acute process on the patient's foot. He does have a small chronic ulcer there. - Pain control as needed. Maged Castillo MD Feb 15, 2017 17:09
[2017-02-15 19:55] VITALS: BP 141/65; PULSE 65; RESP 19; TEMP 98; O2SAT 95
[2017-02-16] VITALS: BP 127/60; PULSE 68; RESP 20; TEMP 97.8; O2SAT 93
[2017-02-16 04:00] VITALS: BP 117/56; PULSE 61; RESP 20; TEMP 97.1; O2SAT 95
[2017-02-16] MEDS: RIFAXIMIN 550 MG TAB PO SCH ×2 (05:59→12:30)
[2017-02-16 08:00] VITALS: BP 119/63; PULSE 63; RESP 18; TEMP 97.8; O2SAT 90
[2017-02-16] MEDS: LACTULOSE SYRUP 20 GM/30 ML CUP PO SCH (08:55)
[2017-02-16] MEDS: DOCUSATE SODIUM 50 MG/SENNA 8.6 MG TAB PO SCH (08:56)
[2017-02-16] MEDS: MECLIZINE HCL 25 MG TAB PO SCH (08:56)
[2017-02-16] MEDS: BACLOFEN 10 MG TAB PO SCH ×2 (08:56→12:29)
[2017-02-16] MEDS: SODIUM CHLORIDE 0.9% FLUSH 10 ML FLUSH IV FLUSH SCH (08:56)
[2017-02-16] MEDS: busPIRone HCL 10 MG TAB PO SCH ×2 (08:56→12:29)
[2017-02-16] MEDS: FUROSEMIDE 20 MG TAB PO SCH (08:56)
[2017-02-16] MEDS: CARVEDILOL 6.25 MG TAB PO SCH (08:56)
[2017-02-16] MEDS: GABAPENTIN 300 MG CAP PO SCH ×2 (08:56→12:29)
[2017-02-16] MEDS: SPIRONOLACTONE 25 MG TAB PO SCH (08:56)
[2017-02-16] MEDS: CITALOPRAM HYDROBROMIDE 40 MG TAB PO SCH (08:56)
[2017-02-16] MEDS: VANCOMYCIN 500 MG VIAL (FOR ORAL USE ONLY) PO SCH ×2 (08:56→12:29)
[2017-02-16] MEDS: PANTOPRAZOLE SOD 40 MG DELAYED RELEASE TAB PO SCH (08:56)
[2017-02-16] MEDS: THIAMINE HCL 100 MG TAB PO SCH (09:00)
[2017-02-16 12:34] VITALS: BP 124/59; PULSE 68; RESP 21; TEMP 97.5; O2SAT 93
--- NOTE | 2017-02-16 14:11 | HHI.PR ---
Subjective Remarks Stable, no acute issue, patient was accepted to rehabilitation today Objective Vitals Vital Signs Date Time Temp Pulse Resp B/P (MAP) Pulse Ox O2 Delivery O2 Flow Rate FiO2 02/16/17 12:34 97.5 68 21 124/59 (80) 93 02/16/17 09:04 Room Air 02/16/17 08:00 97.8 63 18 119/63 (81) 90 02/16/17 04:00 Room Air 02/16/17 04:00 97.1 61 20 117/56 (76) 95 02/16/17 00:00 97.8 68 20 127/60 (82) 93 02/16/17 00:00 Room Air 02/15/17 20:00 Room Air 02/15/17 19:55 98.0 65 19 141/65 (90) 95 02/15/17 16:00 97.8 69 20 127/59 (81) 97 I/O 02/15/17 02/15/17 02/15/17 02/16/17 02/16/17 02/16/17 07:00 15:00 23:00 07:00 15:00 23:00 Intake Total 720 ml 240 ml Balance 720 ml 240 ml Intake Oral 720 ml 240 ml # Voids 2 2 # Bowel Movements 0 1 Objective Remarks GENERAL: This is a well-nourished, well-developed patient, in no apparent distress. SKIN: No rashes, warm and dry HEAD: Atraumatic. Normocephalic. EYES: Pupils equal round and reactive. Extraocular motions intact. No scleral icterus. ENT: Nose without bleeding, or drainage, Airway patent. NECK: Trachea midline. Supple CARDIOVASCULAR: Regular rate and rhythm without murmurs, gallops, or rubs. RESPIRATORY: Fair air entry bilaterally. No wheezes, rales, or rhonchi. GASTROINTESTINAL: Abdomen soft, non-tender, nondistended. Positive bowel sounds MUSCULOSKELETAL: Extremities without clubbing, cyanosis, or edema. Pedal pulses appreciated NEUROLOGICAL: Awake and alert. Moves all extremity. Normal speech.no focal neurological deficit Procedures None A/P Problem List: (1) Frequent falls ICD Code: R29.6 - Repeated falls Status: Acute (2) C. difficile diarrhea ICD Code: A04.7 - Enterocolitis due to Clostridium difficile Status: Acute (3) Diarrhea ICD Code: R19.7 - Diarrhea, unspecified Status: Acute (4) Hepatic encephalopathy ICD Code: K72.90 - Hepatic failure, unspecified without coma Status: Acute (5) Generalized weakness ICD Code: R53.1 - Weakness Status: Acute (6) Thrombocytopenia ICD Code: D69.6 - Thrombocytopenia Status: Acute Assessment and Plan 02/15: Patient denied abdominal pain or loose stool, continue current care 02/16: Patient finally got accepted to rehabilitation, will proceed with discharge A/P: Status post fall with lumbar pain/ Deconditioning status post multiple falls Bruising on lower back noted. - PT/ OT. Will ask physical therapy to work with the patient 7 days a week as he has no rehabilitation benefits at this time. - pain control. Cirrhosis/ Esophageal varices On lactulose as an outpt. - held lactulose s/t C diff. Resume lactulose daily and increase as tolerated. - continue rifaximin. C Diff ID consult appreciated. - continue Vancomycin for 14 day course. Plan to d/c 02/17. Thrombocytopenia Chronic. Dyspnea The pt says he normally uses an inhaler. CXR unremarkable. Improved. - albuterol as needed. - encourage ambulation. Right foot pain No obvious deformities or acute process on the patient's foot. He does have a small chronic ulcer there. - Pain control as needed. Maged Castillo MD Feb 16, 2017 14:11
--- NOTE | 2017-02-16 20:19 | HHI.DS ---
Discharge Summary Admission Date Feb 03, 2017 at 10:51 Discharge Date: Feb 16, 2017 Admitting Diagnosis (1) Frequent falls ICD Code: R29.6 - Repeated falls Status: Acute (2) C. difficile diarrhea ICD Code: A04.7 - Enterocolitis due to Clostridium difficile Diagnosis: Principal Status: Acute (3) Diarrhea ICD Code: R19.7 - Diarrhea, unspecified Status: Acute (4) Hepatic encephalopathy ICD Code: K72.90 - Hepatic failure, unspecified without coma Status: Acute (5) Generalized weakness ICD Code: R53.1 - Weakness Status: Acute (6) Thrombocytopenia ICD Code: D69.6 - Thrombocytopenia Status: Acute Procedures None Brief History - From Admission This is a pleasant 66 y/o Male who was just recently discharged from this facility two days ago, came to ER again with Generalized weakness and status post fall, he has alcoholic Cirrhosis, his last admission was January 01 through January 16, had C Diff colitis, He was discharged to a nursing facility. They apparently wanted to keep him in a long-term nursing that he had declined. He's been home for just a couple days now and is fallen 3 or 4 times. His a large amount of bruising on his back. EMS states they found him on his knees was unable to get up. Patient states he feels very thirsty. Denies any chest pain trouble breathing recent fevers recent cough. No recent diarrhea. States he's been compliant with all his medications. Denies any recent alcohol use. as we know he has Hypertension, Esophageal varices, Anxiety disorder, depression CAD, Peripheral Neuropathy. he was also recently admitted from 12/08-12/15/16 secondary to recurrent falls, weakness and hepatic encephalopathy, started on Rifaximin and Lactulose and d/c'd to Rehab. Now w/ progressive weakness and multiple episodes of watery diarrhea. Reports mild abdominal pain and nausea, but no vomiting or fever. Seen in emergency room stable complaint of some lumbar pain and positive on palpation will get Lumbar spine x ray, no other complaint. PE at Discharge GENERAL: This is a well-nourished, well-developed patient, in no apparent distress. SKIN: No rashes, warm and dry HEAD: Atraumatic. Normocephalic. EYES: Pupils equal round and reactive. Extraocular motions intact. No scleral icterus. ENT: Nose without bleeding, or drainage, Airway patent. NECK: Trachea midline. Supple CARDIOVASCULAR: Regular rate and rhythm without murmurs, gallops, or rubs. RESPIRATORY: Fair air entry bilaterally. No wheezes, rales, or rhonchi. GASTROINTESTINAL: Abdomen soft, non-tender, nondistended. Positive bowel sounds MUSCULOSKELETAL: Extremities without clubbing, cyanosis, or edema. Pedal pulses appreciated NEUROLOGICAL: Awake and alert. Moves all extremity. Normal speech.no focal neurological deficit Hospital Course 66 years old male admitted with-2 result Status post fall with lumbar pain/ Deconditioning status post multiple falls Bruising on lower back noted. PT/ OT. Will ask physical therapy to work with the patient 7 days a week as he has no rehabilitation benefits at this time. pain control. Cirrhosis/ Esophageal varices On lactulose as an outpt. held lactulose s/t C diff. Resume lactulose daily and increase as tolerated. continue rifaximin. C Diff ID consult appreciated. continue Vancomycin for 14 day course. Plan to d/c 02/17. Thrombocytopenia Chronic. Dyspnea The pt says he normally uses an inhaler. CXR unremarkable. Improved. albuterol as needed. encourage ambulation. Right foot pain No obvious deformities or acute process on the patient's foot. He does have a small chronic ulcer there. Pain control as needed. [id number] encounter performed with the patient on discharge day, as well as physical exam, summary of hospitalization course and postdischarge plan has been D/W the patient. D/W nurse D/W binder caser. Discharge medications reviewed and printed and signed, post discharge follow up visit with PCP and other specialist as well as Brief hospital course and discharge summary has been placed. Pt Condition on Discharge: Stable Discharge Disposition: Discharge to SNF Discharge Time: > 30 minutes Discharge Instructions DIET: Follow Instructions for: Heart Healthy Diet Activities you can perform: Weight Bearing as Maged Pearl MD Feb 16, 2017 20:19
== END 2017-02-16 16:12 | DRG 552 ==
LOC: NEPC 07:31 → NEDA 10:51 → N04B 17:42
PROVIDERS: ADMIT Hospitalist; ATTEND Hospitalist
DX: M54.5 Low back pain (principal); D69.6 Thrombocytopenia, unspecified; I85.10 Secondary esophageal varices without bleeding; A04.7 Enterocolitis due to Clostridium difficile; G62.9 Polyneuropathy, unspecified; L97.519 Non-pressure chronic ulcer of other part of right foot with unspecified severity; K70.30 Alcoholic cirrhosis of liver without ascites; S30.0XXA Contusion of lower back and pelvis, initial encounter; E86.0 Dehydration; I10 Essential (primary) hypertension; F41.9 Anxiety disorder, unspecified; F32.9 Major depressive disorder, single episode, unspecified; I25.10 Atherosclerotic heart disease of native coronary artery without angina pectoris; Z95.5 Presence of coronary angioplasty implant and graft; E66.9 Obesity, unspecified; Z68.32 Body mass index [BMI] 32.0-32.9, adult; M51.36 Other intervertebral disc degeneration, lumbar region; R29.6 Repeated falls; W19.XXXA Unspecified fall, initial encounter; K59.00 Constipation, unspecified; M79.671 Pain in right foot
CPT/HCPCS: 71010; 72100; 80048; 80053; 81001; 82140; 82550; 83735; 84100; 84484; 85025; 85027; 85610; 85730; 87493; 96360; J7040; P9612

== ENCOUNTER 2017-04-04 08:01 | Emergency (ER) | payer OTHER, MEDICAID ==
[~2017-04-04] VITALS: Ht 180.3 cm; Wt 108.0 kg
[~2017-04-04 08:01] MED LIST changes: +VENTAER INH
[2017-04-04 08:15] VITALS: BP 129/64; PULSE 77; RESP 20; TEMP 98.3; O2SAT 95
--- NOTE | 2017-04-04 08:17 | PD ---
HPI Chief Complaint: back pain Time Seen by Provider: 08:12 Travel History International Travel<30 days: No Contact w/Intl Traveler<30days: No Traveled to known affect area: No History of Present Illness HPI 66-year-old male patient with history of alcoholic cirrhosis, previous NC, previous history of chronic back pain, here brought in by EMS from longterm because he complains that his back pain has gotten worse since yesterday. He apparently did have physical therapy yesterday but he denies any injuries to his back. He also states that he had an episode of stool incontinence yesterday which is unusual for him. He denies any fevers or any other issues. Pain is currently a 6 out of 10, worsens with movements. He denies any fevers, abdominal pain, vomiting, black stools, or other symptoms. He apparently was given by mouth pain meds without significant relief. Modifying Factors: None Associated Signs & Symptoms: Worsening and back pain, stool incontinence Risk Factors: History of back pains previously PFSH Past Medical History Arthritis: Yes Asthma: No Autoimmune Disease: No Blood Disorders: No Anxiety: Yes Depression: Yes Heart Rhythm Problems: Yes (heart murmur) Cancer: Yes (cancer of skin on face) Cardiac Catheterization: Yes Cardiovascular Problems: Yes (PREVIOUS NC) High Cholesterol: No Chemotherapy: No Chest Pain: No Congestive Heart Failure: No Cirrhosis: Yes COPD: No Cerebrovascular Accident: No Diabetes: No Diminished Hearing: No Endocrine: No Gastrointestinal Disorders: Yes (ESOPHAGEAL VARICIES, GERD, CIRRHOSIS) GERD: Yes Glaucoma: No Genitourinary: No Headaches: No 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) Hiatal Hernia: No Heparin Induced Thrombocytopen: No Hypertension: Yes Immune Disorder: No Implanted Vascular Access Dvce: No Insomnia: Yes Kidney Stones: No Musculoskeletal: Yes (back/ rigth leg pain) Neurologic: Yes (NEUROPATHY FEET) Psychiatric: No Reproductive: No Respiratory: No Immunizations Current: Yes Myocardial Infarction: Yes Radiation Therapy: No Renal Failure: No Seizures: No Sickle Cell Disease: No Sleep Apnea: No Thyroid Disease: No Ulcer: No Past Surgical History Abdominal Surgery: Yes (COLONOSCOPY PROCEDURE WITH POLYPECTOMY) AICD: No Cardiac Surgery: Yes (HEART STENT, HEART CATH) Coronary Artery Bypass Graft: No Coronary Stent: Yes Ear Surgery: No Endocrine Surgery: No Eye Surgery: No Genitourinary Surgery: No Gynecologic Surgery: No Joint Replacement: No Neurologic Surgery: No Oral Surgery: No Pacemaker: No Thoracic Surgery: No Tonsillectomy: Yes Social History Alcohol Use: No (QUIT 4 YEARS AGO) Tobacco Use: No Substance Use: No Allergies-Medications (Allergen,Severity, Reaction): Coded Allergies: No Known Allergies (Verified , 02/03/17) Reported Meds & Prescriptions Reported Meds & Active Scripts Active Ventolin Hfa 18 GM Inh (Albuterol Sulfate) 90 Mcg/Act Aer 2 Puff INH Q6H PRN Oxycodone (Oxycodone HCl) 5 Mg Tab 5 Mg PO Q4H PRN Vancomycin (Vancomycin HCl) 250 Mg Cap 250 Mg PO QID 5 Days Lactulose 10 Gm/15 Ml Solution 30 Ml PO DAILY 30 Days Baclofen 10 Mg Tab 10 Mg PO TID PRN 30 Days Take with food or milk Meclizine (Meclizine HCl) 25 Mg Tab 25 Mg PO DAILY PRN Gabapentin 800 Mg Tab 300 Mg PO TID Spironolactone 50 Mg Tab 25 Mg PO DAILY Reported Xifaxan (Rifaximin) 550 Mg Tab 550 Mg PO Q8HR 14 Days Thiamine HCl 500 Mg Tablet 500 Mg PO DAILY Hydrocortisone Topical 2.5% Lotn 1 Appl TOPICAL BID B-50 Complex (Vitamin B Complex) 1 Each Tablet.er 100 Mg PO BID Fish Oil 1,000 mg Softgel ([place]-3/Dha/Epa/Fish Oil) 1,000 Mg Capsule 1,000 Mg PO TID Tylenol (Acetaminophen) 325 Mg Tab 650 Mg PO Q4H PRN Citalopram (Citalopram Hydrobromide) 40 Mg Tab 40 Mg PO DAILY Buspirone (Buspirone HCl) 10 Mg Tab 10 Mg PO TID Carvedilol 6.25 Mg Tab 6.25 Mg PO DAILY Pantoprazole (Pantoprazole Sodium) 40 Mg Tab 40 Mg PO DAILY Furosemide 20 Mg Tab 20 Mg PO DAILY Review of Systems Except as stated in HPI: all other systems reviewed are Neg Physical Exam Narrative GENERAL: Well-developed elderly white male patient currently in mild distress. Awake, alert. SKIN: Focused skin assessment warm/dry. HEAD: Atraumatic. Normocephalic. EYES: Pupils equal and round. No scleral icterus. No injection or drainage. ENT: No nasal bleeding or discharge. Mucous membranes pink and moist. NECK: Trachea midline. No JVD. CARDIOVASCULAR: Regular rate and rhythm. No murmur appreciated. RESPIRATORY: No accessory muscle use. Clear to auscultation. Breath sounds equal bilaterally. GASTROINTESTINAL: Abdomen soft, non-tender, nondistended. Hepatic and splenic margins not palpable. BACK: No CVA tenderness. No rash. Tenderness to palpation of the L2-L3 region of the spine midline with no palpable deformities. RECTAL EXAM: No masses or tenderness, poor rectal tone. MUSCULOSKELETAL: No obvious deformities. No clubbing. No cyanosis. No edema. NEUROLOGICAL: Awake and alert. No obvious cranial nerve deficits. Motor grossly within normal limits. Normal speech. PSYCHIATRIC: Appropriate mood and affect; insight and judgment normal. Data Data Last Documented VS Vital Signs Date Time Temp Pulse Resp B/P (MAP) Pulse Ox O2 Delivery O2 Flow Rate FiO2 04/04/17 08:15 98.3 77 20 129/64 (85) 95 Room Air Orders Orders Mri T Spine W/O Contrast (04/04/17 08:13) Mri L Spine W/O Contrast (04/04/17 08:13) Tramadol-Acetamin 37.5-325 Mg (Ultracet (04/04/17 09:30) Tramadol (Ultram) (04/04/17 09:45) MDM Medical Decision Making Medical Screen Exam Complete: Yes Emergency Medical Condition: Yes Medical Record Reviewed: Yes Interpretation(s) Last 24 hours Impressions Thoracic Spine MRI 04/04/17812 Signed Impressions: Service Date/Time: Tuesday, April 04, 2017 08:37 - CONCLUSION: Obvious wedging of the T5 without significant surrounding edema, likely chronic. Or other T7 and L1. No significant disc pathology is noted Bao Anand MD Lumbar Spine MRI 04/04/17812 Signed Impressions: Service Date/Time: Tuesday, April 04, 2017 08:37 - CONCLUSION: Schmorl's Nodes involving both L1 and L4 with chronic changes. Hypertrophic facet disease at L4-5. No acute disc herniation or protrusion. aBo Anand MD Differential Diagnosis Back pain, stool incontinence: Acute on chronic back pains versus radiculopathy versus muscle spasms versus masses versus abscess Narrative Course MRI did not show any signs of acute cord compression, masses, abscesses, or any other acute processes. He does have some chronic changes but at this point, I do not see any signs of acute processes and my plan would be to release him with symptomatic relief or pain to follow-up with primary care doctor. Return for new issues as needed. The plan has been discussed with him and he states understanding. Diagnosis Primary Impression: Acute exacerbation of chronic low back pain Disposition: 03 DISCHARGE TO SNF Condition: Stable Jacky Ba MD Apr 04, 2017 08:17
--- NOTE | 2017-04-04 09:09 | RADRPT ---
EXAM DATE/TIME: 04/04/2017 08:37 [facility] COMPARISON: No previous studies available for comparison. INDICATIONS : Inability to ambulate. MEDICAL HISTORY : Myocardial infarction. Hypertension. Cirrhosis. SURGICAL HISTORY : Cardiac cath. ENCOUNTER: Initial ACUITY: 1 day PAIN SCORE: 2/10 LOCATION: [facility] TECHNIQUE: Multiplanar multisequence MRI of the thoracic spine was performed. FINDINGS: VERTEBRA: There is moderate wedging of the T5 vertebral body. There prominent Schmorl's nodes involving the inf erior endplate of T7 and the superior plate of L1. Homogeneous marrow signal. ALIGNMENT: Normal. CORD: Normal position and configuration. T1-T2: Normal. T2-T3: The thecal sac has a normal diameter. No evidence of disc bulge or protrusion. T3-T4: The thecal sac has a normal diameter. No evidence of disc bulge or protrusion. T4-T5: The thecal sac has a normal diameter. No evidence of disc bulge or protrusion. T5-T6: The thecal sac has a normal diameter. No evidence of disc bulge or protrusion. T6-T7: The thecal sac has a normal diameter. No evidence of disc bulge or protrusion. T7-T8: The thecal sac has a normal diameter. No evidence of disc bulge or protrusion. T8-T9: The thecal sac has a normal diameter. No evidence of disc bulge or protrusion. T9-T10: The thecal sac has a normal diameter. No evidence of disc bulge or protrusion. T10-T11: The thecal sac has a normal diameter. No evidence of disc bulge or protrusion. T11-T12: The thecal sac has a normal diameter. No evidence of disc bulge or protrusion. T12-L1: The thecal sac has a normal diameter. No evidence of disc bulge or protrusion. CONCLUSION: Obvious wedging of the T5 without significant surrounding edema, likely chronic. Or other T7 and L1. No significant disc pathology is noted Bao Anand MD on April 04, 2017 at 9:06 Board Certified Radiologist. This report was verified electronically.
--- NOTE | 2017-04-04 09:24 | RADRPT ---
EXAM DATE/TIME: 04/04/2017 08:37 [facility] COMPARISON: No previous studies available for comparison. INDICATIONS : Inability to ambulate. MEDICAL HISTORY : Myocardial infarction. Hypertension. Cirrhosis. SURGICAL HISTORY : Cardiac cath. ENCOUNTER: Initial ACUITY: 1 day PAIN SCORE: 10 LOCATION: [facility] TECHNIQUE: Multiplanar multisequence MRI of the lumbar spine was performed without contrast. FINDINGS: The most caudal appearing lumbar vertebra is numbered as L5. VERTEBRAE: Homogeneous signal. Normal alignment. Prominent nodes involving the inferior plate of L4 and the sup erior endplate of L1. Chronic Modic changes around L4-L5 CONUS: Normal level and configuration. T12-L1: The thecal sac has a normal diameter. No evidence of disc bulge or protrusion. The neural foramina are patent bilaterally. L1-L2: The thecal sac has a normal diameter. No evidence of disc bulge or protrusion. The neural foramina are patent bilaterally. L2-L3: The thecal sac has a normal diameter. No evidence of disc bulge or protrusion. The neural foramina are patent bilaterally. L3-L4: The thecal sac has a normal diameter. No evidence of disc bulge or protrusion. The neural foramina are patent bilaterally. L4-L5: The thecal sac has a normal diameter. No evidence of disc bulge or protrusion. The neural foramina are patent bilaterally. Hypertrophic degenerative facet disease L5-S1: The thecal sac has a normal diameter. No evidence of disc bulge or protrusion. The neural foramina are patent bilaterally. CONCLUSION: Schmorl's Nodes involving both L1 and L4 with chronic changes. Hypertrophic facet disease at L4-5. No acute disc herniation or protrusion. Bao Anand MD on April 04, 2017 at 9:20 Board Certified Radiologist. This report was verified electronically.
[2017-04-04] MEDS ORDERED: traMADol/ACETAMINOPHEN 37.5/325 1 TAB PO ONE (09:30)
[2017-04-04] MEDS ORDERED: traMADol HCL 50 MG TAB PO ONE (09:45)
== END 2017-04-04 15:10 ==
LOC: NEPC 08:01
DX: M54.5 Low back pain (principal); G89.29 Other chronic pain; K70.30 Alcoholic cirrhosis of liver without ascites; M19.90 Unspecified osteoarthritis, unspecified site; F41.9 Anxiety disorder, unspecified; F32.9 Major depressive disorder, single episode, unspecified; K21.9 Gastro-esophageal reflux disease without esophagitis; I10 Essential (primary) hypertension; G62.9 Polyneuropathy, unspecified
CPT/HCPCS: 72146; 72148

== ENCOUNTER 2017-04-29 09:54 | Emergency (ER) | payer OTHER, MEDICAID ==
[~2017-04-29] VITALS: Ht 180.3 cm; Wt 100.0 kg
[2017-04-29 10:07] VITALS: BP 184/76; PULSE 58; RESP 17; TEMP 97.7; O2SAT 100
--- NOTE | 2017-04-29 10:48 | RADRPT ---
EXAM DATE/TIME: 04/29/2017 10:23 [facility] COMPARISON: No previous studies available for comparison. INDICATIONS : Fell today, pain right shoulder, bruise and skin tear upper, posterior arm MEDICAL HISTORY : Cirrhosis. Myocardial infarction. Hypertension. SURGICAL HISTORY : cardiac cath ENCOUNTER: Initial ACUITY: 1 day PAIN SCORE: 10/10 LOCATION: Right shoulder FINDINGS: There is an acute distal clavicular fracture. This occurs just proximal to the acromioclavicular join t. No angulation or distraction. Glenohumeral joint is unremarkable. CONCLUSION: Acute distal clavicular fracture. Zeke Duran Jr., MD on April 29, 2017 at 10:44 Board Certified Radiologist. This report was verified electronically.
--- NOTE | 2017-04-29 10:59 | PD ---
HPI Chief Complaint: Musculoskeletal Complaint Time Seen by Provider: 10:13 Travel History International Travel<30 days: No Contact w/Intl Traveler<30days: No Traveled to known affect area: No History of Present Illness HPI Duplicate. PFSH Past Medical History Arthritis: Yes Asthma: No Autoimmune Disease: No Blood Disorders: No Anxiety: Yes Depression: Yes Heart Rhythm Problems: Yes (heart murmur) Cancer: Yes (cancer of skin on face) Cardiac Catheterization: Yes Cardiovascular Problems: Yes (NSTEMI MS, CAD, HTN, STENTS) High Cholesterol: No Chemotherapy: No Chest Pain: No Congestive Heart Failure: No Cirrhosis: Yes COPD: No Cerebrovascular Accident: No Coronary Artery Disease: Yes Diabetes: No Diminished Hearing: No Endocrine: No Gastrointestinal Disorders: Yes (ESOPHAGEAL VARICIES, GERD, CIRRHOSIS) GERD: Yes Glaucoma: No Genitourinary: No Headaches: No 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) Hiatal Hernia: No Heparin Induced Thrombocytopen: No Hypertension: Yes Immune Disorder: No Implanted Vascular Access Dvce: No Insomnia: Yes Kidney Stones: No Musculoskeletal: Yes (back/ rigth leg pain) Neurologic: Yes (NEUROPATHY FEET) Psychiatric: No Reproductive: No Respiratory: No Immunizations Current: Yes Myocardial Infarction: Yes Radiation Therapy: No Renal Failure: No Seizures: No Sickle Cell Disease: No Sleep Apnea: No Thyroid Disease: No Ulcer: No ?: Not Past Surgical History Abdominal Surgery: Yes (COLONOSCOPY PROCEDURE WITH POLYPECTOMY) AICD: No Cardiac Surgery: Yes (HEART STENT, HEART CATH) Coronary Artery Bypass Graft: No Coronary Stent: Yes Ear Surgery: No Endocrine Surgery: No Eye Surgery: No Genitourinary Surgery: No Gynecologic Surgery: No Joint Replacement: No Neurologic Surgery: No Oral Surgery: No Pacemaker: No Thoracic Surgery: No Tonsillectomy: Yes Social History Alcohol Use: No (QUIT 4 YEARS AGO) Tobacco Use: No Substance Use: No Allergies-Medications (Allergen,Severity, Reaction): Coded Allergies: No Known Allergies (Verified Adverse Reaction, Unknown, 04/29/17) Reported Meds & Prescriptions Reported Meds & Active Scripts Active Ventolin Hfa 18 GM Inh (Albuterol Sulfate) 90 Mcg/Act Aer 2 Puff INH Q6H PRN Oxycodone (Oxycodone HCl) 5 Mg Tab 5 Mg PO Q4H PRN Vancomycin (Vancomycin HCl) 250 Mg Cap 250 Mg PO QID 5 Days Lactulose 10 Gm/15 Ml Solution 30 Ml PO DAILY 30 Days Baclofen 10 Mg Tab 10 Mg PO TID PRN 30 Days Take with food or milk Meclizine (Meclizine HCl) 25 Mg Tab 25 Mg PO DAILY PRN Gabapentin 800 Mg Tab 300 Mg PO TID Spironolactone 50 Mg Tab 25 Mg PO DAILY Reported Xifaxan (Rifaximin) 550 Mg Tab 550 Mg PO Q8HR 14 Days Thiamine HCl 500 Mg Tablet 500 Mg PO DAILY Hydrocortisone Topical 2.5% Lotn 1 Appl TOPICAL BID B-50 Complex (Vitamin B Complex) 1 Each Tablet.er 100 Mg PO BID Fish Oil 1,000 mg Softgel ([place]-3/Dha/Epa/Fish Oil) 1,000 Mg Capsule 1,000 Mg PO TID Tylenol (Acetaminophen) 325 Mg Tab 650 Mg PO Q4H PRN Citalopram (Citalopram Hydrobromide) 40 Mg Tab 40 Mg PO DAILY Buspirone (Buspirone HCl) 10 Mg Tab 10 Mg PO TID Carvedilol 6.25 Mg Tab 6.25 Mg PO DAILY Pantoprazole (Pantoprazole Sodium) 40 Mg Tab 40 Mg PO DAILY Furosemide 20 Mg Tab 20 Mg PO DAILY Data Data Last Documented VS Vital Signs Date Time Temp Pulse Resp B/P (MAP) Pulse Ox O2 Delivery O2 Flow Rate FiO2 04/29/17 11:45 20 04/29/17 10:07 97.7 58 184/76 (112) 100 Orders Orders Shoulder, Complete (>2vws) (04/29/17 ) Oxycodone (Roxicodone) (04/29/17 10:15) Sling Cradle Arm (04/29/17 ) Ed Discharge Order (04/29/17 11:18) Sling Cradle Arm (04/29/17 ) MDM Diagnosis Diagnosis: Primary Impression: Clavicle fracture Qualified Codes: S42.031A - Displaced fracture of lateral end of right clavicle, initial encounter for closed fracture Referrals: Xander Hernandez Jr., MD Disposition: 01 DISCHARGE HOME Condition: Stable Rufino Crowell MD Apr 29, 2017 10:59
[2017-04-29 11:45] VITALS: RESP 20
--- NOTE | 2017-05-03 11:01 | PD ---
HPI Chief Complaint: Musculoskeletal Complaint Time Seen by Provider: 10:13 Travel History International Travel<30 days: No Contact w/Intl Traveler<30days: No Traveled to known affect area: No History of Present Illness HPI Patient is a 66-year-old male detention resident presents emergency department for evaluation of right shoulder pain. Patient had x-ray performed detention which showed a clavicle fracture sent here for further evaluation. Patient states he did not hit his head neck back chest or abdomen, he is only complaining of right shoulder pain. Denies any loss of consciousness. Symptoms are moderate, right shoulder, no radiation, worsens when he moves his shoulder PFSH Past Medical History Arthritis: Yes Asthma: No Autoimmune Disease: No Blood Disorders: No Anxiety: Yes Depression: Yes Heart Rhythm Problems: Yes (heart murmur) Cancer: Yes (cancer of skin on face) Cardiac Catheterization: Yes Cardiovascular Problems: Yes (NSTEMI ID, CAD, HTN, STENTS) High Cholesterol: No Chemotherapy: No Chest Pain: No Congestive Heart Failure: No Cirrhosis: Yes COPD: No Cerebrovascular Accident: No Coronary Artery Disease: Yes Diabetes: No Diminished Hearing: No Endocrine: No Gastrointestinal Disorders: Yes (ESOPHAGEAL VARICIES, GERD, CIRRHOSIS) GERD: Yes Glaucoma: No Genitourinary: No Headaches: No 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) Hiatal Hernia: No Heparin Induced Thrombocytopen: No Hypertension: Yes Immune Disorder: No Implanted Vascular Access Dvce: No Insomnia: Yes Kidney Stones: No Musculoskeletal: Yes (back/ rigth leg pain) Neurologic: Yes (NEUROPATHY FEET) Psychiatric: No Reproductive: No Respiratory: No Immunizations Current: Yes Myocardial Infarction: Yes Radiation Therapy: No Renal Failure: No Seizures: No Sickle Cell Disease: No Sleep Apnea: No Thyroid Disease: No Ulcer: No ?: Not Past Surgical History Abdominal Surgery: Yes (COLONOSCOPY PROCEDURE WITH POLYPECTOMY) AICD: No Cardiac Surgery: Yes (HEART STENT, HEART CATH) Coronary Artery Bypass Graft: No Coronary Stent: Yes Ear Surgery: No Endocrine Surgery: No Eye Surgery: No Genitourinary Surgery: No Gynecologic Surgery: No Joint Replacement: No Neurologic Surgery: No Oral Surgery: No Pacemaker: No Thoracic Surgery: No Tonsillectomy: Yes Social History Alcohol Use: No (QUIT 4 YEARS AGO) Tobacco Use: No Substance Use: No Allergies-Medications (Allergen,Severity, Reaction): Coded Allergies: No Known Allergies (Verified Adverse Reaction, Unknown, 04/29/17) Reported Meds & Prescriptions Reported Meds & Active Scripts Active Ventolin Hfa 18 GM Inh (Albuterol Sulfate) 90 Mcg/Act Aer 2 Puff INH Q6H PRN Oxycodone (Oxycodone HCl) 5 Mg Tab 5 Mg PO Q4H PRN Vancomycin (Vancomycin HCl) 250 Mg Cap 250 Mg PO QID 5 Days Lactulose 10 Gm/15 Ml Solution 30 Ml PO DAILY 30 Days Baclofen 10 Mg Tab 10 Mg PO TID PRN 30 Days Take with food or milk Meclizine (Meclizine HCl) 25 Mg Tab 25 Mg PO DAILY PRN Gabapentin 800 Mg Tab 300 Mg PO TID Spironolactone 50 Mg Tab 25 Mg PO DAILY Reported Xifaxan (Rifaximin) 550 Mg Tab 550 Mg PO Q8HR 14 Days Thiamine HCl 500 Mg Tablet 500 Mg PO DAILY Hydrocortisone Topical 2.5% Lotn 1 Appl TOPICAL BID B-50 Complex (Vitamin B Complex) 1 Each Tablet.er 100 Mg PO BID Fish Oil 1,000 mg Softgel ([place]-3/Dha/Epa/Fish Oil) 1,000 Mg Capsule 1,000 Mg PO TID Tylenol (Acetaminophen) 325 Mg Tab 650 Mg PO Q4H PRN Citalopram (Citalopram Hydrobromide) 40 Mg Tab 40 Mg PO DAILY Buspirone (Buspirone HCl) 10 Mg Tab 10 Mg PO TID Carvedilol 6.25 Mg Tab 6.25 Mg PO DAILY Pantoprazole (Pantoprazole Sodium) 40 Mg Tab 40 Mg PO DAILY Furosemide 20 Mg Tab 20 Mg PO DAILY Review of Systems Except as stated in HPI: all other systems reviewed are Neg Physical Exam Narrative GENERAL: Well-nourished, well-developed patient. SKIN: Focused skin assessment warm/dry. HEAD: Normocephalic. Atraumatic EYES: No scleral icterus. No injection or drainage. NECK: Supple, trachea midline. No JVD or lymphadenopathy. CARDIOVASCULAR: Regular rate and rhythm without murmurs, gallops, or rubs. RESPIRATORY: Breath sounds equal bilaterally. No accessory muscle use. GASTROINTESTINAL: Abdomen soft, non-tender, nondistended. MUSCULOSKELETAL: No cyanosis, or edema. Minimal tenderness about the distal third of the right clavicle, no humeral tenderness, pulse motor and sensory intact distally in all 4 extremities, no midline CT or L-spine tenderness. BACK: Nontender without obvious deformity. No CVA tenderness. Data Data Last Documented VS Vital Signs Date Time Temp Pulse Resp B/P (MAP) Pulse Ox O2 Delivery O2 Flow Rate FiO2 04/29/17 11:45 20 04/29/17 10:07 97.7 58 184/76 (112) 100 Orders Orders Shoulder, Complete (>2vws) (04/29/17 ) Oxycodone (Roxicodone) (04/29/17 10:15) Sling Cradle Arm (04/29/17 ) Ed Discharge Order (04/29/17 11:18) Sling Cradle Arm (04/29/17 ) MDM Medical Decision Making Medical Screen Exam Complete: Yes Emergency Medical Condition: Yes Differential Diagnosis Clavicle fracture, humeral fracture, shoulder fracture, strain, sprain, Narrative Course Patient roomed emergency department for uncomplicated clavicle fracture, x-ray confirms. No indication further workup at this time. Outpatient referral made for orthopedics, sling until seen by orthopedics. He is stable for discharge. Last 24 hours Impressions Shoulder X-Ray 04/29/17 0000 Signed Impressions: Service Date/Time: March 10:23 - CONCLUSION: Acute distal clavicular fracture. Zeke Duran Jr., MD Diagnosis Primary Impression: Clavicle fracture Referrals: Xander Hernandez Jr., MD Patient Instructions: General Instructions, Clavicle Fracture (ED) Departure Forms: Tests/Procedures Disposition: 01 DISCHARGE HOME Condition: Stable Rufino Crowell MD May 03, 2017 11:01
== END 2017-04-29 12:57 | disposition home or self-care (01) ==
LOC: NEPC 09:54
DX: S42.031A Displaced fracture of lateral end of right clavicle, initial encounter for closed fracture (principal); I10 Essential (primary) hypertension; I25.2 Old myocardial infarction; W19.XXXA Unspecified fall, initial encounter; Y92.129 Unspecified place in nursing home as the place of occurrence of the external cause; Z87.39 Personal history of other diseases of the musculoskeletal system and connective tissue; Z86.59 Personal history of other mental and behavioral disorders; Z86.79 Personal history of other diseases of the circulatory system; Z85.828 Personal history of other malignant neoplasm of skin; Z87.19 Personal history of other diseases of the digestive system; Z86.69 Personal history of other diseases of the nervous system and sense organs
CPT/HCPCS: 73030; 99285

== ENCOUNTER 2017-09-16 09:24 | Emergency (ER) | payer MEDICARE, MEDICAID ==
[~2017-09-16] VITALS: Ht 180.3 cm; Wt 115.0 kg
[2017-09-16 09:34] VITALS: BP 140/66; PULSE 70; RESP 16; TEMP 98.2; O2SAT 96
--- NOTE | 2017-09-16 09:57 | PD ---
HPI Chief Complaint: Fall Time Seen by Provider: 09:54 Travel History International Travel<30 days: No Contact w/Intl Traveler<30days: No Traveled to known affect area: No History of Present Illness HPI Patient had a mechanical fall tripping over the foot rest of the wheelchair .... Patient has weakness to his lower extremities due to neuropathy and that is the reason why he utilizes a wheelchair to ambulate about. However he still able to ambulate this particular incident occurred while he was trying to place some bags onto his wheelchair prior to sitting down. Patient landed onto his knees struck part of his forehead and left forearm as well as the left side of his forehead when he landed. Patient denies any LOC, denies any nausea vomiting or blurred vision or any other visual abnormalities. Patient denies any alleviating or aggravating factors. Patient denies any associated factors such as fever, headache, nausea, vomiting, diarrhea, abdominal pain, back pain, chest pain. No known drug allergy Past medical history significant for neuropathy, non-STEMI, CAD, hypertension, stents cardiac, esophageal varices, GERD, cirrhosis, hypertension, arthritis, depression, anxiety, C. difficile history PFSH Past Medical History Arthritis: Yes Asthma: No Autoimmune Disease: No Blood Disorders: No Anxiety: Yes Depression: Yes Heart Rhythm Problems: Yes (heart murmur) Cancer: Yes (cancer of skin on face) Cardiac Catheterization: Yes Cardiovascular Problems: Yes (NSTEMI MA, CAD, HTN, STENTS) High Cholesterol: No Chemotherapy: No Chest Pain: No Congestive Heart Failure: No Cirrhosis: Yes COPD: No Cerebrovascular Accident: No Coronary Artery Disease: Yes Diabetes: No Diminished Hearing: No Endocrine: No Gastrointestinal Disorders: Yes (ESOPHAGEAL VARICIES, GERD, CIRRHOSIS) GERD: Yes Glaucoma: No Genitourinary: No Headaches: No 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) Hiatal Hernia: No Heparin Induced Thrombocytopen: No Hypertension: Yes Immune Disorder: No Implanted Vascular Access Dvce: No Insomnia: Yes Kidney Stones: No Musculoskeletal: Yes (back/ rigth leg pain) Neurologic: Yes (NEUROPATHY FEET) Psychiatric: No Reproductive: No Respiratory: No Immunizations Current: Yes Myocardial Infarction: Yes Radiation Therapy: No Renal Failure: No Seizures: No Sickle Cell Disease: No Sleep Apnea: No Thyroid Disease: No Ulcer: No Past Surgical History Abdominal Surgery: Yes (COLONOSCOPY PROCEDURE WITH POLYPECTOMY) AICD: No Cardiac Surgery: Yes (HEART STENT, HEART CATH) Coronary Artery Bypass Graft: No Coronary Stent: Yes Ear Surgery: No Endocrine Surgery: No Eye Surgery: No Genitourinary Surgery: No Gynecologic Surgery: No Joint Replacement: No Neurologic Surgery: No Oral Surgery: No Pacemaker: No Thoracic Surgery: No Tonsillectomy: Yes Social History Alcohol Use: No (QUIT 4 YEARS AGO) Tobacco Use: No Substance Use: No Allergies-Medications (Allergen,Severity, Reaction): Coded Allergies: No Known Allergies (Verified Allergy, Unknown, 09/16/17) Reported Meds & Prescriptions Reported Meds & Active Scripts Active Ventolin Hfa 18 GM Inh (Albuterol Sulfate) 90 Mcg/Act Aer 2 Puff INH Q6H PRN Oxycodone (Oxycodone HCl) 5 Mg Tab 5 Mg PO Q4H PRN Vancomycin (Vancomycin HCl) 250 Mg Cap 250 Mg PO QID 5 Days Lactulose 10 Gm/15 Ml Solution 30 Ml PO DAILY 30 Days Baclofen 10 Mg Tab 10 Mg PO TID PRN 30 Days Take with food or milk Meclizine (Meclizine HCl) 25 Mg Tab 25 Mg PO DAILY PRN Gabapentin 800 Mg Tab 300 Mg PO TID Spironolactone 50 Mg Tab 25 Mg PO DAILY Reported Xifaxan (Rifaximin) 550 Mg Tab 550 Mg PO Q8HR 14 Days Thiamine HCl 500 Mg Tablet 500 Mg PO DAILY Hydrocortisone Topical 2.5% Lotn 1 Appl TOPICAL BID B-50 Complex (Vitamin B Complex) 1 Each Tablet.er 100 Mg PO BID Fish Oil 1,000 mg Softgel ([place]-3/Dha/Epa/Fish Oil) 1,000 Mg Capsule 1,000 Mg PO TID Tylenol (Acetaminophen) 325 Mg Tab 650 Mg PO Q4H PRN Citalopram (Citalopram Hydrobromide) 40 Mg Tab 40 Mg PO DAILY Buspirone (Buspirone HCl) 10 Mg Tab 10 Mg PO TID Carvedilol 6.25 Mg Tab 6.25 Mg PO DAILY Pantoprazole (Pantoprazole Sodium) 40 Mg Tab 40 Mg PO DAILY Furosemide 20 Mg Tab 20 Mg PO DAILY Review of Systems General / Constitutional: No: Fever Eyes: No: Visual changes HENT: No: Headaches Cardiovascular: No: Chest Pain or Discomfort Respiratory: No: Shortness of Breath Gastrointestinal: No: Abdominal Pain Genitourinary: No: Dysuria Musculoskeletal: No: Pain Skin: Positive Other (Abrasions another lesions secondary to fall) Neurologic: No: Weakness Psychiatric: No: Depression Endocrine: No: Polydipsia Hematologic/Lymphatic: No: Easy Bruising Physical Exam Narrative GENERAL: SKIN: Warm and dry. 3 cm laceration over the left eyebrow, L-shaped laceration on her right knee and short part of the L3 centimeters longer part of the L is about 5 cm, abrasions to the left forearm with skin avulsion, right skin avulsion over the patella HEAD: Atraumatic. Normocephalic. EYES: Pupils equal and round. No scleral icterus. No injection or drainage. ENT: No nasal bleeding or discharge. Mucous membranes pink and moist. NECK: Trachea midline. No JVD. CARDIOVASCULAR: Regular rate and rhythm. RESPIRATORY: No accessory muscle use. Clear to auscultation. Breath sounds equal bilaterally. GASTROINTESTINAL: Abdomen soft, non-tender, nondistended. Hepatic and splenic margins not palpable. MUSCULOSKELETAL: Extremities without clubbing, cyanosis, or edema. No obvious deformities. NEUROLOGICAL: Awake and alert. No obvious cranial nerve deficits. Motor grossly within normal limits. Five out of 5 muscle strength in the arms and legs. Normal speech. PSYCHIATRIC: Appropriate mood and affect; insight and judgment normal. Exam Front Extremities 1 - Laceration (3 cm length and requred one horizontal mattress suture) 2 - Laceration (longer side of l shaped laceration, 6 cm, required 2 horizontal mattress sutures) Data Data Last Documented VS Vital Signs Date Time Temp Pulse Resp B/P (MAP) Pulse Ox O2 Delivery O2 Flow Rate FiO2 09/16/17 12:22 86 Nasal Cannula 2.00 09/16/17 09:34 71 16 09/16/17 09:34 98.2 140/66 (90) Orders Orders Lidocai-Epi 1%-1:100,000 Inj (Xylocaine- (09/16/17 10:30) Lidocai-Epi 1%-1:100,000 Inj (Xylocaine- (09/16/17 10:34) Ct Brain W/O Iv Contrast(Rout) (09/16/17 11:16) MDM Medical Decision Making Medical Screen Exam Complete: Yes Emergency Medical Condition: Yes Medical Record Reviewed: Yes Differential Diagnosis Intracranial hemorrhage versus scalp laceration Narrative Course CT head is negative for any intracranial hemorrhage, skull fracture or sinus infection. Procedures Procedure Narrative LACERATION LOCATION: [Right knee-] LENGTH: L-shaped 3 x 6 cm NUMBER OF STITCHES/JALYN: [-3 horizontal mattress interrupted] REPAIR: The area of the laceration was prepped with Betadine and sterilely draped. The laceration was infiltrated with [-6 mL of 1% lidocaine]. The wound was copiously irrigated and explored without evidence of foreign body, tendon injury or neurovascular injury. The wound was closed using [3-0 Prolene- ]. This was a single layer repair. A sterile dressing was applied. The patient was advised to keep the dressing clean and dry. Patient tolerated the procedure well. LACERATION LOCATION: [Left for him] LENGTH: [3 cm-] NUMBER OF STITCHES/JALYN: None, Dermabond use REPAIR: The area of the laceration was prepped with Betadine and sterilely draped. The laceration was infiltrated with [not applicable-]. The wound was copiously irrigated and explored without evidence of foreign body, tendon injury or neurovascular injury. The wound was closed using Dermabond. This was a single layer repair. A sterile dressing was applied. The patient was advised to keep the dressing clean and dry. Patient tolerated the procedure well. The patient had Steri-Strips applied to reapproximate the wound and then followed by Dermabond application over Steri-Strips. Diagnosis Primary Impression: Forehead laceration status post Dermabond repair Additional Impression: Right knee laceration status post suture repair Disposition: 01 DISCHARGE HOME Condition: Stable Colt Galvan MD Sep 16, 2017 09:57
[2017-09-16] MEDS ORDERED: LIDOCAINE 1%/EPINEPHrine 1:100,000 SOLN 20 ML VIAL INFIL ONE (10:30)
[2017-09-16] MEDS ORDERED: LIDOCAINE 1%/EPINEPHrine 1:100,000 SOLN 50 ML VIAL ONE (10:34)
--- NOTE | 2017-09-16 12:02 | RADRPT ---
EXAM DATE/TIME: 09/16/2017 11:42 [facility] COMPARISON: CT BRAIN W/O CONTRAST, December 29, 2016, 5:03. INDICATIONS : Fall from wheel chair laceration left fore head. RADIATION DOSE: 56.35 CTDIvol (mGy) MEDICAL HISTORY : Cardiovascular disease. Hypertension. SURGICAL HISTORY : None. ENCOUNTER: Initial ACUITY: 1 day PAIN SCALE: 0/10 LOCATION: cranial TECHNIQUE: Multiple contiguous axial images were obtained of the head. Using automated exposure control and adj ustment of the mA and/or kV according to patient size, radiation dose was kept as low as reasonably a chievable to obtain optimal diagnostic quality images. DICOM format image data is available electro nically for review and comparison. FINDINGS: CEREBRUM: The ventricles are normal for age. Cerebral atrophy. No evidence of midline shift, mass lesion, hemo rrhage or acute infarction. No extra-axial fluid collections are seen. POSTERIOR FOSSA: The cerebellum and brainstem are intact. The 4th ventricle is midline. The cerebellopontine angle i s unremarkable. EXTRACRANIAL: The visualized portion of the orbits is intact. SKULL: The calvaria is intact. No evidence of skull fracture. CONCLUSION: No acute intracranial disease. Justin Sullivan MD on September 16, 2017 at 11:59 Board Certified Radiologist. This report was verified electronically.
[2017-09-16 16:30] VITALS: BP 142/76; PULSE 87; RESP 14; O2SAT 96
== END 2017-09-16 17:09 | disposition home or self-care (01) ==
LOC: NEPD 09:24 → NEDAMB 17:09
DX: S01.81XA Laceration without foreign body of other part of head, initial encounter (principal); S81.011A Laceration without foreign body, right knee, initial encounter; G62.9 Polyneuropathy, unspecified; I10 Essential (primary) hypertension; W01.198A Fall on same level from slipping, tripping and stumbling with subsequent striking against other object, initial encounter; Z88.1 Allergy status to other antibiotic agents
CPT/HCPCS: 12004; 70450

== ENCOUNTER 2018-01-04 05:06 | Inpatient (IN) ==
[~2018-01-04 05:06] MED LIST changes: -B-50TAB4 PO; -BACL10TA PO; -BUSP10TA PO; -CARV6.252 PO; -CITA40TA4 PO; -FURO20TA PO; -GABA800T PO; -HYDR2.5L TOPICAL; -LACT10SO5 PO; -MECL-62 PO; +Metoprolol Tartrate 25 MG Tablet PO SCH; -OMEG100046 PO; -OXYC-392 PO; -PANT40TA3 PO; -SPIR50TA PO; -THIA500T PO; -TYLE325T PO; -VANC250C2 PO; -VENTAER INH; -XIFA550T4 PO
[2018-01-04] MEDS ORDERED: Chlorhexidine Gluconate 2% 1 Pack (2 Cloths) TOPICAL SCH (05:30)
[2018-01-04] MEDS ORDERED: Metoprolol Tartrate 25 MG Tablet PO SCH (05:30)
[2018-01-04] MEDS ORDERED: Insulin Regular (For Infusion) 100 UNIT in Sodium Chlor 0.9% Inj 99 ML IV.CONT PRN ×2 (05:31→12:15)
[2018-01-04] MEDS ORDERED: Chlorhexidine 4% Topical 120 APPLIC/120 ML Bottle TOPICAL SCH (05:45)
[2018-01-04] MEDS ORDERED: Sodium Chloride 0.9% Irr Bot 1,000 ML, Vancomycin Inj 1,000 MG IRRIGATION SCH ×2 (05:45)
[2018-01-04] MEDS ORDERED: Sodium Chlor 0.9% Inj 77.5 ML, Papaverine Inj 60 MG, Nitroglycerin Inj 100 MCG, dilTIAZ... IRRIGATION SCH ×3 (05:45)
[2018-01-04] MEDS ORDERED: Sodium Chlor 0.9% Inj 500 ML IV.SIG SCH (06:00)
[2018-01-04] MEDS ORDERED: Vancomycin Inj 1,750 MG in Sodium Chlor 0.9% Inj 500 ML IV.SIG SCH (06:00)
[2018-01-04] MEDS ORDERED: Vancomycin Inj 1 GM/200 ML PIGGYBACK IV.SIG ONE (06:00)
[2018-01-04] MEDS ORDERED: MethylPREDNISolone Sod Succinate Inj 125 MG/2 ML Vial ONE (06:06)
[2018-01-04] MEDS ORDERED: Cardioplegic Irr Soln 2,000 ML IRRIGATION ONE (07:16)
[2018-01-04] MEDS ORDERED: Albumin Human 25% Inj 50 ML IV.SIG ONE (07:16)
[2018-01-04] MEDS ORDERED: Calcium Chloride Inj 1 GM/10 ML Syringe ONE (07:17)
[2018-01-04] MEDS ORDERED: Potassium Chlor 40 mEq Premix 80 MEQ/200 ML PIGGYBACK ONE (07:18)
[2018-01-04] MEDS ORDERED: Heparin 10,000 UNITS/10 ML Vial (for IV use) ONE (07:18)
[2018-01-04] MEDS ORDERED: Vancomycin Inj 750 MG in Sodium Chlor 0.9% Inj 250 ML IV.SIG SCH (08:00)
[2018-01-04] MEDS: ceFAZolin 2 GM Premix Inj 0 GM/0 ML PIGGYBACK IV.SIG ONE ×2 (09:40→13:50)
[2018-01-04] MEDS: Heparin - SQ 10,000 UNITS/ML Vial ONE ×2 (09:41→12:26)
--- NOTE | 2018-01-04 11:13 | P.PNCV ---
- Note Subjective/Hospital Course: 67-year-old male/ initially seen 12/10/17 who resides in a retirement facility with history of chronic liver cirrhosis due to prior alcoholism. He used to live with his mother, but apparently he had some fall risk in the past. He does have a wheelchair, but he is able to stand with some assistance. He was having some mild chest pain on the left side. He was unsure if it was related to activity, since he is fairly wheelchair bound. He underwent cardiac workup, which has included a cardiac cath that showed ejection fraction of 60%, left main disease of 30%, proximal LAD 90%, the mid distal LAD 50%, the obtuse marginal 90% and the ramus was 80%. We were consulted to evaluate for coronary artery bypass graft. PAST MEDICAL HISTORY: bradycardia, alcoholic cirrhosis of the liver, coronary artery disease with prior non-ST segment DC with stenting of the LAD in 2013, esophageal reflux, history of esophageal varices with bands in 2014, hypertension, neuropathy, obesity, thrombocytopenia related to chronic liver disease, lymphangitis of the left lower limb. electively admitted today for surgery Objective: Vital Signs - 24 hr 01/04/18 05:53 Temperature 98.3 F Pulse Rate 57 L Respiratory Rate 20 Blood Pressure 142/63 H Pulse Oximetry 98 Labs: Laboratory Results - last 12 hr 01/04/18 06:30 Blood Type O Positive Blood Type Recheck Not needed Antibody Screen Negative MTS Gel Crossmatch See Detail - Plan (1) CAD (coronary artery disease), [place] coronary artery (2) Liver cirrhosis (1) CAD (coronary artery disease), [place] coronary artery Qualifiers: [place] vs. transplanted heart: [place] heart (2) Liver cirrhosis Qualifiers: Hepatic cirrhosis type: alcoholic cirrhosis
[2018-01-04] MEDS ORDERED: Nitroglycerin Drip Premix 50 MG/250 ML BOTTLE IV.SIG ONE (12:00)
[2018-01-04] MEDS ORDERED: Tranexamic Acid Inj 1,000 MG/10 ML Ampul IV.PUSH ONE (12:00)
[2018-01-04] MEDS ORDERED: Protamine Sulfate Inj 250 MG/25 ML Vial IV.CONT ONE (12:00)
[2018-01-04] MEDS ORDERED: Dexmedetomidine Inj 200 MCG/2 ML Vial IV.CONT ONE (12:00)
[2018-01-04] MEDS ORDERED: Artificial Tears Opth Oint 3.5 GM Tube EACH EYE ONE (12:00)
[2018-01-04] MEDS ORDERED: Propofol Inj 500 MG/50 ML Vial IV.SIG ONE (12:00)
[2018-01-04] MEDS ORDERED: Glycopyrrolate 0.2 MG/ML Vial IV.PUSH ONE (12:00)
[2018-01-04] MEDS ORDERED: Phenylephrine/NS 1000 MCG/10ML Syringe IV.PUSH ONE (12:00)
[2018-01-04] MEDS ORDERED: Heparin - SQ 10,000 UNITS/ML Vial OTHER ONE (12:00)
[2018-01-04] MEDS ORDERED: Sodium Chlor 0.9% Inj 500 ML IV.SIG ONE ×2 (12:00)
[2018-01-04] MEDS ORDERED: Calcium Chloride Inj 1 GM in Sodium Chlor 0.9% Inj 100 ML IV.SIG PRN (12:15)
[2018-01-04] MEDS ORDERED: RESP: Racemic Epinephrine 2.25% 0.5 ML Neb NEB ONE (12:15)
[2018-01-04] MEDS ORDERED: Clevidipine Inj 25 MG/50 ML VIAL IV.CONT PRN (12:15)
[2018-01-04] MEDS ORDERED: Potassium Chlor 20 mEq Premix 20 MEQ/100 ML PIGGYBACK IV.SIG PRN ×3 (12:15)
[2018-01-04] MEDS ORDERED: Post-op Orders (for Pharmacy) OTHER STA (12:15)
[2018-01-04] MEDS ORDERED: Magnesium Sulfate Inj 2 GM in Sodium Chlor 0.9% Inj 96 ML IV.SIG PRN ×4 (12:15)
[2018-01-04] MEDS ORDERED: Dexmedetomidine Inj 200 MCG in Sodium Chlor 0.9% Inj 48 ML IV.CONT PRN (12:15)
[2018-01-04] MEDS ORDERED: Calcium Chloride Inj 1 GM/10 ML Syringe IV.PUSH PRN (12:15)
[2018-01-04] MEDS ORDERED: Metoprolol Inj 5 MG/5 ML Vial IV.PUSH PRN (12:15)
[2018-01-04] MEDS ORDERED: Dextrose 50% in Water 50 ML Vial IV.PUSH PRN (12:15)
[2018-01-04] MEDS ORDERED: hydrALAZINE HCl Inj 20 MG/ML Vial IV.PUSH PRN (12:15)
[2018-01-04] MEDS ORDERED: Dextrose 5%/NaCl 0.45% Inj 500 ML IV.SIG ONE (12:23)
--- NOTE | 2018-01-04 12:30 | P.OP ---
- Preoperative Diagnosis (1) Angina pectoris (2) CAD (coronary artery disease), [place] coronary artery (3) Liver cirrhosis (4) Thrombocytopenia (5) Esoph varice other dis - Postoperative Diagnosis (1) CAD (coronary artery disease), [place] coronary artery (2) Liver cirrhosis (3) Thrombocytopenia (4) Angina pectoris Date of procedure: 01/04/18 Procedure: CABG x 2 ONEAL to LAD SVG to Ramus EVH (R) Anesthesia: GETA Surgeon: Shaista Chua MD Shrimp Packer: Santhosh Wilson Pathology: none sent Operation and Findings: The risks, benefits, complications, treatment options, and expected outcomes were discussed with the patient. The possibilities of reaction to medication, pulmonary aspiration, perforation of viscus, bleeding, recurrent infection, the need for additional procedures, failure to diagnose a condition, and creating a complication requiring transfusion or operation were discussed with the patient. The patient concurred with the proposed plan, giving informed consent. The site of surgery properly noted/marked. The patient was taken to Operating Room, identified as Stef Goff and the procedure verified as CABG, EVH. A Time Out was held and the above information confirmed. Standard monitoring lines and Koenig catheter were placed. General anesthesia was induced. The patient was prepped and draped in a sterile fashion. A median sternotomy was performed and electrocautery was used to obtain hemostasis. The left internal mammary artery was procured as a pedicle from the 7th rib to the 1st rib in the usual manner. Simultaneously right greater saphenous vein was procured from the right leg using a minimally invasive endoscopic technique. The vein was prepared for anastomosis and the leg wound was irrigated and closed in 2 layers. The pericardium was opened and a pericardial sling was created using interrupted 0 silk sutures. The patient was heparinized for cardiopulmonary bypass and the distal mammary pedicle was instrumented for anastomosis. The heart was instrumented for cardiopulmonary bypass in the usual manner. Antegrade blood cardioplegia was employed. The patient was placed on cardiopulmonary bypass. An aortic cross-clamp was applied and the heart was arrested using cold blood cardioplegia. Antegrade cardioplegia was administered after he each anastomosis. The OM1 artery was examined and found to be too small to graft. After adequate arrest, Ramus Intermedius artery was opened with a [place] blade and found to be a 1.5 millimeter good target. Saphenous vein was approximated to the RI artery using a running 7 0 Prolene suture. The graft was measured for length and orientation and was suspended from the pericardium. The distal LAD was opened with a [place] blade and found to be a 1.5 millimeter good target. The left internal mammary artery was approximated to the LAD using a running 7 0 Prolene suture. The pedicle was attached to the epicardium using interrupted 5 0 silk suture. The patient was systemically rewarmed and received a hotshot dose of warm blood cardioplegia. The aorta was vented and the proximal anastomosis to the RI graft was accomplished using a running 5 0 Prolene suture after creating an aortotomy was a 5 millimeter punch. The cross -clamp was removed and all proximal and distal anastomoses were examined for hemostasis. The patient was paced weaned from cardiopulmonary bypass. Protamine was given. There was no adverse reaction. Decannulation was carried out without incident. Wound was checked for hemostasis which was obtained using electrocautery. A 36 Bengali mediastinal and 32 [place] left pleural chest tubes were placed and secured to the skin with 0 silk suture. The sternum was closed with stainless steel wire. The fascia was closed with 1. PDS. The subcutaneous tissue was closed using a running 2-0 Vicryl suture. The skin was closed with 4-0 Monocryl. Sterile dressings were placed. At the end of the operation, all sponge, instruments, and needle counts were correct. The patient was transferred to the CICU in stable condition. Findings: Friable tissue. OM1 too small to graft XC: 30 min CPB: 56 min Drains: mediastinal x 1 pleural x 1 Complications: none Disposition: to CVICU in stable condition
[2018-01-04] MEDS ORDERED: fentaNYL Citrate Inj 250 MCG/5 ML Ampul ONE (12:54)
[2018-01-04] MEDS: Potassium Chlor 10 mEq Premix 10 MEQ/100 ML PIGGYBACK IV.SIG PRN ×2 (14:05→15:10)
--- NOTE | 2018-01-04 14:06 | XR ---
EXAM DATE: 01/04/2018 1:54 PM EDT AGE/SEX: 67 years / Male INDICATIONS: Post-op CABG. CLINICAL DATA: This is the patient's subsequent encounter. Patient reports that signs and symptoms h ave been present for 1 day and indicates a pain score of Nonresponsive. MEDICAL/SURGICAL HISTORY: Cardiovascular disease. . Coronary artery stent. COMPARISON: . FINDINGS: A single AP view of the chest demonstrates recent CABG. Endotracheal tube seen with tip 2 cm above th e tiera. Left-sided chest tube and mediastinal chest tube noted. No pneumothorax. Right jugular cent ral line with tip in the right atrium. Heart enlarged. The cardiomediastinal contours are unremarkab le. Osseous structures are intact. CONCLUSION: Status post CABG with support lines and tubes as described above. Electronically signed by: Justin Sullivan MD 01/04/2018 2:04 PM EDT
[2018-01-04] MEDS: Baclofen 10 MG Tablet PO SCH ×2 (14:07→18:24)
[2018-01-04] MEDS ORDERED: Potassium Chloride Inj 20 MEQ in Sodium Chlor 0.9% Inj 100 ML IV.SIG ONE (18:00)
[2018-01-04] MEDS: Vancomycin Inj 1,000 MG in Sodium Chlor 0.9% Inj 250 ML IV.SIG SCH (22:05)
[2018-01-04] MEDS: Albumin Human 5% Inj 250 ML IV.SIG PRN (22:05)
[2018-01-05] MEDS: Albumin Human 5% Inj 250 ML IV.SIG PRN (00:17)
[2018-01-05] MEDS: fentaNYL Citrate Inj 100 MCG/2 ML Ampul IV.PUSH PRN ×5 (01:18→23:47)
--- NOTE | 2018-01-05 05:40 | XR ---
EXAM DATE: 01/05/2018 5:12 AM EDT AGE/SEX: 67 years / Male INDICATIONS: Post CABG. CLINICAL DATA: This is the patient's subsequent encounter. Patient reports that signs and symptoms h ave been present for 2 days and indicates a pain score of 8/10. MEDICAL/SURGICAL HISTORY: Cardiovascular disease. Coronary artery stent. COMPARISON: [facility], CHEST 1V SINGLE AP, 01/04/2018. . FINDINGS: The endotracheal tube has been removed. Right jugular line noted. Left-sided chest tube is noted. No obvious pneumothorax or infiltrate on the right. No evidence of pneumothorax on the left. There is st reaky left basilar airspace disease.. CONCLUSION: The appearance of the chest. Electronically signed by: Jayce Feng MD 01/05/2018 5:38 AM EDT
[2018-01-05 05:52] LABS: Hemoglobin 10.1 gm/dL (13.0-17.0); Mean Corpuscular HGB Conc 34.8 % (32.0-36.0); Mean Corpuscular Hemoglobin 32.2 pg (27.0-34.0); Mean Corpuscular Volume 92.5 fL (80.0-100.0); Mean Platelet Volume 9.7 fL (7.0-11.0); Platelet Count 50 th/mm3 (150-450); Red Blood Count 3.14 mil/mm3 (4.50-5.90); Red Cell Distribution Width 15.6 % (11.6-17.2); White Blood Count 7.2 th/mm3 (4.0-11.0)
[2018-01-05 06:09] LABS: Anion Gap 10 meq/L (5-15); Blood Urea Nitrogen 14 mg/dL (7-18); Calcium 7.7 mg/dL (8.5-10.1); Carbon Dioxide 22.3 meq/L (21.0-32.0); Chloride 111 meq/L (98-107); Glomerular Filtration Rate Greater Than 89 mL/min (>89); Glucose,Random 105 mg/dL (74-106); Magnesium 1.9 mg/dL (1.5-2.5); Potassium 4.6 meq/L (3.5-5.1); Sodium 143 meq/L (136-145)
[2018-01-05] MEDS ORDERED: Bisacodyl 10 MG Supp RECTAL PRN (08:53)
[2018-01-05] MEDS ORDERED: Dextrose 50% in Water 50 ML Vial IV.PUSH PRN (08:53)
[2018-01-05] MEDS ORDERED: Sod Phosphate/Sod Biphosphate (Adult) Enema 133 ML Bottle RECTAL PRN (08:53)
[2018-01-05] MEDS ORDERED: FOLIC ACID IV.SIG SCH (09:00)
[2018-01-05] MEDS ORDERED: THIAMINE IV.SIG SCH (09:00)
[2018-01-05] MEDS: Baclofen 10 MG Tablet PO SCH ×3 (09:00→17:53)
[2018-01-05] MEDS ORDERED: [UNRECOGNIZED DRUG - OTHER] IV.SIG SCH (09:00)
[2018-01-05] MEDS ORDERED: MULTIVITAMIN IV.SIG SCH (09:00)
[2018-01-05] MEDS: Vancomycin Inj 1,000 MG in Sodium Chlor 0.9% Inj 250 ML IV.SIG SCH ×2 (09:32→21:19)
[2018-01-05] MEDS: Insulin NovoLOG Aspart Correctional Sugar Inj SQ SCH ×4 (09:58→21:36)
[2018-01-05] MEDS: Multivitamin/Minerals Therapeutic Tablet PO SCH (09:58)
--- NOTE | 2018-01-05 10:02 | P.PNCV ---
- Note Subjective/Hospital Course: 67-year-old male/ initially seen 12/10/17 who resides in a nursing home facility with history of chronic liver cirrhosis due to prior alcoholism. He used to live with his mother, but apparently he had some fall risk in the past. He does have a wheelchair, but he is able to stand with some assistance. He was having some mild chest pain on the left side. He was unsure if it was related to activity, since he is fairly wheelchair bound. He underwent cardiac workup, which has included a cardiac cath that showed ejection fraction of 60%, left main disease of 30%, proximal LAD 90%, the mid distal LAD 50%, the obtuse marginal 90% and the ramus was 80%. We were consulted to evaluate for coronary artery bypass graft. PAST MEDICAL HISTORY: bradycardia, alcoholic cirrhosis of the liver, coronary artery disease with prior non-ST segment MD with stenting of the LAD in 2013, esophageal reflux, history of esophageal varices with bands in 2014, hypertension, neuropathy, obesity, thrombocytopenia related to chronic liver disease, lymphangitis of the left lower limb. electively admitted today for surgery 01/04 CABG x 2, ONEAL to LAD, SVG to Ramus, EVH (R) extubated after surgery, CPB time 56min, 3000cc crystalloid, 750cc cell saver, 1500cc EBL 01/05 pt mildly confused, very poor physical strength will need PT/OT 2 person assistance limit narcotics / transfer pt to stepdown, close to nurses station, fall risk PLT 50K ( from 83 preop) hold ASA, no statin for now with hx of liver cirrhosis start low dose BB this pm, consider diuresis in am Objective: Vital Signs - 24 hr 01/04/18 12:53 01/04/18 13:22 01/04/18 13:24 Temperature 97.2 F L Pulse Rate 61 61 Respiratory Rate 14 14 Blood Pressure 142/63 H Pulse Oximetry 94 L 95 01/04/18 13:43 01/04/18 15:07 01/04/18 16:07 Temperature 97.2 F L 97.2 F L Pulse Rate 61 Respiratory Rate 14 Blood Pressure 142/63 H Pulse Oximetry 95 96 01/04/18 16:15 01/04/18 17:09 01/04/18 17:17 Temperature 97.2 F L Pulse Rate 71 Respiratory Rate 20 Blood Pressure Pulse Oximetry 95 01/04/18 19:00 01/04/18 20:00 01/04/18 21:00 Temperature 97 F L 98 F Pulse Rate 72 Respiratory Rate 18 18 Blood Pressure 126/59 L Pulse Oximetry 97 01/04/18 21:32 01/04/18 21:33 01/04/18 23:00 Temperature 98.2 F Pulse Rate 74 74 Respiratory Rate 20 20 Blood Pressure 106/56 L Pulse Oximetry 97 01/05/18 00:00 01/05/18 03:00 01/05/18 04:00 Temperature 98.5 F Pulse Rate 80 Respiratory Rate 20 16 18 Blood Pressure 108/48 L Pulse Oximetry 01/05/18 04:56 01/05/18 07:00 01/05/18 08:00 Temperature 98.3 F Pulse Rate 85 84 Respiratory Rate 16 18 18 Blood Pressure 112/50 L Pulse Oximetry 96 01/05/18 09:31 Temperature Pulse Rate Respiratory Rate 20 Blood Pressure Pulse Oximetry GENERAL: awake, slightly confused SKIN: Warm and dry. prevena dressing to chest , gordon wrap to right leg very poor skin turgor, ecchymotic areas to forearms and outside of prevena dressing HEAD: Normocephalic. EYES: No scleral icterus. No injection or drainage. NECK: Supple, trachea midline. No JVD or lymphadenopathy. CARDIOVASCULAR: Regular rate and rhythm without murmurs, gallops, or rubs. general edema RESPIRATORY: Breath sounds equal bilaterally. No accessory muscle use. diminished in bases GASTROINTESTINAL: Abdomen soft, non-tender, nondistended. MUSCULOSKELETAL: No cyanosis, or edema. BACK: Nontender without obvious deformity. No CVA tenderness. Labs: Laboratory Results - last 12 hr 01/04/18 01/04/18 01/04/18 06:30 21:57 23:20 WBC RBC Hgb Hct MCV MCH MCHC RDW Plt Count MPV Sodium Potassium Chloride Carbon Dioxide Anion Gap BUN Creatinine Estimated GFR POC Glucose 94 104 Random Glucose Calcium Magnesium Blood Type O Positive Blood Type Recheck Not needed Antibody Screen Negative MTS Gel Crossmatch See Detail 01/05/18 01/05/18 01/05/18 00:23 01:06 02:25 WBC RBC Hgb Hct MCV MCH MCHC RDW Plt Count MPV Sodium Potassium Chloride Carbon Dioxide Anion Gap BUN Creatinine Estimated GFR POC Glucose 169 H 170 H 131 H Random Glucose Calcium Magnesium Blood Type Blood Type Recheck Antibody Screen MTS Gel Crossmatch 01/05/18 01/05/18 01/05/18 03:06 04:16 05:00 WBC 7.2 RBC 3.14 L Hgb 10.1 L Hct 29.0 L MCV 92.5 MCH 32.2 MCHC 34.8 RDW 15.6 Plt Count 50 L D MPV 9.7 Sodium Potassium Chloride Carbon Dioxide Anion Gap BUN Creatinine Estimated GFR POC Glucose 104 92 Random Glucose Calcium Magnesium Blood Type Blood Type Recheck Antibody Screen MTS Gel Crossmatch 01/05/18 01/05/18 01/05/18 05:00 05:03 06:09 WBC RBC Hgb Hct MCV MCH MCHC RDW Plt Count MPV Sodium 143 Potassium 4.6 Chloride 111 H Carbon Dioxide 22.3 Anion Gap 10 BUN 14 Creatinine 0.58 L Estimated GFR Greater than 89 POC Glucose 115 H 91 Random Glucose 105 Calcium 7.7 L Magnesium 1.9 Blood Type Blood Type Recheck Antibody Screen MTS Gel Crossmatch Result Diagrams: 01/05/18 05:00 01/05/18 05:00 Telemetry: NSR - Plan (1) S/P CABG x 2 Plan: hold ASA for PLT<70K no statin with hx of liver disease and cirrhosis start BB this pm OOB PT/OT will dc back to SNF at discharge (2) CAD (coronary artery disease), [place] coronary artery (3) Liver cirrhosis Plan: resume lactulose limit narcotics (4) Thrombocytopenia Plan: hold ASA for PLT <70k (7) Muscular deconditioning Plan: PT/OT (2) CAD (coronary artery disease), [place] coronary artery Qualifiers: [place] vs. transplanted heart: [place] heart (3) Liver cirrhosis Qualifiers: Hepatic cirrhosis type: alcoholic cirrhosis
[2018-01-05] MEDS: Gabapentin 400 MG Capsule PO SCH ×2 (14:15→17:53)
[2018-01-05] MEDS: Metoprolol Tartrate 25 MG Tablet PO SCH (21:18)
[2018-01-05] MEDS: Docusate Sodium 100 MG Capsule PO SCH (21:19)
[2018-01-05] MEDS: ALPRAZolam 0.25 MG Tablet PO PRN (21:19)
--- NOTE | 2018-01-05 22:08 | ECG ---
Date Performed: 01/05/2018 Time Performed: 14:51:26 PTAGE: 67 years EKG: Sinus rhythm Normal ECG PREVIOUS TRACING : 01/05/2018 04.31 Since the previous tracing, no significant change noted DOCTOR: Rose Marie Joshua Interpretating Date/Time 01/05/2018 22:07:20
--- NOTE | 2018-01-05 22:12 | ECG ---
Date Performed: 01/05/2018 Time Performed: 04:31:18 PTAGE: 67 years EKG: Sinus rhythm with 1st degree A-V block Inferior and lateral ST elevation - possible early repolarization Abnormal ECG PREVIOUS TRACING : 12/08/2017 11.54 Since the previous tracing, no significant change noted DOCTOR: Eloy Garcia Interpretating Date/Time 01/05/2018 22:10:18
[2018-01-06] MEDS: Insulin NovoLOG Aspart Correctional Sugar Inj SQ SCH ×5 (02:37→21:30)
[2018-01-06 04:57] LABS: Baso % (Auto) 0.2 % (0.0-2.0); Eos % (Auto) 0.2 % (0.0-4.0); Hematocrit 30.3 % (39.0-51.0); Hemoglobin 10.2 gm/dL (13.0-17.0); Lymph # (Auto) 1.5 th/mm3 (1.0-4.8); Lymph % (Auto) 11.9 % (9.0-44.0); Mean Corpuscular HGB Conc 33.7 % (32.0-36.0); Mean Corpuscular Hemoglobin 31.5 pg (27.0-34.0); Mean Corpuscular Volume 93.5 fL (80.0-100.0); Mean Platelet Volume 9.2 fL (7.0-11.0); Mono # (Auto) 1.2 th/mm3 (0.0-0.9); Mono % (Auto) 9.6 % (0.0-8.0); Neut # (Auto) 10.2 th/mm3 (1.8-7.7); Neut % (Auto) 78.1 % (16.0-70.0); Platelet Count 77 th/mm3 (150-450); Red Blood Count 3.24 mil/mm3 (4.50-5.90); Red Cell Distribution Width 15.9 % (11.6-17.2)
[2018-01-06 05:25] LABS: Anion Gap 6 meq/L (5-15); Blood Urea Nitrogen 15 mg/dL (7-18); Calcium 7.7 mg/dL (8.5-10.1); Carbon Dioxide 24.6 meq/L (21.0-32.0); Chloride 109 meq/L (98-107); Glomerular Filtration Rate Greater Than 89 mL/min (>89); Glucose,Random 111 mg/dL (74-106); Magnesium 2.2 mg/dL (1.5-2.5); Potassium 4.8 meq/L (3.5-5.1); Sodium 140 meq/L (136-145)
[2018-01-06] MEDS: fentaNYL Citrate Inj 100 MCG/2 ML Ampul IV.PUSH PRN (05:47)
[2018-01-06 08:10] LABS: Ovalocytes 1+; Platelet Morphology Normal (Normal)
[2018-01-06] MEDS ORDERED: Spironolactone 50 MG Tablet PO SCH (09:00)
[2018-01-06] MEDS: Polyethylene Glycol 3350 17 GM Packet PO SCH (09:00)
[2018-01-06] MEDS: Multivitamin/Minerals Therapeutic Tablet PO SCH (09:01)
[2018-01-06] MEDS: Metoprolol Tartrate 25 MG Tablet PO SCH ×2 (09:01→21:55)
[2018-01-06] MEDS: Docusate Sodium 100 MG Capsule PO SCH (09:01)
[2018-01-06] MEDS: Gabapentin 400 MG Capsule PO SCH ×3 (09:01→17:08)
[2018-01-06] MEDS: Baclofen 10 MG Tablet PO SCH ×3 (09:01→17:08)
--- NOTE | 2018-01-06 12:57 | P.PNCV ---
- Note Subjective/Hospital Course: 67-year-old male/ initially seen 12/10/17 who resides in a nursing home facility with history of chronic liver cirrhosis due to prior alcoholism. He used to live with his mother, but apparently he had some fall risk in the past. He does have a wheelchair, but he is able to stand with some assistance. He was having some mild chest pain on the left side. He was unsure if it was related to activity, since he is fairly wheelchair bound. He underwent cardiac workup, which has included a cardiac cath that showed ejection fraction of 60%, left main disease of 30%, proximal LAD 90%, the mid distal LAD 50%, the obtuse marginal 90% and the ramus was 80%. We were consulted to evaluate for coronary artery bypass graft. PAST MEDICAL HISTORY: bradycardia, alcoholic cirrhosis of the liver, coronary artery disease with prior non-ST segment [place] with stenting of the LAD in 2013, esophageal reflux, history of esophageal varices with bands in 2014, hypertension, neuropathy, obesity, thrombocytopenia related to chronic liver disease, lymphangitis of the left lower limb. electively admitted today for surgery 01/04 CABG x 2, ONEAL to LAD, SVG to Ramus, EVH (R) extubated after surgery, CPB time 56min, 3000cc crystalloid, 750cc cell saver, 1500cc EBL 01/05 pt mildly confused, very poor physical strength will need PT/OT 2 person assistance limit narcotics / transfer pt to stepdown, close to nurses station, fall risk PLT 50K ( from 83 preop) hold ASA, no statin for now with hx of liver cirrhosis start low dose BB this pm, consider diuresis in am 01/06 less confused, but very vocal PLT 77K, chest tube dc without difficulty on bid lasix , decrease spironolactone OOB , PT/OT wean 02 Objective: Vital Signs - 24 hr 01/05/18 12:59 01/05/18 15:00 01/05/18 16:00 Temperature 90 F L Pulse Rate 93 H 90 87 Respiratory Rate 20 26 H 20 Blood Pressure 129/64 Pulse Oximetry 95 95 01/05/18 19:00 01/05/18 20:00 01/05/18 20:48 Temperature 99.6 F Pulse Rate 88 84 87 Respiratory Rate 20 Blood Pressure 161/74 H Pulse Oximetry 97 97 01/05/18 21:00 01/05/18 22:00 01/05/18 23:00 Temperature 98.3 F Pulse Rate 86 84 77 Respiratory Rate Blood Pressure 135/73 Pulse Oximetry 95 01/06/18 00:00 01/06/18 01:00 01/06/18 02:00 Temperature Pulse Rate 82 72 84 Respiratory Rate Blood Pressure Pulse Oximetry 01/06/18 03:00 01/06/18 04:00 01/06/18 05:00 Temperature 97.7 F Pulse Rate 84 84 77 Respiratory Rate Blood Pressure 142/76 H Pulse Oximetry 96 01/06/18 06:00 01/06/18 07:00 01/06/18 08:00 Temperature 98.3 F Pulse Rate 79 83 84 Respiratory Rate 20 Blood Pressure 142/64 H Pulse Oximetry 97 01/06/18 09:00 01/06/18 09:53 01/06/18 10:06 Temperature Pulse Rate 82 79 Respiratory Rate Blood Pressure Pulse Oximetry 92 L 01/06/18 11:00 01/06/18 11:39 Temperature 98.2 F Pulse Rate 85 77 Respiratory Rate 18 Blood Pressure 134/67 Pulse Oximetry 94 L GENERAL: alert and oriented SKIN: Warm and dry. prevena dressing to chest , right leg incision intact with some drainage, + swelling HEAD: Normocephalic. EYES: No scleral icterus. No injection or drainage. NECK: Supple, trachea midline. No JVD or lymphadenopathy. CARDIOVASCULAR: Regular rate and rhythm without murmurs, gallops, or rubs. RESPIRATORY: Breath sounds equal bilaterally. No accessory muscle use. diminished in bases / chest tube dc GASTROINTESTINAL: Abdomen soft, non-tender, nondistended. MUSCULOSKELETAL: No cyanosis, or edema. BACK: Nontender without obvious deformity. No CVA tenderness. Labs: Laboratory Results - last 12 hr 01/06/18 01/06/18 01/06/18 02:37 04:40 04:40 WBC 13.0 H D RBC 3.24 L Hgb 10.2 L Hct 30.3 L MCV 93.5 MCH 31.5 MCHC 33.7 RDW 15.9 Plt Count 77 L D MPV 9.2 Prelim Diff (Auto) Slide review pending Neut % (Auto) 78.1 H Lymph % (Auto) 11.9 [place] % (Auto) 9.6 H Eos % (Auto) 0.2 Baso % (Auto) 0.2 Neut # (Auto) 10.2 H Lymph # (Auto) 1.5 [place] # (Auto) 1.2 H Eos # (Auto) 0.0 Baso # (Auto) 0.0 WBC Differential . Diff Scan Auto diff confirmed Differential Comment . Platelet Estimate Low L Platelet Morphology Normal Ovalocytes 1+ H Sodium 140 Potassium 4.8 Chloride 109 H Carbon Dioxide 24.6 Anion Gap 6 BUN 15 Creatinine 0.67 Estimated GFR Greater than 89 POC Glucose 108 Random Glucose 111 H Calcium 7.7 L Magnesium 2.2 01/06/18 11:38 WBC RBC Hgb Hct MCV MCH MCHC RDW Plt Count MPV Prelim Diff (Auto) Neut % (Auto) Lymph % (Auto) [place] % (Auto) Eos % (Auto) Baso % (Auto) Neut # (Auto) Lymph # (Auto) [place] # (Auto) Eos # (Auto) Baso # (Auto) WBC Differential Diff Scan Differential Comment Platelet Estimate Platelet Morphology Ovalocytes Sodium Potassium Chloride Carbon Dioxide Anion Gap BUN Creatinine Estimated GFR POC Glucose 111 H Random Glucose Calcium Magnesium Result Diagrams: 01/06/18 04:40 01/06/18 04:40 - Plan (1) S/P CABG x 2 Plan: hold ASA for PLT<70K no statin with hx of liver disease and cirrhosis start BB this pm OOB PT/OT will dc back to SNF at discharge (2) CAD (coronary artery disease), [place] coronary artery Plan: ASA, no statin with liver disease on BB OOB with PT/OT pain control continue diuresis (3) Liver cirrhosis Plan: resume lactulose limit narcotics (4) Thrombocytopenia Plan: hold ASA for PLT <70k now 77 (7) Muscular deconditioning Plan: PT/OT (2) CAD (coronary artery disease), [place] coronary artery Qualifiers: [place] vs. transplanted heart: [place] heart (3) Liver cirrhosis Qualifiers: Hepatic cirrhosis type: alcoholic cirrhosis
--- NOTE | 2018-01-06 14:36 | P.DIET ---
Nutritional Evaluation Type of nutrition evaluation: initial Nutrition screening: [facility] Screening comments: Diet Education Objective - Diagnosis CABG - Objective [place] body weight: 78.2 kg % IBW: 157 Dietitian Reviewed in Medical Record: Current diet, Curent medications, Intake & Output, Labs, Medical history Diet Order: Cardiac [id number] Objective Comments: 01/04/18 CABG x 2 GLucose 111 Assessment Assessment: Pt is s/p CABG x 2 01/04/18. [facility] for diet education. Patient Navigator to provide education. Please consult RD if complexities with diet education arise. Recommendations: 1.Patient Navigator to provide education 2.Please consult RD if complexities with diet education arise
[2018-01-06] MEDS: Spironolactone 25 MG Tablet PO SCH (15:29)
[2018-01-06] MEDS: ALPRAZolam 0.25 MG Tablet PO PRN (21:55)
--- NOTE | 2018-01-06 22:01 | ECG ---
Date Performed: 01/06/2018 Time Performed: 01:30:38 PTAGE: 67 years EKG: Atrial fibrillation. Abnormal ECG Compared to PREVIOUS TRACING , SR no longer present DOCTOR: Rose Marie Joshua Interpretating Date/Time 01/06/2018 22:01:06
[2018-01-07] MEDS: Docusate Sodium 100 MG Capsule PO SCH ×3 (00:16→21:40)
[2018-01-07 05:12] LABS: Hematocrit 26.8 % (39.0-51.0); Hemoglobin 9.3 gm/dL (13.0-17.0); Mean Corpuscular HGB Conc 34.8 % (32.0-36.0); Mean Corpuscular Hemoglobin 32.1 pg (27.0-34.0); Mean Corpuscular Volume 92.4 fL (80.0-100.0); Mean Platelet Volume 9.6 fL (7.0-11.0); Platelet Count 59 th/mm3 (150-450); Red Cell Distribution Width 15.9 % (11.6-17.2); White Blood Count 8.3 th/mm3 (4.0-11.0)
[2018-01-07 05:14] LABS: Anion Gap 3 meq/L (5-15); Blood Urea Nitrogen 21 mg/dL (7-18); Calcium 7.5 mg/dL (8.5-10.1); Carbon Dioxide 30.7 meq/L (21.0-32.0); Chloride 108 meq/L (98-107); Glomerular Filtration Rate Greater Than 89 mL/min (>89); Glucose,Random 100 mg/dL (74-106); Sodium 142 meq/L (136-145)
--- NOTE | 2018-01-07 06:23 | XR ---
EXAM DATE: 01/07/2018 5:55 AM EDT AGE/SEX: 67 years / Male INDICATIONS: Chest tube removal. CLINICAL DATA: This is the patient's subsequent encounter. Patient reports that signs and symptoms h ave been present for 2 days and indicates a pain score of 2/10. MEDICAL/SURGICAL HISTORY: . Cardiovascular disease. Coronary artery stent. CABG. COMPARISON: [facility], CHEST 1V SINGLE AP, 01/05/2018. . FINDINGS: Portable AP view of the chest demonstrate stable enlargement of the cardiac silhouette in this patien t post median sternotomy. Right IJ line remains present with distal tip likely in the right atrium. E KG lines overlie the patient. Lungs are underinflated and there is stable left basilar/retrocardiac o pacity. Clips overlie the left mid hemithorax. Left chest tube has been removed. No pneumothorax is i dentified. CONCLUSION: 1. Left chest tube has been removed and no pneumothorax is visualized. 2. Mild atelectasis versus consolidation at the left lung base. Electronically signed by: Santhosh Ramírez MD 01/07/2018 6:22 AM EDT
[2018-01-07] MEDS: Baclofen 10 MG Tablet PO SCH ×3 (08:40→17:30)
[2018-01-07] MEDS: Metoprolol Tartrate 25 MG Tablet PO SCH ×2 (08:40→21:37)
[2018-01-07] MEDS: Multivitamin/Minerals Therapeutic Tablet PO SCH (08:40)
[2018-01-07] MEDS: Gabapentin 400 MG Capsule PO SCH ×3 (08:40→17:30)
[2018-01-07] MEDS: Spironolactone 25 MG Tablet PO SCH (08:40)
[2018-01-07] MEDS: Insulin NovoLOG Aspart Correctional Sugar Inj SQ SCH ×4 (08:41→21:41)
[2018-01-07] MEDS: Polyethylene Glycol 3350 17 GM Packet PO SCH (08:41)
--- NOTE | 2018-01-07 15:51 | P.PNCV ---
- Note Subjective/Hospital Course: 67-year-old male/ initially seen 12/10/17 who resides in a care home facility with history of chronic liver cirrhosis due to prior alcoholism. He used to live with his mother, but apparently he had some fall risk in the past. He does have a wheelchair, but he is able to stand with some assistance. He was having some mild chest pain on the left side. He was unsure if it was related to activity, since he is fairly wheelchair bound. He underwent cardiac workup, which has included a cardiac cath that showed ejection fraction of 60%, left main disease of 30%, proximal LAD 90%, the mid distal LAD 50%, the obtuse marginal 90% and the ramus was 80%. We were consulted to evaluate for coronary artery bypass graft. PAST MEDICAL HISTORY: bradycardia, alcoholic cirrhosis of the liver, coronary artery disease with prior non-ST segment [place] with stenting of the LAD in 2013, esophageal reflux, history of esophageal varices with bands in 2014, hypertension, neuropathy, obesity, thrombocytopenia related to chronic liver disease, lymphangitis of the left lower limb. electively admitted today for surgery 01/04 CABG x 2, ONEAL to LAD, SVG to Ramus, EVH (R) extubated after surgery, CPB time 56min, 3000cc crystalloid, 750cc cell saver, 1500cc EBL 01/05 pt mildly confused, very poor physical strength will need PT/OT 2 person assistance limit narcotics / transfer pt to stepdown, close to nurses station, fall risk PLT 50K ( from 83 preop) hold ASA, no statin for now with hx of liver cirrhosis start low dose BB this pm, consider diuresis in am 01/06 less confused, but very vocal PLT 77K, chest tube dc without difficulty on bid lasix , decrease spironolactone OOB , PT/OT wean 02 01/07 pt requires 2 person assit to ambulate with walker incontinent of urine , unchanged decrease lasix dose, will need to be dc on po lasix x 2 weeks eval for dc to rehab over the weekend Objective: Vital Signs - 24 hr 01/06/18 16:00 01/06/18 16:12 01/06/18 17:27 Temperature Pulse Rate 92 H 92 H 92 H Respiratory Rate Blood Pressure Pulse Oximetry 01/06/18 19:00 01/06/18 19:43 01/06/18 20:00 Temperature 98.7 F Pulse Rate 93 H 94 H Respiratory Rate 18 Blood Pressure 126/60 Pulse Oximetry 95 93 L 01/06/18 21:00 01/06/18 22:00 01/06/18 23:00 Temperature 98.8 F Pulse Rate 98 H 92 H 82 Respiratory Rate 20 Blood Pressure 114/56 L Pulse Oximetry 96 01/07/18 00:00 01/07/18 01:00 01/07/18 02:00 Temperature Pulse Rate 84 82 86 Respiratory Rate Blood Pressure Pulse Oximetry 01/07/18 03:00 01/07/18 04:00 01/07/18 05:00 Temperature 97.9 F Pulse Rate 86 84 78 Respiratory Rate 18 Blood Pressure 134/61 Pulse Oximetry 93 L 01/07/18 06:00 01/07/18 07:00 01/07/18 07:49 Temperature Pulse Rate 77 72 Respiratory Rate Blood Pressure Pulse Oximetry 96 01/07/18 08:00 01/07/18 08:17 01/07/18 09:00 Temperature 97.8 F Pulse Rate 80 85 82 Respiratory Rate 18 Blood Pressure 134/67 Pulse Oximetry 99 01/07/18 10:00 01/07/18 11:00 01/07/18 11:27 Temperature 98.3 F Pulse Rate 92 H 82 82 Respiratory Rate 16 Blood Pressure 109/54 L Pulse Oximetry 95 01/07/18 12:00 01/07/18 13:00 01/07/18 13:34 Temperature Pulse Rate 78 82 Respiratory Rate Blood Pressure Pulse Oximetry 96 01/07/18 14:00 01/07/18 15:00 01/07/18 15:32 Temperature 97.9 F Pulse Rate 82 86 78 Respiratory Rate 16 Blood Pressure 148/72 H Pulse Oximetry 99 GENERAL: A&O / general weakness SKIN: Warm and dry. prevena dressing to chest , incision intact to right leg HEAD: Normocephalic. EYES: No scleral icterus. No injection or drainage. NECK: Supple, trachea midline. No JVD or lymphadenopathy. CARDIOVASCULAR: Regular rate and rhythm without murmurs, gallops, or rubs. general edema RESPIRATORY: Breath sounds equal bilaterally. No accessory muscle use. diminished in bases GASTROINTESTINAL: Abdomen soft, non-tender, nondistended. MUSCULOSKELETAL: No cyanosis, or edema. BACK: Nontender without obvious deformity. No CVA tenderness. Labs: Laboratory Results - last 12 hr 01/04/18 01/07/18 01/07/18 06:30 04:00 04:00 WBC 8.3 RBC 2.90 L Hgb 9.3 L Hct 26.8 L MCV 92.4 MCH 32.1 MCHC 34.8 RDW 15.9 Plt Count 59 L MPV 9.6 Sodium 142 Potassium 4.0 D Chloride 108 H Carbon Dioxide 30.7 Anion Gap 3 L BUN 21 H Creatinine 0.74 Estimated GFR Greater than 89 POC Glucose Random Glucose 100 Calcium 7.5 L MTS Gel Crossmatch See Detail 01/07/18 01/07/18 08:24 11:38 WBC RBC Hgb Hct MCV MCH MCHC RDW Plt Count MPV Sodium Potassium Chloride Carbon Dioxide Anion Gap BUN Creatinine Estimated GFR POC Glucose 84 120 H Random Glucose Calcium MTS Gel Crossmatch Result Diagrams: 01/07/18 04:00 01/07/18 04:00 Telemetry: NSR - Plan (1) S/P CABG x 2 Plan: hold ASA for PLT<70K no statin with hx of liver disease and cirrhosis start BB this pm OOB PT/OT will dc back to SNF at discharge (2) CAD (coronary artery disease), [place] coronary artery Plan: ASA, no statin with liver disease on BB OOB with PT/OT pain control continue diuresis (3) Liver cirrhosis Plan: resume lactulose limit narcotics (4) Thrombocytopenia Plan: hold ASA for PLT <70k now 77 (7) Muscular deconditioning Plan: PT/OT (2) CAD (coronary artery disease), [place] coronary artery Qualifiers: [place] vs. transplanted heart: [place] heart (3) Liver cirrhosis Qualifiers: Hepatic cirrhosis type: alcoholic cirrhosis
[2018-01-07] MEDS: ALPRAZolam 0.25 MG Tablet PO PRN (17:30)
[2018-01-08] MEDS: Insulin NovoLOG Aspart Correctional Sugar Inj SQ SCH ×4 (09:10→22:34)
[2018-01-08] MEDS: Multivitamin/Minerals Therapeutic Tablet PO SCH (09:35)
[2018-01-08] MEDS: Baclofen 10 MG Tablet PO SCH ×3 (09:35→17:10)
[2018-01-08] MEDS: Metoprolol Tartrate 25 MG Tablet PO SCH ×2 (09:35→20:53)
[2018-01-08] MEDS: Gabapentin 400 MG Capsule PO SCH ×3 (09:35→17:10)
[2018-01-08] MEDS: Spironolactone 25 MG Tablet PO SCH (09:36)
[2018-01-08] MEDS: Docusate Sodium 100 MG Capsule PO SCH ×2 (09:37→20:50)
[2018-01-08] MEDS: Polyethylene Glycol 3350 17 GM Packet PO SCH (09:37)
--- NOTE | 2018-01-08 13:27 | P.PNCV ---
- Note CVT: Post Op Day #: 4 Subjective/Hospital Course: 67-year-old male/ initially seen 12/10/17 who resides in a nursing home facility with history of chronic liver cirrhosis due to prior alcoholism. He used to live with his mother, but apparently he had some fall risk in the past. He does have a wheelchair, but he is able to stand with some assistance. He was having some mild chest pain on the left side. He was unsure if it was related to activity, since he is fairly wheelchair bound. He underwent cardiac workup, which has included a cardiac cath that showed ejection fraction of 60%, left main disease of 30%, proximal LAD 90%, the mid distal LAD 50%, the obtuse marginal 90% and the ramus was 80%. We were consulted to evaluate for coronary artery bypass graft. PAST MEDICAL HISTORY: bradycardia, alcoholic cirrhosis of the liver, coronary artery disease with prior non-ST segment [place] with stenting of the LAD in 2013, esophageal reflux, history of esophageal varices with bands in 2014, hypertension, neuropathy, obesity, thrombocytopenia related to chronic liver disease, lymphangitis of the left lower limb. electively admitted today for surgery 01/04 CABG x 2, ONEAL to LAD, SVG to Ramus, EVH (R) extubated after surgery, CPB time 56min, 3000cc crystalloid, 750cc cell saver, 1500cc EBL 01/05 pt mildly confused, very poor physical strength will need PT/OT 2 person assistance limit narcotics / transfer pt to stepdown, close to nurses station, fall risk PLT 50K ( from 83 preop) hold ASA, no statin for now with hx of liver cirrhosis start low dose BB this pm, consider diuresis in am 01/06 less confused, but very vocal PLT 77K, chest tube dc without difficulty on bid lasix , decrease spironolactone OOB , PT/OT wean 02 01/07 pt requires 2 person assit to ambulate with walker incontinent of urine , unchanged decrease lasix dose, will need to be dc on po lasix x 2 weeks eval for dc to rehab over the weekend 01/08/18 c/o weakness, otherwise doing well Objective: Vital Signs - 24 hr 01/07/18 13:34 01/07/18 14:00 01/07/18 15:00 Temperature Pulse Rate 82 86 Respiratory Rate Blood Pressure Pulse Oximetry 96 01/07/18 15:32 01/07/18 16:15 01/07/18 17:00 Temperature 97.9 F Pulse Rate 78 81 82 Respiratory Rate 16 Blood Pressure 148/72 H Pulse Oximetry 99 01/07/18 18:00 01/07/18 19:00 01/07/18 20:00 Temperature 98.4 F Pulse Rate 96 H 95 H 88 Respiratory Rate 18 Blood Pressure 131/69 Pulse Oximetry 96 01/07/18 20:55 01/07/18 21:00 01/07/18 22:00 Temperature Pulse Rate 72 71 Respiratory Rate Blood Pressure Pulse Oximetry 93 L 01/07/18 23:00 01/08/18 00:00 01/08/18 01:00 Temperature 97.8 F Pulse Rate 92 H 93 H 93 H Respiratory Rate 20 Blood Pressure 127/77 Pulse Oximetry 94 L 01/08/18 02:00 01/08/18 03:00 01/08/18 04:00 Temperature 98.4 F Pulse Rate 88 91 H 79 Respiratory Rate 22 Blood Pressure 113/61 Pulse Oximetry 96 01/08/18 05:00 01/08/18 06:00 01/08/18 07:00 Temperature 98.3 F Pulse Rate 93 H 80 79 Respiratory Rate 20 Blood Pressure 110/53 L Pulse Oximetry 96 01/08/18 07:41 01/08/18 08:00 01/08/18 09:00 Temperature Pulse Rate 70 80 Respiratory Rate Blood Pressure Pulse Oximetry 92 L 01/08/18 10:00 01/08/18 11:00 01/08/18 12:00 Temperature 98.8 F Pulse Rate 60 87 86 Respiratory Rate 20 Blood Pressure 121/63 Pulse Oximetry 95 Labs: Laboratory Results - last 12 hr 01/08/18 01/08/18 07:43 11:11 POC Glucose 90 102 Result Diagrams: 01/07/18 04:00 01/07/18 04:00 Imaging: Chest X-Ray 01/07/18 06:00 CONCLUSION: 1. Left chest tube has been removed and no pneumothorax is visualized. 2. Mild atelectasis versus consolidation at the left lung base. Cardiovascular: RRR Pulmonary: few crackles bilat GI/: NABS, NT Incision: dry and intact - Plan (1) S/P CABG x 2 Plan: hold ASA for PLT<70K no statin with hx of liver disease and cirrhosis start BB this pm OOB PT/OT will dc back to SNF at discharge (2) CAD (coronary artery disease), [place] coronary artery Plan: ASA, no statin with liver disease on BB OOB with PT/OT pain control continue diuresis (3) Liver cirrhosis Plan: resume lactulose limit narcotics (4) Thrombocytopenia Plan: hold ASA for PLT <70k now 77 (7) Muscular deconditioning Plan: PT/OT Continues with peripheral edema and slowly diuresing Will keep another day for PT and diuresis Low dose statin started - should be tolerable with his hepatic dysfunction (2) CAD (coronary artery disease), [place] coronary artery Qualifiers: [place] vs. transplanted heart: [place] heart (3) Liver cirrhosis Qualifiers: Hepatic cirrhosis type: alcoholic cirrhosis
[2018-01-09] MEDS: Spironolactone 25 MG Tablet PO SCH (08:40)
[2018-01-09] MEDS: Metoprolol Tartrate 25 MG Tablet PO SCH ×2 (08:41→21:03)
[2018-01-09] MEDS: Gabapentin 400 MG Capsule PO SCH ×3 (08:41→17:11)
[2018-01-09] MEDS: Multivitamin/Minerals Therapeutic Tablet PO SCH (08:41)
[2018-01-09] MEDS: Docusate Sodium 100 MG Capsule PO SCH ×2 (08:41→21:40)
[2018-01-09] MEDS: Baclofen 10 MG Tablet PO SCH ×3 (08:41→17:11)
[2018-01-09] MEDS: Polyethylene Glycol 3350 17 GM Packet PO SCH (08:42)
[2018-01-09] MEDS: Insulin NovoLOG Aspart Correctional Sugar Inj SQ SCH ×4 (08:42→21:40)
--- NOTE | 2018-01-09 13:05 | P.PNCV ---
- Note CVT: Post Op Day #: 5 Subjective/Hospital Course: 67-year-old male/ initially seen 12/10/17 who [facility] with history of chronic liver cirrhosis due to prior alcoholism. He used to live with his mother, but apparently he had some fall risk in the past. He does have a wheelchair, but he is able to stand with some assistance. He was having some mild chest pain on the left side. He was unsure if it was related to activity, since he is fairly wheelchair bound. He underwent cardiac workup, which has included a cardiac cath that showed ejection fraction of 60%, left main disease of 30%, proximal LAD 90%, the mid distal LAD 50%, the obtuse marginal 90% and the ramus was 80%. We were consulted to evaluate for coronary artery bypass graft. PAST MEDICAL HISTORY: bradycardia, alcoholic cirrhosis of the liver, coronary artery disease with prior non-ST segment [place] with stenting of the LAD in 2013, esophageal reflux, history of esophageal varices with bands in 2014, hypertension, neuropathy, obesity, thrombocytopenia related to chronic liver disease, lymphangitis of the left lower limb. electively admitted today for surgery 01/04 CABG x 2, ONEAL to LAD, SVG to Ramus, EVH (R) extubated after surgery, CPB time 56min, 3000cc crystalloid, 750cc cell saver, 1500cc EBL 01/05 pt mildly confused, very poor physical strength will need PT/OT 2 person assistance limit narcotics / transfer pt to stepdown, close to nurses station, fall risk PLT 50K ( from 83 preop) hold ASA, no statin for now with hx of liver cirrhosis start low dose BB this pm, consider diuresis in am 01/06 less confused, but very vocal PLT 77K, chest tube dc without difficulty on bid lasix , decrease spironolactone OOB , PT/OT wean 02 01/07 pt requires 2 person assit to ambulate with walker incontinent of urine , unchanged decrease lasix dose, will need to be dc on po lasix x 2 weeks eval for dc to rehab over the weekend 01/08/18 c/o weakness, otherwise doing well 01/09/18 No complaints Incontinent Objective: Vital Signs - 24 hr 01/08/18 14:00 01/08/18 14:32 01/08/18 15:00 Temperature 97.9 F Pulse Rate 86 85 83 Respiratory Rate 20 Blood Pressure 128/70 Pulse Oximetry 94 L 01/08/18 16:00 01/08/18 17:00 01/08/18 19:00 Temperature 98.1 F Pulse Rate 88 87 86 Respiratory Rate Blood Pressure 125/78 Pulse Oximetry 93 L 01/08/18 20:00 01/08/18 21:00 01/08/18 22:00 Temperature Pulse Rate 88 90 84 Respiratory Rate Blood Pressure Pulse Oximetry 01/08/18 23:00 01/09/18 00:00 01/09/18 01:00 Temperature 98.3 F Pulse Rate 95 H 97 H 73 Respiratory Rate Blood Pressure 128/61 Pulse Oximetry 97 01/09/18 02:00 01/09/18 03:00 01/09/18 04:00 Temperature 98.3 F Pulse Rate 80 73 73 Respiratory Rate Blood Pressure 120/62 Pulse Oximetry 95 01/09/18 05:00 01/09/18 06:00 01/09/18 07:00 Temperature 98.6 F Pulse Rate 74 72 70 Respiratory Rate 20 Blood Pressure 128/58 L Pulse Oximetry 96 01/09/18 08:00 01/09/18 09:00 01/09/18 10:00 Temperature Pulse Rate 73 80 72 Respiratory Rate Blood Pressure Pulse Oximetry 01/09/18 11:00 01/09/18 12:00 Temperature 98.7 F Pulse Rate 75 66 Respiratory Rate 20 Blood Pressure 133/63 Pulse Oximetry 98 Labs: Laboratory Results - last 12 hr 01/09/18 01/09/18 07:23 10:57 POC Glucose 92 224 H Result Diagrams: 01/07/18 04:00 01/07/18 04:00 Cardiovascular: RRR Telemetry: NSR Pulmonary: CTA GI/: NABS, NT Incision: dry and intact - Plan (1) S/P CABG x 2 Plan: hold ASA for PLT<70K no statin with hx of liver disease and cirrhosis start BB this pm OOB PT/OT will dc back to SNF at discharge (2) CAD (coronary artery disease), [place] coronary artery Plan: ASA, no statin with liver disease on BB OOB with PT/OT pain control continue diuresis (3) Liver cirrhosis Plan: resume lactulose limit narcotics (4) Thrombocytopenia Plan: hold ASA for PLT <70k now 77 (7) Muscular deconditioning Plan: PT/OT Stop lasix Transfer back to his SNF in AM. PT/OT (2) CAD (coronary artery disease), [place] coronary artery Qualifiers: [place] vs. transplanted heart: [place] heart (3) Liver cirrhosis Qualifiers: Hepatic cirrhosis type: alcoholic cirrhosis
[2018-01-10] MEDS: Gabapentin 400 MG Capsule PO SCH ×2 (08:01→12:53)
[2018-01-10] MEDS: Metoprolol Tartrate 25 MG Tablet PO SCH (08:01)
[2018-01-10] MEDS: Baclofen 10 MG Tablet PO SCH ×2 (08:01→12:53)
[2018-01-10] MEDS: Multivitamin/Minerals Therapeutic Tablet PO SCH (08:02)
[2018-01-10] MEDS: Spironolactone 25 MG Tablet PO SCH (08:02)
[2018-01-10 09:34] VITALS: RESP 20
[2018-01-10] MEDS: Insulin NovoLOG Aspart Correctional Sugar Inj SQ SCH ×2 (09:34→11:18)
[2018-01-10] MEDS: Polyethylene Glycol 3350 17 GM Packet PO SCH (09:35)
[2018-01-10] MEDS: Docusate Sodium 100 MG Capsule PO SCH (09:35)
--- NOTE | 2018-01-10 15:18 | P.DS ---
Date of admission: 01/04/18 05:06 Primary care physician: Raghu Tripathi MD Attending physician on discharge: Shaista Chua Anticipated date of discharge: 01/10/18 Brief History from admission: 67-year-old male/ initially seen 12/10/17 who resides in a senior living facility with history of chronic liver cirrhosis due to prior alcoholism. He used to live with his mother, but apparently he had some fall risk in the past. He does have a wheelchair, but he is able to stand with some assistance. He was having some mild chest pain on the left side. He was unsure if it was related to activity, since he is fairly wheelchair bound. He underwent cardiac workup, which has included a cardiac cath that showed ejection fraction of 60%, left main disease of 30%, proximal LAD 90%, the mid distal LAD 50%, the obtuse marginal 90% and the ramus was 80%. We were consulted to evaluate for coronary artery bypass graft. PAST MEDICAL HISTORY: bradycardia, alcoholic cirrhosis of the liver, coronary artery disease with prior non-ST segment UT with stenting of the LAD in 2013, esophageal reflux, history of esophageal varices with bands in 2014, hypertension, neuropathy DS: Diagnosis - Discharge Diagnosis (1) S/P CABG x 2 Status: Acute (2) CAD (coronary artery disease), [place] coronary artery Status: Acute (3) Liver cirrhosis Status: Chronic (4) Thrombocytopenia Status: Chronic (5) Neuropathy Status: Chronic (6) Esoph varice other dis Status: Chronic (7) Muscular deconditioning Status: Chronic DS: Medications - Discharge Medications Prescriptions: aspirin 81 mg PO DAILY #30 tab docusate sodium [DOK] 100 mg PO BID #60 cap lactulose 15 ml PO BID #60 ml hgvzyplw-beot-AO-calcium-mins [Thera M Plus (ferrous fumarat)] 1 tab PO DAILY # 30 tab spironolactone [Aldactone] 25 mg PO DAILY #30 tab DS: Summary Hospital Course: electively admitted today for surgery 01/04 CABG x 2, ONEAL to LAD, SVG to Ramus, EVH (R) extubated after surgery, CPB time 56min, 3000cc crystalloid, 750cc cell saver, 1500cc EBL 01/05 pt mildly confused, very poor physical strength will need PT/OT 2 person assistance limit narcotics / transfer pt to stepdown, close to nurses station, fall risk PLT 50K ( from 83 preop) hold ASA, no statin for now with hx of liver cirrhosis start low dose BB this pm, consider diuresis in am 01/06 less confused, but very vocal PLT 77K, chest tube dc without difficulty on bid lasix , decrease spironolactone OOB , PT/OT wean 02 01/07 pt requires 2 person assit to ambulate with walker incontinent of urine , unchanged decrease lasix dose, will need to be dc on po lasix x 2 weeks eval for dc to rehab over the weekend 01/08/18 c/o weakness, otherwise doing well 01/09/18 No complaints incontinent 01/10 doing well, on room air prevena removed from chest some mild surrounding ecchymosis will dc back to rehab today - Time Spent with Patient Total time spent providing and/or coordinating discharge services: Greater than 30 minutes - Quality: AMI Clinical Trial Participant: No - Quality: VTE Deep Vein Thrombosis/Pulmonary Embolism Present on Admission: No Exam Vital signs: Vital Signs 01/09/18 16:00 01/09/18 17:00 01/09/18 18:00 Temperature Pulse Rate 71 78 73 Respiratory Rate Blood Pressure Pulse Oximetry 01/09/18 19:00 01/09/18 20:00 01/09/18 21:00 Temperature 98.3 F Pulse Rate 74 70 74 Respiratory Rate Blood Pressure 140/63 Pulse Oximetry 98 01/09/18 22:00 01/09/18 23:00 01/10/18 00:00 Temperature 98 F Pulse Rate 76 70 71 Respiratory Rate Blood Pressure 116/55 L Pulse Oximetry 97 01/10/18 01:00 01/10/18 02:00 01/10/18 03:00 Temperature 98.1 F Pulse Rate 69 68 70 Respiratory Rate Blood Pressure 136/63 Pulse Oximetry 96 01/10/18 04:00 01/10/18 05:00 01/10/18 06:00 Temperature Pulse Rate 70 66 68 Respiratory Rate Blood Pressure Pulse Oximetry 01/10/18 07:00 01/10/18 08:00 01/10/18 09:00 Temperature 98.4 F Pulse Rate 71 68 68 Respiratory Rate 18 Blood Pressure 128/60 Pulse Oximetry 96 01/10/18 09:34 01/10/18 10:00 01/10/18 11:00 Temperature 98.0 F Pulse Rate 61 62 Respiratory Rate 20 20 Blood Pressure 133/63 Pulse Oximetry 95 01/10/18 12:00 01/10/18 13:00 01/10/18 14:00 Temperature Pulse Rate 62 70 62 Respiratory Rate Blood Pressure Pulse Oximetry Intake & Output 01/09/18 01/10/18 01/10/18 18:59 06:59 18:59 Intake Total 3590 / 3590 240 / 240 Balance 3590 / 3590 240 / 240 Weight 125 kg Intake: Oral 840 / 840 240 / 240 Anesthesia Amount 1999 / 1999 Cell Saver Amount 750 / 750 Other: # Voids 5 # Incontinent Voids 4 4 # Urine Diapers 4 4 Date of Last Bowel Movement 01/09/18 01/09/18 01/09/18 # Bowel Movements 1 - Constitutional no acute distress - Routine HEENT Exam Head: Present: normocephalic - Routine Neck Exam Present: supple, full ROM - Routine Chest/Breast/Axilla Exam Chest wall: Present: tenderness - Routine Respiratory Exam Present: decreased breath sounds, CTA bilaterally - Routine Cardiovascular Exam Present: RRR, S1, S2 - Routine Abdominal Exam Present: soft, normoactive bowel sounds, tenderness - Routine Extremities Exam Present: edema, full ROM, pulses intact - Routine Skin Exam Present: wounds Comments: sternal incision intact and well approximated right leg incision intact with some mild yellowish drainage - Routine Neurological Exam Present: alert, oriented X3, CN II-XII intact Results Procedures completed during hospitalization: Date of procedure: 01/04/18 Procedure: CABG x 2 ONEAL to LAD SVG to Ramus EVH (R) Labs on day of discharge: Labs from last 24 hours 01/10/18 01/10/18 01/09/18 11:03 07:33 21:06 POC Glucose 102 94 92 01/09/18 16:17 POC Glucose 88 - Impressions ITS Impressions Chest X-Ray 01/07/18 06:00 CONCLUSION: 1. Left chest tube has been removed and no pneumothorax is visualized. 2. Mild atelectasis versus consolidation at the left lung base. Discharge Plan - Discharge Disposition Patient Disposition: Discharge to SNF - Discharge Condition Condition: Good - Discharge Order Discharge Orders: Discharge Order (Routine); Ordered 01/10/18 Ordered By: Suzi Jeronimo - Discharge Details Anticipated Discharge Date: 01/10/18 - Physicians Team Primary Care Provider: Raghu Tripathi Attending Provider: Shaista Chua Other Providers: [employer],Insurance ; [facility] - Rxs /Orders / Referrals /Forms Prescriptions: New aspirin 81 mg Tablet,Chewable 81 mg PO DAILY Qty: 30 RF: 2 atorvastatin [Lipitor] 10 mg Tablet 10 mg PO HS RF: 0 carvedilol [Coreg] 3.125 mg Tablet 3.125 mg PO BID Qty: 60 RF: 2 docusate sodium [DOK] 100 mg Capsule 100 mg PO BID Qty: 60 RF: 0 furosemide [Lasix] 20 mg Tablet 40 mg PO DAILY Qty: 30 RF: 0 lactulose 20 gram/30 mL Solution 15 ml PO BID Qty: 60 RF: 20 wqegqkbw-qclz-PG-calcium-mins [Thera M Plus (ferrous fumarat)] 9 mg iron-400 mcg Tablet 1 tab PO DAILY Qty: 30 RF: 2 potassium chloride 8 mEq Capsule, Extended Release 8 meq PO DAILY Qty: 30 RF: 0 spironolactone [Aldactone] 25 mg Tablet 25 mg PO DAILY Qty: 30 RF: 2 Continue alprazolam [Xanax] 0.25 mg Tablet 0.25 mg PO PRN PRN (Reason: Anxiety) baclofen 10 mg Tablet 10 mg PO TID buspirone 10 mg Tablet 10 mg PO TID escitalopram oxalate [Lexapro] 20 mg Tablet 20 mg PO DAILY gabapentin 400 mg Capsule 400 mg PO TID omega 2-gqv-gjc-fish oil [[place]-3] 350 mg-235 mg- 90 mg-597 mg Capsule, Delayed Release(Dr/Ec) 1 tab PO DAILY oxycodone 5 mg Tablet 2.5 mg PO Q6H PRN (Reason: Pain) pantoprazole 40 mg Tablet,Delayed Release (Dr/Ec) 40 mg PO DAILY Discontinued carvedilol 6.25 mg Tablet 6.25 mg PO DAILY furosemide 20 mg Tablet 20 mg PO DAILY ondansetron HCl [Zofran] 8 mg Tablet 8 mg PO PRN PRN (Reason: 1-2 HRS PRIOR TO RADIATION) spironolactone 50 mg Tablet 50 mg PO DAILY Ambulatory Orders / Order Sets / DME: XR chest 2V PA&LAT (Routine) Timeframe: 2 Days Location: Determined by Patient Ordered By: Suzi Jeronimo Basic Metabolic Panel (Routine) Timeframe: 2 Weeks Location: Determined by Patient Ordered By: Suzi Jeronimo Complete Blood Count NO Diff (Routine) Timeframe: 2 Weeks Location: Determined by Patient Ordered By: Suzi Jeronimo Referrals: Jina Cisneros MD [Physician] - See Instructions ( Your appointment has been scheduled for [02/01/18] at [1:30 PM] If you cannot make this appointment, please call the office to reschedule ) Raghu Tripathi MD [Primary Care Provider] - See Instructions ( WILL SEE YOU AT [facility] ) Suzi Jeronimo [ADVANCE RN PRACTITIONER] - See Instructions ( Your appointment has been scheduled for [01/27/18] at [10:45 AM] If you cannot make this appointment, please call the office to reschedule ) - Discharge Instructions Patient Printed Instructions: Coronary Artery Bypass Graft (DC) Additional Instructions: PREVENA Single Use Negative Wound Therapy System Caregiver Instruction Sheet 1. A Prevena dressing system was applied to the chest incision during surgery , to promote wound healing. It works via a suction device (negative pressure wound therapy) to remove low to moderate levels of exudate (drainage) and infectious materials. We recommend that the device stay in place for up to seven days, from day of surgery. 2. Day of Surgery___01/04/18 Day of Removal ___01/11/18 3. The dressing should only be removed by a health transitions rn care coordinator. Please arrange removal of device to coincide with Home Health visit and or with Nursing staff at Rehab 4. If skin reddening or irritation of skin occurs, or excessive drainage, please notify the Cardiovascular Surgeons office at [phone]. 5. Light showering is permissible; however the pump should be disconnected and placed in safe location, where it will not get wet. The dressing should not be exposed to direct spray or submerged in water. No bath tub / shower only. Ensure the end of the tubing attached to the dressing is facing down so that water does not enter the top of the tube. 6. To remove Prevena dressing: press purple button to turn off device / remove the suction. Then disconnect the tubing from the pump. The fixation strips should be stretched away from the skin and the dressing lifted at one corner and peeled back until it has been fully removed. 7. After removal, it is ok to shower daily using liquid dial soap and clean wash cloth, rinse and pat dry, and leave incision open to air dry. For any concerns regarding Prevena dressing, and or wounds, please contact Soheila Ghosh, patient navigator at [phone] or notify the Cardiovascular Surgeons office at [phone]. Incentive spirometry Q1 hr x 10, while awake, also use acapella device hourly whole awake Sternal Breast Bone Precautions: NO pushing or pulling, ( pt must use sternal pillow to support chest with all activities and with coughing ( takes up to 3 months breast bone to heal ) Daily incision care: ok to shower daily, no tub bath. Wash all incisions with liquid dial soap, clean wash cloth to each site, rinse and pat dry. Observe for any signs of infection, such as drainage which is dark yellow, [place], green or foul smelling. Immediately report to the surgeon any drainage from the chest incision, or legs, and for any abnormal drainage from the chest tube sites. Notify surgeon if any temp >101.5 degrees F. When specialty dressing removed/ or if you do not have one, continue to shower daily as above, then rinse and pat incision dry and paint with betadine daily x 5 days. Allow steri strips to fall off if you have any. Avoid lotions, creams, salves, oils, etc. for the first month Please see attached forms for additional instructions regarding post Open Heart specialty wound vacuum dressings. Prevena , Dressing to be removed by Nursing staff on __01/11/[address] Chua patients , please obtain CBC, BMP, PA & Lat CXR in 2 weeks, results to Dr. Chua ( prescription will be given) ( ) (Tele: [phone]) , F/U appointment: as per DC instructions: PCP in 2 weeks, CV surgeon 2 weeks, Loom Stop Checker 3-4 weeks For any questions regarding incisions/ dressing / meds / post op care or above Symptoms, Wednesday 8am-5pm Heart & Vascular Surgery Office ( Dr. Restrepo & Dr. Chua), After Hours / Nights (5pm -8am) Weekends and Holidays Please call [facility] Cardiac Intermediate Care Unit (CIC) Charge Nurse
[2018-01-10 15:44] VITALS: BP 129/58; TEMP 98.3; O2SAT 97
[2018-01-10 16:25] VITALS: PULSE 74
== END 2018-01-10 17:34 ==
LOC: HSDI 05:06 → HCVI 12:40 → HCPC 01-05 10:32
PROVIDERS: ADMIT Thoracic Surgery (Cardiothoracic Vascular Surgery); ATTEND Thoracic Surgery (Cardiothoracic Vascular Surgery)